=== PATIENT | male | born 1955 | race Hispanic/Latino ===

== ENCOUNTER 2017-10-23 14:29 | Inpatient (IN) | payer OTHER ==
[2017-10-23] MEDS ORDERED: MORPHINE 4 MG/ML SYR ONE (15:16)
[2017-10-23] MEDS ORDERED: TETANUS & DIPHTHERIA TOX,ADULT 0.5 ML VIAL ONE (15:17)
[2017-10-23] MEDS ORDERED: NA CHLORIDE 0.9% 1,000 ML ONE (15:17)
[2017-10-23] MEDS ORDERED: ONDANSETRON 4 MG/2 ML VIAL ONE (15:17)
[2017-10-23] MEDS ORDERED: VANCOMYCIN 1 GM/250 ML BAG ONE (15:17)
[2017-10-23] MEDS ORDERED: PIPER/TAZO/NS 3.375gm 3.375 GM/100 ML BAG ONE (15:18)
[2017-10-23 15:29] LABS: Absolute Lymphocytes (CBC) 2.4 K/uL (0.7-4.9); Absolute Monocytes 0.8 K/uL (0.1-1.3); Absolute Neutrophil 8.4 K/uL (1.8-8.0); Basophils % 0.8 % (0-1.3); Eosinophils % 5.9 % (0-4.4); Hematocrit 29.7 % (39.6-49.0); Lymphocytes % 19.3 % (15.3-44.8); MCH 31.5 pg (27.0-35.0); MCV 92.1 fL (80-100); MPV 9.8 fL (7.6-11.3); Monocytes % 6.7 % (3.3-12.3); RBC Red Blood Cell Count 3.22 M/uL (4.33-5.43)
[2017-10-23 15:33] LABS: Protime INR 0.96
--- NOTE | 2017-10-23 15:52 | RAD REPORT ---
EXAM DESCRIPTION: VAS - Upper Lower Extrem Art Multi - 10/23/2017 3:37 pm CLINICAL HISTORY: Bilateral leg pain COMPARISON: None. TECHNIQUE: Grayscale and Doppler interrogation performed with waveforms obtained along the length of each lower extremity. Visual inspection of the lower extremity arterial tree performed. FINDINGS: Both lower extremities show a biphasic waveform pattern from groin to knee with monophasic waveform pattern in the posterior tibial and dorsalis pedis arteries. No occlusion or focal flow res tricting lesion identifiable. Calcifications are seen in the arterial tree. Common femoral artery velocity values are 104 cm/second on the right and 118 cm/second on the left. F emoral artery velocity values range from 63-93 cm/second on the right and 49-83 cm/second on the left . Popliteal artery velocity was 62 cm/second on the right and 127 cm/second on the left. Posterior ti bial and dorsalis pedis artery velocity values were 63 cm/second and 38 cm per second on the right an d 105 cm/second and 32 cm/second on the left. IMPRESSION: Bilateral lower extremity peripheral arterial disease is present moderate in severity. B iphasic and monophasic waveforms were obtained. No occlusion or focal flow restricting lesion.
[2017-10-23 15:54] LABS: ALT/SGPT 41 U/L (12-78); AST/SGOT 21 U/L (15-37); Albumin 3.3 g/dL (3.4-5.0); Alkaline Phosphatase 143 U/L (45-117); BUN Blood Urea Nitrogen 49 mg/dL (7-18); Bicarbonate 26 mmol/L (21-32); Bilirubin Direct < 0.1 mg/dL (0-0.2); Bilirubin Total 0.3 mg/dL (0.2-1.0); CKMB Creatine Kinase MB < 1.0 ng/mL (0.3-3.6); Creatine Phosphokinase 46 U/L (39-308); Glucose Level 335 mg/dL (74-106); Magnesium 2.6 mg/dL (1.8-2.4); NT PRO-BNP 15617 pg/mL (<125); Potassium 4.1 mmol/L (3.5-5.1); Protein, Total 7.9 g/dL (6.4-8.2); Sodium Level 131 mmol/L (136-145)
--- NOTE | 2017-10-23 15:57 | EDPHYS ---
Physician Documentation [facility] Name: Jelani Martinez Age: 62 yrs Sex: Male : 1955 Arrival Date: 10/23/2017 Time: 14:32 Bed 14 Private MD: Sofiya Werner ED Physician Saleem Molina HPI: 10/23 15:48 This 62 yrs old Male presents to ER via Wheelchair with complaints of Foot luis a Pain, Wound Infection. 15:48 The patient presents with decreased range of motion, an injury, pain, swelling, luis a tenderness. The complaints affect the right foot, dorsum of right foot and right fifth toe. Context: The problem was sustained at an unknown location, resulted from infection, necrosis. Onset: The symptoms/episode began/occurred 3 day(s) ago. Modifying factors: The symptoms are alleviated by nothing, elevation of extremity, the symptoms are aggravated by movement, wearing shoes. Associated signs and symptoms: The patient has no apparent associated signs or symptoms. Severity of symptoms: At their worst the symptoms were moderate, in the emergency department the symptoms are unchanged. The patient has experienced similar episodes in the past, several times. Historical: - Allergies: 14:46 No Known Allergies; iw - Home Meds: 15:21 Phenytoin 300 mg Oral daily [Active]; carvedilol 6.25 mg oral tab daily [Active]; iw aspirin 81 mg Oral TbEC 1 tab once daily [Active]; Renal Vitamin 0.8 mg oral tab daily [Active]; tramadol 50 mg Oral tab twice a day [Active]; acetaminophen-codeine 300-30 mg Oral tab 1 tab every 4 hours for Pain [Active]; lactulose 20 gram/30 mL Oral soln once daily [Active]; Levemir 100 unit/mL subcutaneous soln daily [Active]; 15:22 hydralazine 25 mg Oral tab three times a day [Active]; iw - PMHx: 14:46 Blind in Both Eyes; Diabetes - IDDM; Dialysis; High Cholesterol; Hypertension; iw neuropathy; - PSHx: 15:22 Unable to obtain; cc3 - Immunization history:: Adult Immunizations up to date. - Social history:: Smoking status: Patient/guardian denies using tobacco. - Ebola Screening: : Patient negative for fever greater than or equal to 101.5 degrees Fahrenheit, and additional compatible Ebola Virus Disease symptoms Patient denies exposure to infectious person Patient denies travel to an Ebola-affected area in the 21 days before illness onset No symptoms or risks identified at this time. - Family history:: not pertinent. ROS: 15:48 Constitutional: Negative for fever, chills, and weight loss, Eyes: Negative for injury, luis a pain, redness, and discharge, ENT: Negative for injury, pain, and discharge, Neck: Negative for injury, pain, and swelling, Cardiovascular: Negative for chest pain, palpitations, and edema, Respiratory: Negative for shortness of breath, cough, wheezing, and pleuritic chest pain, Abdomen/GI: Negative for abdominal pain, nausea, vomiting, diarrhea, and constipation, Back: Negative for injury and pain, : Negative for injury, bleeding, discharge, and swelling, Skin: Negative for injury, rash, and discoloration, Neuro: Negative for headache, weakness, numbness, tingling, and seizure, Psych: Negative for depression, anxiety, suicide ideation, homicidal ideation, and hallucinations, Allergy/Immunology: Negative for hives, rash, and allergies, Endocrine: Negative for neck swelling, polydipsia, polyuria, polyphagia, and marked weight changes, Hematologic/Lymphatic: Negative for swollen nodes, abnormal bleeding, and unusual bruising. 15:48 MS/extremity: Positive for decreased range of motion, pain, swelling, tenderness, of the dorsum of right foot and right fifth toe. Exam: 15:48 Constitutional: This is a well developed, well nourished patient who is awake, alert, luis a and in no acute distress. Head/Face: Normocephalic, atraumatic. Eyes: Pupils equal round and reactive to light, extra-ocular motions intact. Lids and lashes normal. Conjunctiva and sclera are non-icteric and not injected. Cornea within normal limits. Periorbital areas with no swelling, redness, or edema. ENT: Nares patent. No nasal discharge, no septal abnormalities noted. Tympanic membranes are normal and external auditory canals are clear. Oropharynx with no redness, swelling, or masses, exudates, or evidence of obstruction, uvula midline. Mucous membranes moist. Neck: Trachea midline, no thyromegaly or masses palpated, and no cervical lymphadenopathy. Supple, full range of motion without nuchal rigidity, or vertebral point tenderness. No Meningismus. Chest/axilla: Normal chest wall appearance and motion. Nontender with no deformity. No lesions are appreciated. Cardiovascular: Regular rate and rhythm with a normal S1 and S2. No gallops, murmurs, or rubs. Normal PMI, no JVD. No pulse deficits. Respiratory: Lungs have equal breath sounds bilaterally, clear to auscultation and percussion. No rales, rhonchi or wheezes noted. No increased work of breathing, no retractions or nasal flaring. Abdomen/GI: Soft, non-tender, with normal bowel sounds. No distension or tympany. No guarding or rebound. No evidence of tenderness throughout. Back: No spinal tenderness. No costovertebral tenderness. Full range of motion. Male : Normal genitalia with no discharge or lesions. Neuro: Awake and alert, GCS 15, oriented to person, place, time, and situation. Cranial nerves II-XII grossly intact. Motor strength 5/5 in all extremities. Sensory grossly intact. Cerebellar exam normal. Normal gait. Psych: Awake, alert, with orientation to person, place and time. Behavior, mood, and affect are within normal limits. 15:48 Skin: Appearance: necrotic right 5th toe, cellulitis, that is mild, that is moderate. 15:48 Neuro: Orientation: is normal, appropriate for stated age, no acute changes, Mentation: appropriate for stated age, no acute changes, slow to respond, Memory: no acute changes, Cerebellar function: is grossly normal based on the patient's age, no acute changes, Motor: moves all fours, Gait: not tested. Vital Signs: 14:44 BP 218 / 84; Pulse 80; Resp 18; Temp 98.1(TE); Pulse Ox 100% on R/A; Weight 79.38 kg; cc3 Height 5 ft. 8 in. (172.72 cm); Pain 10/10; 15:30 BP 241 / 97; Pulse 85; Resp 18; Pulse Ox 100% on R/A; cc3 16:30 BP 195 / 92; Pulse 84; Resp 18; Pulse Ox 100% on R/A; cc3 17:01 BP 195 / 91; Pulse 75; Resp 18; Pulse Ox 100% on R/A; cc3 14:44 Body Mass Index 26.61 (79.38 kg, 172.72 cm) cc3 MDM: 14:40 Patient medically screened. [facility] 15:51 Data reviewed: vital signs, nurses notes, lab test result(s), EKG, radiologic studies, luis a plain films. 10/23 14:46 Order name: Basic Metabolic Panel; Complete Time: 16:17 [facility] 10/23 14:46 Order name: CBC with Diff; Complete Time: 16:17 [facility] 10/23 14:46 Order name: Ckmb; Complete Time: 16:17 [facility] 10/23 14:46 Order name: CPK; Complete Time: 16:17 [facility] 10/23 14:46 Order name: LFT's; Complete Time: 16:17 [facility] 10/23 14:46 Order name: Magnesium; Complete Time: 16:17 [facility] 10/23 14:46 Order name: NT PRO-BNP; Complete Time: 16:17 [facility] 10/23 14:46 Order name: PT-INR; Complete Time: 16:17 [facility] 10/23 14:46 Order name: Ptt, Activated; Complete Time: 16:17 [facility] 10/23 14:46 Order name: Troponin (emerg Dept Use Only); Complete Time: 16:17 [facility] 10/23 14:46 Order name: Sed Rate; Complete Time: 16:17 [facility] 10/23 15:42 Order name: Dilantin [facility] 10/23 15:48 Order name: Blood Culture Adult (2) cc3 10/23 16:06 Order name: Blood Culture Adult (2) bd 10/23 14:46 Order name: XRAY Chest (1 view) [facility] 10/23 14:46 Order name: EKG; Complete Time: 14:47 [facility] 10/23 14:46 Order name: Cardiac monitoring; Complete Time: 14:54 [facility] 10/23 14:46 Order name: Foot Right 3 View XRAY [facility] 10/23 14:57 Order name: Upper Lower Extrem Art Multi; Complete Time: 16:17 EDMS 10/23 16:02 Order name: CONS Physician Consult [facility] 10/23 16:02 Order name: CONS Physician Consult [facility] 10/23 16:02 Order name: NPO EDSC 10/23 14:46 Order name: EKG - Nurse/Tech; Complete Time: 14:55 [facility] 10/23 14:46 Order name: IV Saline Lock; Complete Time: 16:18 [facility] 10/23 14:46 Order name: Labs collected and sent; Complete Time: 16:18 [facility] 10/23 14:46 Order name: O2 Per Protocol; Complete Time: 14:55 [facility] 10/23 14:46 Order name: O2 Sat Monitoring; Complete Time: 14:55 [facility] Administered Medications: 15:40 Drug: morphine 2 mg Route: IVP; Site: right forearm; cc3 15:45 Drug: Zofran 4 mg Route: IVP; Site: right forearm; cc3 17:05 Follow up: Response: No adverse reaction cc3 15:50 Drug: Zosyn 3.375 grams Route: IVPB; Infused Over: 60 mins; Site: right forearm; cc3 17:05 Follow up: IV Status: Completed infusion cc3 15:50 Drug: NS 0.9% 1000 ml Route: IV; Rate: 75 ml/hr; Site: right forearm; cc3 17:04 Follow up: IV Status: Infusion continued upon admission cc3 16:00 Drug: Tetanus-Diphtheria Toxoid Adult 0.5 ml {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 Exp: cc3 11/30/2018. Lot #: [id number]. } Route: IM; Site: right deltoid; 17:04 Follow up: Response: No adverse reaction cc3 17:09 Drug: vancoMYCIN 1 grams Route: IVPB; Infused Over: 2 hrs; Site: right forearm; cc3 17:09 Follow up: IV Status: Infusion continued upon admission cc3 Disposition: 10/23/17 15:57 Hospitalization ordered by Rigoberto Easton for Inpatient Admission. Preliminary diagnosis are Gangrene, not elsewhere classified, Type 1 diabetes mellitus, End stage renal disease, Elevated white blood cell count, Anemia, unspecified. - Bed requested for Telemetry/MedSurg (Inpatient). - Status is Inpatient Admission. iw - Condition is Fair. - Problem is new. - Symptoms have improved. UTI on Admission? No Signatures: Dispatcher [employer] Leslie Weeks Corey, MD MD cha Williams, Irene, RN RN Rebeca Power cc3 Corrections: (The following items were deleted from the chart) 14:57 14:47 Lower Extremity Arterial Bilat+US.RAD.BRZ ordered. EDMS EDMS 16:19 15:57 Hospitalization Ordered by Rigoberto Easton DO for Inpatient Admission. Preliminary luis a diagnosis is Gangrene, not elsewhere classified; Type 1 diabetes mellitus; End stage renal disease. Bed requested for Telemetry/MedSurg (Inpatient). Status is Inpatient Admission. Condition is Fair. Problem is new. Symptoms have improved. UTI on Admission? No. luis a 16:53 16:19 10/23/2017 15:57 Hospitalization Ordered by Rigoberto Easton DO for Inpatient bd Admission. Preliminary diagnosis is Gangrene, not elsewhere classified; Type 1 diabetes mellitus; End stage renal disease; Elevated white blood cell count; Anemia, unspecified. Bed requested for Telemetry/MedSurg (Inpatient). Status is Inpatient Admission. Condition is Fair. Problem is new. Symptoms have improved. UTI on Admission? No. [facility] 18:00 16:53 10/23/2017 15:57 Hospitalization Ordered by Rigoberto Easton DO for Inpatient iw Admission. Preliminary diagnosis is Gangrene, not elsewhere classified; Type 1 diabetes mellitus; End stage renal disease; Elevated white blood cell count; Anemia, unspecified. Bed requested for Telemetry/MedSurg (Inpatient). Status is Inpatient Admission. Condition is Fair. Problem is new. Symptoms have improved. UTI on Admission? No. bd
--- NOTE | 2017-10-23 15:57 | ER ---
Nurse's Notes [facility] Name: Jelani Martinez Age: 62 yrs Sex: Male : 1955 Arrival Date: 10/23/2017 Time: 14:32 Bed 14 Private MD: Sofiya Werner Diagnosis: Gangrene, not elsewhere classified;Type 1 diabetes mellitus;End stage renal disease;Elevated white blood cell count;Anemia, unspecified Presentation: 10/23 14:44 Presenting complaint: Child states: sent from Dr. Velez's office for infected pinky toe iw on right foot. Transition of care: patient was received from another setting of care (ambulatory specialty care practice). Onset of symptoms was October 23, 2017. Risk Assessment: Do you want to hurt yourself or someone else? Patient reports no desire to harm self or others. Care prior to arrival: Injury dressed. 14:44 Method Of Arrival: Wheelchair iw 14:44 Acuity: SHINE 3 iw 14:44 Initial Sepsis Screen: Does the patient meet any 2 criteria? No. Patient's initial cc3 sepsis screen is negative. Does the patient have a suspected source of infection? No. Patient's initial sepsis screen is negative. Triage Assessment: 14:48 General: Appears in no apparent distress. General: Appears uncomfortable, romansh cc3 speaking only. Behavior is cooperative, anxious. 14:48 Pain: Complains of pain in right foot. EENT: Parent/caregiver reports the patient cc3 having the patient is blind as per patient's daughter. Neuro: Level of Consciousness is awake, alert, obeys commands, Oriented to person, place, time. Cardiovascular: Denies chest pain. Respiratory: Airway is patent Respiratory effort is even, unlabored, Respiratory pattern is regular, symmetrical. GI: No signs and/or symptoms were reported involving the gastrointestinal system. : No signs and/or symptoms were reported regarding the genitourinary system. Derm: No signs and/or symptoms reported regarding the dermatologic system. Derm: Wound noted right foot. Musculoskeletal: No signs and/or symptoms reported regarding the musculoskeletal system. Historical: - Allergies: 14:46 No Known Allergies; iw - Home Meds: 15:21 Phenytoin 300 mg Oral daily [Active]; carvedilol 6.25 mg oral tab daily [Active]; iw aspirin 81 mg Oral TbEC 1 tab once daily [Active]; Renal Vitamin 0.8 mg oral tab daily [Active]; tramadol 50 mg Oral tab twice a day [Active]; acetaminophen-codeine 300-30 mg Oral tab 1 tab every 4 hours for Pain [Active]; lactulose 20 gram/30 mL Oral soln once daily [Active]; Levemir 100 unit/mL subcutaneous soln daily [Active]; 15:22 hydralazine 25 mg Oral tab three times a day [Active]; iw - PMHx: 14:46 Blind in Both Eyes; Diabetes - IDDM; Dialysis; High Cholesterol; Hypertension; iw neuropathy; - PSHx: 15:22 Unable to obtain; cc3 - Immunization history:: Adult Immunizations up to date. - Social history:: Smoking status: Patient/guardian denies using tobacco. - Ebola Screening: : Patient negative for fever greater than or equal to 101.5 degrees Fahrenheit, and additional compatible Ebola Virus Disease symptoms Patient denies exposure to infectious person Patient denies travel to an Ebola-affected area in the 21 days before illness onset No symptoms or risks identified at this time. - Family history:: not pertinent. Screenin:48 Abuse screen: Denies threats or abuse. cc3 14:48 Nutritional screening: On renal diet. Tuberculosis screening: No symptoms or risk cc3 factors identified. Fall Risk IV access (20 points). Ambulatory Aid- Crutches/Cane/Walker (15 pts). Gait- Weak (10 pts.). Mental Status- Oriented to own ability (0 pts). Sepsis Screening: . Infection: Patient has suspected or documented infection. Assessment: 14:48 Reassessment: see triage assessment;. cc3 15:30 Reassessment: Patient and/or family updated on plan of care and expected duration. Pain cc3 level reassessed. Patient is alert, oriented x 3, equal unlabored respirations, skin warm/dry/pink. Patient's daughter Peidad Richardson left her mobile number [phone]. 16:30 Reassessment: Patient and/or family updated on plan of care and expected duration. Pain cc3 level reassessed. Patient is alert, oriented x 3, equal unlabored respirations, skin warm/dry/pink. Patient states feeling better. Patient states symptoms have improved. 17:20 Reassessment: Patient is alert, oriented x 3, equal unlabored respirations, skin cc3 warm/dry/pink. for admission to room 207, report called to nurse Roselyn. Patient states feeling better. Vital Signs: 14:44 BP 218 / 84; Pulse 80; Resp 18; Temp 98.1(TE); Pulse Ox 100% on R/A; Weight 79.38 kg; cc3 Height 5 ft. 8 in. (172.72 cm); Pain 10/10; 15:30 BP 241 / 97; Pulse 85; Resp 18; Pulse Ox 100% on R/A; cc3 16:30 BP 195 / 92; Pulse 84; Resp 18; Pulse Ox 100% on R/A; cc3 17:01 BP 195 / 91; Pulse 75; Resp 18; Pulse Ox 100% on R/A; cc3 14:44 Body Mass Index 26.61 (79.38 kg, 172.72 cm) cc3 ED Course: 14:32 Patient arrived in ED. sb2 14:32 Sofiya Werner MD is Private Physician. sb2 14:40 Saleem Molina MD is Attending Physician. luis a 14:44 Arm band placed on right wrist. cc3 14:44 Patient has correct armband on for positive identification. Placed in gown. Bed in low cc3 position. Call light in reach. Side rails up X 1. Adult w/ patient. 14:45 Triage completed. iw 15:00 Note: PT IN US . ml 15:00 Initial lab(s) drawn, by me, sent to lab. Inserted saline lock: 20 gauge in right cc3 forearm, using aseptic technique. Blood collected. 15:04 EKG done, by finishing lab technician. reviewed by Saleem Molina MD. at1 15:37 Upper Lower Extrem Art Multi In Process Unspecified. EDMS 15:50 XRAY Chest (1 view) In Process Unspecified. EDMS 15:50 Foot Right 3 View XRAY In Process Unspecified. EDMS 15:54 Rigoberto Easton DO is Hospitalizing Provider. luis a 17:50 No provider procedures requiring assistance completed. hj 17:50 Patient admitted, IV remains in place. intact. hj 18:00 Baldemar Cano, RN is Primary Nurse. 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 Exp: cc3 11/30/2018. Lot #: [id number]. } Route: IM; Site: right deltoid; 17:04 Follow up: Response: No adverse reaction cc3 17:09 Drug: vancoMYCIN 1 grams Route: IVPB; Infused Over: 2 hrs; Site: right forearm; cc3 17:09 Follow up: IV Status: Infusion continued upon admission cc3 Outcome: 15:57 Decision to Hospitalize by Provider. luis a 17:50 Admitted to Med/surg accompanied by nurse, via stretcher, room 207, with chart, Report hj called to SHADY Howell 17:50 Condition: stable hj 17:50 Instructed on the need for admit, Demonstrated understanding of instructions. 18:00 Patient left the ED. iw Signatures: Dispatcher [employer] EDMS Saleem Molina MD MD cha Williams, Irene, RN Val Mercado Amanda, exercise rider EKG Tat1 Baldemar Cano RN RN hj Billeau, Sheri sbRebeca Weiss cc3
[2017-10-23] MEDS ORDERED: ACETAMINOPHEN 500 MG TAB PO PRN (17:04)
[2017-10-23] MEDS ORDERED: ONDANSETRON 4 MG/2 ML VIAL IV PRN (17:04)
--- NOTE | 2017-10-23 17:26 | EKG ---
Test Date: 2017-10-23 Test Time: 14:54:27 Emblem Maker: RAPHAEL MEASUREMENT RESULTS: Intervals: Rate: 80 IL: 156 QRSD: 96 QT: 432 QTc: 498 [place]: P: 15 IL: 156 QRS: -13 T: 38 INTERPRETIVE STATEMENTS: Normal sinus rhythm Septal infarct, age undetermined Abnormal ECG Compared to ECG 06/24/2016 14:09:56 Sinus bradycardia no longer present Myocardial infarct finding still present Electronically Signed On 10-23-17 17:25:55 CDT by Clinton Mckeon
[2017-10-23] MEDS ORDERED: VANCOMYCIN 500 MG in NA CHLORIDE 0.9% 100 ML IVPB SCH (17:30)
--- NOTE | 2017-10-23 18:12 | RAD REPORT ---
EXAM DESCRIPTION: RAD - Chest Single View - 10/23/2017 3:50 pm CLINICAL HISTORY: Wound infection, preoperative examination COMPARISON: June 2016 TECHNIQUE: AP portable chest image was obtained 1541 hour . FINDINGS: Lung volumes are very low. No peripheral mass or consolidation suspected. When adjusting f or the poor inspiratory effort, lung markings are not substantially different. Trachea is midline. He art and vasculature are normal. No measurable pleural effusion and no pneumothorax. No gross bony abn ormality seen. No acute aortic findings suspected. IMPRESSION: No acute cardiopulmonary process. Lung markings are not substantially different from comparison.
--- NOTE | 2017-10-23 18:14 | RAD REPORT ---
EXAM DESCRIPTION: RAD - Foot Right 3 View - 10/23/2017 3:50 pm CLINICAL HISTORY: Soft tissue infection fifth toe COMPARISON: None. FINDINGS: Soft tissues of the fifth toe are mildly prominent. No foreign body is seen. Patient has p rominent arterial calcifications. Phalanges of the fifth toe show no acute or destructive process. Os teomyelitis can be present prior to radiographic bone destruction. Elsewhere in the foot there degenerative changes present and the bones are relatively osteopenic for patient age. No acute or destructive process noted. IMPRESSION: No acute or destructive findings to the fifth toe. Osteomyelitis can be present prior to radiographic bone destruction.
--- NOTE | 2017-10-23 18:17 | P.HP ---
Certification for Inpatient Patient admitted to: Inpatient With expected LOS: >2 Midnights Patient will require the following post-hospital care: Other Practitioner: I am a practitioner with admitting privileges, knowledge of patient current condition, hospital course, and medical plan of care. Services: Services provided to patient in accordance with Admission requirements found in Title 42 Section 412.3 of the Code of Federal Regulations Patient History Date of Service: 10/23/17 Primary Care Provider: [place], Surgery-Dr. Velez; Nephrology-Dr. Werner Reason for admission: Right 5th toe gangrene History of Present Illness: 62 year old male from a [facility] sent to the ER after he was evaluated by surgery. Patient has right gangrene of 5th toe. Surgery evaluated wound today. Surgery recommends amputation. Patient was admitted for treatment. Patient has dementia and not able to give appropriate information. No family members were present. Patient denied any fever, chills. Surgery plans for intervention tomorrow. Patient has history of diabetes, end-stage renal disease on dialysis, previous amputations. Patient denies any significant chest pain, shortness of breath, fever or chills. Patient currently lives [facility]. He has been there for quite some time. Allergies No Known Drug Allergies Allergy (Verified 06/12/16 23:42) Unknown No Known Allergies Allergy (Uncoded 07/06/16 22:09) Unknown Home medications list reviewed: Yes Home Medications: Acetaminophen with Codeine [Acetaminophen-Cod #3 Tablet] 1 tab PO Q6H PRN Aspirin [Aspirin EC 81 MG] 81 mg PO DAILY 06/12/16 Docusate [Colace Cap*] 100 mg PO DAILY 06/12/16 Folic Acid/Vit Bcomp,C [Shell-Shannon Tablet] 1 tab PO DAILY 06/12/16 Gabapentin 300 mg PO DAILY 06/12/16 Phenytoin Sodium Extended [Phenytek] 200 mg PO TID 06/12/16 Carvedilol [Coreg*] 12.5 mg PO BID #60 tab 06/15/16 Insulin Detemir [Levemir Flextouch] 10 units SQ BEDTIME #1 insuln.pen 06/15/16 Sulfamethoxazole/Trimethoprim [Bactrim Ds Tablet] 2 each PO BID #40 tablet 07/08 Tramadol HCl [Ultram] 50 mg PO Q6HR PRN #20 tablet 07/08/16 - Past Medical/Surgical History Diabetic: Yes -: Diabetes mellitus type 2 -: HTN -: Blindness -: End-stage renal disease on dialysis -: Hyperlipidemia -: Diabetic neuropathy -: Previous amputations -: Seizure disorder -: dialysis catheter placement -: amputation left 4th toe Psychosocial/ Personal History: Patient is currently at the [facility]. - Family History Mother -: Diabetes - Social History Smoking Status: Unknown if ever smoked Alcohol use: No CD- Drugs: No Caffeine use: Yes Place of Residence: [place] Review of Systems General: Unremarkable Eyes: Unremarkable ENT: Unremarkable Respiratory: Unremarkable Cardiovascular: Unremarkable Gastrointestinal: Unremarkable Genitourinary: Unremarkable Musculoskeletal: Unremarkable Integumentary: As per HPI Neurological: As per HPI Lymphatics: Unremarkable Physical Examination - Vital Signs Temperature: 98.1 F Blood Pressure: 195/91 Pulse: 75 Respirations: 18 - Physical Exam General: Alert, In no apparent distress, Cooperative, Demented HEENT: Atraumatic, Other (Patient is blind ) Neck: Supple, No Thyromegaly Respiratory: Clear to auscultation bilaterally, Normal air movement Cardiovascular: Normal pulses, Regular rate/rhythm Gastrointestinal: Normal bowel sounds, Soft and benign, Non-distended, No tenderness, No masses, No rebound, No guarding Musculoskeletal: No erythema, No tenderness, No warmth Integumentary: Other (Right foot bandaged. Patient reported with of right 5th toe gangrene.) Neurological: Normal speech, Normal strength at 5/5 x4 extr, Normal tone, Dementia - Studies Laboratory Data (last 24 hrs) 10/23/17 15:00: PT 11.3, INR 0.96, APTT 23.2 L 10/23/17 15:00: WBC 12.4 H, Hgb 10.1 L, Hct 29.7 L, Plt Count 320 10/23/17 15:00: Sodium 131 L, Potassium 4.1, BUN 49 H, Creatinine 7.20 H*, Glucose 335 H, Magnesium 2.6 H, Total Bilirubin 0.3, AST 21, ALT 41, Alkaline Phosphatase 143 H Assessment and Plan - Problems (Diagnosis) (1) Peripheral vascular disease Current Visit: Yes Status: Chronic Plan: Her tear Doppler shows moderate vascular disease. Cardiology has been consulted to further assess. Surgery plans for amputation of the 5th toe. Will continue with IV antibiotic therapy. I will turn the service over to Dr. Vu tomorrow. I will go over the plan of care with her. (2) Anemia Current Visit: Yes Status: Chronic Plan: Patient has anemia of chronic disease likely from chronic dialysis. Currently stable this time. Qualifiers: Anemia type: due to chronic kidney disease Chronic kidney disease stage: on chronic dialysis Qualified Code(s): N18.6 - End stage renal disease; D63.1 - Anemia in chronic kidney disease; Z99.2 - Dependence on renal dialysis (3) Seizure disorder Current Visit: Yes Status: Chronic Plan: Patient will need to be restarted on his medication. (4) Blindness Current Visit: Yes Status: Chronic Plan: This is chronic. (5) Gangrenous toe Onset Date: 07/08/16 Current Visit: No Status: Acute Plan: Patient with 5th toe right side gangrene. Surgery has evaluated patient. Surgery plans for amputation tomorrow. Will continue IV antibiotic therapy. Patient will go back to the [facility] once stable. (6) Diabetes mellitus Onset Date: 07/08/16 Current Visit: No Status: Chronic Plan: Will continue with sliding scale. 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 Nephrology consulted. (8) Hypertension Onset Date: 06/13/16 Current Visit: No Status: Chronic Plan: Will need to continue with his medications. Qualifiers: Hypertension type: renovascular hypertension Qualified Code(s): I15.0 - Renovascular hypertension Discharge Plan: Half-Way Plan to discharge in: Greater than 2 days - Advance Directives Does patient have a Living Will: No Does patient have a Durable POA for Healthcare: No - Code Status/Comfort Care Code Status Assessed: Yes Time Spent Managing Pts Care (In Minutes): 55
[2017-10-23] MEDS: CARVEDILOL 3.125 MG TAB PO SCH (18:51)
[2017-10-23] MEDS: HYDROCODONE/APAP 7.5/325 MG TAB PO PRN (18:51)
[2017-10-23] MEDS ORDERED: PIPER/TAZO/NS 3.375gm 3.375 GM/100 ML BAG IVPB SCH (21:00)
[2017-10-23] MEDS: TRAMADOL HCL 50 MG TAB PO PRN (21:59)
[2017-10-23] MEDS: INSULIN -REGULAR HUMAN 50 UNIT/0.5 ML ML SQ SCH (21:59)
[2017-10-23] MEDS: HYDRALAZINE HCL 25 MG TABLET PO SCH (21:59)
[2017-10-23 23:58] LABS: Urine Appearance CLEAR; Urine Bilirubin NEGATIVE (NEG); Urine Blood NEGATIVE (NEG); Urine Color YELLOW; Urine Glucose 2+ (NEG); Urine Protein 3+ (NEG); Urine Specific Gravity 1.015 (1.005-1.030); Urine Urobilinogen 0.2 mg/dL (0.2-1.0)
[2017-10-24] LABS: Urine Microscopic Reflex ORDER UMIC
[2017-10-24] MEDS: PIPER/TAZO/NS 2.25gm 2.25 GM/50 ML BAG IV SCH ×3 (00:17→17:42)
[2017-10-24] MEDS: HYDROCODONE/APAP 7.5/325 MG TAB PO PRN ×3 (00:17→19:15)
[2017-10-24 00:24] LABS: Urine Bacteria <20 /HPF (NONE SEEN); Urine Culture Reflex Order NOT NEEDED; Urine RBC <5 /HPF (NONE SEEN)
[2017-10-24 01:41] VITALS: BMI 26.6
[2017-10-24] MEDS: TRAMADOL HCL 50 MG TAB PO PRN ×2 (05:19→21:05)
[2017-10-24] MEDS: CARVEDILOL 3.125 MG TAB PO SCH ×2 (05:20→17:41)
[2017-10-24] MEDS: PANTOPRAZOLE 40MG TABLET PO SCH (06:29)
[2017-10-24 07:20] LABS: Absolute Lymphocytes (CBC) 1.6 K/uL (0.7-4.9); Absolute Monocytes 0.8 K/uL (0.1-1.3); Absolute Neutrophil 7.8 K/uL (1.8-8.0); Basophils % 0.7 % (0-1.3); Eosinophils % 6.8 % (0-4.4); Lymphocytes % 14.6 % (15.3-44.8); MCH 31.4 pg (27.0-35.0); MCV 90.2 fL (80-100); MPV 9.6 fL (7.6-11.3); Monocytes % 7.2 % (3.3-12.3); RBC Red Blood Cell Count 2.99 M/uL (4.33-5.43)
[2017-10-24 07:53] LABS: Magnesium 2.4 mg/dL (1.8-2.4); Potassium 4.4 mmol/L (3.5-5.1)
[2017-10-24] MEDS: INSULIN -REGULAR HUMAN 50 UNIT/0.5 ML ML SQ SCH ×4 (08:41→22:37)
[2017-10-24] MEDS: HYDRALAZINE HCL 25 MG TABLET PO SCH ×2 (08:41→21:06)
[2017-10-24] MEDS ORDERED: VANCOMYCIN 1 GM in NA CHLORIDE 0.9% 500 ML IVPB SCH (09:00)
[2017-10-24] MEDS ORDERED: PROPOFOL 200 MG/20 ML VIAL IV ONE (10:31)
[2017-10-24] MEDS ORDERED: LIDOCAINE 1% MPF 5 ML VIAL ONE ×2 (10:31)
[2017-10-24] MEDS ORDERED: MIDAZOLAM HCL 2 MG/2 ML INJ ONE (10:31)
[2017-10-24] MEDS ORDERED: NA CHLORIDE 0.9% 500 ML ONE (10:51)
[2017-10-24] MEDS: CEFAZOLIN/SWI 1gm 1 GM/10 ML SYR ONE ×2 (11:06→11:10)
--- NOTE | 2017-10-24 11:08 | RAD REPORT ---
EXAM DESCRIPTION: Nelda Single View10/24/2017 10:54 am CLINICAL HISTORY: Shortness of breath COMPARISON: October 23, 2017 FINDINGS: Mild bilateral opacities have developed. The heart is mildly to moderately enlarged. IMPRESSION: Mild pulmonary edema
--- NOTE | 2017-10-24 11:37 | P.OP ---
Preoperative diagnosis: Gangrene Right 5th Toe Postoperative diagnosis: Same Primary procedure: Right 5th Toe T-M Amputation Anesthesia: General Estimated blood loss: min Specimen: Toe Findings: as above Complications: None Transferred to: Recovery Room Condition: Good
--- NOTE | 2017-10-24 14:04 | PREOPCON ---
Date of Consultation: 10/23/2017 Reason For Consultation: Gangrene, right 5th toe. History Of Present Illness: The patient is a 62-year-old gentleman with multiple medical problems, w chaitanya [facility] afternoon complaining of severe pain in his right foot. On evaluation, he had gangrene. I advised the daughter to take him to the emergency ro om to be admitted as he needs urgent care. He is awake, but he is confused secondary to mental issue s, unable to provide an adequate review of systems. There have been no fever or chills. There is a foul odor to the wound and the patient just complains about pain. Review of Systems: Otherwise unremarkable. Past Medical History: Significant for diabetes type 2, hypertension, blindness, end-stage renal dise ase, seizure disorder. Past Surgical History: Amputation of the left 4th toe, dialysis catheter placement and fistula surge ry. Allergies: NONE. Social History: The patient does not smoke or drink currently. Family History: Significant for diabetes. Physical Examination: Vital Signs: Stable. He is afebrile. General: He is awake, confused. Head and Neck: No masses. Chest: Clear. Heart: S1, S2. Abdomen: Soft. Extremities: Diminished dorsalis pedis and posterior tibial pulses. The right 5th toes completely b lack. There is surrounding erythema slightly. There is a foul odor to the foot. Laboratory Data: White count on admission was 12.4, today it is 11 with sed rate being greater than 140. INR is within normal limits. Chemistry reviewed. BUN and creatinine are elevated as expected and sugar is high. His chest x-ray reviewed and does not show evidence of volume overload. Doppler study shows diffuse arterial disease. Foot x-ray does not show obvious osteo. Assessment: Gangrene, right 5th toe with peripheral vascular disease. Recommendations: Once the patient is medically stabilized and cleared from Nephrology, we will take the patient to the OR for right 5th transmetatarsal toe amputation. The daughter understands risks, benefits, alternatives, and agrees to procedure. /MODL Voice ID: [id number] Report ID: [id number]
--- NOTE | 2017-10-24 17:05 | P.PN ---
Subjective Date of Service: 10/24/17 Primary Care Provider: [place], Surgery-Dr. Velez; Nephrology-Dr. Werner Chief Complaint: Right 5th toe gangrene Subjective: No C/O voiced, NPO, Doing well (Awaiting Surgical Procedure today) Review of Systems General: As per HPI Physical Examination - Vital Signs Temperature: 98.0 F Blood Pressure: 153/70 Pulse: 69 Respirations: 16 Pulse Ox (%): 98 - Physical Exam General: Alert, In no apparent distress HEENT: Atraumatic, PERRLA, EOMI Neck: Supple, JVD not distended Respiratory: Clear to auscultation bilaterally, Normal air movement Cardiovascular: Regular rate/rhythm, Normal S1 S2 Gastrointestinal: Normal bowel sounds, No tenderness Musculoskeletal: No tenderness Integumentary: Skin breakdown, Skin lesion, Diabetic ulcer Neurological: Normal speech, Normal tone, Normal affect Lymphatics: No axilla or inguinal lymphadenopathy - Studies Medications List Reviewed: Yes Assessment & Plan - Problems (Diagnosis) (1) Gangrenous toe Onset Date: 07/08/16 Current Visit: No Status: Acute Plan: right 5th toe necrosis -Surgery Consulted. Appreciated Reccs -Awaiting for surgical procedure today with Dr Velez -On IV vanc and zosyn -Culture pending (2) Peripheral vascular disease Onset Date: 10/24/17 Current Visit: Yes Status: Chronic (3) Seizure disorder Onset Date: 10/24/17 Current Visit: Yes Status: Chronic (4) CKD (chronic kidney disease), stage III Onset Date: 12/02/14 Current Visit: No Status: Acute (5) Hyperlipidemia Current Visit: No Status: Acute (6) Diabetes mellitus Onset Date: 07/08/16 Current Visit: No Status: Chronic Qualifiers: Diabetes mellitus type: type 2 Diabetes mellitus halfway insulin use: with termite control technician use Diabetes mellitus complication status: with hypoglycemia Diabetes mellitus complication detail: without coma Qualified Code(s): E11.649 - Type 2 diabetes mellitus with hypoglycemia without coma; Z79.4 - [facility] (current) use of insulin (7) ESRD (end stage renal disease) Onset Date: 07/08/16 Current Visit: No Status: Chronic (8) Hypertension Onset Date: 06/13/16 Current Visit: No Status: Chronic Qualifiers: Hypertension type: renovascular hypertension Qualified Code(s): I15.0 - Renovascular hypertension (9) Blindness Onset Date: 10/24/17 Current Visit: Yes Status: Chronic Discharge Plan: Home Plan to discharge in: 72 Hours - Code Status/Comfort Care Code Status Assessed: Yes Critical Care: No
--- NOTE | 2017-10-24 22:31 | OP ---
Date of Procedure: 10/24/2017 Surgeon: Jayy Velez MD Preoperative Diagnosis: Gangrene, right fifth toe. Postoperative Diagnosis: Gangrene, right fifth toe. Procedure: Right fifth toe transmetatarsal amputation. Estimated Blood Loss: Minimal. Specimen: Right fifth toe and metatarsal head. Findings: As above. Anesthesia: General. Complications: None. Disposition: The patient tolerated the procedure in stable condition and taken to Recovery in good g eneral condition. Procedure In Detail: The patient was brought to the OR and placed in supine position. General anest hesia was begun. The patient was prepped and draped in usual sterile fashion. Marcaine 0.5% was inf iltrated locally. A 15-blade was used to make an ellipse of skin around the base of the fifth toe on the right side. Subcutaneous tissue divided. The entire toe excised, sent to Pathology as specimen . The metatarsal head identified, mobilized with sharp and blunt dissection, and the metatarsal head cut. The rough edges were smoothened with a rasp and then wound irrigated. Bleeding controlled wit h cautery and then 2-0 chromic used to approximate the subcutaneous tissue and 3-0 nylon used to loos rylan close the wound. A Hickman drain quarter-inch was placed in the wound for drainage purposes and then sterile dressing was applied. The patient was awakened and taken to Recovery in good general conditi on. /MODL Voice ID: [id number] Report ID: [id number]
[2017-10-25] MEDS: HYDROCODONE/APAP 7.5/325 MG TAB PO PRN ×3 (00:44→17:41)
[2017-10-25] MEDS: PIPER/TAZO/NS 2.25gm 2.25 GM/50 ML BAG IV SCH ×3 (00:44→17:41)
--- NOTE | 2017-10-25 03:02 | CON ---
Additional Consulting Physician: Rigoberto Easton D.O. Reason For Consultation: Elevated BUN and creatinine, fluid management. History Of Present Illness: This is a 62-year-old gentleman, well known to me from the dialysis with significant past medical history of end-stage renal disease, on hemodialysis, TTS, at [facility] em[facility] through left AV arm fistula, hypertension, and hyperlipidemia. The patient was in h is regular state of health. The patient was found to have gangrenous toe. For that reason, the charli ent was admitted to the hospital, seen by surgery plan for amputation. The patient denied any fever, any chills. Lab showed elevation in BNP, elevation in BUN. For that reason, we have been consulted . The patient is due for dialysis today. Past Medical History: Includes; 1.Diabetes complicated with neuropathy, retinopathy. 2.Hypertension. 3.Hyperlipidemia. 4.End-stage renal disease, on hemodialysis, TTS, at [facility] [facility]. Allergies: NO KNOWN DRUG ALLERGIES. Social History: Denies smoking, denies drinking, and denies drug abuse. At [facility], [place]. Family History: Positive for diabetes. Past Surgical History: Includes; 1.Catheter placement. 2.Amputation of the 4th toe. 3.Angioplasty. Review of Systems: Head and Neck: No red eye. No ear pain. GI: No nausea, no vomiting. : No polyuria. No dysuria. No hematuria. RN X RAY: Not applicable. Respiratory: No shortness of breath. Cardiovascular: No chest pain. Neuro: Has neuropathy. Musculoskeletal: Has foot pain. Endocrine: No polydipsia. Skin: No rash. Physical Examination: Vital Signs: When I saw the patient, blood pressure 172/84, pulse of 98. Chest: Faint crackles in the base. Heart: S1, S2. Regular. Abdomen: Soft, nontender. Extremities: Gangrenous toe. Amputation of the 4th toe. Laboratory Data: WBC 11.0, H and H 9.4/27, and platelets are 304. Sodium 134, potassium 4.4, bicarb 24, BUN 62, creatinine 7.7, calcium 8.2, and magnesium 2.4. Medications: Current home medications include tramadol, Bactrim, folic acid, carvedilol 12.5, Tyleno l, and aspirin. Current medications in the hospital include Coreg, hydrocodone, pantoprazole, Zosyn, and vancomycin with the tramadol. Assessment And Plan: 1.End-stage renal disease. We will arrange for the dialysis around the surgery. The patient is candido ared from the renal standpoint for surgery. 2.Hypertension, controlled optimal. We will utilize blood pressure for more ultrafiltration. I am going to go ahead and decrease beta oli. 3.Congestive heart failure. We will ultrafiltrate on the dialysis to establish better volume contro l. 4.Gangrenous toe. Agree with antibiotic, follow up with Surgery. 5.Diabetes as by primary. 6.Over volume. We will challenge the patient with ultrafiltration today. STEPHANIE/YOHANA Voice ID: [id number] Report ID: [id number]
[2017-10-25 05:23] LABS: Absolute Lymphocytes (CBC) 1.6 K/uL (0.7-4.9); Absolute Monocytes 0.9 K/uL (0.1-1.3); Absolute Neutrophil 6.5 K/uL (1.8-8.0); Basophils % 0.5 % (0-1.3); Eosinophils % 6.2 % (0-4.4); Hematocrit 28.8 % (39.6-49.0); Lymphocytes % 16.6 % (15.3-44.8); MCH 32.2 pg (27.0-35.0); MCV 90.9 fL (80-100); MPV 9.2 fL (7.6-11.3); RBC Red Blood Cell Count 3.17 M/uL (4.33-5.43)
[2017-10-25 05:40] LABS: Magnesium 2.4 mg/dL (1.8-2.4); Potassium 3.9 mmol/L (3.5-5.1)
[2017-10-25] MEDS: TRAMADOL HCL 50 MG TAB PO PRN (05:46)
[2017-10-25] MEDS: CARVEDILOL 3.125 MG TAB PO SCH ×2 (05:46→17:40)
[2017-10-25] MEDS: PANTOPRAZOLE 40MG TABLET PO SCH (05:46)
[2017-10-25] MEDS: INSULIN -REGULAR HUMAN 50 UNIT/0.5 ML ML SQ SCH ×4 (07:30→21:28)
[2017-10-25] MEDS: HYDRALAZINE HCL 25 MG TABLET PO SCH ×2 (08:38→20:00)
[2017-10-25] MEDS: HYDROMORPHONE HCL 1 MG/ML INJ IV PRN (11:16)
--- NOTE | 2017-10-25 13:05 | P.PN ---
Subjective Date of Service: 10/25/17 Primary Care Provider: [place], Surgery-Dr. Velez; Nephrology-Dr. Werner Chief Complaint: Right 5th toe gangrene Pt seen and examined at bedside. Doing well overall. No C.o overnight. S.P Toe amputation. C.o today of having pain in the right toe. Added dilaudid Review of Systems General: As per HPI Physical Examination - Vital Signs Temperature: 96.6 F Blood Pressure: 214/97 Pulse: 83 Respirations: 18 Pulse Ox (%): 99 - Physical Exam General: Alert, In no apparent distress HEENT: Atraumatic, PERRLA, EOMI Neck: Supple, JVD not distended Respiratory: Clear to auscultation bilaterally, Normal air movement Cardiovascular: Regular rate/rhythm, Normal S1 S2 Gastrointestinal: Normal bowel sounds, No tenderness Musculoskeletal: Other (Right Toe with Darwin Wrap. No swelling or erthyema noted. Incision site C/D/I) Integumentary: No rashes Neurological: Normal speech, Normal tone, Normal affect Lymphatics: No axilla or inguinal lymphadenopathy - Studies Medications List Reviewed: Yes Assessment & Plan - Problems (Diagnosis) (1) Gangrenous toe Onset Date: 07/08/16 Current Visit: No Status: Acute Plan: right 5th toe necrosis -Surgery Consulted. Appreciated Reccs -S/p Right Toe Amputation POD # 1 -On IV vanc and zosyn -Culture pending -Pain Mgmt with Diluadid and [place] (2) Peripheral vascular disease Onset Date: 10/24/17 Current Visit: Yes Status: Chronic (3) Seizure disorder Onset Date: 10/24/17 Current Visit: Yes Status: Chronic (4) CKD (chronic kidney disease), stage III Onset Date: 12/02/14 Current Visit: No Status: Acute (5) Hyperlipidemia Current Visit: No Status: Acute (6) Diabetes mellitus Onset Date: 07/08/16 Current Visit: No Status: Chronic Qualifiers: Diabetes mellitus type: type 2 Diabetes mellitus halfway insulin use: with halfway use Diabetes mellitus complication status: with hypoglycemia Diabetes mellitus complication detail: without coma Qualified Code(s): E11.649 - Type 2 diabetes mellitus with hypoglycemia without coma; Z79.4 - shelter (current) use of insulin (7) ESRD (end stage renal disease) Onset Date: 07/08/16 Current Visit: No Status: Chronic (8) Hypertension Onset Date: 06/13/16 Current Visit: No Status: Chronic Qualifiers: Hypertension type: renovascular hypertension Qualified Code(s): I15.0 - Renovascular hypertension (9) Blindness Onset Date: 10/24/17 Current Visit: Yes Status: Chronic Discharge Plan: Home Plan to discharge in: 48 Hours - Code Status/Comfort Care Code Status Assessed: Yes Critical Care: No
--- NOTE | 2017-10-25 14:01 | PN ---
Date of Progress Note: 10/25/2017 Subjective: The patient is awake alert complaining of pain in his right foot. Objective: Vital signs are stable. Afebrile. White count is normal. Dressing is clean, dry, and i ntact. Assessment: Status post right fifth toe transmetatarsal amputation. Recommendations: Continue IV antibiotics for the time being. I will add Dilaudid for pain managemen t. Once his pain is controlled [facility] and I ca n follow him up in my office in 2 weeks. /MODL Voice ID: [id number] Report ID: [id number]
[2017-10-25] MEDS ORDERED: LACTULOSE 20 GM/30 ML UCUP PO PRN (15:31)
[2017-10-25] MEDS: CALCIUM CARBONATE CHEW 500MG TAB PO SCH (17:00)
[2017-10-25] MEDS: SEVELAMER CARBONATE 800 MG TABLET PO SCH (17:40)
[2017-10-26] MEDS: PIPER/TAZO/NS 2.25gm 2.25 GM/50 ML BAG IV SCH ×2 (01:00→08:58)
[2017-10-26 01:59] VITALS: O2SAT 97
--- NOTE | 2017-10-26 05:14 | PN ---
Date of Progress Note: 10/25/2017 Subjective: The patient is status post toe amputation, status post dialysis yesterday, tolerated the dialysis. Physical Examination: Vital Signs: Blood pressure 180/90, pulse of 75, afebrile. Chest: Clear to auscultation. Heart: S1, S2. Regular. Abdomen: Soft and nontender. Extremities: Dressing on right foot. Forefoot amputation on the left. Laboratory Data: WBC 9.6, H and H 10.2/28.8. Sodium 137, potassium 3.9, bicarb 29, BUN 37, creatini ne 5.7, calcium 8.2, and magnesium 2.4. Medications: Current medications the patient on its include: 1.Aspirin. 2.Zosyn. 3.Vancomycin. 4.Tums. 5.Carvedilol 3.25. 6.Hydralazine 25 t.i.d. 7.Renvela. 8.Insulin. 9.Pantoprazole. Assessment And Plan: 1.End-stage renal disease, stable. We will arrange for the dialysis tomorrow. 2.Hypertension, uncontrolled. I am going to go ahead and increase his hydralazine to 50 mg t.i.d. a nd we will monitor after dialysis. We will try to challenge the patient. 3.Anemia of chronic kidney disease. Continue Epogen. 4.Secondary hyperparathyroidism, continue binder. 5.Gangrenous toe status post amputation. We will follow up with Surgery. Continue antibiotic. STEPHANIE/YOHANA Voice ID: [id number] Report ID: [id number]
[2017-10-26 06:12] LABS: Absolute Lymphocytes (CBC) 1.8 K/uL (0.7-4.9); Absolute Monocytes 0.8 K/uL (0.1-1.3); Absolute Neutrophil 6.7 K/uL (1.8-8.0); Basophils % 0.5 % (0-1.3); Eosinophils % 6.2 % (0-4.4); Hematocrit 26.8 % (39.6-49.0); Lymphocytes % 17.9 % (15.3-44.8); MCH 31.8 pg (27.0-35.0); MCV 91.4 fL (80-100); MPV 9.4 fL (7.6-11.3); RBC Red Blood Cell Count 2.94 M/uL (4.33-5.43)
[2017-10-26] MEDS: CARVEDILOL 3.125 MG TAB PO SCH (06:42)
[2017-10-26] MEDS: PANTOPRAZOLE 40MG TABLET PO SCH (06:42)
[2017-10-26 06:43] LABS: Magnesium 2.6 mg/dL (1.8-2.4); Potassium 4.1 mmol/L (3.5-5.1)
[2017-10-26] MEDS: INSULIN -REGULAR HUMAN 50 UNIT/0.5 ML ML SQ SCH ×2 (08:55→11:30)
[2017-10-26] MEDS: SEVELAMER CARBONATE 800 MG TABLET PO SCH ×2 (08:56→11:05)
[2017-10-26] MEDS: CALCIUM CARBONATE CHEW 500MG TAB PO SCH ×2 (08:57→11:05)
[2017-10-26] MEDS: HYDRALAZINE HCL 25 MG TABLET PO SCH ×2 (08:57→12:26)
[2017-10-26] MEDS ORDERED: PHENYTOIN ER 100 MG CAP PO SCH (09:00)
[2017-10-26] MEDS ORDERED: ASPIRIN EC 81 MG TAB PO SCH (09:00)
[2017-10-26] MEDS: HYDROCODONE/APAP 7.5/325 MG TAB PO PRN (11:07)
[2017-10-26 12:53] LABS: HBsAG Nonreactive (Nonreactive)
--- NOTE | 2017-10-26 13:45 | PN ---
Subjective: The patient is awake, alert. No complaint. Objective: Vital Signs: Stable, afebrile. Extremities: Dressing clean, dry, and intact. Assessment: Status post right fifth toe transmetatarsal amputation. Recommendation: The patient cleared for discharge on oral antibiotics. Followup in my office in [place]. LARA/YOHANA Voice ID: [id number] Report ID: [id number]
--- NOTE | 2017-10-26 13:54 | P.DS ---
Admission Date: 10/23/17 Discharge Date: 10/26/17 Primary Care Provider: [facility], Surgery-Dr. Velez; Nephrology-Dr. Werner Disposition: ROUTINE DISCHARGE Discharge Condition: GOOD Reason for Admission: Right 5th toe gangrene Consultations: Dr Velez Procedures: 5th Toe Amputation - Problems (1) Gangrenous toe Onset Date: 07/08/16 Current Visit: No Status: Acute (2) Peripheral vascular disease Onset Date: 10/24/17 Current Visit: Yes Status: Chronic (3) Seizure disorder Onset Date: 10/24/17 Current Visit: Yes Status: Chronic (4) CKD (chronic kidney disease), stage III Onset Date: 12/02/14 Current Visit: No Status: Acute (5) Hyperlipidemia Current Visit: No Status: Acute (6) Diabetes mellitus Onset Date: 07/08/16 Current Visit: No Status: Chronic Qualifiers: Diabetes mellitus type: type 2 Diabetes mellitus alf insulin use: with alf use Diabetes mellitus complication status: with hypoglycemia Diabetes mellitus complication detail: without coma Qualified Code(s): E11.649 - Type 2 diabetes mellitus with hypoglycemia without coma; Z79.4 - half-way (current) use of insulin (7) ESRD (end stage renal disease) Onset Date: 07/08/16 Current Visit: No Status: Chronic (8) Hypertension Onset Date: 06/13/16 Current Visit: No Status: Chronic Qualifiers: Hypertension type: renovascular hypertension Qualified Code(s): I15.0 - Renovascular hypertension (9) Blindness Onset Date: 10/24/17 Current Visit: Yes Status: Chronic Brief History of Present Illness: 62 year old male from a [place] [facility] sent to the ER after he was evaluated by surgery. Patient has right gangrene of 5th toe. Surgery evaluated wound today. Surgery recommends amputation. Patient was admitted for treatment. Patient has dementia and not able to give appropriate information. No family members were present. Patient denied any fever, chills. Surgery plans for intervention tomorrow. Patient has history of diabetes, end-stage renal disease on dialysis, previous amputations. Patient denies any significant chest pain, shortness of breath, fever or chills. Patient currently lives [facility]. He has been there for quite some time. Hospital Course: Overall patient remained stable during hospital visit Patient initially was admitted to the hospital from the [facility] for right 5th toe infection. General surgery was consulted. General surgery took the patient to the OR and performed 5th toe amputation. Patient did not have any complications during surgery and remained stable after the surgery as well. Patient was recovering well and thus was discharged home under stable condition with home health. Patient was given prescription for ciprofloxacin for total of 14 days post discharge. Patient lives at [facility] and thus was discharged back to [facility] without any complications. Vital Signs/Physical Exam: Temp Pulse Resp BP Pulse Ox 97.9 F 76 16 180/80 H 96 10/26/17 08:00 10/26/17 08:00 10/26/17 08:00 10/26/17 08:00 10/26/17 08:00 General: Alert, In no apparent distress HEENT: Atraumatic, PERRLA, EOMI Neck: Supple, JVD not distended Respiratory: Clear to auscultation bilaterally, Normal air movement Cardiovascular: Regular rate/rhythm, Normal S1 S2 Gastrointestinal: Normal bowel sounds, No tenderness Musculoskeletal: No tenderness Integumentary: No rashes Neurological: Normal speech, Normal tone, Normal affect Lymphatics: No axilla or inguinal lymphadenopathy Laboratory Data at Discharge: WBC 10.0 K/uL (4.3-10.9) 10/26/17 05:16 Hgb 9.3 g/dL (13.6-17.9) L 10/26/17 05:16 Hct 26.8 % (39.6-49.0) L 10/26/17 05:16 Plt Count 299 K/uL (152-406) 10/26/17 05:16 PT 11.3 SECONDS (9.5-12.5) 10/23/17 15:00 INR 0.96 10/23/17 15:00 APTT 23.2 SECONDS (24.3-36.9) L 10/23/17 15:00 Sodium 136 mmol/L (136-145) 10/26/17 05:16 Potassium 4.1 mmol/L (3.5-5.1) 10/26/17 05:16 BUN 55 mg/dL (7-18) H 10/26/17 05:16 Creatinine 7.20 mg/dL (0.55-1.3) H* D 10/26/17 05:16 Glucose 194 mg/dL (74-106) H 10/26/17 05:16 Magnesium 2.6 mg/dL (1.8-2.4) H 10/26/17 05:16 Total Bilirubin 0.3 mg/dL (0.2-1.0) 10/23/17 15:00 AST 21 U/L (15-37) 10/23/17 15:00 ALT 41 U/L (12-78) 10/23/17 15:00 Alkaline Phosphatase 143 U/L (45-117) H 10/23/17 15:00 Home Medications: Acetaminophen 650 mg PO Q4HP PRN 10/25/17 Aspirin [Adult Aspirin Regimen] 81 mg PO DAILY 10/25/17 Calcium Carbonate [Tums] 200 mg PO TIDWM 10/25/17 Carvedilol [Coreg*] 6.25 mg PO DAILY 10/25/17 Folic Acid/Vit Bcomp,C [Renal-Shannon Tablet] 0.8 mg PO DAILY 10/25/17 Hydralazine [Apresoline*] 25 mg PO TID 10/25/17 Insulin Detemir [Levemir Flextouch] 20 unit SQ DAILY 10/25/17 Lactulose 30 gm PO DAILY PRN 10/25/17 Phenytoin Sodium Extended [Phenytek] 300 mg PO DAILY 10/25/17 Sevelamer Carbonate [Renvela*] 800 mg PO TIDWM 10/25/17 traMADol HCL [Ultram*] 50 mg PO Q12HP PRN 10/25/17 Ciprofloxacin HCl [Cipro 250 MG Tablet*] 250 mg PO BID #28 tab 10/26/17 New Medications: Ciprofloxacin HCl [Cipro 250 MG Tablet*] 250 mg PO BID #28 tab Diet: Regular Activity: Ad good Followup: Jayy Velez MD [ACTIVE - CAN ADMIT] - 1 Week
[2017-10-26] MEDS: HYDROMORPHONE HCL 1 MG/ML INJ IV PRN (14:29)
--- NOTE | 2017-10-26 14:47 | PN ---
Date of Progress Note: 10/26/2017 Chief Complaint: End-stage renal disease, on dialysis. History Of Present Illness: The patient has history of diabetic kidney disease, peripheral vascular disease, diabetic foot infection. He came because of nonhealing lower extremity wound, was found to have osteomyelitis, and required transmetatarsal amputation of the left foot. Review of Systems: Denies fever, chills. Physical Examination: Lungs: Clear to auscultation bilaterally. Heart: S1-S2. Abdomen: Soft. Benign. Extremities: Dressing in place. Laboratory Data: Hemoglobin 10.2, WBC 9.6. Sodium 137, potassium 3.9, bicarbonate 29, BUN 37, creat inine 5.7, calcium 8.2, magnesium 2.4. Impression And Plan: 1.End-stage renal disease. Dialysis today with ultrafiltration. The patient does not have other fl uid overload. Continue maintenance ultrafiltration as needed. Monitor blood pressure closely during dialysis to prevent intradialytic hypotension. 2.Hypertension, uncontrolled. Continue hydralazine and dose was increased to 50 mg 3 times per day. 3.Anemia of chronic disease. Continue STEPHEN. 4.Secondary hyperparathyroidism. Monitor phosphorus level and continue low phosphorus diet and bind ers. 5.Gangrenous toe status post amputation. Continue antibiotics and wound care. EB/MODL Voice ID: [id number] Report ID: [id number]
[2017-10-26 17:32] VITALS: BP 126/70; TEMP 97.1
== END 2017-10-26 19:00 | DRG 255 ==
LOC: ER 14:29 → ERHOLD 15:58 → 2ND 17:42
PROVIDERS: ADMIT Family Medicine; ATTEND Family Medicine
PROC: 5A1D70Z Performance of Urinary Filtration, Intermittent, Less than 6 Hours Per Day (ICD-10-PCS; 2017-10-24)
PROC: 0Y6X0Z0 Detachment at Right 5th Toe, Complete, Open Approach (ICD-10-PCS; principal; 2017-10-24 10:45)
DX: E11.52 Type 2 diabetes mellitus with diabetic peripheral angiopathy with gangrene (principal); N18.6 End stage renal disease; I13.2 Hypertensive heart and chronic kidney disease with heart failure and with stage 5 chronic kidney disease, or end stage renal disease; N25.81 Secondary hyperparathyroidism of renal origin; E11.22 Type 2 diabetes mellitus with diabetic chronic kidney disease; Z99.2 Dependence on renal dialysis; E11.40 Type 2 diabetes mellitus with diabetic neuropathy, unspecified; Z23 Encounter for immunization; F03.90 Unspecified dementia, unspecified severity, without behavioral disturbance, psychotic disturbance, mood disturbance, and anxiety; Z79.82 Long term (current) use of aspirin; D63.1 Anemia in chronic kidney disease; G40.909 Epilepsy, unspecified, not intractable, without status epilepticus; H54.7 Unspecified visual loss; Z89.422 Acquired absence of other left toe(s); E78.5 Hyperlipidemia, unspecified; E11.319 Type 2 diabetes mellitus with unspecified diabetic retinopathy without macular edema; I50.9 Heart failure, unspecified
CPT/HCPCS: 36415; 71045; 80048; 80076; 80185; 80202; 81003; 81015; 82550; 82553; 82962; 83735; 83880; 84484; 85025; 85610; 85652; 85730; 86704; 86706; 86803; 87040; 87340; 88305; 90714; 90935; 93005; 93923; 96365; 96375; 97163; 99285; J0690; J1170; J2250; J2405; J2543; J3370; J7030

== ENCOUNTER 2018-05-26 12:07 | Inpatient (IN) | payer MEDICARE, OTHER ==
--- OUTSIDE RECORDS SUMMARY | 2018-05-26 12:11 | XMS REPORT | Clinical Summary ---
:1955 Author Organization [facility] Address [address] [place] [address] Care Team Providers Name Role Phone Pcp, No Primary Care Provider Unavailable Allergies No Known Allergies Medications Medication Sig Dispensed Refills Start End Date Status Date multivitamin per Take 1 tablet by 0 Active tablet mouth daily. zinc sulfate Take 220 mg by 0 Active (ZINCATE) 220 (50) mouth daily. mg capsule calcium carbonate Take 2 tablets by 0 Active (TUMS) 500 mg mouth 3 (three) chewable times daily. tabletIndications: with meals phenytoin extended Take 300 mg by 0 Active (DILANTIN) 300 MG mouth daily. ER capsule folic acid Take 1 mg by mouth 0 Active (FOLVITE) 1 MG daily. tablet ascorbic acid, Take 500 mg by 0 Active vitamin C, mouth 2 (two) times (ASCORBIC ACID daily. WITH KYLAH HIPS) 500 MG tablet hydrALAZINE Take 25 mg by mouth 0 Active (APRESOLINE) 25 MG 3 (three) times tablet daily. traMADol (ULTRAM) Take 50 mg by mouth 0 Active 50 mg tablet every 8 (eight) hours as needed for Pain. aspirin 81 MG EC Take 81 mg by mouth 0 Active tablet daily. acetaminophen Take 650 mg by 0 Active (TYLENOL) 325 MG mouth every 4 tablet (four) hours as needed for Pain. lactulose Take 20 g by mouth 0 Active (CHRONULAC) 20 continuous prn. gram/30 mL solution carvedilol (COREG) Take 2 tablets 0 Active 6.25 MG tablet (12.5 mg total) by 9 mouth nightly. gabapentin Take 1 capsule (100 0 05/22/19 Active (NEURONTIN) 100 MG mg total) by mouth 9 20 capsule 3 (three) times daily. sevelamer Take 3 tablets 0 05/22/19 Active (RENVELA) 800 mg (2,400 mg total) by 9 20 tablet mouth 3 (three) times daily with meals. insulin detemir Inject 12 Units 10 mL 0 Active U-100 (LEVEMIR) subcutaneously 2 9 100 unit/mL (two) times daily. injection carvedilol (COREG) Take 6.25 mg by 0 05/23/19 Discontinued 6.25 MG tablet mouth nightly. 19 insulin detemir Inject 12 Units 0 05/23/19 Discontinued U-100 (LEVEMIR) subcutaneously 19 100 unit/mL nightly . injection Active Problems Problem Noted Date Diabetes mellitus 05/18/2018 Leucocytosis 05/18/2018 Anemia 05/18/2018 Arterial insufficiency of lower extremity 05/17/2018 Hyperkalemia 05/17/2018 ESRD on dialysis 05/17/2018 Encounters Date Type Specialty Care Team Description 05/18/2018 Anesthesia Event Jeovanny Hassan MD 05/18/2018 Surgery Jang, AMPUTATION,BELOW KNEE Joshua Mahcuca MD 05/17/2018 - Hospital Encounter Cardiac Intensive Jose Jeong Arterial insufficiency of lower extremity (HCC) (Primary Dx); 05/22/2018 Care Suresh Jalloh MD Diabetes mellitus due to underlying condition with other circulatory complication, unspecified whether longterm insulin use ([facility]); Elly, Hypertension, uncontrolled; Crescencio Delacruz, Hyperkalemia; ESRD (end stage renal disease) ([facility]); Jatinder, Metabolic acidosis; MD Renan Acute blood loss anemia; ESRD on dialysis ([facility]); Hyperglycemia; Hyponatremia; Limb ischemia; Type 2 diabetes mellitus with complication, 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 Never 05/17/2018 How many drinks containing alcohol do you have on a typical Not asked day when you are drinking? How often do you have six or more drinks on one occasion? Not asked Sex Assigned at Date Recorded Not on file Job Start Date Occupation Industry Not on file Not on file Not on file Travel History Travel Start Travel End No recent travel history available. Last Filed Vital Signs Vital Sign Reading Time Taken Blood Pressure 159/65 05/22/2018 12:43 PM CDT Pulse 79 05/22/2018 1:00 PM CDT Temperature 36.4 C (97.6 F) 05/22/2018 12:00 PM CDT Respiratory Rate 15 05/22/2018 1:00 PM CDT Oxygen Saturation 98% 05/22/2018 1:00 PM CDT Inhaled Oxygen Concentration 21% 05/19/2018 7:52 AM OPERATIONS VICE PRESIDENT Weight 46 kg (101 lb 6.6 oz) 05/22/2018 6:00 AM CDT Height 160 cm (5' 3") 05/17/2018 2:29 PM OPERATIONS VICE PRESIDENT Body Mass Index 17.96 05/22/2018 6:00 AM CDT Plan of Treatment Not on file Implants Implanted Type Area Strategic Sourcing Specialist Device Shelf Model / Identifier Expiration Serial / Date Lot Pwdr Cellerate Clgn 1gm Strl [id number] - [id number] Tissue Right: WOUND CARE 11/10/2019 [id number] / Implanted: Qty: 1 on 05/18/2018 by Joshua Jang MD Graft/Subs Knee INNOVATIONS [employer] [id number] Procedures Procedure Name Priority Date/Time Associated Comments Diagnosis REPORT OF PROCEDURE - 05/24/2018 9:50 ENDOSCOPY SCAN AM CDT RHYTHM STRIP - SCAN 05/24/2018 9:50 AM CDT POCT-GLUCOSE METER Routine 05/22/2018 11:24 Results for this AM CDT procedure are in the results section. POCT-GLUCOSE METER Routine 05/22/2018 9:44 Results for this AM CDT procedure are in the results section. CBC W/PLT COUNT & Routine 05/22/2018 3:32 Results for this AUTO DIFFERENTIAL AM CDT procedure are in the results section. PHOSPHORUS Routine 05/22/2018 3:32 Results for this AM CDT procedure are in the results section. MAGNESIUM Routine 05/22/2018 3:32 Results for this AM CDT procedure are in the results section. BASIC METABOLIC PANEL Routine 05/22/2018 3:32 Results for this (7) AM CDT procedure are in the results section. APTT Routine 05/22/2018 3:32 Results for this AM CDT procedure are in the results section. PROTHROMBIN TIME/INR Routine 05/22/2018 3:32 Results for this AM CDT procedure are in the results section. CBC W/PLT COUNT & Routine 05/22/2018 3:32 Results for this AUTO DIFFERENTIAL AM CDT procedure are in the results section. HEMODIALYSIS Routine 05/22/2018 2:42 Results for this INPATIENT AM CDT procedure are in the results section. HEPATITIS B SURFACE Routine 05/21/2018 11:39 Results for this ANTIGEN PM CDT procedure are in the results section. POCT-GLUCOSE METER Routine 05/21/2018 9:57 Results for this PM CDT procedure are in the results section. POCT-GLUCOSE METER Routine 05/21/2018 5:36 Results for this PM CDT procedure are in the results section. POCT-GLUCOSE METER Routine 05/21/2018 11:52 Results for this AM CDT procedure are in the results section. POCT-GLUCOSE METER Routine 05/21/2018 8:07 Results for this AM CDT procedure are in the results section. CBC W/PLT COUNT & Routine 05/21/2018 4:14 Results for this AUTO DIFFERENTIAL AM CDT procedure are in the results section. PHOSPHORUS Routine 05/21/2018 4:14 Results for this AM CDT procedure are in the results section. MAGNESIUM Routine 05/21/2018 4:14 Results for this AM CDT procedure are in the results section. BASIC METABOLIC PANEL Routine 05/21/2018 4:14 Results for this (7) AM CDT procedure are in the results section. APTT Routine 05/21/2018 4:14 Results for this AM CDT procedure are in the results section. PROTHROMBIN TIME/INR Routine 05/21/2018 4:14 Results for this AM CDT procedure are in the results section. CBC W/PLT COUNT & Routine 05/21/2018 4:14 Results for this AUTO DIFFERENTIAL AM CDT procedure are in the results section. POCT-GLUCOSE METER Routine 05/20/2018 9:46 Results for this PM CDT procedure are in the results section. POCT-GLUCOSE METER Routine 05/20/2018 7:14 Results for this PM CDT procedure are in the results section. PHOSPHORUS Routine 05/20/2018 5:20 Results for this PM CDT procedure are in the results section. MAGNESIUM Routine 05/20/2018 5:20 Results for this PM CDT procedure are in the results section. BASIC METABOLIC PANEL Routine 05/20/2018 5:20 Results for this (7) PM CDT procedure are in the results section. POCT-GLUCOSE METER Routine 05/20/2018 3:03 Results for this PM CDT procedure are in the results section. POCT-GLUCOSE METER Routine 05/20/2018 9:33 Results for this AM CDT procedure are in the results section. CBC W/PLT COUNT & Routine 05/20/2018 3:48 Results for this AUTO DIFFERENTIAL AM CDT procedure are in the results section. BASIC METABOLIC PANEL Routine 05/20/2018 3:48 Results for this (7) AM CDT procedure are in the results section. PHOSPHORUS Routine 05/20/2018 3:48 Results for this AM CDT procedure are in the results section. MAGNESIUM Routine 05/20/2018 3:48 Results for this AM CDT procedure are in the results section. APTT Routine 05/20/2018 3:48 Results for this AM CDT procedure are in the results section. PROTHROMBIN TIME/INR Routine 05/20/2018 3:48 Results for this AM CDT procedure are in the results section. CBC W/PLT COUNT & Routine 05/20/2018 3:48 Results for this AUTO DIFFERENTIAL AM CDT procedure are in the results section. POCT-GLUCOSE METER Routine 05/19/2018 11:57 Results for this PM OPERATIONS VICE PRESIDENT procedure are in the results section. PHOSPHORUS Routine 05/19/2018 8:28 Results for this PM OPERATIONS VICE PRESIDENT procedure are in the results section. MAGNESIUM Routine 05/19/2018 8:28 Results for this PM OPERATIONS VICE PRESIDENT procedure are in the results section. POCT-GLUCOSE METER Routine 05/19/2018 4:15 Results for this PM OPERATIONS VICE PRESIDENT procedure are in the results section. POCT-GLUCOSE METER Routine 05/19/2018 11:22 Results for this AM OPERATIONS VICE PRESIDENT procedure are in the results section. POCT-GLUCOSE METER Routine 05/19/2018 5:56 Results for this AM OPERATIONS VICE PRESIDENT procedure are in the results section. (CELLAVISION MANUAL Routine 05/19/2018 4:23 Results for this DIFF) AM OPERATIONS VICE PRESIDENT procedure are in the results section. CBC W/PLT COUNT & Routine 05/19/2018 4:23 Results for this AUTO DIFFERENTIAL AM OPERATIONS VICE PRESIDENT procedure are in the results section. MAGNESIUM Routine 05/19/2018 4:23 Results for this AM OPERATIONS VICE PRESIDENT procedure are in the results section. PHOSPHORUS Routine 05/19/2018 4:23 Results for this AM OPERATIONS VICE PRESIDENT procedure are in the results section. BASIC METABOLIC PANEL Routine 05/19/2018 4:23 Results for this (7) AM OPERATIONS VICE PRESIDENT procedure are in the results section. POTASSIUM Routine 05/19/2018 4:23 Results for this AM OPERATIONS VICE PRESIDENT procedure are in the results section. APTT Routine 05/19/2018 4:23 Results for this AM OPERATIONS VICE PRESIDENT procedure are in the results section. PROTHROMBIN TIME/INR Routine 05/19/2018 4:23 Results for this AM OPERATIONS VICE PRESIDENT procedure are in the results section. CBC W/PLT COUNT & Routine 05/19/2018 4:23 Results for this AUTO DIFFERENTIAL AM OPERATIONS VICE PRESIDENT procedure are in the results section. MAGNESIUM Routine 05/19/2018 12:18 Results for this AM OPERATIONS VICE PRESIDENT procedure are in the results section. PHOSPHORUS Routine 05/19/2018 12:18 Results for this AM OPERATIONS VICE PRESIDENT procedure are in the results section. BASIC METABOLIC PANEL Routine 05/19/2018 12:18 Results for this (7) AM OPERATIONS VICE PRESIDENT procedure are in the results section. POTASSIUM Routine 05/19/2018 12:18 Results for this AM OPERATIONS VICE PRESIDENT procedure are in the results section. POCT-GLUCOSE METER Routine 05/19/2018 12:07 Results for this AM OPERATIONS VICE PRESIDENT procedure are in the results section. POCT-GLUCOSE METER Routine 05/18/2018 9:26 Results for this PM OPERATIONS VICE PRESIDENT procedure are in the results section. PHOSPHORUS Routine 05/18/2018 9:00 Results for this PM OPERATIONS VICE PRESIDENT procedure are in the results section. MAGNESIUM Routine 05/18/2018 9:00 Results for this PM OPERATIONS VICE PRESIDENT procedure are in the results section. POCT-GLUCOSE METER Routine 05/18/2018 8:32 Results for this PM OPERATIONS VICE PRESIDENT procedure are in the results section. TRANSFUSION SERVICE 05/18/2018 6:02 REPORT - SCAN PM OPERATIONS VICE PRESIDENT POCT-GLUCOSE METER Routine 05/18/2018 5:28 Results for this PM OPERATIONS VICE PRESIDENT procedure are in the results section. POCT-GLUCOSE METER Routine 05/18/2018 11:49 Results for this AM OPERATIONS VICE PRESIDENT procedure are in the results section. PHOSPHORUS Routine 05/18/2018 10:41 Results for this AM OPERATIONS VICE PRESIDENT procedure are in the results section. MAGNESIUM Routine 05/18/2018 10:41 Results for this AM OPERATIONS VICE PRESIDENT procedure are in the results section. APTT Routine 05/18/2018 10:41 Results for this AM OPERATIONS VICE PRESIDENT procedure are in the results section. PROTHROMBIN TIME/INR Routine 05/18/2018 10:41 Results for this AM OPERATIONS VICE PRESIDENT procedure are in the results section. CBC (HEMOGRAM ONLY) Routine 05/18/2018 10:41 Results for this AM OPERATIONS VICE PRESIDENT procedure are in the results section. BASIC METABOLIC PANEL Routine 05/18/2018 10:41 Results for this (7) AM OPERATIONS VICE PRESIDENT procedure are in the results section. TISSUE EXAM AP Routine 05/18/2018 9:23 Results for this AM OPERATIONS VICE PRESIDENT procedure are in the results section. APTT Routine 05/18/2018 7:18 Results for this AM OPERATIONS VICE PRESIDENT procedure are in the results section. PHOSPHORUS Routine 05/18/2018 7:18 Results for this AM OPERATIONS VICE PRESIDENT procedure are in the results section. MAGNESIUM Routine 05/18/2018 7:18 Results for this AM OPERATIONS VICE PRESIDENT procedure are in the results section. BASIC METABOLIC PANEL Routine 05/18/2018 7:18 Results for this (7) AM OPERATIONS VICE PRESIDENT procedure are in the results section. AMPUTATION,ABOVE KNEE 05/18/2018 7:10 PAD (peripheral AM OPERATIONS VICE PRESIDENT artery disease) (HCC) Limb ischemia Case Notes 2 HRS PER RACHELOKAYED BY DURGA TO POST IN FRONT OF OZAKI @ 7:00/MAXX 37 @ 2 :43 AMPUTATION,BELOW KNEE 05/18/2018 7:10 AM OPERATIONS VICE PRESIDENT PAD (peripheral artery disease) (HCC) Limb ischemia Case Notes 2 HRS PER RACHELOKAYED BY DURGA TO POST IN FRONT OF OZAKI @ 7:00/MAXX 3 @ 2 :43 POCT-GLUCOSE METER Routine 05/18/2018 6:22 AM OPERATIONS VICE PRESIDENT APTT Routine 05/18/2018 5:42 AM OPERATIONS VICE PRESIDENT (CELLAVISION MANUAL DIFF) Routine 05/18/2018 3:18 AM OPERATIONS VICE PRESIDENT CBC W/PLT COUNT & AUTO Routine 05/18/2018 3:18 AM OPERATIONS VICE PRESIDENT Results for this DIFFERENTIAL procedure are in the results section. APTT Routine 05/18/2018 3:18 AM OPERATIONS VICE PRESIDENT PROTHROMBIN TIME/INR Routine 05/18/2018 3:18 AM OPERATIONS VICE PRESIDENT CBC W/PLT COUNT & AUTO Routine 05/18/2018 3:18 AM OPERATIONS VICE PRESIDENT Results for this DIFFERENTIAL procedure are in the results section. BASIC METABOLIC PANEL (7) Routine 05/18/2018 3:18 AM OPERATIONS VICE PRESIDENT POCT-GLUCOSE METER Routine 05/18/2018 12:14 AM OPERATIONS VICE PRESIDENT PHOSPHORUS Routine 05/17/2018 11:37 PM OPERATIONS VICE PRESIDENT MAGNESIUM Routine 05/17/2018 11:37 PM OPERATIONS VICE PRESIDENT BASIC METABOLIC PANEL (7) Routine 05/17/2018 11:37 PM OPERATIONS VICE PRESIDENT POCT-GLUCOSE METER Routine 05/17/2018 9:41 PM OPERATIONS VICE PRESIDENT LACTIC ACID, VENOUS Routine 05/17/2018 8:41 PM OPERATIONS VICE PRESIDENT XR CHEST 1 VIEW STAT 05/17/2018 6:52 PM OPERATIONS VICE PRESIDENT Results for this PORTABLE/BEDSIDE procedure are in the results section. BASIC METABOLIC PANEL (7) Routine 05/17/2018 6:35 PM OPERATIONS VICE PRESIDENT (CELLAVISION MANUAL DIFF) Routine 05/17/2018 6:28 PM OPERATIONS VICE PRESIDENT CBC W/PLT COUNT & AUTO Routine 05/17/2018 6:28 PM OPERATIONS VICE PRESIDENT Results for this DIFFERENTIAL procedure are in the results section. ABORH, MANUAL STAT 05/17/2018 6:28 PM OPERATIONS VICE PRESIDENT APTT Routine 05/17/2018 6:28 PM OPERATIONS VICE PRESIDENT PROTHROMBIN TIME/INR Routine 05/17/2018 6:28 PM OPERATIONS VICE PRESIDENT CBC W/PLT COUNT & AUTO Routine 05/17/2018 6:28 PM OPERATIONS VICE PRESIDENT Results for this DIFFERENTIAL procedure are in the results section. POCT-GLUCOSE METER Routine 05/17/2018 6:27 PM OPERATIONS VICE PRESIDENT TYPE AND SCREEN, AUTOMATED Routine 05/17/2018 4:06 PM OPERATIONS VICE PRESIDENT APTT Routine 05/17/2018 4:06 PM OPERATIONS VICE PRESIDENT ARTERIAL DOPPLER LEGS Routine 05/17/2018 3:16 PM OPERATIONS VICE PRESIDENT Results for this BILATERAL procedure are in the results section. CREATINE KINASE (CK) Routine 05/17/2018 2:42 PM OPERATIONS VICE PRESIDENT BLOOD CULTURE STAT 05/17/2018 2:42 PM OPERATIONS VICE PRESIDENT BLOOD CULTURE STAT 05/17/2018 2:42 PM OPERATIONS VICE PRESIDENT CRITICAL CARE Routine 05/17/2018 2:14 PM OPERATIONS VICE PRESIDENT ECG 12-LEAD Routine 05/17/2018 2:10 PM OPERATIONS VICE PRESIDENT Procedure Note - Interface, External Ris In - 05/17/2018 3:26 PM OPERATIONS VICE PRESIDENT Ventricular Rate 90 BPM Atrial Rate 90 BPM P-R Interval 204 ms QRS Duration 92 ms Q-T Interval 410 ms QTC Calculation(Bazett) 501 ms P [place] 2 degrees R [place] -33 degrees T [place] 37 degrees Normal sinus rhythm Left axis deviation Inferior infarct , age undetermined Cannot rule out Anterior infarct , age undetermined Prolonged QT Abnormal ECG No previous ECGs available ECG 12-LEAD STAT 05/17/2018 2:10 PM OPERATIONS VICE PRESIDENT XR CHEST 1 VIEW STAT 05/17/2018 12:12 PM OPERATIONS VICE PRESIDENT Results for this PORTABLE/BEDSIDE procedure are in the results section. (CELLAVISION MANUAL DIFF) STAT 05/17/2018 11:59 AM OPERATIONS VICE PRESIDENT CBC W/PLT COUNT & AUTO STAT 05/17/2018 11:59 AM OPERATIONS VICE PRESIDENT Results for this DIFFERENTIAL procedure are in the results section. PT/APTT STAT 05/17/2018 11:59 AM OPERATIONS VICE PRESIDENT BASIC METABOLIC PANEL (7) STAT 05/17/2018 11:59 AM OPERATIONS VICE PRESIDENT CBC W/PLT COUNT & AUTO STAT 05/17/2018 11:59 AM OPERATIONS VICE PRESIDENT Results for this DIFFERENTIAL procedure are in the results section. after 05/25/2017 Results EKG-SCANNED (05/24/2018 9:50 AM CDT) Narrative Performed At RHYTHM STRIP - SCAN (05/24/2018 9:50 AM CDT) Narrative Performed At POC-Glucose meter (05/22/2018 11:24 AM CDT)Only the most recent of23 resultswithin the time period is included. POC-Glucose Meter 144 (H)Comment: TESTED AT 70 - 110 mg/dL [facility] [address] [facility] [id number] Specimen Blood Performing Organization Address City/State/Zipcode Phone Number [facility] [address] [place] [address] CENTER CBC with platelet count + automated diff (05/22/2018 3:32 AM CDT)Only the most recent of7 resultswithin the time period is included. WBC 22.0 (H) 3.5 - 10.5 K/L [facility] RBC 2.68 (L) 4.63 - 6.08 M/L [facility] Hemoglobin 8.1 (L) 13.7 - 17.5 GM/DL [facility] Hematocrit 25.1 (L) 40.1 - 51.0 % [facility] MCV 93.7 (H) 79.0 - 92.2 fL [facility] MCH 30.2 25.7 - 32.2 pg [facility] MCHC 32.3 32.3 - 36.5 GM/DL [facility] RDW 14.8 (H) 11.6 - 14.4 % [facility] Platelets 390 150 - 450 K/CU MM [facility] MPV 10.6 9.4 - 12.4 fL [facility] nRBC 0 0 - 0 /100 WBC [facility] % Neutros 85 % [facility] % Lymphs 7 % [facility] % Monos 5 % [facility] % Eos 1 % [facility] % Baso 0 % [facility] # Neutros 18.70 (H) 1.78 - 5.38 K/L [facility] # Lymphs 1.45 1.32 - 3.57 K/L [facility] # Monos 1.16 (H) 0.30 - 0.82 K/L [facility] # Eos 0.30 0.04 - 0.54 K/L [facility] # Baso 0.05 0.01 - 0.08 K/L [facility] Immature 2 (H) 0 - 1 % [facility] Granulocytes-Relative [facility] Specimen Blood - Arm, Right Performing Organization Address City/[facility] Phone Number [address] [address] CENTER aPTT (05/22/2018 3:32 AM CDT)Only the most recent of10 resultswithin the time period is included. PTT 40.1 (H) 22.5 - 36.0 seconds [facility] Specimen Blood - Arm, Right Performing Organization Address [facility] Phone Number [address] [address] [phone] [place] Prothrombin time/INR (05/22/2018 3:32 AM CDT)Only the most recent of7 resultswithin the time period is included. Protime 14.9 (H) 11.7 - 14.7 seconds [facility] INR 1.2 <=5.9 [facility] Specimen Blood - Arm, Right Narrative Performed At RECOMMENDED COUMADIN/WARFARIN INR THERAPY [facility] RANGES STANDARD DOSE: 2.0 - 3.0 Includes: PROPHYLAXIS for venous thrombosis, systemic embolization; TREATMENT for venous thrombosis and/or pulmonary embolus. HIGH RISK: Target INR is 2.5-3.5 for patients with mechanical heart valves. Performing Organization Address City/[facility] Phone Number [address] [address] CENTER Phosphorus (05/22/2018 3:32 AM CDT)Only the most recent of11 resultswithin the time period is included. Phosphorus 5.4 (H) 2.3 - 4.7 mg/dL [facility] Specimen Blood - Arm, Right Performing Organization Address City/[facility] Phone Number [address] [phone] [place] Magnesium (05/22/2018 3:32 AM CDT)Only the most recent of11 resultswithin the time period is included. Magnesium 2.0 1.6 - 2.6 mg/dL [facility] Specimen Blood - Arm, Right Performing Organization Address [facility] Phone Number [address] [phone] [place] Basic Metabolic Panel (05/22/2018 3:32 AM CDT)Only the most recent of12 resultswithin the time period is included. Sodium 138 136 - 145 meq/L [facility] Potassium 4.1 3.5 - 5.1 meq/L [facility] Chloride 101 98 - 107 meq/L [facility] CO2 23 22 - 29 meq/L [facility] BUN 51 (H) 7 - 21 mg/dL [facility] Creatinine 4.44 (H) 0.57 - 1.25 mg/dL [facility] Glucose 96 70 - 105 mg/dL [facility] Calcium 8.7 8.4 - 10.2 mg/dL [facility] EGFR 13Comment: ESTIMATED GFR IS mL/min/1.73 sq m [facility] NOT ACCURATE CREATININE [facility] CLEARANCE IN PREDICTING GLOMERULAR FILTRATION RATE. ESTIMATED GFR IS NOT APPLICABLE FOR DIALYSIS PATIENTS. Specimen Blood - Arm, Right Performing Organization Address City/[facility] Phone Number [facility] [address] CENTER HEMODIALYSIS INPATIENT (05/22/2018 2:42 AM CDT) Narrative Performed At Aldo Ramos RN 05/22/20182:43 AM HD x 3.5hrs completed, net UF -2.0L.AVF + thrill and bruit, pressure dressing clean dry and intact, no active bleeding at this time. Report given to primary care RN. Lab Results Component Value Date GLUCOSE 116 (H) 05/21/2018 CALCIUM 8.1 (L) 05/21/2018 NA 136 05/21/2018 K 5.5 (H) 05/21/2018 CO2 20 (L) 05/21/2018 CL 100 05/21/2018 BUN 107 (H) 05/21/2018 CREATININE 7.82 (H) 05/21/2018 Lab Results Component Value Date WBC 20.1 (H) 05/21/2018 HGB 8.6 (L) 05/21/2018 HCT 26.8 (L) 05/21/2018 MCV 96.1 (H) 05/21/2018 PLT 376 05/21/2018 Lab Results Component Value Date HEPBSAG Nonreactive 05/21/2018 Hepatitis B surface antigen (05/21/2018 11:39 PM CDT) hepatitis B Surface Ag NON-REACTIVE Nonreactive [facility] Specimen Blood Narrative Performed At For chronic HD patients, draw HBsAg with each [facility] admission then every 30 days. Performing Organization Address City/State/Zipcode Phone Number [address] [address] CENTER Manual Differential (05/19/2018 4:23 AM OPERATIONS VICE PRESIDENT)Only the most recent of4 resultswithin the time period is included. % Neutros 90 % [facility] % Lymphs 5 % [facility] % Monos 4 % [facility] % Bands 1 0 - 10 % [facility] # Neutros 18.72 (H) 1.78 - 5.38 K/ul [facility] # Lymphs 1.04 (L) 1.32 - 3.57 K/ul [facility] # Monos 0.83 (H) 0.30 - 0.82 K/uL [facility] # Bands 0.21 0.00 - 0.80 K/uL [facility] Total Counted 100 [facility] WBC Morphology Normal [facility] Giant Platelet Present [facility] Large Platelet Present [facility] Polychromasia 1+ few [facility] Hypochromia 1+ few [facility] Anisocytosis 1+ few [facility] Microcytes 1+ few [facility] Macrocytes 2+ moderate [facility] Poikilocytes 1+ few [facility] Ovalocytes 1+ few [facility] Artifact Present [facility] Platelet Conc Increased [facility] Specimen Blood - Central Venous Line Narrative Performed At Received comment: [facility] User comments: Slide comments: Performing Organization Address City/[facility] Services[facility] Phone Number [facility] [address] [place] [phone] CENTER Potassium (05/19/2018 4:23 AM OPERATIONS VICE PRESIDENT)Only the most recent of2 resultswithin the time period is included. Potassium 4.8 3.5 - 5.1 meq/L [facility] Specimen Blood - Central Venous Line Performing Organization Address City/[facility] Services[facility] Phone Number [facility] [address] [place] [address] CENTER TRANSFUSION SERVICE REPORT - SCAN (05/18/2018 6:02 PM OPERATIONS VICE PRESIDENT) Narrative Performed At CBC (Hemogram only) (05/18/2018 10:41 AM OPERATIONS VICE PRESIDENT) WBC 24.6 (H) 3.5 - 10.5 K/L [facility] RBC 3.03 (L) 4.63 - 6.08 M/L [facility] Hemoglobin 9.3 (L) 13.7 - 17.5 GM/DL [facility] Hematocrit 28.1 (L) 40.1 - 51.0 % [facility] MCV 92.7 (H) 79.0 - 92.2 fL [facility] MCH 30.7 25.7 - 32.2 pg [facility] MCHC 33.1 32.3 - 36.5 GM/DL [facility] RDW 15.4 (H) 11.6 - 14.4 % [facility] Platelets 373 150 - 450 K/CU MM [facility] MPV 10.4 9.4 - 12.4 fL [facility] nRBC 0 0 - 0 /100 WBC [facility] Specimen Blood - Central Venous Line Performing Organization Address City/State/Zipcode Phone Number [facility] [address] [place] [address] CENTER Tissue Exam (05/18/2018 9:23 AM OPERATIONS VICE PRESIDENT) Case Report Surgical Pathology Report Case: [id number] [facility] Authorizing Provider:Joshua Jagn,Collected: 05/18/2018 0923 [facility] Ordering Location: [address] CoolReceived: 05/18/2018 1028 Cardiovascular Pathologist: Maxime Lau MD Specimen:Leg, Right, ABOVE THE KNEE AMPUTATION DIAGNOSIS PART A RIGHT LEG, ABOVE THE KNEE AMPUTATION: [facility] GANGRENOUS NECROSIS OF SKIN AND SOFT TISSUE. [facility] CHRONIC OSTEOMYELITIS. CALCIFIC ATHEROSCLEROTIC DISEASE. SKIN, SOFT TISSUE, AND BONE MARGINS ARE UNINVOLVED. Signing Pathologist Direct Phone Line: [phone] CPT Code(s) 03880, 43330 [facility] CLINICAL HISTORY Peripheral artery disease, [facility] Limb ischemia [facility] SPECIMEN SOURCE Right above knee amputation [facility] GROSS DESCRIPTION The specimen is received in a biohazard bag labeled with the patient's information labeled "right above knee amputation" and consists of right above knee amputation with an exposed femur measuring 4.5 c [facility] in length x 3.5 cm in diameter. The leg from resection margin to heel measures 52 x 10 cm and foot from great toe heel, 23 x 6.5 cm. The 5th digit has been previously amputated. All toes have blue-pur [facility] ple discoloration with the previous 5th digit having a necrotic wound measuring 3.5 x 1.5 cm. No other areas of gangrene are seen. The skin resection margin is viable. The anterior posterior vessels and femoral popliteal vessels all have atherosclerotic changes with thrombi. Section code: A1, skin margin en face; A2, necrotic tissue from previously amputated 5th digit; A3, cross section of 4th digit submitted for decal; A4, femoral popliteal vessel; A5, anterior tibialis ve ssels submitted for light decal; A6, posterior tibialis vessels submitted for light decal; A7, bone marrow at margin. CG/pl MICROSCOPIC DESCRIPTION PERFORMED. [facility] Specimen Tissue - Leg, Right Performing Organization Address City/[facility]/Zipcode Phone Number [address] [address] [phone] [place] Lactic acid, venous, whole blood (05/17/2018 8:41 PM OPERATIONS VICE PRESIDENT) Lactate, Venous 0.3 (L) 0.5 - 2.2 mmol/L [facility] Specimen Blood - Central Venous Line Performing Organization Address City/[facility]/Zipcode Phone Number [facility] [address] [place] [address] [place] XR chest 1 view portable / bedside (05/17/2018 6:52 PM OPERATIONS VICE PRESIDENT)Only the most recent of2 resultswithin the time period is included. Narrative Performed At FINAL REPORT RIS RAD, CHEST, 1 VIEW, NON DEPT INDICATION: s/p right HD IJ placement COMPARISON: Same day's exam FINDINGS: Portable frontal view of the chest. IMPRESSION: Support Lines: Interval placement of a right IJ central venous catheter tip overlying the right atrium. Lungs and pleura: Decreased lung volumes with increased bibasilar atelectasis in the interval. No large pleural effusion or pneumothorax. Heart and mediastinum: Stable contours. Stable surgical changes. Additional findings: None. Signed: Liz Oliveros MD Report Verified Date/Time:05/17/2018 19:15:04 Reading Location: [address] Reading Room Procedure Note Interface, External Ris In - 05/17/2018 7:17 PM OPERATIONS VICE PRESIDENT FINAL REPORT RAD, CHEST, 1 VIEW, NON DEPT INDICATION: s/p right HD IJ placement COMPARISON: Same day's exam FINDINGS: Portable frontal view of the chest. IMPRESSION: Support Lines: Interval placement of a right IJ central venous catheter tip overlying the right atrium. Lungs and pleura: Decreased lung volumes with increased bibasilar atelectasis in the interval. No large pleural effusion or pneumothorax. Heart and mediastinum: Stable contours. Stable surgical changes. Additional findings: None. Signed: Liz Oliveros MD Report Verified Date/Time: 05/17/2018 19:15:04 Reading Location: [address] Reading Room Performing Organization Address City/State/Zipcode Phone Number RIS ABORH, manual (05/17/2018 6:28 PM OPERATIONS VICE PRESIDENT) ABO Grouping A [facility] Rh Factor POS [facility] Specimen Blood Performing Organization Address City/State/Zipcode Phone Number [facility] [address] [place] [address] Type and screen, automated (05/17/2018 4:06 PM OPERATIONS VICE PRESIDENT) ABO/RH AUTOMATED (BEAKER) A POSITIVE [facility] Ab Scrn NEGATIVE [facility] Specimen Blood - Arm, Right Performing Organization Address City/State/Zipcode Phone Number [facility] [address] [place] [address] Arterial doppler legs bilateral (05/17/2018 3:16 PM OPERATIONS VICE PRESIDENT) Ejection Fraction [facility] ECHO HEARTLAB [facility] CPACS Impressions Performed At Right Impression [facility]ART[facility] 1. The common femoral and profunda femoral arteries are patent with triphasic Doppler waveforms. 2. Post stent placement, the mid-distal superficial femoral artery is occluded. 3. The popliteal, posterior tibial, peroneal and anterior tibial arteries are occluded. 4. The MYA's are unobtainable due to absent Doppler signals. 5. The 1st, 2nd, 3rd and 4th digits have no obtainable flow by PPG waveforms. 6. The 5th digit has been amputated. 7. Incidental finding: There is a partial acute deep vein thrombosis in the popliteal vein. Left Impression 1. The common femoral and profunda femoral arteries are patent with triphasic and biphasic Doppler waveforms. 2. Post stent placement, the superficial femoral artery is patent. 3. The popliteal and posterior tibial arteries are patent with calcification, triphasic and biphasic Doppler waveforms. 4. There is a >50% stenosis in the proximal peroneal artery with a peak velocity of 258/22 cm/sec. 5. The anterior tibial artery is occluded. 6. The MYA's are unobtainable due to non-compressible arteries. 7. The 1st, 2nd and 5th digits have adequate flow by PPG waveforms. 8. The 3rd and 4th digits have been amputated. Conclusions Summary Arterial pressures and Doppler waveforms were performed bilaterally. Adequate Doppler waveforms were obtained. On the right side, the common femoral and profunda femoral arteries were patent with triphasic Doppler waveforms. Post stent placement, the mid-distal superficial femoral artery was occluded. The popliteal, posterior tibial, peroneal and anterior tibial arteries were occluded. The MYA's were unobtainable due to absent Doppler signals. The 1st, 2nd, 3rd and 4th digits had no obtainable flow by PPG waveforms. The 5th digit has been amputated. On the left side, the common femoral and profunda femoral arteries were patent with triphasic and biphasic Doppler waveforms. Post stent placement, the superficial femoral artery was patent. The popliteal and posterior tibial arteries were patent with calcification, triphasic and biphasic Doppler waveforms. There was a >50% stenosis in the proximal peroneal artery. The anterior tibial artery was occluded. The MYA's were unobtainable due to non-compressible arteries. The 1st, 2nd and 5th digits had adequate flow by PPG waveforms. The 3rd and 4th digits have been amputated. Incidental finding: There was a partial acute deep vein thrombosis in the right popliteal vein. Signature Velocities are measured in cm/s ; Diameters are measured in cm LE Duplex Measurements Right Left + + + + + + + + + + !Location ! !PSV !EDV !Waveform! !PSV !EDV !Waveform! + + + + + + + + + + !Mid Common Femoral ! !124 !12.6! ! !97.9!9.97 ! ! + + + + + + + + + + !Prox PFA ! !108 !12.6! ! !99.1! ! ! + + + + + + + + + + !Prox SFA ! !71.5! ! ! !143 !13.4! ! + + + + + + + + + + !Mid SFA ! !47.1 !7.46! ! + + +-- + + + !Dist SFA ! !53.4 !7.46 ! ! + + +-- + + + !Prox Popliteal ! !78.2 !9.43 ! ! + + +-- + + + !Dist Popliteal ! !114 !7.86! ! + + +-- + + + !Prox FAMILY PHYSICIAN ! !52.1 !5.71 ! ! + + +-- + + + !Mid FAMILY PHYSICIAN ! !75 !7.46 ! ! + + +-- + + + !Dist FAMILY PHYSICIAN ! !60.1 !7.86 ! ! + + +-- + + + !Prox Peroneal ! !175 !18.7! ! + + +-- + + + !Mid Peroneal ! !67.6 !10.2 ! ! + + +-- + + + !Dist Peroneal ! !24 ! ! ! + + +-- + + + Narrative Performed At [facility] - Lower Extremity Arterial Duplex [facility] ECHO HEART[facility] Demographics Patient Name GIOVANNA LOUIS,Date of Study05/17/2018 JELANI [id number] [id number] Visit Number [id number] Gender Male Accession Number [id number] Date of Birth1955 Bella Garay, Room [id number] Trevon Roating Ana Roldan MD RVT Physician Nancy Gaming RVT Procedure Type of Study: Extremities Arteries: Lower Extremities Arterial Duplex, ARTERIAL DOPPLER LEGS, BILATERAL. Indications for Study:Circulatory Problem. Patient Status:Routine. Study Location:Portable. Technical Quality:Adequate visualization. - Results were reported to: Dr. Hassan @ 15:12. Risk Factors History of Disease + +----+ + !Diagnosis !Date!Comments ! + +----+ + !History/Risk!!DM, HTN, Legally blind, Renal failure- Left arm AV, ! !Factors:!!PAD-Bilateral SFA stent, Amputation of right 5th! !!!digit, Amputation left 3rd and 4th digits ! 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 Indications for Study:Circulatory Problem. Patient Status:Routine. Study Location:Portable. Technical Quality:Adequate visualization. - Results were reported to: Dr. Hassan @ 15:12. Risk Factors History of Disease + +----+ + !Diagnosis !Date!Comments ! + +----+ + !History/Risk ! !DM, HTN, Legally blind, Renal failure- Left arm AV, ! !Factors: ! !PAD-Bilateral SFA stent, Amputation of right 5th ! ! ! !digit, Amputation left 3rd and 4th digits ! + +----+ + Impressions Right Impression 1. The common femoral and profunda femoral arteries are patent with triphasic Doppler waveforms. 2. Post stent placement, the mid-distal superficial femoral artery is occluded. 3. The popliteal, posterior tibial, peroneal and anterior tibial arteries are occluded. 4. The MYA's are unobtainable due to absent Doppler signals. 5. The 1st, 2nd, 3rd and 4th digits have no obtainable flow by PPG waveforms. 6. The 5th digit has been amputated. 7. Incidental finding: There is a partial acute deep vein thrombosis in the popliteal vein. Left Impression 1. The common femoral and profunda femoral arteries are patent with triphasic and biphasic Doppler waveforms. 2. Post stent placement, the superficial femoral artery is patent. 3. The popliteal and posterior tibial arteries are patent with calcification, triphasic and biphasic Doppler waveforms. 4. There is a >50% stenosis in the proximal peroneal artery with a peak velocity of 258/22 cm/sec. 5. The anterior tibial artery is occluded. 6. The MYA's are unobtainable due to non-compressible arteries. 7. The 1st, 2nd and 5th digits have adequate flow by PPG waveforms. 8. The 3rd and 4th digits have been amputated. Conclusions Summary Arterial pressures and Doppler waveforms were performed bilaterally. Adequate Doppler waveforms were obtained. On the right side, the common femoral and profunda femoral arteries were patent with triphasic Doppler waveforms. Post stent placement, the mid-distal superficial femoral artery was occluded. The popliteal, posterior tibial, peroneal and anterior tibial arteries were occluded. The MYA's were unobtainable due to absent Doppler signals. The 1st, 2nd, 3rd and 4th digits had no obtainable flow by PPG waveforms. The 5th digit has been amputated. On the left side, the common femoral and profunda femoral arteries were patent with triphasic and biphasic Doppler waveforms. Post stent placement, the superficial femoral artery was patent. The popliteal and posterior tibial arteries were patent with calcification, triphasic and biphasic Doppler waveforms. There was a >50% stenosis in the proximal peroneal artery. The anterior tibial artery was occluded. The MYA's were unobtainable due to non-compressible arteries. The 1st, 2nd and 5th digits had adequate flow by PPG waveforms. The 3rd and 4th digits have been amputated. Incidental finding: There was a partial acute deep vein thrombosis in the right popliteal vein. Signature Velocities are measured in cm/s ; Diameters are measured in cm LE Duplex Measurements Right Left + + + ------+ + + + +-------- + + !Location ! !PSV !EDV !Waveform ! !PSV !EDV !Waveform ! + + + ------+ + + + +-------- + + !Mid Common Femoral ! !124 !12.6 ! ! !97.9 !9.97 ! ! + + + ------+ + + + +-------- + + !Prox PFA ! !108 !12.6 ! ! !99.1 ! ! ! + + + ------+ + + + +-------- + + !Prox SFA ! !71.5 ! ! ! !143 !13.4 ! ! + + + ------+ + + + +-------- + + !Mid SFA ! !47.1 !7.46 ! ! + + + +------- + + !Dist SFA ! !53.4 !7.46 ! ! + + + +------- + + !Prox Popliteal ! !78.2 !9.43 ! ! + + + +------- + + !Dist Popliteal ! !114 !7.86 ! ! + + + +------- + + !Prox FAMILY PHYSICIAN ! !52.1 !5.71 ! ! + + + +------- + + !Mid FAMILY PHYSICIAN ! !75 !7.46 ! ! + + + +------- + + !Dist FAMILY PHYSICIAN ! !60.1 !7.86 ! ! + + + +------- + + !Prox Peroneal ! !175 !18.7 ! ! + + + +------- + + !Mid Peroneal ! !67.6 !10.2 ! ! + + + +------- + + !Dist Peroneal ! !24 ! ! ! + + + +------- + + Performing Organization Address [facility]/[employer] Phone Number [facility]ART[facility] Blood culture (05/17/2018 2:42 PM OPERATIONS VICE PRESIDENT)Only the most recent of2 resultswithin the time period is included. Result No growth in 5 days [facility] Specimen Blood - Arm, Left Performing Organization Address [facility]/Zipcode Phone Number [facility] [address] [place] [address] CENTER Creatine Kinase (CK) (05/17/2018 2:42 PM OPERATIONS VICE PRESIDENT) Total CK 3,619 (H) 29 - 200 U/L [facility] Specimen Blood - Arm, Right Performing Organization Address City/[facility]/Zipcode Phone Number [facility] [address] [place] [address] CENTER CRITICAL CARE (05/17/2018 2:14 PM OPERATIONS VICE PRESIDENT) Narrative Performed At Manish Hassan MD 05/18/2018 12:13 AM Critical Care Performed by: Manish Hassan MD Authorized by: Jose Jeong Jr., MD Total critical care time: 30 minutes Critical care time was exclusive of separately billable procedures and treating other patients. Critical care was necessary to treat or prevent imminent or life-threatening deterioration of the following conditions: circulatory failure. Critical care was time spent personally by me on the following activities: discussions with consultants, discussions with primary provider, examination of patient, obtaining history from patient or surrogate, pulse oximetry and re-evaluation of patient's condition. ECG 12 lead (05/17/2018 2:10 PM OPERATIONS VICE PRESIDENT) Narrative Performed At Ventricular Rate 90 BPM GE MUSE Atrial Rate 90 BPM P-R Interval 204 ms QRS Duration 92 ms Q-T Interval 410 ms QTC Calculation(Bazett) 501 ms P [place] 2 degrees R [place] -33 degrees T [place] 37 degrees Normal sinus rhythm Left axis deviation Inferior infarct , age undetermined Cannot rule out Anterior infarct , age undetermined Prolonged QT Abnormal ECG No previous ECGs available Confirmed by MD WAYNE, IHAB ([id number]) on 05/18/2018 6:39:59 AM Procedure Note Interface, External Ris In - 05/18/2018 6:40 AM OPERATIONS VICE PRESIDENT Ventricular Rate 90 BPM Atrial Rate 90 BPM P-R Interval 204 ms QRS Duration 92 ms Q-T Interval 410 ms QTC Calculation(Bazett) 501 ms P [place] 2 degrees R [place] -33 degrees T [place] 37 degrees Normal sinus rhythm Left axis deviation Inferior infarct , age undetermined Cannot rule out Anterior infarct , age undetermined Prolonged QT Abnormal ECG No previous ECGs available Confirmed by MD WAYNE, IHAB ([id number]) on 05/18/2018 6:39:59 AM Performing Organization Address City/[facility] Phone Number GE MUSE PT/aPTT (05/17/2018 11:59 AM OPERATIONS VICE PRESIDENT) Protime 15.4 (H) 11.7 - 14.7 seconds [facility] INR 1.2 <=5.9 [facility] PTT 32.3 22.5 - 36.0 seconds [facility] Specimen Blood - Arm, Right Narrative Performed At RECOMMENDED COUMADIN/WARFARIN INR THERAPY [facility] RANGES STANDARD DOSE: 2.0 - 3.0 Includes: PROPHYLAXIS for venous thrombosis, systemic embolization; TREATMENT for venous thrombosis and/or pulmonary embolus. HIGH RISK: Target INR is 2.5-3.5 for patients with mechanical heart valves. Performing Organization Address City/State/Zipcode Phone Number [facility] [address] [place] [address] CENTER after 05/25/2017 Insurance Payer Benefit Plan / Group Subscriber ID Type Phone Address MEDICAID - MEDICAID MEDICAID [employer] xxxxxxxxx Medicaid MGD CARE Non-Contracted MEDICARE MEDICARE PART B xxxxxxxxxx Medicare Jelani Loius ([place]) [place] [address] Advance Directives For more information, please contact:[address] [phone] Code Status Date Activated Date Inactivated Comments Full Code 05/17/2018 4:57 PM 05/22/2018 4:09 PM This code status was determined by: Patient Full Code 05/17/2018 12:40 PM 05/17/2018 4:57 PM This code status was determined by: Patient
--- OUTSIDE RECORDS SUMMARY | 2018-05-26 12:12 | XMS REPORT ---
:1955 Author Organization [facility] Address [address] [place] [address] [address] [place] [address] Care Team Providers Name Role Phone BEBE BRYAN Unavailable Unavailable Problems This patient has no known problems. Allergies, Adverse Reactions, Alerts This patient has no known allergies or adverse reactions. Medications This patient has no known medications. Results Test Description Test Time Test Comments Text Results Atomic Results Result Comments TISSUE EXAM 2018-05-25 08:08:00 Surgical Pathology Report Case: [id number] Authorizing Provider: Joshua Jang, Collected: 05/18/2018 0923 Ordering Location: [address] Received: 05/18/2018 1028 Cardiovascular Pathologist: Maxime Lau MD Specimen: Leg, Right, ABOVE THE KNEE AMPUTATION PART A RIGHT LEG, ABOVE THE KNEE AMPUTATION:GANGRENOUS NECROSIS OF SKIN AND SOFT TISSUE.CHRONIC OSTEOMYELITIS.CALCIFIC ATHEROSCLEROTIC DISEASE.SKIN, SOFT TISSUE, AND BONE MARGINS ARE UNINVOLVED. Signing Pathologist Direct Phone Line: [phone] signed by Maxime Lau MD on 05/25/2018 at 8:08 [id number], [id number] artery disease, Limb ischemia Right above knee amputationThe specimen is received in a biohazard bag labeled with the patient's information labeled "right above knee amputation" and consists of right above knee amputation with an exposed femur measuring 4.5 cm in length x 3.5 cm in diameter. The leg from resection margin to heel measures 52 x 10 cm and foot from great toe heel, 23 x 6.5 cm. The 5th digit has been previously amputated. All toes have blue-purple discoloration with the previous 5th digit having [...] A4, femoral popliteal vessel; A5, anterior tibialis vessels submitted for light decal; A6, posterior tibialis vessels submitted for light decal; A7, bone marrow at margin. CG/pl PERFORMED. BLOOD CULTURE 2018-05-22 20:01:00 Test Item Value Reference Range Comments CULTURE (BEAKER) (test apgo=0498) No growth in 5 days BLOOD [id number] 20:01:00 Test Item Value Reference Range Comments CULTURE (BEAKER) (test yjcd=8668) No growth in 5 days POCT-GLUCOSE [id number] 11:44:00 Test Item Value Reference Range Comments POC-GLUCOSE METER (BEAKER) 144 mg/dL 70-110 TESTED AT [address] (test smbl=0189) [facility] [address] POCT-GLUCOSE [id number] 09:45:00 Test Item Value Reference Range Comments POC-GLUCOSE METER (BEAKER) 135 mg/dL 70-110 TESTED AT [address] (test rqcw=4718) [facility] [address] BASIC METABOLIC [id number] 04:31:00 Test Item Value Reference Range Comments SODIUM (BEAKER) (test 138 meq/L 136-145 scrl=759) POTASSIUM (BEAKER) (test 4.1 meq/L 3.5-5.1 fyhy=679) CHLORIDE (BEAKER) (test 101 meq/L 98-107 sqbr=732) CO2 (BEAKER) (test 23 meq/L 22-29 elml=173) BLOOD UREA NITROGEN 51 mg/dL 7-21 (BEAKER) (test xxao=335) CREATININE (BEAKER) (test 4.44 mg/dL 0.57-1.25 zugp=885) GLUCOSE RANDOM (BEAKER) 96 mg/dL 70-105 (test ivre=847) CALCIUM (BEAKER) (test 8.7 mg/dL 8.4-10.2 urrx=214) EGFR (BEAKER) (test 13 mL/min/1.73 sq m ESTIMATED GFR IS NOT iugb=7732) ACCURATE CREATININE CLEARANCE IN PREDICTING GLOMERULAR FILTRATION RATE. ESTIMATED GFR IS NOT APPLICABLE FOR DIALYSIS PATIENTS. [id number] 04:29:00 Test Item Value Reference Range Comments PHOSPHORUS (BEAKER) (test ruju=256) 5.4 mg/dL 2.3-4.7 [id number] 04:29:00 Test Item Value Reference Range Comments MAGNESIUM (BEAKER) (test ouzs=198) 2.0 mg/dL 1.6-2.6 [id number] 04:17:00 Test Item Value Reference Range Comments PARTIAL THROMBOPLASTIN TIME (BEAKER) (test 40.1 seconds 22.5-36.0 vxle=055) PROTHROMBIN TIME/[id number] 04:16:00 Test Item Value Reference Range Comments PROTIME (BEAKER) (test upby=979) 14.9 seconds 11.7-14.7 INR (BEAKER) (test bxhp=425) 1.2 <=5.9 RECOMMENDED COUMADIN/WARFARIN INR THERAPY RANGESSTANDARD DOSE: 2.0 - 3.0 Includes: PROPHYLAXIS forvenous thrombosis, systemic embolization; TREATMENT for venous thrombosis and/or pulmonary embolus.HIGH RISK: Target INR is 2.5-3.5 for patients with mechanical heart valves.CBC W/PLT COUNT & AUTO [id number] 04:09:00 Test Item Value Reference Range Comments WHITE BLOOD CELL COUNT (BEAKER) (test xlzn=278) 22.0 K/ L 3.5-10.5 RED BLOOD CELL COUNT (BEAKER) (test ogjs=942) 2.68 M/ L 4.63-6.08 HEMOGLOBIN (BEAKER) (test rwpd=186) 8.1 GM/DL 13.7-17.5 HEMATOCRIT (BEAKER) (test yjys=715) 25.1 % 40.1-51.0 MEAN CORPUSCULAR VOLUME (BEAKER) (test sgbh=331) 93.7 fL 79.0-92.2 MEAN CORPUSCULAR HEMOGLOBIN (BEAKER) (test 30.2 pg 25.7-32.2 atai=205) MEAN CORPUSCULAR HEMOGLOBIN CONC (BEAKER) (test 32.3 GM/DL 32.3-36.5 iaxq=296) RED CELL DISTRIBUTION WIDTH (BEAKER) (test 14.8 % 11.6-14.4 qthv=114) PLATELET COUNT (BEAKER) (test wtsh=012) 390 K/CU MM 150-450 MEAN PLATELET VOLUME (BEAKER) (test xien=583) 10.6 fL 9.4-12.4 NUCLEATED RED BLOOD CELLS (BEAKER) (test 0 /100 WBC 0-0 oujc=227) NEUTROPHILS RELATIVE PERCENT (BEAKER) (test 85 % kpfd=506) LYMPHOCYTES RELATIVE PERCENT (BEAKER) (test 7 % qaau=471) MONOCYTES RELATIVE PERCENT (BEAKER) (test 5 % ufsk=882) EOSINOPHILS RELATIVE PERCENT (BEAKER) (test 1 % vbug=444) BASOPHILS RELATIVE PERCENT (BEAKER) (test 0 % jynx=393) NEUTROPHILS ABSOLUTE COUNT (BEAKER) (test 18.70 K/ L 1.78-5.38 pwtn=612) LYMPHOCYTES ABSOLUTE COUNT (BEAKER) (test 1.45 K/ L 1.32-3.57 onjy=138) MONOCYTES ABSOLUTE COUNT (BEAKER) (test 1.16 K/ L 0.30-0.82 xgpq=980) EOSINOPHILS ABSOLUTE COUNT (BEAKER) (test 0.30 K/ L 0.04-0.54 eqbj=882) BASOPHILS ABSOLUTE COUNT (BEAKER) (test 0.05 K/ L 0.01-0.08 kxbo=550) IMMATURE GRANULOCYTES-RELATIVE PERCENT (BEAKER) 2 % 0-1 (test lifv=7055) HEPATITIS B SURFACE [id number] 00:38:00 Test Item Value Reference Range Comments HEPATITIS B SURFACE ANTIGEN (2) (BEAKER) (test Nonreactive Nonreactive qefz=3660) For chronic HD patients, draw HBsAg with each admission then every 30 days.POCT- GLUCOSE [id number] 21:59:00 Test Item Value Reference Range Comments POC-GLUCOSE METER (BEAKER) 153 mg/dL 70-[address] [facility] [address] [facility] (test oyrl=0369) [facility] [address] POCT-GLUCOSE [id number] 17:42:00 Test Item Value Reference Range Comments POC-GLUCOSE METER (BEAKER) 160 mg/dL 70-[address] [facility] [address] [facility] (test quik=4472) [facility] [address] POCT-GLUCOSE [id number] 11:59:00 Test Item Value Reference Range Comments POC-GLUCOSE METER (BEAKER) 192 mg/dL 70-[address] [facility] [address] [facility] (test kdue=8110) [facility] [address] POCT-GLUCOSE [id number] 08:16:00 Test Item Value Reference Range Comments POC-GLUCOSE METER (BEAKER) 135 mg/dL 70-[address] [facility] [address] [facility] (test cxzt=9430) [facility] [address] [id number] 05:05:00 Test Item Value Reference Range Comments PHOSPHORUS (BEAKER) (test uusz=399) 10.4 mg/dL 2.3-4.7 BASIC METABOLIC [id number] 05:01:00 Test Item Value Reference Range Comments SODIUM (BEAKER) (test 136 meq/L 136-145 xaaf=363) POTASSIUM (BEAKER) (test 5.5 meq/L 3.5-5.1 mrbm=848) CHLORIDE (BEAKER) (test 100 meq/L 98-107 hrbz=366) CO2 (BEAKER) (test 20 meq/L 22-29 emsm=284) BLOOD UREA NITROGEN 107 mg/dL 7-21 (BEAKER) (test axsn=793) CREATININE (BEAKER) (test 7.82 mg/dL 0.57-1.25 egky=213) GLUCOSE RANDOM (BEAKER) 116 mg/dL 70-105 (test lcwl=652) CALCIUM (BEAKER) (test 8.1 mg/dL 8.4-10.2 neim=705) EGFR (BEAKER) (test 7 mL/min/1.73 sq m ESTIMATED GFR IS NOT xofx=8853) ACCURATE CREATININE CLEARANCE IN PREDICTING GLOMERULAR FILTRATION RATE. ESTIMATED GFR IS NOT APPLICABLE FOR DIALYSIS PATIENTS. [id number] 04:56:00 Test Item Value Reference Range Comments MAGNESIUM (BEAKER) (test iocw=510) 2.5 mg/dL 1.6-2.6 PROTHROMBIN TIME/[id number] 04:35:00 Test Item Value Reference Range Comments PROTIME (BEAKER) (test hnwd=488) 15.1 seconds 11.7-14.7 INR (BEAKER) (test govz=057) 1.2 <=5.9 RECOMMENDED COUMADIN/WARFARIN INR THERAPY RANGESSTANDARD DOSE: 2.0 - 3.0 Includes: PROPHYLAXIS forvenous thrombosis, systemic embolization; TREATMENT for venous thrombosis and/or pulmonary embolus.HIGH RISK: Target INR is 2.5-3.5 for patients with mechanical heart valves.[id number] 04:35:00 Test Item Value Reference Range Comments PARTIAL THROMBOPLASTIN TIME (BEAKER) (test 36.1 seconds 22.5-36.0 nmen=897) CBC W/PLT COUNT & AUTO [id number] 04:26:00 Test Item Value Reference Range Comments WHITE BLOOD CELL COUNT (BEAKER) (test gftd=411) 20.1 K/ L 3.5-10.5 RED BLOOD CELL COUNT (BEAKER) (test yprj=303) 2.79 M/ L 4.63-6.08 HEMOGLOBIN (BEAKER) (test gzav=568) 8.6 GM/DL 13.7-17.5 HEMATOCRIT (BEAKER) (test kqdt=246) 26.8 % 40.1-51.0 MEAN CORPUSCULAR VOLUME (BEAKER) (test syxh=837) 96.1 fL 79.0-92.2 MEAN CORPUSCULAR HEMOGLOBIN (BEAKER) (test 30.8 pg 25.7-32.2 gohz=979) MEAN CORPUSCULAR HEMOGLOBIN CONC (BEAKER) (test 32.1 GM/DL 32.3-36.5 rybu=535) RED CELL DISTRIBUTION WIDTH (BEAKER) (test 15.1 % 11.6-14.4 azxc=340) PLATELET COUNT (BEAKER) (test fvvm=528) 376 K/CU MM 150-450 MEAN PLATELET VOLUME (BEAKER) (test dykr=267) 10.7 fL 9.4-12.4 NUCLEATED RED BLOOD CELLS (BEAKER) (test 0 /100 WBC 0-0 zlqq=665) NEUTROPHILS RELATIVE PERCENT (BEAKER) (test 78 % wstq=459) LYMPHOCYTES RELATIVE PERCENT (BEAKER) (test 13 % qomy=399) MONOCYTES RELATIVE PERCENT (BEAKER) (test 7 % ncsq=972) EOSINOPHILS RELATIVE PERCENT (BEAKER) (test 2 % jiwl=623) BASOPHILS RELATIVE PERCENT (BEAKER) (test 0 % ussh=071) NEUTROPHILS ABSOLUTE COUNT (BEAKER) (test 15.61 K/ L 1.78-5.38 vted=469) LYMPHOCYTES ABSOLUTE COUNT (BEAKER) (test 2.58 K/ L 1.32-3.57 kqlf=573) MONOCYTES ABSOLUTE COUNT (BEAKER) (test 1.38 K/ L 0.30-0.82 gzso=012) EOSINOPHILS ABSOLUTE COUNT (BEAKER) (test 0.35 K/ L 0.04-0.54 qgsa=463) BASOPHILS ABSOLUTE COUNT (BEAKER) (test 0.03 K/ L 0.01-0.08 wucv=578) IMMATURE GRANULOCYTES-RELATIVE PERCENT (BEAKER) 1 % 0-1 (test ggyf=6885) POCT-GLUCOSE [id number] 21:48:00 Test Item Value Reference Range Comments POC-GLUCOSE METER (BEAKER) 147 mg/dL 70-110 TESTED AT [address] (test veag=9414) [place] [address] POCT-GLUCOSE [id number] 19:15:00 Test Item Value Reference Range Comments POC-GLUCOSE METER (BEAKER) 166 mg/dL 70-110 TESTED AT [address] (test cnwi=4485) [place] [address] BASIC METABOLIC [id number] 17:45:00 Test Item Value Reference Range Comments SODIUM (BEAKER) (test 135 meq/L 136-145 qiyh=690) POTASSIUM (BEAKER) (test 5.5 meq/L 3.5-5.1 trtl=465) CHLORIDE (BEAKER) (test 99 meq/L 98-107 qxpv=562) CO2 (BEAKER) (test 21 meq/L 22-29 gfsb=496) BLOOD UREA NITROGEN 97 mg/dL 7-21 (BEAKER) (test tslx=186) CREATININE (BEAKER) (test 7.03 mg/dL 0.57-1.25 uizu=407) GLUCOSE RANDOM (BEAKER) 168 mg/dL 70-105 (test xkue=289) CALCIUM (BEAKER) (test 8.0 mg/dL 8.4-10.2 fvbx=816) EGFR (BEAKER) (test 8 mL/min/1.73 sq m ESTIMATED GFR IS NOT kggh=6751) ACCURATE CREATININE CLEARANCE IN PREDICTING GLOMERULAR FILTRATION RATE. ESTIMATED GFR IS NOT APPLICABLE FOR DIALYSIS PATIENTS. [id number] 17:44:00 Test Item Value Reference Range Comments PHOSPHORUS (BEAKER) (test fmud=339) 9.2 mg/dL 2.3-4.7 [id number] 17:42:00 Test Item Value Reference Range Comments MAGNESIUM (BEAKER) (test ddvw=862) 2.4 mg/dL 1.6-2.6 POCT-GLUCOSE [id number] 15:14:00 Test Item Value Reference Range Comments POC-GLUCOSE METER (BEAKER) 197 mg/dL 70-[address] [facility] [address] [facility] (test wenl=2994) [facility] [address] POCT-GLUCOSE [id number] 09:36:00 Test Item Value Reference Range Comments POC-GLUCOSE METER (BEAKER) 201 mg/dL 70-[address] [facility] [address] [facility] (test zsee=3050) [facility] [address] BASIC METABOLIC [id number] 05:03:00 Test Item Value Reference Range Comments SODIUM (BEAKER) (test 134 meq/L 136-145 uzpj=231) POTASSIUM (BEAKER) (test 5.0 meq/L 3.5-5.1 dojy=020) CHLORIDE (BEAKER) (test 101 meq/L 98-107 kszk=506) CO2 (BEAKER) (test 20 meq/L 22-29 qwxu=893) BLOOD UREA NITROGEN 83 mg/dL 7-21 (BEAKER) (test ejvw=363) CREATININE (BEAKER) (test 5.92 mg/dL 0.57-1.25 dewq=603) GLUCOSE RANDOM (BEAKER) 193 mg/dL 70-105 (test hbga=711) CALCIUM (BEAKER) (test 8.0 mg/dL 8.4-10.2 teyj=310) EGFR (BEAKER) (test 10 mL/min/1.73 sq m ESTIMATED GFR IS NOT dogd=2903) ACCURATE CREATININE CLEARANCE IN PREDICTING GLOMERULAR FILTRATION RATE. ESTIMATED GFR IS NOT APPLICABLE FOR DIALYSIS PATIENTS. [id number] 05:01:00 Test Item Value Reference Range Comments PHOSPHORUS (BEAKER) (test cbio=371) 7.7 mg/dL 2.3-4.7 [id number] 05:01:00 Test Item Value Reference Range Comments MAGNESIUM (BEAKER) (test skel=557) 2.4 mg/dL 1.6-2.6 CBC W/PLT COUNT & AUTO [id number] 04:31:00 Test Item Value Reference Range Comments WHITE BLOOD CELL COUNT (BEAKER) (test byuf=731) 20.3 K/ L 3.5-10.5 RED BLOOD CELL COUNT (BEAKER) (test qoyz=889) 2.85 M/ L 4.63-6.08 HEMOGLOBIN (BEAKER) (test vtii=838) 8.6 GM/DL 13.7-17.5 HEMATOCRIT (BEAKER) (test twox=392) 27.1 % 40.1-51.0 MEAN CORPUSCULAR VOLUME (BEAKER) (test gikb=785) 95.1 fL 79.0-92.2 MEAN CORPUSCULAR HEMOGLOBIN (BEAKER) (test 30.2 pg 25.7-32.2 vdqh=389) MEAN CORPUSCULAR HEMOGLOBIN CONC (BEAKER) (test 31.7 GM/DL 32.3-36.5 sljc=450) RED CELL DISTRIBUTION WIDTH (BEAKER) (test 15.3 % 11.6-14.4 mwyp=858) PLATELET COUNT (BEAKER) (test vhch=484) 368 K/CU MM 150-450 MEAN PLATELET VOLUME (BEAKER) (test mcyq=584) 10.5 fL 9.4-12.4 NUCLEATED RED BLOOD CELLS (BEAKER) (test 0 /100 WBC 0-0 fbtz=703) NEUTROPHILS RELATIVE PERCENT (BEAKER) (test 76 % dsxh=643) LYMPHOCYTES RELATIVE PERCENT (BEAKER) (test 12 % rwut=507) MONOCYTES RELATIVE PERCENT (BEAKER) (test 9 % qxxa=675) EOSINOPHILS RELATIVE PERCENT (BEAKER) (test 1 % stwc=786) BASOPHILS RELATIVE PERCENT (BEAKER) (test 0 % zvox=608) NEUTROPHILS ABSOLUTE COUNT (BEAKER) (test 15.53 K/ L 1.78-5.38 qlru=346) LYMPHOCYTES ABSOLUTE COUNT (BEAKER) (test 2.48 K/ L 1.32-3.57 sufz=610) MONOCYTES ABSOLUTE COUNT (BEAKER) (test 1.90 K/ L 0.30-0.82 kfae=894) EOSINOPHILS ABSOLUTE COUNT (BEAKER) (test 0.14 K/ L 0.04-0.54 cpef=464) BASOPHILS ABSOLUTE COUNT (BEAKER) (test 0.03 K/ L 0.01-0.08 uzhd=008) IMMATURE GRANULOCYTES-RELATIVE PERCENT (BEAKER) 1 % 0-1 (test jirx=4976) [id number] 04:11:00 Test Item Value Reference Range Comments PARTIAL THROMBOPLASTIN TIME (BEAKER) (test 41.4 seconds 22.5-36.0 qrpt=318) PROTHROMBIN TIME/[id number] 04:10:00 Test Item Value Reference Range Comments PROTIME (BEAKER) (test fuio=372) 16.8 seconds 11.7-14.7 INR (BEAKER) (test hzzy=268) 1.3 <=5.9 RECOMMENDED COUMADIN/WARFARIN INR THERAPY RANGESSTANDARD DOSE: 2.0 - 3.0 Includes: PROPHYLAXIS forvenous thrombosis, systemic embolization; TREATMENT for venous thrombosis and/or pulmonary embolus.HIGH RISK: Target INR is 2.5-3.5 for patients with mechanical heart valves.POCT-GLUCOSE [id number] 00:02:00 Test Item Value Reference Range Comments POC-GLUCOSE METER (BEAKER) 277 mg/dL 70-110 TESTED AT [address] (test adkm=9938) [place] [address] [id number] 20:49:00 Test Item Value Reference Range Comments PHOSPHORUS (BEAKER) (test jmdn=196) 7.4 mg/dL 2.3-4.7 [id number] 20:49:00 Test Item Value Reference Range Comments MAGNESIUM (BEAKER) (test jytv=680) 2.3 mg/dL 1.6-2.6 POCT-GLUCOSE [id number] 16:21:00 Test Item Value Reference Range Comments POC-GLUCOSE METER (BEAKER) 220 mg/dL 70-110 TESTED AT [address] (test nojq=0373) [place] [address] POCT-GLUCOSE [id number] 11:29:00 Test Item Value Reference Range Comments POC-GLUCOSE METER (BEAKER) 206 mg/dL 70-110 TESTED AT [address] (test rdgr=5576) [place] [address] CBC W/PLT COUNT & AUTO [id number] 09:00:00 Test Item Value Reference Range Comments WHITE BLOOD CELL COUNT (BEAKER) (test kpzp=734) 20.8 K/ L 3.5-10.5 RED BLOOD CELL COUNT (BEAKER) (test swzz=107) 3.42 M/ L 4.63-6.08 HEMOGLOBIN (BEAKER) (test cdzw=990) 10.5 GM/DL 13.7-17.5 HEMATOCRIT (BEAKER) (test dbrr=926) 32.1 % 40.1-51.0 MEAN CORPUSCULAR VOLUME (BEAKER) (test zxvx=863) 93.9 fL 79.0-92.2 MEAN CORPUSCULAR HEMOGLOBIN (BEAKER) (test 30.7 pg 25.7-32.2 kvqc=050) MEAN CORPUSCULAR HEMOGLOBIN CONC (BEAKER) (test 32.7 GM/DL 32.3-36.5 ugtt=687) RED CELL DISTRIBUTION WIDTH (BEAKER) (test 15.5 % 11.6-14.4 jqzo=329) PLATELET COUNT (BEAKER) (test xdmi=660) 453 K/CU MM 150-450 MEAN PLATELET VOLUME (BEAKER) (test lliu=798) 10.6 fL 9.4-12.4 NUCLEATED RED BLOOD CELLS (BEAKER) (test 0 /100 WBC 0-0 tmyp=086) (CELLAVISION MANUAL DIFF)2018-05-19 09:00:00 Test Item Value Reference Range Comments NEUTROPHILS - REL (CELLAVISION)(BEAKER) (test 90 % ztep=6514) LYMPHOCYTES - REL (CELLAVISION)(BEAKER) (test 5 % uoui=4167) MONOCYTES - REL (CELLAVISION)(BEAKER) (test 4 % kpay=8223) BANDS - REL (CELLAVISION)(BEAKER) (test 1 % 0-10 ulph=3314) NEUTROPHILS - ABS (CELLAVISION)(BEAKER) (test 18.72 K/ul 1.78-5.38 bdvg=4784) LYMPHOCYTES - ABS (CELLAVISION)(BEAKER) (test 1.04 K/ul 1.32-3.57 frvl=3844) MONOCYTES - ABS (CELLAVISION)(BEAKER) (test 0.83 K/uL 0.30-0.82 jbfy=7501) BANDS - ABS (CELLAVISION)(BEAKER) (test 0.21 K/uL 0.00-0.80 holw=2487) TOTAL COUNTED (BEAKER) (test siau=5110) 100 WBC MORPHOLOGY (BEAKER) (test dkog=261) Normal GIANT PLATELETS (BEAKER) (test tiou=850) Present LARGE PLT(BEAKER) (test qakc=7140) Present POLYCHROMATOPHILLIC RBCS(BEAKER) (test hkpb=140) 1+ few HYPOCHROMIA (BEAKER) (test nddk=092) 1+ few ANISOCYTOSIS (BEAKER) (test tkns=096) 1+ few MICROCYTES (BEAKER) (test tlmy=878) 1+ few MACROCYTES (BEAKER) (test apgo=634) 2+ moderate POIKILOCYTES (BEAKER) (test bael=828) 1+ few OVALOCYTES (BEAKER) (test bvmj=664) 1+ few ARTIFACT (CELLAVISION)(BEAKER) (test fiop=5728) Present PLATELET CONCENTRATION (CELLAVISION)(BEAKER) Increased (test dayx=2918) Received comment: User comments: Slide comments:POCT-GLUCOSE [id number] 06: 06:00 Test Item Value Reference Range Comments POC-GLUCOSE METER (BEAKER) 148 mg/dL 70-[address] [facility] [address] [facility] (test xhyt=0461) [facility] [address] BASIC METABOLIC [id number] 05:23:00 Test Item Value Reference Range Comments SODIUM (BEAKER) (test 137 meq/L 136-145 vbmp=770) POTASSIUM (BEAKER) (test 4.8 meq/L 3.5-5.1 asck=775) CHLORIDE (BEAKER) (test 101 meq/L 98-107 jmiv=471) CO2 (BEAKER) (test 25 meq/L 22-29 ewbv=357) BLOOD UREA NITROGEN 42 mg/dL 7-21 (BEAKER) (test cznp=290) CREATININE (BEAKER) (test 2.96 mg/dL 0.57-1.25 caws=253) GLUCOSE RANDOM (BEAKER) 109 mg/dL 70-105 (test lwfr=563) CALCIUM (BEAKER) (test 9.3 mg/dL 8.4-10.2 dpbs=538) EGFR (BEAKER) (test 21 mL/min/1.73 sq m ESTIMATED GFR IS NOT gwsx=1648) ACCURATE CREATININE CLEARANCE IN PREDICTING GLOMERULAR FILTRATION RATE. ESTIMATED GFR IS NOT APPLICABLE FOR DIALYSIS PATIENTS. [id number] 05:16:00 Test Item Value Reference Range Comments PARTIAL THROMBOPLASTIN TIME (BEAKER) (test 34.3 seconds 22.5-36.0 hmnm=909) PROTHROMBIN TIME/[id number] 05:15:00 Test Item Value Reference Range Comments PROTIME (BEAKER) (test ritf=634) 15.5 seconds 11.7-14.7 INR (BEAKER) (test xixq=996) 1.2 <=5.9 RECOMMENDED COUMADIN/WARFARIN INR THERAPY RANGESSTANDARD DOSE: 2.0 - 3.0 Includes: PROPHYLAXIS forvenous thrombosis, systemic embolization; TREATMENT for venous thrombosis and/or pulmonary embolus.HIGH RISK: Target INR is 2.5-3.5 for patients with mechanical heart valves.[id number] 05:13:00 Test Item Value Reference Range Comments POTASSIUM (BEAKER) (test suqe=338) 4.8 meq/L 3.5-5.1 [id number] 05:13:00 Test Item Value Reference Range Comments MAGNESIUM (BEAKER) (test ttjs=508) 2.3 mg/dL 1.6-2.6 [id number] 05:13:00 Test Item Value Reference Range Comments PHOSPHORUS (BEAKER) (test avzi=319) 4.3 mg/dL 2.3-4.7 BASIC METABOLIC [id number] 01:01:00 Test Item Value Reference Range Comments SODIUM (BEAKER) (test 136 meq/L 136-145 vaoy=376) POTASSIUM (BEAKER) (test 4.9 meq/L 3.5-5.1 apxd=320) CHLORIDE (BEAKER) (test 101 meq/L 98-107 qurh=760) CO2 (BEAKER) (test 22 meq/L 22-29 baye=961) BLOOD UREA NITROGEN 65 mg/dL 7-21 (BEAKER) (test uzgn=331) CREATININE (BEAKER) (test 4.55 mg/dL 0.57-1.25 xrhx=795) GLUCOSE RANDOM (BEAKER) 124 mg/dL 70-105 (test vgng=510) CALCIUM (BEAKER) (test 8.1 mg/dL 8.4-10.2 gtkf=502) EGFR (BEAKER) (test 13 mL/min/1.73 sq m ESTIMATED GFR IS NOT fawm=1284) ACCURATE CREATININE CLEARANCE IN PREDICTING GLOMERULAR FILTRATION RATE. ESTIMATED GFR IS NOT APPLICABLE FOR DIALYSIS PATIENTS. [id number] 00:52:00 Test Item Value Reference Range Comments POTASSIUM (BEAKER) (test teea=617) 4.9 meq/L 3.5-5.1 [id number] 00:52:00 Test Item Value Reference Range Comments MAGNESIUM (BEAKER) (test rajs=181) 1.7 mg/dL 1.6-2.6 [id number] 00:52:00 Test Item Value Reference Range Comments PHOSPHORUS (BEAKER) (test qyxy=965) 6.1 mg/dL 2.3-4.7 POCT-GLUCOSE [id number] 00:17:00 Test Item Value Reference Range Comments POC-GLUCOSE METER (BEAKER) 143 mg/dL 70-110 TESTED AT [address] (test gdce=4663) [place] [address] [id number] 21:42:00 Test Item Value Reference Range Comments PHOSPHORUS (BEAKER) (test 12.1 mg/dL 2.3-4.7 Specimen moderately hemolyzed sagd=515) [id number] 21:33:00 Test Item Value Reference Range Comments MAGNESIUM (BEAKER) (test 2.4 mg/dL 1.6-2.6 Specimen moderately hemolyzed pcfk=656) POCT-GLUCOSE [id number] 21:30:00 Test Item Value Reference Range Comments POC-GLUCOSE METER (BEAKER) 132 mg/dL 70-110 TESTED AT [address] (test umcm=8943) [place] [address] POCT-GLUCOSE [id number] 20:34:00 Test Item Value Reference Range Comments POC-GLUCOSE METER (BEAKER) 189 mg/dL 70-110 TESTED AT [address] (test phix=2500) [place] [id number] POCT-GLUCOSE [id number] 17:30:00 Test Item Value Reference Range Comments POC-GLUCOSE METER (BEAKER) 170 mg/dL 70-110 TESTED AT [address] (test ktna=9666) [place] [address] POCT-GLUCOSE [id number] 11:55:00 Test Item Value Reference Range Comments POC-GLUCOSE METER (BEAKER) 189 mg/dL 70-[address] [facility] [address] [facility] (test bloo=2112) [facility] [address] [id number] 11:20:00 Test Item Value Reference Range Comments PHOSPHORUS (BEAKER) (test lruh=477) 9.7 mg/dL 2.3-4.7 BASIC METABOLIC [id number] 11:16:00 Test Item Value Reference Range Comments SODIUM (BEAKER) (test 135 meq/L 136-145 kfcz=185) POTASSIUM (BEAKER) (test 5.1 meq/L 3.5-5.1 uglb=567) CHLORIDE (BEAKER) (test 100 meq/L 98-107 fhzt=119) CO2 (BEAKER) (test 21 meq/L 22-29 sxdu=146) BLOOD UREA NITROGEN 95 mg/dL 7-21 (BEAKER) (test wvnj=677) CREATININE (BEAKER) (test 6.69 mg/dL 0.57-1.25 tkdg=187) GLUCOSE RANDOM (BEAKER) 165 mg/dL 70-105 (test hvoi=041) CALCIUM (BEAKER) (test 7.5 mg/dL 8.4-10.2 nvjx=740) EGFR (BEAKER) (test 8 mL/min/1.73 sq m ESTIMATED GFR IS NOT mgny=8108) ACCURATE CREATININE CLEARANCE IN PREDICTING GLOMERULAR FILTRATION RATE. ESTIMATED GFR IS NOT APPLICABLE FOR DIALYSIS PATIENTS. [id number] 11:12:00 Test Item Value Reference Range Comments MAGNESIUM (BEAKER) (test acis=091) 1.9 mg/dL 1.6-2.6 [id number] 11:06:00 Test Item Value Reference Range Comments PARTIAL THROMBOPLASTIN TIME (BEAKER) (test 40.1 seconds 22.5-36.0 sidh=675) PROTHROMBIN [id number] 11:05:00 Test Item Value Reference Range Comments PROTIME (BEAKER) (test vsri=721) 16.7 seconds 11.7-14.7 INR (BEAKER) (test wgdc=890) 1.3 <=5.9 RECOMMENDED COUMADIN/WARFARIN INR THERAPY RANGESSTANDARD DOSE: 2.0 - 3.0 Includes: PROPHYLAXIS forvenous thrombosis, systemic embolization; TREATMENT for venous thrombosis and/or pulmonary embolus.HIGH RISK: Target INR is 2.5-3.5 for patients with mechanical heart valves.CBC (HEMOGRAM ONLY)2018-05-18 10:54:00 Test Item Value Reference Range Comments WHITE BLOOD CELL COUNT (BEAKER) (test syrh=500) 24.6 K/ L 3.5-10.5 RED BLOOD CELL COUNT (BEAKER) (test uiyf=940) 3.03 M/ L 4.63-6.08 HEMOGLOBIN (BEAKER) (test trqc=721) 9.3 GM/DL 13.7-17.5 HEMATOCRIT (BEAKER) (test nrft=424) 28.1 % 40.1-51.0 MEAN CORPUSCULAR VOLUME (BEAKER) (test bqud=476) 92.7 fL 79.0-92.2 MEAN CORPUSCULAR HEMOGLOBIN (BEAKER) (test 30.7 pg 25.7-32.2 lfha=369) MEAN CORPUSCULAR HEMOGLOBIN CONC (BEAKER) (test 33.1 GM/DL 32.3-36.5 jend=124) RED CELL DISTRIBUTION WIDTH (BEAKER) (test 15.4 % 11.6-14.4 pedj=564) PLATELET COUNT (BEAKER) (test xqxq=203) 373 K/CU MM 150-450 MEAN PLATELET VOLUME (BEAKER) (test jovo=739) 10.4 fL 9.4-12.4 NUCLEATED RED BLOOD CELLS (BEAKER) (test 0 /100 WBC 0-0 qwtn=027) BASIC METABOLIC [id number] 07:56:00 Test Item Value Reference Range Comments SODIUM (BEAKER) (test 134 meq/L 136-145 upjx=250) POTASSIUM (BEAKER) (test 4.8 meq/L 3.5-5.1 gnor=927) CHLORIDE (BEAKER) (test 97 meq/L 98-107 onba=228) CO2 (BEAKER) (test 21 meq/L 22-29 bpdu=821) BLOOD UREA NITROGEN 87 mg/dL 7-21 (BEAKER) (test dwop=932) CREATININE (BEAKER) (test 6.03 mg/dL 0.57-1.25 ngxm=687) GLUCOSE RANDOM (BEAKER) 177 mg/dL 70-105 (test zcms=097) CALCIUM (BEAKER) (test 8.1 mg/dL 8.4-10.2 gdsk=281) EGFR (BEAKER) (test 9 mL/min/1.73 sq m ESTIMATED GFR IS NOT rstf=9571) ACCURATE CREATININE CLEARANCE IN PREDICTING GLOMERULAR FILTRATION RATE. ESTIMATED GFR IS NOT APPLICABLE FOR DIALYSIS PATIENTS. [id number] 07:55:00 Test Item Value Reference Range Comments PHOSPHORUS (BEAKER) (test uqvx=714) 7.7 mg/dL 2.3-4.7 [id number] 07:55:00 Test Item Value Reference Range Comments MAGNESIUM (BEAKER) (test hsqe=343) 2.0 mg/dL 1.6-2.6 [id number] 07:50:00 Test Item Value Reference Range Comments PARTIAL THROMBOPLASTIN TIME (BEAKER) (test 99.4 seconds 22.5-36.0 jvaf=752) CBC W/PLT COUNT & AUTO [id number] 07:37:00 Test Item Value Reference Range Comments WHITE BLOOD CELL COUNT (BEAKER) (test sehm=578) 34.0 K/ L 3.5-10.5 RED BLOOD CELL COUNT (BEAKER) (test wgia=634) 3.31 M/ L 4.63-6.08 HEMOGLOBIN (BEAKER) (test zosk=866) 10.1 GM/DL 13.7-17.5 HEMATOCRIT (BEAKER) (test yheu=947) 30.3 % 40.1-51.0 MEAN CORPUSCULAR VOLUME (BEAKER) (test tyfa=306) 91.5 fL 79.0-92.2 MEAN CORPUSCULAR HEMOGLOBIN (BEAKER) (test 30.5 pg 25.7-32.2 sfma=376) MEAN CORPUSCULAR HEMOGLOBIN CONC (BEAKER) (test 33.3 GM/DL 32.3-36.5 joqc=156) RED CELL DISTRIBUTION WIDTH (BEAKER) (test 15.2 % 11.6-14.4 oewi=347) PLATELET COUNT (BEAKER) (test slng=679) 459 K/CU MM 150-450 MEAN PLATELET VOLUME (BEAKER) (test nrmt=808) 10.6 fL 9.4-12.4 NUCLEATED RED BLOOD CELLS (BEAKER) (test 0 /100 WBC 0-0 mlnc=693) (CELLAVISION MANUAL DIFF)2018-05-18 07:37:00 Test Item Value Reference Range Comments NEUTROPHILS - REL (CELLAVISION)(BEAKER) (test 85 % pqtf=5328) LYMPHOCYTES - REL (CELLAVISION)(BEAKER) (test 5 % fowm=5746) MONOCYTES - REL (CELLAVISION)(BEAKER) (test 8 % ugxi=7005) EOSINOPHILS - REL (CELLAVISION)(BEAKER) (test 1 % qlnr=2726) METAMYELOCYTES - REL (CELLAVISION)(BEAKER) (test 1 % 0-0 ymhj=8172) NEUTROPHILS - ABS (CELLAVISION)(BEAKER) (test 28.90 K/ul 1.78-5.38 rzjg=2144) LYMPHOCYTES - ABS (CELLAVISION)(BEAKER) (test 1.70 K/ul 1.32-3.57 zchc=6044) MONOCYTES - ABS (CELLAVISION)(BEAKER) (test 2.72 K/uL 0.30-0.82 swjd=7982) EOSINOPHILS - ABS (CELLAVISION)(BEAKER) (test 0.34 K/uL 0.04-0.54 stbs=6371) METAMYELOCYTES - ABS (CELLAVISION)(BEAKER) (test 0.34 K/uL 0.00-0.00 sqvb=8381) TOTAL COUNTED (BEAKER) (test lcay=7650) 100 SMUDGE CELLS (BEAKER) (test eanw=5448) Present GIANT PLATELETS (BEAKER) (test irpa=793) Present ANISOCYTOSIS (BEAKER) (test kvxy=672) 1+ few POIKILOCYTES (BEAKER) (test sypb=511) 1+ few FAHAD CELLS (BEAKER) (test ydxg=021) 1+ few PLATELET CONCENTRATION (CELLAVISION)(BEAKER) Increased (test vfsm=8559) Received comment: User comments: Slide comments:POCT-GLUCOSE [id number] 06: 32:00 Test Item Value Reference Range Comments POC-GLUCOSE METER (BEAKER) 187 mg/dL 70-[address] [facility] [address] [facility] (test yhrv=0737) [facility] [address] [id number] 06:25:00 Test Item Value Reference Range Comments PARTIAL THROMBOPLASTIN TIME (BEAKER) (test 162.4 seconds 22.5-36.0 pcoq=140) BASIC METABOLIC [id number] 04:35:00 Test Item Value Reference Range Comments SODIUM (BEAKER) (test 135 meq/L 136-145 eorf=993) POTASSIUM (BEAKER) (test 5.0 meq/L 3.5-5.1 fnku=656) CHLORIDE (BEAKER) (test 97 meq/L 98-107 njxx=577) CO2 (BEAKER) (test 22 meq/L 22-29 wibe=329) BLOOD UREA NITROGEN 94 mg/dL 7-21 (BEAKER) (test befw=999) CREATININE (BEAKER) (test 7.10 mg/dL 0.57-1.25 yqyn=309) GLUCOSE RANDOM (BEAKER) 171 mg/dL 70-105 (test gaqs=856) CALCIUM (BEAKER) (test 8.2 mg/dL 8.4-10.2 ocqg=765) EGFR (BEAKER) (test 8 mL/min/1.73 sq m ESTIMATED GFR IS NOT ueat=0256) ACCURATE CREATININE CLEARANCE IN PREDICTING GLOMERULAR FILTRATION RATE. ESTIMATED GFR IS NOT APPLICABLE FOR DIALYSIS PATIENTS. [id number] 04:14:00 Test Item Value Reference Range Comments PARTIAL THROMBOPLASTIN TIME (BEAKER) (test > seconds 22.5-36.0 uzes=491) PROTHROMBIN TIME/[id number] 03:47:00 Test Item Value Reference Range Comments PROTIME (BEAKER) (test tvqg=043) 17.5 seconds 11.7-14.7 INR (BEAKER) (test pilt=929) 1.4 <=5.9 RECOMMENDED COUMADIN/WARFARIN INR THERAPY RANGESSTANDARD DOSE: 2.0 - 3.0 Includes: PROPHYLAXIS forvenous thrombosis, systemic embolization; TREATMENT for venous thrombosis and/or pulmonary embolus.HIGH RISK: Target INR is 2.5-3.5 for patients with mechanical heart valves.[id number] 00:26:00 Test Item Value Reference Range Comments PHOSPHORUS (BEAKER) (test wtla=505) 10.8 mg/dL 2.3-4.7 POCT-GLUCOSE [id number] 00:21:00 Test Item Value Reference Range Comments POC-GLUCOSE METER (BEAKER) 158 mg/dL 70-110 TESTED AT [address] (test neiy=7134) [place] [address] BASIC METABOLIC [id number] 00:16:00 Test Item Value Reference Range Comments SODIUM (BEAKER) (test 133 meq/L 136-145 smeq=049) POTASSIUM (BEAKER) (test 5.1 meq/L 3.5-5.1 vapa=830) CHLORIDE (BEAKER) (test 95 meq/L 98-107 uaim=475) CO2 (BEAKER) (test 18 meq/L 22-29 wiqk=815) BLOOD UREA NITROGEN 114 mg/dL 7-21 (BEAKER) (test hhuh=768) CREATININE (BEAKER) (test 7.99 mg/dL 0.57-1.25 iapa=726) GLUCOSE RANDOM (BEAKER) 144 mg/dL 70-105 (test vkeo=409) CALCIUM (BEAKER) (test 7.7 mg/dL 8.4-10.2 gvrn=879) EGFR (BEAKER) (test 7 mL/min/1.73 sq m ESTIMATED GFR IS NOT qgte=7664) ACCURATE CREATININE CLEARANCE IN PREDICTING GLOMERULAR FILTRATION RATE. ESTIMATED GFR IS NOT APPLICABLE FOR DIALYSIS PATIENTS. [id number] 00:03:00 Test Item Value Reference Range Comments MAGNESIUM (BEAKER) (test vnju=971) 2.1 mg/dL 1.6-2.6 POCT-GLUCOSE [id number] 21:42:00 Test Item Value Reference Range Comments POC-GLUCOSE METER (BEAKER) 200 mg/dL 70-110 TESTED AT [address] (test lium=2743) [place] [address] LACTIC ACID, VENOUS, WHOLE [id number] 21:18:00 Test Item Value Reference Range Comments LACTATE BLOOD VENOUS (2) (BEAKER) (test 0.3 mmol/L 0.5-2.2 tyjh=8148) CBC W/PLT COUNT & AUTO [id number] 19:51:00 Test Item Value Reference Range Comments WHITE BLOOD CELL COUNT (BEAKER) (test dtfo=755) 30.1 K/ L 3.5-10.5 RED BLOOD CELL COUNT (BEAKER) (test sgjm=032) 3.60 M/ L 4.63-6.08 HEMOGLOBIN (BEAKER) (test lgln=812) 11.1 GM/DL 13.7-17.5 HEMATOCRIT (BEAKER) (test xauf=295) 32.8 % 40.1-51.0 MEAN CORPUSCULAR VOLUME (BEAKER) (test ftoo=986) 91.1 fL 79.0-92.2 MEAN CORPUSCULAR HEMOGLOBIN (BEAKER) (test 30.8 pg 25.7-32.2 rtle=504) MEAN CORPUSCULAR HEMOGLOBIN CONC (BEAKER) (test 33.8 GM/DL 32.3-36.5 fxty=105) RED CELL DISTRIBUTION WIDTH (BEAKER) (test 14.9 % 11.6-14.4 csuj=340) PLATELET COUNT (BEAKER) (test asdh=939) 525 K/CU MM 150-450 MEAN PLATELET VOLUME (BEAKER) (test iand=898) 10.6 fL 9.4-12.4 NUCLEATED RED BLOOD CELLS (BEAKER) (test 0 /100 WBC 0-0 fxel=399) (CELLAVISION MANUAL DIFF)2018-05-17 19:51:00 Test Item Value Reference Range Comments NEUTROPHILS - REL (CELLAVISION)(BEAKER) (test 92 % gflc=4360) LYMPHOCYTES - REL (CELLAVISION)(BEAKER) (test 5 % kkhb=3229) MONOCYTES - REL (CELLAVISION)(BEAKER) (test 1 % zwoj=7868) METAMYELOCYTES - REL (CELLAVISION)(BEAKER) (test 1 % 0-0 kfin=2239) BANDS - REL (CELLAVISION)(BEAKER) (test 1 % 0-10 ockx=9816) NEUTROPHILS - ABS (CELLAVISION)(BEAKER) (test 27.69 K/ul 1.78-5.38 ltzn=6738) LYMPHOCYTES - ABS (CELLAVISION)(BEAKER) (test 1.51 K/ul 1.32-3.57 njto=8871) MONOCYTES - ABS (CELLAVISION)(BEAKER) (test 0.30 K/uL 0.30-0.82 iojr=2392) METAMYELOCYTES - ABS (CELLAVISION)(BEAKER) (test 0.30 K/uL 0.00-0.00 ptff=2238) BANDS - ABS (CELLAVISION)(BEAKER) (test 0.30 K/uL 0.00-0.80 bcsr=4565) TOTAL COUNTED (BEAKER) (test xdeu=4585) 100 WBC MORPHOLOGY (BEAKER) (test iswb=844) Normal GIANT PLATELETS (BEAKER) (test kyyu=017) Present ANISOCYTOSIS (BEAKER) (test npst=914) 1+ few POIKILOCYTES (BEAKER) (test oars=256) 2+ moderate ROULEAUX (BEAKER) (test chex=514) 1+ few ELLIPTOCYTES (BEAKER) (test kdph=100) 1+ few ARTIFACT (CELLAVISION)(BEAKER) (test gczn=0564) Present PLATELET CONCENTRATION (CELLAVISION)(BEAKER) Increased (test ncbw=0350) Received comment: User comments: Slide comments:BASIC METABOLIC [id number] 19:27:00 Test Item Value Reference Range Comments SODIUM (BEAKER) (test 131 meq/L 136-145 qybr=419) POTASSIUM (BEAKER) (test 6.1 meq/L 3.5-5.1 davd=616) CHLORIDE (BEAKER) (test 92 meq/L 98-107 rnjt=149) CO2 (BEAKER) (test 16 meq/L 22-29 ddkl=729) BLOOD UREA NITROGEN 117 mg/dL 7-21 (BEAKER) (test awha=499) CREATININE (BEAKER) (test 9.98 mg/dL 0.57-1.25 ozsk=494) GLUCOSE RANDOM (BEAKER) 159 mg/dL 70-105 (test prfg=487) CALCIUM (BEAKER) (test 8.3 mg/dL 8.4-10.2 mtjk=109) EGFR (BEAKER) (test 5 mL/min/1.73 sq m ESTIMATED GFR IS NOT ovje=8108) ACCURATE CREATININE CLEARANCE IN PREDICTING GLOMERULAR FILTRATION RATE. ESTIMATED GFR IS NOT APPLICABLE FOR DIALYSIS PATIENTS. RAD, CHEST, 1 VIEW, NON [id number] 19:15:00Reason for exam:->s/p right HD IJ placementShould this be performed at the bedside?->YesFINAL REPORT RAD, CHEST, 1 VIEW, NON DEPT [...] Heart and mediastinum: Stable contours. Stable surgical changes.Additional findings: None. Signed: Liz Oliveros Verified Date/Time: 05/17/2018 19:15:04 Reading Location: [address] Reading Room [id number] 19:04:00 Test Item Value Reference Range Comments PARTIAL THROMBOPLASTIN TIME (BEAKER) (test 47.6 seconds 22.5-36.0 tyng=140) PROTHROMBIN [id number] 19:03:00 Test Item Value Reference Range Comments PROTIME (BEAKER) (test doya=511) 16.7 seconds 11.7-14.7 INR (BEAKER) (test vlex=342) 1.3 <=5.9 RECOMMENDED COUMADIN/WARFARIN INR THERAPY RANGESSTANDARD DOSE: 2.0 - 3.0 Includes: PROPHYLAXIS forvenous thrombosis, systemic embolization; TREATMENT for venous thrombosis and/or pulmonary embolus.HIGH RISK: Target INR is 2.5-3.5 for patients with mechanical heart valves.POCT-GLUCOSE [id number] 18:28:00 Test Item Value Reference Range Comments POC-GLUCOSE METER (BEAKER) 153 mg/dL 70-[address] [facility] [address] [facility] (test ntdj=0034) [facility] [address] [id number] 16:58:00 Test Item Value Reference Range Comments PARTIAL THROMBOPLASTIN TIME (BEAKER) (test > seconds 22.5-36.0 vrig=720) CREATINE KINASE (CK)2018-05-17 15:07:00 Test Item Value Reference Range Comments CREATINE KINASE TOTAL (BEAKER) (test njdb=985) 3619 U/L 29-200 CBC W/PLT COUNT & AUTO [id number] 13:09:00 Test Item Value Reference Range Comments WHITE BLOOD CELL COUNT (BEAKER) (test myjm=020) 28.2 K/ L 3.5-10.5 RED BLOOD CELL COUNT (BEAKER) (test cjva=775) 3.81 M/ L 4.63-6.08 HEMOGLOBIN (BEAKER) (test lgwb=016) 11.6 GM/DL 13.7-17.5 HEMATOCRIT (BEAKER) (test vglb=378) 35.4 % 40.1-51.0 MEAN CORPUSCULAR VOLUME (BEAKER) (test hhpj=159) 92.9 fL 79.0-92.2 MEAN CORPUSCULAR HEMOGLOBIN (BEAKER) (test 30.4 pg 25.7-32.2 pvrc=837) MEAN CORPUSCULAR HEMOGLOBIN CONC (BEAKER) (test 32.8 GM/DL 32.3-36.5 zuox=247) RED CELL DISTRIBUTION WIDTH (BEAKER) (test 15.1 % 11.6-14.4 ihso=065) PLATELET COUNT (BEAKER) (test obym=038) 526 K/CU MM 150-450 MEAN PLATELET VOLUME (BEAKER) (test uqer=226) 10.6 fL 9.4-12.4 NUCLEATED RED BLOOD CELLS (BEAKER) (test 0 /100 WBC 0-0 zkgh=053) (CELLAVISION MANUAL DIFF)2018-05-17 13:09:00 Test Item Value Reference Range Comments NEUTROPHILS - REL (CELLAVISION)(BEAKER) (test 91 % ntdx=3455) LYMPHOCYTES - REL (CELLAVISION)(BEAKER) (test 1 % jkqb=6062) MONOCYTES - REL (CELLAVISION)(BEAKER) (test 5 % vzff=0246) EOSINOPHILS - REL (CELLAVISION)(BEAKER) (test 1 % tkxf=6306) PROMYELOCYTES - REL (CELLAVSION)(BEAKER) (test 1 % 0-0 trkh=7543) BANDS - REL (CELLAVISION)(BEAKER) (test 1 % 0-10 pwbc=5021) NEUTROPHILS - ABS (CELLAVISION)(BEAKER) (test 25.66 K/ul 1.78-5.38 jfua=4725) LYMPHOCYTES - ABS (CELLAVISION)(BEAKER) (test 0.28 K/ul 1.32-3.57 qozt=2303) MONOCYTES - ABS (CELLAVISION)(BEAKER) (test 1.41 K/uL 0.30-0.82 zlfa=4173) EOSINOPHILS - ABS (CELLAVISION)(BEAKER) (test 0.28 K/uL 0.04-0.54 owyf=7265) PROMYELOCYTES - ABS (CELLAVISION)(BEAKER) (test 0.28 K/uL 0.00-0.00 qslw=8419) BANDS - ABS (CELLAVISION)(BEAKER) (test 0.28 K/uL 0.00-0.80 zlqm=4675) TOTAL COUNTED (BEAKER) (test twcw=5203) 100 WBC MORPHOLOGY (BEAKER) (test mdhe=146) Normal GIANT PLATELETS (BEAKER) (test bzqq=845) Present ANISOCYTOSIS (BEAKER) (test uewk=900) 1+ few MACROCYTES (BEAKER) (test brse=444) 1+ few POIKILOCYTES (BEAKER) (test zmcx=158) 1+ few ELLIPTOCYTES (BEAKER) (test zfmy=147) 1+ few ARTIFACT (CELLAVISION)(BEAKER) (test xmsv=9976) Present PLATELET CONCENTRATION (CELLAVISION)(BEAKER) Increased (test ewyy=4750) Received comment: User comments: Slide comments:BASIC METABOLIC [id number] 12:44:00 Test Item Value Reference Range Comments SODIUM (BEAKER) (test 131 meq/L 136-145 kezk=606) POTASSIUM (BEAKER) (test 5.6 meq/L 3.5-5.1 nuru=007) CHLORIDE (BEAKER) (test 93 meq/L 98-107 stid=339) CO2 (BEAKER) (test 15 meq/L 22-29 zliu=351) BLOOD UREA NITROGEN 115 mg/dL 7-21 (BEAKER) (test thjd=058) CREATININE (BEAKER) (test 9.55 mg/dL 0.57-1.25 thiy=201) GLUCOSE RANDOM (BEAKER) 194 mg/dL 70-105 (test fkfy=513) CALCIUM (BEAKER) (test 8.7 mg/dL 8.4-10.2 wkas=121) EGFR (BEAKER) (test mL/min/1.73 sq m INSUFFICIENT CLINICAL DATA fogk=7840) TO CALCULATE ESTIMATED GFR. RAD, CHEST, 1 VIEW, NON [id number] 12:29:00Reason for exam:->chest painShould this be performed at the bedside?->YesFINAL REPORT Chest one view. Clinical history: chest pain Comparison: No priors Discussion: A frontal chest is provided. Cardiac silhouette appears enlarged, but it may be partly magnified by portable technique and low lung volume . There is calcification of the aortic arch. Subsegmental bibasilar atelectasis. No sushila pulmonary edema, pneumothorax, or large effusion. Osseous structures demonstrate degenerative changes. No acute abnormality identified. Signed: Alanna Wade Verified Date/Time: 05/17/2018 12:29:30 Reading Location: [address] Consult Reading Room Electronically signed by: ALANNA WADE M.D. on 2018 12:29 PMPT/[id number] 12:28:00 Test Item Value Reference Range Comments PROTIME (BEAKER) (test lvog=201) 15.4 seconds 11.7-14.7 INR (BEAKER) (test tmab=842) 1.2 <=5.9 PARTIAL THROMBOPLASTIN TIME (BEAKER) (test 32.3 seconds 22.5-36.0 rbwp=838) RECOMMENDED COUMADIN/WARFARIN INR THERAPY RANGESSTANDARD DOSE: 2.0 - 3.0 Includes: PROPHYLAXIS forvenous thrombosis, systemic embolization; TREATMENT for venous thrombosis and/or pulmonary embolus.HIGH RISK: Target INR is 2.5-3.5 for patients with mechanical heart valves.
[2018-05-26 12:50] LABS: Absolute Lymphocytes (CBC) 1.1 K/uL (0.7-4.9); Absolute Monocytes 1.6 K/uL (0.1-1.3); Basophils % 0.5 % (0-1.3); Eosinophils % 1.6 % (0-4.4); Lymphocytes % 4.8 % (15.3-44.8); Monocytes % 6.8 % (3.3-12.3); RBC Red Blood Cell Count 2.62 M/uL (4.33-5.43)
--- NOTE | 2018-05-26 13:00 | RAD REPORT ---
EXAM DESCRIPTION: CT - Head Brain Wo Cont - 05/26/2018 12:51 pm CLINICAL HISTORY: AMS Headache, drowsiness COMPARISON: Head Brain Wo Cont dated 06/24/2016; Head Brain Wo Cont dated 06/12/2016 TECHNIQUE: All CT scans are performed using dose optimization technique as appropriate and may inclu de automated exposure control or mA/KV adjustment according to patient size. FINDINGS: No intracranial hemorrhage, hydrocephalus or extra-axial fluid collection.Moderate general ized brain edema is seen. 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 The paranasal sinuses and mastoids are clear. The calvarium is intact. Chronic changes are present nate th lobes. IMPRESSION: No acute intracranial abnormality.
--- NOTE | 2018-05-26 13:01 | RAD REPORT ---
EXAM DESCRIPTION: RAD - Chest Single View - 05/26/2018 12:44 pm CLINICAL HISTORY: AMS Chest pain. COMPARISON: Chest Single View dated 10/24/2017; Chest Single View dated 10/23/2017; Chest Single View dated 06/24/2016; Chest Single View dated 06/13/2016 FINDINGS: Portable technique limits examination quality. The lungs are underinflated resulting in vascular crowding. Linear atelectasis suspected left lung ba se. The heart is mildly prominent size. Aortic atherosclerosis. IMPRESSION: Underinflated lungs.
--- NOTE | 2018-05-26 13:05 | RAD REPORT ---
EXAM DESCRIPTION: CT - Abdomen Pelvis Wo Contrast - 05/26/2018 12:51 pm CLINICAL HISTORY: Abdominal pain. abd pain, firmness COMPARISON: No comparisons TECHNIQUE: CT imaging of the abdomen and pelvis was performed without contrast. Solid organ, bowel a nd vascular assessment is limited due to lack of IV and oral contrast. All CT scans are performed using dose optimization technique as appropriate and may include automated exposure control or mA/KV adjustment according to patient size. FINDINGS: Emphysema is present with mild linear subsegmental atelectasis both lung bases. The liver, spleen, pancreas, adrenal glands are within normal limits for a limited non-contrast exami nation.Right kidney is mildly atrophic. Mild left hydronephrosis is seen. Bladder appears prominently distended. No bowel obstruction, free air, free fluid or abscess. Moderate stool is present colon. The appendix is normal. The osseous structures are within normal limits. IMPRESSION: Mild left hydronephrosis is seen without evidence of a stone. Prominent distention of th e urinary bladder. A limited non-contrast examination was performed as detailed.
[2018-05-26 13:06] LABS: Potassium 6.1 mmol/L (3.5-5.1)
[2018-05-26] MEDS ORDERED: NA CHLORIDE 0.9% 100 ML IV ONE (13:43)
[2018-05-26] MEDS ORDERED: INSULIN -REGULAR HUMAN 50 UNIT/0.5 ML ML ONE (13:43)
[2018-05-26] MEDS ORDERED: CEFTRIAXONE/SWI 1gm 1 GM/10 ML SYR ONE (13:43)
[2018-05-26] MEDS ORDERED: SODIUM BICARB 50 MEQ/50ML VIAL ONE (13:43)
[2018-05-26] MEDS ORDERED: D50W 25 GM/50 ML SYRINGE IV ONE (13:43)
[2018-05-26 13:47] LABS: Urine Blood NEGATIVE (NEG); Urine Glucose 1+ (NEG); Urine Protein 3+ (NEG)
[2018-05-26 13:49] LABS: Anisocytosis 1+; Blood Morphology Comment NOTED (NOT SEEN); Platelet Estimate INCR; Platelets, Giant FEW; Stomatocytes 1+
--- NOTE | 2018-05-26 13:51 | ER ---
Nurse's Notes [facility] Name: Jelani Martienz Age: 63 yrs Sex: Male : 1955 Arrival Date: 05/26/2018 Time: 12:08 Bed 8 Private MD: Diagnosis: Altered mental status, unspecified;End stage renal disease;Hyperkalemia;Acidosis Presentation: 05/26 12:13 Presenting complaint: EMS states: Pt lives at [facility], sent to dialysis today in a wheelchair van, when got to dialysis, they states pt was altered and called 911. unknown last time seen normal, according to dialysis center, pt is normally talkative and moves in his wheelchair. Transition of care: patient was not received from another setting of care. Onset of symptoms was May 26, 2018. Risk Assessment: Do you want to hurt yourself or someone else? Patient reports no desire to harm self or others. Initial Sepsis Screen: Does the patient meet any 2 criteria? No. Patient's initial sepsis screen is negative. Does the patient have a suspected source of infection? No. Patient's initial sepsis screen is negative. Care prior to arrival: None. 12:13 Method Of Arrival: EMS: [facility] 12:13 Acuity: SHINE 2 Triage Assessment: 12:36 General: Appears in no apparent distress. comfortable, Behavior is quiet. Historical: - Allergies: 12:36 No Known Drug Allergies; - Home Meds: 12:36 hydralazine 25 mg Oral tab three times a day [Active]; carvedilol 6.25 mg Oral tab ch daily [Active]; pravastatin 40 mg oral tab 1 tab once daily [Active]; clopidogrel 75 mg oral tab 1 tab once daily [Active]; ProMod Protein Oral liqd [Active]; hydralazine 25 mg Oral tab 1 tab three times a day [Active]; renavite rx combo- take after dialysis [Active]; Levemir 100 unit/mL subcutaneous soln [Active]; tramadol 50 mg Oral tab three times a day [Active]; lisinopril 5 mg Oral tab 1 tab twice a day [Active]; Tums 4 with each meal, two with snacks Oral [Active]; zinc sulfate 220 mg Oral tab [Active]; clonidine HCl 0.1 mg oral tab as needed for hypertension [Active]; Benadryl Oral [Active]; Folic Acid Oral [Active]; gabapentin 100 mg oral cap 1 caps 3 times per day [Active]; Tylenol-Codeine #3 oral oral [Active]; acetaminophen-codeine 300-30 mg Oral tab 1 tab every 4 hours for Pain [Active]; lactulose 20 gram/30 mL Oral soln as needed for Constipation [Active]; Phenytoin 300 mg given once at night Oral [Active]; - PMHx: 12:36 Blind in Both Eyes; osteomyolitis; CAD; hyperglycemia; Diabetes - IDDM; anemia-iron; ch pressure ulcer R foot; Hyperlipidemia; Dialysis; ESRD; hypocalcemia; electrolyte/fluid imbalances; hyperparathyroidism; neuropathy; "impared cognition, AEB forgetfulness"; - PSHx: 12:36 L FOREARM FISTULA; R AKA; ch - Immunization history:: Adult Immunizations up to date. - Social history:: Smoking status: Patient/guardian denies using tobacco. - Ebola Screening: : Patient negative for fever greater than or equal to 101.5 degrees Fahrenheit, and additional compatible Ebola Virus Disease symptoms Patient denies exposure to infectious person Patient denies travel to an Ebola-affected area in the 21 days before illness onset No symptoms or risks identified at this time. - Family history:: not pertinent. - Hospitalizations: : The patient was recently seen at [facility]. Screenin:41 Abuse screen: Denies threats or abuse. Denies injuries from another. Nutritional hj screening: No deficits noted. Tuberculosis screening: No symptoms or risk factors identified. Fall Risk Secondary diagnosis (15 points) R AKA amputation. Mental Status-. Assessment: 12:45 General: Appears in no apparent distress. uncomfortable, ill, slender. Pain: Unable to ch use pain scale. Patient is unresponsive. PT DOES NOT SPEAK WORDS, BUT DOES CRY OUT WHEN r LEG IS MOVED OR BODY IS ROLLED. Neuro: Level of Consciousness is awake, lethargic, Oriented to none Surgery Nurse are PT WILL NOT FOLLOW COMMANDS. Facial symmetry appears normal, Pupils are PT HAS CATARACTS OVER CLINT EYES. Respiratory: Airway is patent Respiratory effort is even, unlabored, Breath sounds are coarse bilaterally. GI: Abdomen is round non-distended, Bowel sounds present X 4 quads. Abd is soft and non tender X 4 quads. : BRIEF IS DRY, GENITALS APPEAR NORMAL. NO SKIN BREAK DOWN NOTED. 12:45 Cardiovascular: Heart tones S1 S2 present Capillary refill is > 3 seconds is sluggish ch in bilateral fingers toes Clubbing of nail beds is present JVD is absent Pulses are all present. Edema is absent. Rhythm is regular. EENT: No signs and/or symptoms were reported regarding the EENT system. Derm: Skin is dry, Skin is brown, jaundiced, Skin temperature is warm Wound noted right leg Wound is PT HAS AN ABOVE THE KNEE AMPUTATION, 5 DAYS OLD, WOUND IS CLEAN, AURA ARE INTACT, NO SIGNS OF INFECTION. SKIN IS WARM AND DRY, NO EXUDATE NOTED. Musculoskeletal: Amputation of right knee, right sanabria, anterior aspect of right ankle and dorsum of right foot. 14:02 Reassessment: Patient appears in no apparent distress at this time. No changes from previously documented assessment. Patient and/or family updated on plan of care and expected duration. Pain level reassessed. 14:08 Reassessment:. 14:13 Reassessment: ERP NOTIFIED OF FAILED SWALLOW STUDY. PT DOES NOT SPEAK AND CANNOT ch SWALLOW ON COMMAND. 15:18 Reassessment: Patient appears in no apparent distress at this time. 16:00 Reassessment: Patient appears in no apparent distress at this time. Patient and/or ch family updated on plan of care and expected duration. Pain level reassessed. Patient states feeling better. Patient states symptoms have improved. 16:48 Reassessment: Patient appears in no apparent distress at this time. grandson at bedside, pt aaox1, person only. pt is now talkative and swallows, pass swallow study. Vital Signs: 12:36 BP 151 / 71; Pulse 86; Resp 18; Temp 97.6(O); Pulse Ox 100% on R/A; Weight 58.97 kg; Height 5 ft. 2 in. (157.48 cm); 13:00 BP 143 / 88; Pulse 87; Resp 10; Temp 98; Pulse Ox 97% on R/A; ch 14:02 BP 144 / 74; Pulse 87; Resp 8; Temp 98.8; Pulse Ox 99% on R/A; ch 14:30 BP 176 / 88; Pulse 90; Resp 16; Temp 98.3; Pulse Ox 99% on R/A; ch 15:20 BP 186 / 102; Pulse 91; Resp 10; Pulse Ox 98% on R/A; ch 15:40 BP 188 / 96; Resp 7 S; ch 15:48 BP 161 / 69; Pulse 97; Resp 20; Temp 98.2; Pulse Ox 99% on R/A; ch 16:01 BP 161 / 69; Pulse 100; Resp 14; Pulse Ox 100% on R/A; pc1 12:36 Body Mass Index 23.78 (58.97 kg, 157.48 cm) hj 14:02 ERP NOTIFIED OF PT RR. ERP STATES HE WILL ASSESS PT. O2 LEVEL MAINTAINS AT 100% ch 15:40 ERP NOTIFIED, MEDICATED PER ORDERS ch 15:48 PT NOW RESPONDS TO VERBAL STIMULI ED Course: 12:08 Patient arrived in ED. hj 12:10 Wu Zee MD is Attending Physician. rn 12:12 Richa Price, SHADY is Primary Nurse. ch 12:15 Triage completed. ch 12:29 Missed attempt(s): 22 gauge in right forearm. Bleeding controlled, band aid applied, pc1 catheter tip intact. 12:30 First set of blood cultures drawn by me. jb1 12:[address] via stretcher. mw3 12:36 XRAY Chest (1 view) In Process Unspecified. EDMS 12:36 No apparent distress. Resting quietly. ch 12:36 No provider procedures requiring assistance completed. Patient admitted, IV remains in ch place. 12:36 Arm band placed on left wrist. Patient placed in an exam room, on a stretcher, on pulse oximetry. 12:36 Patient has correct armband on for positive identification. Placed in gown. Bed in low position. Call light in reach. Side rails up X2. alarm security or surveillance monitor on. Pulse ox on. NIBP on. 12:36 Warm blanket given. Pillow given. ch 12:41 Initial lab(s) drawn, by me, sent to lab. Inserted saline lock: 22 gauge in right upper jb1 arm, using aseptic technique. Blood collected. 12:42 Dressings: non-adherent dressing x 1 right leg To above the knee amputation site. jb1 12:49 CT completed. Patient tolerated procedure well. Patient moved back from CT. mw3 12:51 CT Head Brain wo Cont In Process Unspecified. EDMS 12:51 CT Abd/Pelvis - Without Cont In Process Unspecified. EDMS 12:52 Notified ED physician of a critical lab result(s). wbc 23.2, hgb 7.9. dm5 13:36 Wiley cath inserted, using sterile technique, 16 Fr., by de, balloon inflated, to pc1 gravity drainage, returned cloudy urine. Patient tolerated well. 13:44 Urine collected: Wiley catheter specimen, cloudy, dominick colored. jb1 13:49 Yesenia Lindquist MD is Hospitalizing Provider. rn Administered Medications: 13:40 Drug: Sodium Bicarbonate 1 amp Route: IVP; Site: right upper arm; ch 17:04 Follow up: Response: No adverse reaction; Marked relief of symptoms ch 13:42 Drug: Insulin Regular Human 5 units {Co-Signature: hj (Baldemar Cano RN).} Route: IVP; Site: right upper arm; 17:05 Follow up: Response: No adverse reaction; Marked relief of symptoms ch 13:45 Drug: D50W 50 ml Route: IVP; Site: right upper arm; ch 17:04 Follow up: Response: No adverse reaction ch 13:50 Drug: Calcium Gluconate 1 grams Route: IVPB; Infused Over: 60 mins; Site: right upper arm; 14:50 Follow up: IV Status: Completed infusion; IV Intake: 100ml ch 14:00 Drug: Rocephin - (cefTRIAXone) 1 grams Route: IVPB; Infused Over: 30 mins; Site: right upper arm; 14:20 Follow up: IV Status: Completed infusion; IV Intake: 50ml ch 14:25 Drug: NARcan 0.4 mg {Note: administered with Dr. Zee at bedside per orders. rest of ch Narcan held, will repeat as needed. .} Route: IVP; Site: right upper arm; 15:47 Follow up: Response: No adverse reaction; Marked relief of symptoms; Marked relief of ch symptoms, rr INCREASES 15:40 Drug: NARcan 0.4 mg Route: IVP; Site: right upper arm; ch 16:00 Follow up: Response: No adverse reaction; Marked relief of symptoms ch 16:54 Drug: Kayexalate 30 grams Route: PO; ch 17:03 Follow up: Response: No adverse reaction; Marked relief of symptoms ch Intake: 14:20 IV: 50ml; Total: 50ml. ch 14:50 IV: 100ml; Total: 150ml. Output: 14:14 Urine: 1600ml (Wiley); Total: 1600ml. Outcome: 13:50 Decision to Hospitalize by Provider. rn 17:02 Attestation : pt admitted, report called to Piedad. ch 17:02 Admitted to Med/surg accompanied by tech, via stretcher, room 424, Report called to Piedad 17:02 Condition: stable 17:02 Instructed on the need for admit. 17:09 Patient left the ED. Signatures: Dispatcher [employer] EDMS Jose [id number] Richa Price RN RN ch Markwardt, Deana, RN RN dm5 Wu Zee MD MD rn Joaquin, Henry, RN RN hj Willis, Michelle mw3 Noah Millard RN Corrections: (The following items were deleted from the chart) 13:01 12:36 BP 151 / 71; Pulse 86bpm; Resp 18bpm; Pulse Ox 100% RA; 58.97 kg; Height 5 ft. 2 hj in.; BMI: 23.7; hj 14:06 14:02 BP 144 / 74; Pulse 87bpm; Resp 13bpm; Pulse Ox 99% RA; Temp 98.8F; [facility]
--- NOTE | 2018-05-26 13:52 | EDPHYS ---
Physician Documentation [facility] Name: Jelani Martinez Age: 63 yrs Sex: Male : 1955 Arrival Date: 05/26/2018 Time: 12:08 Bed 8 Private MD: ED Physician Wu Zee HPI: 05/26 13:25 This 63 yrs old Male presents to ER via EMS with complaints of AMS. rn 13:25 The patient presents with confusion. Onset: The symptoms/episode began/occurred today. rn Possible causes: unknown. Current symptoms: In the emergency department the patient's symptoms are unchanged from the initial presentation. It is unknown whether or not the patient has had similar symptoms in the past. Per EMS, patient at dialysis today, sent here for AMS, not at baseline, patient not cooperative or answering questions. S/p recent right BKA.. Historical: - Allergies: 12:36 No Known Drug Allergies; ch - Home Meds: 12:36 hydralazine 25 mg Oral tab three times a day [Active]; carvedilol 6.25 mg Oral tab ch daily [Active]; pravastatin 40 mg oral tab 1 tab once daily [Active]; clopidogrel 75 mg oral tab 1 tab once daily [Active]; ProMod Protein Oral liqd [Active]; hydralazine 25 mg Oral tab 1 tab three times a day [Active]; renavite rx combo- take after dialysis [Active]; Levemir 100 unit/mL subcutaneous soln [Active]; tramadol 50 mg Oral tab three times a day [Active]; lisinopril 5 mg Oral tab 1 tab twice a day [Active]; Tums 4 with each meal, two with snacks Oral [Active]; zinc sulfate 220 mg Oral tab [Active]; clonidine HCl 0.1 mg oral tab as needed for hypertension [Active]; Benadryl Oral [Active]; Folic Acid Oral [Active]; gabapentin 100 mg oral cap 1 caps 3 times per day [Active]; Tylenol-Codeine #3 oral oral [Active]; acetaminophen-codeine 300-30 mg Oral tab 1 tab every 4 hours for Pain [Active]; lactulose 20 gram/30 mL Oral soln as needed for Constipation [Active]; Phenytoin 300 mg given once at night Oral [Active]; - PMHx: 12:36 Blind in Both Eyes; osteomyolitis; CAD; hyperglycemia; Diabetes - IDDM; anemia-iron; ch pressure ulcer R foot; Hyperlipidemia; Dialysis; ESRD; hypocalcemia; electrolyte/fluid imbalances; hyperparathyroidism; neuropathy; "impared cognition, AEB forgetfulness"; - PSHx: 12:36 L FOREARM FISTULA; R AKA; ch - Immunization history:: Adult Immunizations up to date. - Social history:: Smoking status: Patient/guardian denies using tobacco. - Ebola Screening: : Patient negative for fever greater than or equal to 101.5 degrees Fahrenheit, and additional compatible Ebola Virus Disease symptoms Patient denies exposure to infectious person Patient denies travel to an Ebola-affected area in the 21 days before illness onset No symptoms or risks identified at this time. - Family history:: not pertinent. - Hospitalizations: : The patient was recently seen at [facility]. ROS: 13:25 Unable to obtain ROS due to altered mental status. rn Exam: 13:25 Constitutional: Thin male, no acute distress Head/Face: Normocephalic, atraumatic. rn Eyes: Sunken eyes Cardiovascular: Regular rate and rhythm, + systolic murmur Respiratory: Lungs have equal breath sounds bilaterally Abdomen/GI: soft, non-tender upper abdomen, + firm suprapubic region, no peritoneal signs. MS/ Extremity: Pulses equal, no cyanosis. Neurovascular intact. Full, normal range of motion. Equal circumference. Neuro: Somnolent, opens eyes to painful stimuli but not answering questions. Vital Signs: 12:36 BP 151 / 71; Pulse 86; Resp 18; Temp 97.6(O); Pulse Ox 100% on R/A; Weight 58.97 kg; hj Height 5 ft. 2 in. (157.48 cm); 13:00 BP 143 / 88; Pulse 87; Resp 10; Temp 98; Pulse Ox 97% on R/A; ch 14:02 BP 144 / 74; Pulse 87; Resp 8; Temp 98.8; Pulse Ox 99% on R/A; ch 14:30 BP 176 / 88; Pulse 90; Resp 16; Temp 98.3; Pulse Ox 99% on R/A; ch 15:20 BP 186 / 102; Pulse 91; Resp 10; Pulse Ox 98% on R/A; ch 15:40 BP 188 / 96; Resp 7 S; ch 15:48 BP 161 / 69; Pulse 97; Resp 20; Temp 98.2; Pulse Ox 99% on R/A; ch 16:01 BP 161 / 69; Pulse 100; Resp 14; Pulse Ox 100% on R/A; pc1 12:36 Body Mass Index 23.78 (58.97 kg, 157.48 cm) hj 14:02 ERP NOTIFIED OF PT RR. ERP STATES HE WILL ASSESS PT. O2 LEVEL MAINTAINS AT 100% ch 15:40 ERP NOTIFIED, MEDICATED PER ORDERS ch 15:48 PT NOW RESPONDS TO VERBAL STIMULI ch MDM: 12:10 Patient medically screened. rn 13:49 Differential Diagnosis: CVA, electrolyte abnormality, pneumonia, sepsis, UTI, volume rn depletion. Data reviewed: vital signs, nurses notes. Counseling: I had a detailed discussion with the patient and/or guardian regarding: the historical points, exam findings, and any diagnostic results supporting the discharge/admit diagnosis, lab results, radiology results, the need for further work-up and treatment in the hospital. Response to treatment: the patient's symptoms have mildly improved after treatment, and as a result, I will admit patient. Admission orders: after a detailed discussion of the patient's condition and case, the admit orders are written by me. ED course: Pt evaluated in ER by Dr. Vasques, admitted to Dr. Lindquist. . 14:23 ED course: Pt with slow respirations, takes tylenol#3, given narcan 1mg, improved, rn began talking, opiate overdose likely component of todays presentation. . 05/26 12:20 Order name: CBC with Diff; Complete Time: 14:22 rn 05/26 12:20 Order name: Basic Metabolic Panel; Complete Time: 13:12 rn 05/26 12:20 Order name: Urine Culture rn 05/26 12:20 Order name: Blood Culture Adult (2) rn 05/26 12:20 Order name: Procalcitonin; Complete Time: 13:15 rn 05/26 12:20 Order name: Lactate; Complete Time: 13:03 rn 05/26 12:20 Order name: XRAY Chest (1 view); Complete Time: 13:03 rn 05/26 12:20 Order name: CT Head Brain wo Cont; Complete Time: 13:03 rn 03/16 12:20 Order name: CT Abd/Pelvis - Without Cont; Complete Time: 13:12 rn 05/26 12:53 Order name: Manual Differential; Complete Time: 14:22 EDMS 05/26 13:46 Order name: Urine Dipstick--Ancillary (enter results); Complete Time: 14:22 eb 05/26 12:20 Order name: IV Start; Complete Time: 12:30 rn 05/26 12:20 Order name: Urine Dipstick-Ancillary (obtain specimen); Complete Time: 13:45 rn 05/26 13:15 Order name: Wiley; Complete Time: 13:45 rn 05/26 13:25 Order name: EKG; Complete Time: 13:25 rn 05/26 13:25 Order name: EKG - Nurse/Tech; Complete Time: 14:11 rn 05/26 14:19 Order name: CONS Physician Consult EDMS Administered Medications: 13:40 Drug: Sodium Bicarbonate 1 amp Route: IVP; Site: right upper arm; ch 17:04 Follow up: Response: No adverse reaction; Marked relief of symptoms ch 13:42 Drug: Insulin Regular Human 5 units {Co-Signature: jase (Baldemar Cano RN).} Route: IVP; Site: right upper arm; 17:05 Follow up: Response: No adverse reaction; Marked relief of symptoms ch 13:45 Drug: D50W 50 ml Route: IVP; Site: right upper arm; ch 17:04 Follow up: Response: No adverse reaction ch 13:50 Drug: Calcium Gluconate 1 grams Route: IVPB; Infused Over: 60 mins; Site: right upper arm; 14:50 Follow up: IV Status: Completed infusion; IV Intake: 100ml ch 14:00 Drug: Rocephin - (cefTRIAXone) 1 grams Route: IVPB; Infused Over: 30 mins; Site: right upper arm; 14:20 Follow up: IV Status: Completed infusion; IV Intake: 50ml ch 14:25 Drug: NARcan 0.4 mg {Note: administered with Dr. Zee at bedside per orders. rest of Narcan held, will repeat as needed. .} Route: IVP; Site: right upper arm; 15:47 Follow up: Response: No adverse reaction; Marked relief of symptoms; Marked relief of ch symptoms, rr INCREASES 15:40 Drug: NARcan 0.4 mg Route: IVP; Site: right upper arm; 16:00 Follow up: Response: No adverse reaction; Marked relief of symptoms 16:54 Drug: Kayexalate 30 grams Route: PO; 17:03 Follow up: Response: No adverse reaction; Marked relief of symptoms Disposition: 05/26/18 13:50 Hospitalization ordered by Yesenia Lindquist for Inpatient Admission. Preliminary diagnosis are Altered mental status, unspecified, End stage renal disease, Hyperkalemia, Acidosis. - Bed requested for Telemetry/MedSurg (Inpatient). - Status is Inpatient Admission. - Condition is Stable. - Problem is new. - Symptoms have improved. UTI on Admission? No Signatures: Dispatcher [employer] EDMS Richa Price RN RN ch Woody, Diana, RN RN dw Nieto, Roman, MD MD rn Henry Joaquin RN Corrections: (The following items were deleted from the chart) 15:29 13:50 Hospitalization Ordered by Yesenia Lindquist MD for Inpatient Admission. Preliminary diagnosis is Altered mental status, unspecified; End stage renal disease; Hyperkalemia; Acidosis. Bed requested for Telemetry/MedSurg (Inpatient). Status is Inpatient Admission. Condition is Stable. Problem is new. Symptoms have improved. UTI on Admission? No. rn 17:09 15:29 05/26/2018 13:50 Hospitalization Ordered by Yesenia Lindquist MD for Inpatient Admission. Preliminary diagnosis is Altered mental status, unspecified; End stage renal disease; Hyperkalemia; Acidosis. Bed requested for Telemetry/MedSurg (Inpatient). Status is Inpatient Admission. Condition is Stable. Problem is new. Symptoms have improved. UTI on Admission? No. dw
[2018-05-26] MEDS ORDERED: CALCIUM GLUCONATE 1gm/100 ML NS (4.65 mEq/100mL) IV ONE ×2 (14:00)
[2018-05-26] MEDS ORDERED: NALOXONE 0.4 MG/ML VIAL ONE ×2 (14:28→20:08)
[2018-05-26] MEDS ORDERED: SOD POLYSTYREN SUL 15 GM/60 ML UCUP ONE (16:42)
--- NOTE | 2018-05-26 16:55 | P.HP ---
Certification for Inpatient Patient admitted to: Inpatient With expected LOS: >2 Midnights Practitioner: I am a practitioner with admitting privileges, knowledge of patient current condition, hospital course, and medical plan of care. Services: Services provided to patient in accordance with Admission requirements found in Title 42 Section 412.3 of the Code of Federal Regulations Patient History Date of Service: 05/26/18 Reason for admission: Altered mental status in dialysis History of Present Illness: This is a 63-year-old male with a history of CAD, diabetes, anemia, hyperlipidemia, ESRD on dialysis admitted for altered mental status. Patient unable to provide any history, no family at bedside. History obtained from chart and in ER/EMS notes. Per the ER notes, patient is a [facility] half-way patient who went to dialysis in a wheelchair today. When he got to dialysis, dialysis cup knee states that patient was altered and they called 911. According to the dialysis center, patient is normally talkative and moves all in his wheelchair. In the ER, patient was found to have WBC count of 23.2, sodium decreased at 132, potassium increased to 6.1 and a creatinine of 7.72. His procalcitonin was elevated to point a need. Initially, patient was hemodynamically stable. He was then noted that his respirations were down to 7 and 8. He was given Narcan, his vital signs responded well to the Narcan. He was more awake after the Narcan. His chest x-ray and CT head were negative for any acute abnormalities. His urine analysis was negative for any infection. At the time of my exam, patient's vital signs were stable, he was moving around in bed, though not talking or responding to questions. Allergies No Known Drug Allergies Allergy (Verified 06/12/16 23:42) Unknown No Known Allergies Allergy (Uncoded 07/06/16 22:09) Unknown Home medications list reviewed: Yes Home Medications: Acetaminophen 650 mg PO Q4HP PRN 10/25/17 Aspirin [Adult Aspirin Regimen] 81 mg PO DAILY 10/25/17 Calcium Carbonate [Tums] 200 mg PO TIDWM 10/25/17 Carvedilol [Coreg*] 6.25 mg PO DAILY 10/25/17 Folic Acid/Vit Bcomp,C [Renal-Shannon Tablet] 0.8 mg PO DAILY 10/25/17 Hydralazine [Apresoline*] 25 mg PO TID 10/25/17 Insulin Detemir [Levemir Flextouch] 20 unit SQ DAILY 10/25/17 Lactulose 30 gm PO DAILY PRN 10/25/17 Phenytoin Sodium Extended [Phenytek] 300 mg PO DAILY 10/25/17 Sevelamer Carbonate [Renvela*] 800 mg PO TIDWM 10/25/17 traMADol HCL [Ultram*] 50 mg PO Q12HP PRN 10/25/17 Ciprofloxacin HCl [Cipro 250 MG Tablet*] 250 mg PO BID #28 tab 10/26/17 - Past Medical/Surgical History Diabetic: Yes -: Diabetes mellitus type 2 -: HTN -: Blindness -: End-stage renal disease on dialysis -: Hyperlipidemia -: Diabetic neuropathy -: Previous amputations -: Seizure disorder -: dialysis catheter placement -: 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 - Family History Mother -: Diabetes - Social History Alcohol use: No CD- Drugs: No Caffeine use: Yes Review of Systems 10-point ROS is otherwise unremarkable Physical Examination - Physical Exam General: In no apparent distress, Demented, Confused HEENT: Atraumatic, PERRLA, Mucous membr. moist/pink, EOMI, Sclerae nonicteric Neck: Supple, 2+ carotid pulse no bruit, No LAD, Without JVD or thyroid abnormality Respiratory: Clear to auscultation bilaterally, Normal air movement Cardiovascular: Regular rate/rhythm, Normal S1 S2 Gastrointestinal: Normal bowel sounds, No tenderness Musculoskeletal: No tenderness Integumentary: No rashes Neurological: Dementia - Studies Laboratory Data (last 24 hrs) 05/26/18 12:30: Sodium 132 L, Potassium 6.1 H*, BUN 70 H, Creatinine 7.72 H*, Glucose 127 H 05/26/18 12:30: WBC 23.2 H*, Hgb 7.9 L*, Hct 25.0 L, Plt Count 668 H Assessment and Plan - Problems (Diagnosis) (1) Altered mental status Current Visit: Yes Status: Acute (2) Anemia Onset Date: 10/24/17 Current Visit: No Status: Chronic Qualifiers: Anemia type: due to chronic kidney disease Chronic kidney disease stage: on chronic dialysis Qualified Code(s): N18.6 - End stage renal disease; D63.1 - Anemia in chronic kidney disease; Z99.2 - Dependence on renal dialysis (3) Blindness Onset Date: 10/24/17 Current Visit: No Status: Chronic (4) Diabetes mellitus Onset Date: 07/08/16 Current Visit: No Status: Chronic Qualifiers: Diabetes mellitus type: type 2 Diabetes mellitus care home insulin use: with receivables specialist use Diabetes mellitus complication status: with hypoglycemia Diabetes mellitus complication detail: without coma Qualified Code(s): E11.649 - Type 2 diabetes mellitus with hypoglycemia without coma; Z79.4 - director of early childhood education (current) use of insulin (5) ESRD (end stage renal disease) Onset Date: 07/08/16 Current Visit: No Status: Chronic (6) Leukocytosis Current Visit: Yes Status: Acute (7) Acidosis Current Visit: Yes Status: Acute (8) Hyperkalemia Current Visit: Yes Status: Acute (9) Bladder distention Current Visit: Yes Status: Acute (10) Respiratory depression Current Visit: Yes Status: Acute - Plan This is a 63-year-old male with: Altered mental status. History of dementia Unknown baseline CT head negative Will dialyze patient and continue to monitor Leukocytosis, unknown etiology Unknown source. Chest x-ray, urine negative for any acute abnormalities. Bladder distention, noted on abdominal CT status post 1 time catheterization in the ER with 1600 mL urine Episode of respiratory depression Likely secondary to Tylenol w/ codeine? Improved with Narcan Remains stable at this time, will continue to monitor Hyperkalemia Acidosis ESRD on hemodialysis. Nephrology, Dr. Vasques, consulted Dialysis per nephrology Diabetes mellitus Accu-Cheks Mild sliding scale Will restart home medications once reconciled Anemia, likely of chronic disease H&H stable, we will continue to monitor Coronary artery disease Legally blind in both eyes DVT prophylaxis: Lovenox GI prophylaxis: None Diet: Renal Disposition: Admit to floor with tele. Continue to monitor. Nephrology consultation, pending dialysis. Discharge Plan: Care Home - Advance Directives Does patient have a Living Will: No Does patient have a Durable POA for Healthcare: No Time Spent Managing Pts Care (In Minutes): 55
[2018-05-26] MEDS ORDERED: D50W 25 GM/50 ML SYRINGE IV PRN (17:45)
[2018-05-26] MEDS ORDERED: GLUCAGON 1 MG/VIAL IM PRN (17:45)
[2018-05-26] MEDS: ENOXAPARIN 30 MG/0.3 ML SQ SCH (18:23)
[2018-05-26] MEDS ORDERED: NALOXONE HCL 2 MG/2 ML VIAL ONE (20:01)
[2018-05-26] MEDS: INSULIN -REGULAR HUMAN 50 UNIT/0.5 ML ML SQ SCH (21:00)
[2018-05-26 21:11] LABS: Blood Gas Oxyhemoglobin 91.2 % (94-97); Blood O2 Saturation 93.5 % (92-98.5)
[2018-05-26 21:25] LABS: Absolute Lymphocytes (CBC) 1.7 K/uL (0.7-4.9); Absolute Monocytes 1.4 K/uL (0.1-1.3); Absolute Neutrophil 14.5 K/uL (1.8-8.0); Basophils % 0.6 % (0-1.3); Eosinophils % 1.3 % (0-4.4); Hematocrit 25.9 % (39.6-49.0); Lymphocytes % 9.3 % (15.3-44.8); MPV 9.2 fL (7.6-11.3)
[2018-05-26 22:33] LABS: ALT/SGPT 23 U/L (12-78); AST/SGOT 32 U/L (15-37); Alkaline Phosphatase 219 U/L (45-117); BUN Blood Urea Nitrogen 76 mg/dL (7-18); Bicarbonate 24 mmol/L (21-32); Bilirubin Total 0.6 mg/dL (0.2-1.0); Glucose Level 137 mg/dL (74-106); Potassium 5.4 mmol/L (3.5-5.1); Protein, Total 7.3 g/dL (6.4-8.2); Sodium Level 136 mmol/L (136-145); Troponin I < 0.02 ng/mL (0.0-0.045)
[2018-05-26] MEDS ORDERED: THIAMINE 200 MG/2 ML INJ IVP ONE (23:11)
[2018-05-26] MEDS ORDERED: VANCOMYCIN 1 GM in NA CHLORIDE 0.9% 500 ML IVPB ONE (23:12)
[2018-05-26] MEDS ORDERED: GENTAMICIN 80 MG/100 ML BAG 80 MG/100 ML BAG IV ONE (23:15)
[2018-05-26] MEDS ORDERED: VANCOMYCIN/NS 1 gm 1 GM/250 ML BAG IVPB ONE (23:45)
[2018-05-27] MEDS: D5 0.9 NS 1,000 ML IV SCH (00:13)
[2018-05-27] MEDS ORDERED: VANCOMYCIN 1 GM/VIAL ONE (00:15)
[2018-05-27] MEDS ORDERED: NA CHLORIDE 0.9% 250 ML ONE (00:15)
--- NOTE | 2018-05-27 02:46 | P.PN ---
Subjective Date of Service: 05/26/18 Unresponsive-more responsive after Narcan; Spoke with daughter who is the only family member who has been caring for him regularly; brother was OK with her making decisions; she wants him to be a DNR. Spoke to Shorty Montgomery, and the nurses informed me that patient was switched to Tylenol #4 after amputation, and patient has gotten 15 doses in the last 4 days Review of Systems is unable to be obtained Physical Examination - Vital Signs Temperature: 98.8 F Blood Pressure: 141/53 Pulse: 76 Respirations: 12 Pulse Ox (%): 100 - Physical Exam General: Unresponsive HEENT: Atraumatic, Normocephalic, Other (bilateral cataracts) Respiratory: Clear to auscultation bilaterally, Normal air movement Cardiovascular: Regular rate/rhythm, Normal S1 S2 Gastrointestinal: Soft and benign, Non-distended, No tenderness Musculoskeletal: No clubbing, No swelling, Other (Right AKA) Neurological: Other (unresponsive; not responding to painful stimuli) - Studies Laboratory Data (last 24 hrs) 05/26/18 12:30: Sodium 132 L, Potassium 6.1 H*, BUN 70 H, Creatinine 7.72 H*, Glucose 127 H 05/26/18 12:30: WBC 23.2 H*, Hgb 7.9 L*, Hct 25.0 L, Plt Count 668 H Assessment & Plan - Problems (Diagnosis) (1) Unresponsive Current Visit: Yes Status: Acute (2) Altered mental status Current Visit: Yes Status: Acute (3) Respiratory depression Current Visit: Yes Status: Acute (4) CKD (chronic kidney disease), stage III Onset Date: 12/02/14 Current Visit: No Status: Acute (5) PAD (peripheral artery disease) Current Visit: No Status: Acute (6) Uncontrolled diabetes mellitus Onset Date: 12/02/14 Current Visit: No Status: Acute Qualifiers: Diabetes mellitus type: type 2 (7) ESRD (end stage renal disease) Onset Date: 07/08/16 Current Visit: No Status: Chronic - Plan PLAN: 1. Transfer to ICU 2. Narcan 3. Notify nephrology 4. DNR 5. Repeated labs 6. GI/DVT prophylaxis Discharge Plan: [facility] Plan to discharge in: Greater than 2 days - Advance Directives Does patient have a Living Will: No Does patient have a Durable POA for Healthcare: No - Code Status/Comfort Care Code Status Assessed: Yes Code Status: Do Not Resuscitate Critical Care: No Time Spent Managing PTS Care (In Minutes): 50
--- NOTE | 2018-05-27 04:07 | CON ---
Date of Consultation: 05/26/2018 Chief Complaint: End-stage renal disease, on dialysis. History Of Present Illness: The patient was brought to the hospital by EMS because of severe altered mental status. The patient was responding only to touch. He did not respond to voice and dialysis nurses recommended for EMS to take him directly to emergency room. The patient did not have dialysis and [facility] because of severe altered mental status. 911 w as called. The patient underwent workup in the emergency room. The patient was found to have severe leukocytosi s and elevated potassium. Sodium level was decreased to 132, potassium was elevated to 6.1, creatini ne was 7.72. The patient has end-stage renal disease and has been treated with dialysis 3 times per week on Monday, , and Monday. The patient was found to have severe leukocytosis and recei edyta antibiotics for urinary tract infection. CT scan of the brain did not show acute changes. The p atient was found to have decreased respiratory rate to 7 and [address] chest x-ray w as negative for acute changes. The patient was transferred to ICU and dialysis was initiated in the hospital. Because of severe alt ered mental status and decreased respiratory rate, a Narcan dose was administered again and the patie nt was to have ABG done with lab work to re-evaluate potassium level. For hyperkalemia, the patient received Kayexalate, sodium bicarbonate, IV calcium gluconate and dextrose with insulin. Review of Systems: Unobtainable. The patient does not respond to voice. Past Medical History: Diabetes mellitus; hypertension; diabetic retinopathy, patient is blind; end-s tage renal disease, on dialysis on Monday, , and Monday; diabetic neuropathy, nephropathy; previous amputation of the toes; seizure disorder; dialysis catheter placement; and amputation of th e fourth toe. Family History: Mother diabetes. Social History: Negative for tobacco, alcohol, or illicit drugs. Physical Examination: General: The patient is awake, alert, follows commands. Eyes: Anicteric sclerae. EOMI. Ears, Nose, Mouth, and Throat: Oral mucosa moist. No pallor. Neck: Supple. No JVD. No bruits. Lungs: Clear to auscultation bilaterally. Heart: S1, S2. No pericardial friction rub. Abdomen: Soft, benign, nontender. Extremities: No edema. No clubbing. No cyanosis. Laboratory Data: Sodium 142, potassium 6.1, BUN 70, creatinine 7.72, glucose 127. WBC 23.2, hemoglo bin 7.9, hematocrit 25, platelet count 668. Impression And Plan: 1.End-stage renal disease, severe hyperkalemia. The patient was treated with Kayexalate. The patie nt is not a candidate for dialysis because he is unstable, he has lower respiratory rate, he appears to be obtunded and the patient will have workup done. Per primary team, antibiotics were started for sepsis. Blood cultures were obtained. 2.Diabetes mellitus. Continue insulin. Monitor blood glucose. 3.Anemia. Hemoglobin is 7.9. The patient will resume STEPHEN. The patient may be a candidate for bloo d transfusion. 4.Renal osteodystrophy. Monitor phosphorus level. 5.Metabolic acidosis. Continue IV bicarbonate. Evaluate lab work with electrolytes. Check ABG. T he patient may require intubation and he will be transferred to ICU for further monitoring and manage ment of severe altered mental status. EB/MODL Voice ID: [id number] Report ID: [id number]
[2018-05-27] MEDS ORDERED: NALOXONE HCL 2 MG/2 ML VIAL IV STA (05:17)
[2018-05-27] MEDS ORDERED: NALOXONE 0.4 MG/ML VIAL ONE (05:35)
[2018-05-27 05:56] LABS: Absolute Monocytes 1.9 K/uL (0.1-1.3); Basophils % 0.7 % (0-1.3); Eosinophils % 4.7 % (0-4.4); Hematocrit 22.6 % (39.6-49.0); Lymphocytes % 12.8 % (15.3-44.8); MPV 8.8 fL (7.6-11.3); Monocytes % 12.1 % (3.3-12.3); RBC Red Blood Cell Count 2.36 M/uL (4.33-5.43)
[2018-05-27 06:43] LABS: Albumin 1.8 g/dL (3.4-5.0); Bilirubin Total 0.5 mg/dL (0.2-1.0); Potassium 5.2 mmol/L (3.5-5.1); Protein, Total 6.5 g/dL (6.4-8.2)
[2018-05-27] MEDS: INSULIN -REGULAR HUMAN 50 UNIT/0.5 ML ML SQ SCH ×4 (07:30→20:43)
[2018-05-27] MEDS ORDERED: ENOXAPARIN 40 MG/0.4 ML SQ SCH (09:00)
[2018-05-27] MEDS ORDERED: EPOETIN ALFA 20,000 UNIT/ML SQ SCH (11:00)
--- NOTE | 2018-05-27 12:27 | EKG ---
Test Date: 2018-05-26 Test Time: 13:58:08 Animal Nurse: GUY MEASUREMENT RESULTS: Intervals: Rate: 87 IA: 196 QRSD: 88 QT: 406 QTc: 488 [place]: P: 6 IA: 196 QRS: -17 T: 60 INTERPRETIVE STATEMENTS: Normal sinus rhythm Inferior infarct, age undetermined Cannot rule out Anteroseptal infarct, age undetermined Abnormal ECG Compared to ECG 10/23/2017 14:54:27 No significant changes Electronically Signed On 05-27-18 12:24:36 CDT by Mauricio Gomez
--- NOTE | 2018-05-27 15:22 | P.PN ---
Subjective Date of Service: 05/27/18 Chief Complaint: Altered mental status in dialysis Subjective: No new changes Patient seen and examined at bedside. No family at bedside. Chart reviewed and case discussed with nursing staff. Overnight, patient continued to have apneic episodes, requiring Narcan. He was transferred to the ICU for closer monitoring. This morning, patient without any changes from yesterday. Still not responding much. Review of Systems 10-point ROS is otherwise unremarkable Physical Examination - Vital Signs Temperature: 98.3 F Blood Pressure: 121/54 Pulse: 72 Respirations: 23 Pulse Ox (%): 96 - Studies Microbiology Data (last 24 hrs): 05/26/18 13:17 Blood - Blood Anaerobic Blood Culture - Final 05/26/18 12:30 Blood - Blood Anaerobic Blood Culture - Final Assessment And Plan - Current Problems (Diagnosis) (1) Altered mental status Current Visit: Yes Status: Acute (2) Anemia Onset Date: 10/24/17 Current Visit: No Status: Chronic Qualifiers: Anemia type: due to chronic kidney disease Chronic kidney disease stage: on chronic dialysis Qualified Code(s): N18.6 - End stage renal disease; D63.1 - Anemia in chronic kidney disease; Z99.2 - Dependence on renal dialysis (3) Blindness Onset Date: 10/24/17 Current Visit: No Status: Chronic (4) Diabetes mellitus Onset Date: 07/08/16 Current Visit: No Status: Chronic Qualifiers: Diabetes mellitus type: type 2 Diabetes mellitus custodial insulin use: with custodial use Diabetes mellitus complication status: with hypoglycemia Diabetes mellitus complication detail: without coma Qualified Code(s): E11.649 - Type 2 diabetes mellitus with hypoglycemia without coma; Z79.4 - longterm (current) use of insulin (5) ESRD (end stage renal disease) Onset Date: 07/08/16 Current Visit: No Status: Chronic (6) Leukocytosis Current Visit: Yes Status: Acute (7) Acidosis Current Visit: Yes Status: Acute (8) Hyperkalemia Current Visit: Yes Status: Acute (9) Bladder distention Current Visit: Yes Status: Acute (10) Respiratory depression Current Visit: Yes Status: Acute - Plan This is a 63-year-old male with: Altered mental status. History of dementia Unknown etiology, could be infectious. Though unable to find an infection source at this time. CT head negative Will dialyze patient and continue to monitor Leukocytosis, unknown etiology Unknown source. Chest x-ray, urine negative for any acute abnormalities. He does have a stage II ulcer on the back, does not look like the source of infection Patient with a recent AKA, no evidence of infection noted on the stump Will continue to look for the source Bladder distention, noted on abdominal CT status post 1 time catheterization in the ER with 1600 mL urine Episode of respiratory depression Likely secondary to Tylenol w/ codeine Continue Narcan as needed Hyperkalemia Acidosis ESRD on hemodialysis. Nephrology, Dr. Vasques, consulted Dialysis per nephrology Diabetes mellitus Accu-Cheks Mild sliding scale Will restart home medications once reconciled Anemia, likely of chronic disease H&H stable, we will continue to monitor Coronary artery disease Legally blind in both eyes Recent AKA Done about 2 weeks ago at [facility]? DVT prophylaxis: Lovenox GI prophylaxis: None Diet: Renal Disposition: Continue to monitor in the ICU.
[2018-05-27] MEDS: ENOXAPARIN 30 MG/0.3 ML SQ SCH (17:44)
[2018-05-27 18:03] LABS: Hematocrit 27.9 % (39.6-49.0)
[2018-05-28] MEDS: D5 0.9 NS 1,000 ML IV SCH ×2 (00:05→17:23)
--- NOTE | 2018-05-28 02:15 | PN ---
Date of Progress Note: 05/27/2018 Chief Complaint: End-stage renal disease, hyperkalemia, metabolic acidosis. History Of Present Illness: The patient presented to the hospital because of severe altered mental s tatus changes. The patient remains obtunded. He is responding to touch. Does not answer questions. The patient was medicated with Narcan for declining respiratory rate. After Narcan, respiratory ra te improved from 6 and 7 to 12. The patient was found to have hyperkalemia, severe anemia, and is to have blood transfusion with dialysis today. The patient remains in ICU. He is hemodynamically stab le. He was found to have severe leukocytosis, sepsis. Blood cultures and urine cultures were obtain ed, and the patient is started on antibiotics broad spectrum. Review of Systems: Unobtainable. Physical Examination: Lungs: Few crackles at bases. Heart: S1, S2. Abdomen: Soft, benign. Extremities: No edema. Laboratory Work: Hemoglobin 7.3, after transfusion 9.0. WBC was 23.2, improved to 15.8; platelet co unt stable up to 534,000. Chemistries showed sodium 138, potassium 5.2, chloride 103, CO2 22, BUN 77 , creatinine 8.6. Impression And Plan: 1.Sepsis, urinary tract infection. Continue broad-spectrum antibiotics. Adjust dose to renal dose. 2.Hypertension. Blood pressure controlled. Monitor and start medication if systolic blood pressure is over 140. 3.Severe mental status changes. CT scan of the brain did not show acute changes. 4.Renal osteodystrophy. The patient is n.p.o. Monitor phosphorus level. Continue dialysis for met abolic clearance. 5.Hyperkalemia. The patient was treated for metabolic acidosis and to control hyperkalemia. Dialys is is done today to obtain metabolic clearance. EB/MODL Voice ID: [id number] Report ID: [id number]
[2018-05-28 06:00] LABS: Albumin 1.7 g/dL (3.4-5.0); Bilirubin Total 0.6 mg/dL (0.2-1.0); Potassium 4.3 mmol/L (3.5-5.1); Protein, Total 6.5 g/dL (6.4-8.2)
[2018-05-28] MEDS: INSULIN -REGULAR HUMAN 50 UNIT/0.5 ML ML SQ SCH ×4 (07:30→21:00)
[2018-05-28] MEDS ORDERED: EPOETIN ALFA 10,000 UNIT/ML VIAL SQ SCH (14:15)
[2018-05-28] MEDS ORDERED: VANCOMYCIN/NS 1 gm 1 GM/250 ML BAG IVPB SCH (14:15)
--- NOTE | 2018-05-28 17:06 | P.PN ---
Subjective Date of Service: 05/28/18 Chief Complaint: Altered mental status in dialysis Subjective: Improving Patient seen and examined at bedside. No family at bedside. Chart reviewed and case discussed with nursing staff. No Narcan required overnight. Vitals remained stable. Patient more alert this morning. He does have a history of dementia, seems to be back to baseline at this time. No family to confirm though Review of Systems 10-point ROS is otherwise unremarkable Physical Examination - Vital Signs Temperature: 98.3 F Blood Pressure: 121/54 Pulse: 72 Respirations: 23 Pulse Ox (%): 96 - Physical Exam General: Alert, In no apparent distress, Confused HEENT: Atraumatic, PERRLA, EOMI Neck: Supple, JVD not distended Respiratory: Clear to auscultation bilaterally, Normal air movement Cardiovascular: Regular rate/rhythm, Normal S1 S2 Gastrointestinal: Normal bowel sounds, No tenderness Musculoskeletal: Other (Right AKA, no evidence of infection) Integumentary: Other (Stage II pressure ulcer on back) Neurological: Normal speech, Normal tone, Normal affect - Studies Microbiology Data (last 24 hrs): 05/26/18 13:40 Catheterized Urine Josephine Count - Final 05/26/18 13:40 Catheterized Urine - Final 05/26/18 12:30 Blood - Blood Anaerobic Blood Culture - Final 05/26/18 13:17 Blood - Blood Anaerobic Blood Culture - Final Assessment And Plan - Current Problems (Diagnosis) (1) Altered mental status Current Visit: Yes Status: Acute (2) Anemia Onset Date: 10/24/17 Current Visit: No Status: Chronic Qualifiers: Anemia type: due to chronic kidney disease Chronic kidney disease stage: on chronic dialysis Qualified Code(s): N18.6 - End stage renal disease; D63.1 - Anemia in chronic kidney disease; Z99.2 - Dependence on renal dialysis (3) Blindness Onset Date: 10/24/17 Current Visit: No Status: Chronic (4) Diabetes mellitus Onset Date: 07/08/16 Current Visit: No Status: Chronic Qualifiers: Diabetes mellitus type: type 2 Diabetes mellitus detention insulin use: with salesperson recreational vehicles use Diabetes mellitus complication status: with hypoglycemia Diabetes mellitus complication detail: without coma Qualified Code(s): E11.649 - Type 2 diabetes mellitus with hypoglycemia without coma; Z79.4 - virtual office assistant (current) use of insulin (5) ESRD (end stage renal disease) Onset Date: 07/08/16 Current Visit: No Status: Chronic (6) Leukocytosis Current Visit: Yes Status: Acute (7) Acidosis Current Visit: Yes Status: Acute (8) Hyperkalemia Current Visit: Yes Status: Acute (9) Bladder distention Current Visit: Yes Status: Acute (10) Respiratory depression Current Visit: Yes Status: Acute - Plan This is a 63-year-old male with: Altered mental status. History of dementia Improving Unknown etiology, could be infectious. Though unable to find an infection source at this time. CT head negative Will dialyze patient and continue to monitor Leukocytosis, unknown etiology Bacteremia, cultures pending Improving, though still elevated Unknown source. Chest x-ray, urine negative for any acute abnormalities. He does have a stage II ulcer on the back, does not look like the source of infection Patient with a recent AKA, no evidence of infection noted on the stump Infectious disease consulted. We will continue IV antibiotics this time Bladder distention, noted on abdominal CT status post 1 time catheterization in the ER with 1600 mL urine Episode of respiratory depression Resolved. No Narcan required overnight Likely secondary to Tylenol w/ codeine Continue Narcan as needed Hyperkalemia Acidosis ESRD on hemodialysis. Nephrology, Dr. Vasques, consulted Dialysis per nephrology Diabetes mellitus Accu-Cheks Mild sliding scale Will restart home medications once reconciled Anemia, likely of chronic disease H&H stable, we will continue to monitor Coronary artery disease Legally blind in both eyes Recent AKA Done about 2 weeks ago at [place]? DVT prophylaxis: Lovenox GI prophylaxis: None Diet: Renal Disposition: Continue to monitor in the ICU.
[2018-05-28] MEDS: ENOXAPARIN 30 MG/0.3 ML SQ SCH (17:21)
[2018-05-28] MEDS ORDERED: VANCOMYCIN 1 GM/VIAL ONE (21:45)
[2018-05-28] MEDS ORDERED: NA CHLORIDE 0.9% 250 ML ONE (21:45)
--- NOTE | 2018-05-29 03:49 | PN ---
Date of Progress Note: 05/28/2018 Chief Complaint: Sepsis, severe leukocytosis, and altered mental status. Subjective: The patient has end-stage renal disease. He was brought to the hospital because of unre sponsiveness. The patient underwent workup to rule out CVA. The patient has been medicated with French can because of low respiratory rate. Apparently, he was given medication for pain and subsequently h e became obtunded. The patient was found to have severe leukocytosis. Blood culture showed gram-positive cocci. Infect ious Disease consultation is obtained. The patient received vancomycin and gentamicin. Review of Systems: The patient denies complaints. Physical Examination: Lungs: Clear to auscultation bilaterally. Heart: S1, S2. Abdomen: Soft, benign. Extremities: Slight edema. Impression And Plan: 1.End-stage renal disease. Continue dialysis 3 times per week. Dialysis today will be done with ul trafiltration. Monitor blood pressure closely. Adjust dialysis parameters accordingly. Monitor delmy ctrolytes. 2.Hyperkalemia, resolved. 3.Anemia of chronic kidney disease. The patient received blood transfusion. Continue STEPHEN with dial ysis. Hemoglobin level is stabilizing. 4.Sepsis. The patient will have a consultation with Infectious Disease to rule out endocarditis. JANENE/YOHANA Voice ID: [id number] Report ID: [id number]
[2018-05-29] MEDS: INSULIN -REGULAR HUMAN 50 UNIT/0.5 ML ML SQ SCH ×4 (07:30→21:00)
--- NOTE | 2018-05-29 08:37 | CON ---
History Of Present Illness: This is a 63-year-old male I was consulted for respiratory distress and leukocytosis. The patient was brought in to the emergency room, where he was found to be nonresponsi ve and in respiratory distress. The patient was then transferred to ICU currently and received multi ple doses of Narcan. The patient is currently responding to verbal stimuli and able to understand co mmands. The patient also is complaining of pain in his right AKA, which was done on 8th of this vanessa h. The patient denies any chest pain, abdominal pain, constipation, or diarrhea. Past Medical History: End-stage renal disease on dialysis, diabetes mellitus, hypertension, end-stag e blindness, hyperlipidemia, diabetic neuropathy, seizure disorder, amputation of left foot toe. Social History: No alcohol. No tobacco. Family History: Noncontributory. Medications: Vancomycin. See MARS for other medication. Allergies: NO KNOWN DRUG ALLERGIES. Review of Systems: A 10-point review was performed. Physical Examination: General: This is a 63-year-old male, lying in bed, not in any acute cardiopulmonary distress Vital S igns: Temperature 98, pulse 78, respirations 16, blood pressure 183/53. HEENT: Bilateral blindness with the possible dental caries to the right upper molar region. Neck: Supple. No JVD. No lymphadenopathy. Lungs: Basal crackles, left more than right. Heart: S1, S2. Regular. Abdomen: Soft, nontender. Bowel sounds present. Extremities: Right AKA wound noted with the daniele in place. No excessive discharge noted. Laboratory Data: Shows WBC 17636 down from 23,000, hemoglobin 9, platelets are 534. Chemistry shows sodium 138, potassium 4.3, chloride 102, bicarb 24, BUN 50, creatinine 6.6, glucose is 145, albumin is 1.7. Blood cultures are negative for [address] head shows no acute intracranial abnormalities . Chest x-ray, underinflated lungs, left lower lobe infiltrate noted. Abdominal and pelvis CT shows mild left hydronephrosis without evidence of stone. Prominent distention of urinary bladder. Assessment And Plan: A 63-year-old male coming in with the unresponsiveness and leukocytosis. Curre ntly being treated with vancomycin, left lower lobe infiltrate, possible pneumonitis, end-stage renal disease, leukocytosis. Continue antibiotic and supportive care. Can be switched to antibiotic with dialysis. Vancomycin and cefepime 1 g q.48 hours for total of 2 weeks. We will follow the patient as needed. Right above knee amputation wound, to be applied Xeroform gauze. We will follow the charli ent as needed. NF/MODL Voice ID: [id number] Report ID: [id number]
[2018-05-29 09:41] LABS: Absolute Lymphocytes (CBC) 1.9 K/uL (0.7-4.9); Absolute Neutrophil 6.9 K/uL (1.8-8.0); Basophils % 0.7 % (0-1.3); Eosinophils % 4.8 % (0-4.4); Lymphocytes % 18.3 % (15.3-44.8); MPV 9.1 fL (7.6-11.3); Monocytes % 9.5 % (3.3-12.3); RBC Red Blood Cell Count 2.69 M/uL (4.33-5.43)
[2018-05-29 10:00] LABS: Albumin 1.6 g/dL (3.4-5.0); Bilirubin Total 0.6 mg/dL (0.2-1.0); Potassium 3.7 mmol/L (3.5-5.1); Protein, Total 6.4 g/dL (6.4-8.2)
[2018-05-29] MEDS ORDERED: MORPHINE 2 MG/ML SYR IV ONE (11:33)
[2018-05-29] MEDS: D5 0.9 NS 1,000 ML IV SCH (11:45)
[2018-05-29] MEDS: CEFEPIME/SWI 1gm 10 ML IV SCH (12:10)
--- NOTE | 2018-05-29 12:24 | P.PN ---
Subjective Date of Service: 05/29/18 Chief Complaint: Altered mental status in dialysis Subjective: Improving pt was admitted for AMS . had rt BKA recently, found to have leuckocytosis HD MWF Pranay uncontrolled: will restart coreg and add amlodipine Dc IVF restart binders ID: vanco for 2wks pain control Abd ct on admission: showed hydronephrosis , will get renal US Physical Examination - Vital Signs Temperature: 98.6 F Blood Pressure: 200/80 Pulse: 97 Respirations: 13 Pulse Ox (%): 97 - Physical Exam General: Mild distress HEENT: Atraumatic Neck: Supple, Without JVD or thyroid abnormality Respiratory: Clear to auscultation bilaterally, Normal air movement Cardiovascular: No edema, Regular rate/rhythm, Normal S1 S2 Gastrointestinal: Normal bowel sounds, Soft and benign Musculoskeletal: No swelling, Other (RT BKA ) Assessment And Plan - Current Problems (Diagnosis) (1) Altered mental status Current Visit: Yes Status: Acute (2) Hyperkalemia Current Visit: Yes Status: Acute (3) Leukocytosis Current Visit: Yes Status: Acute (4) Diabetic kidney Onset Date: 12/02/14 Current Visit: No Status: Acute (5) ESRD (end stage renal disease) Onset Date: 07/08/16 Current Visit: No Status: Chronic - Plan End-stage renal disease. nela cont HD MWF renal dose meds HTN will resume coreg and add amlodipine hydronephrosis will rptt US Anemia cont STEPHEN MBD will resttart renvela Sepsis ID: cont vanco for 2wks monitor vanco level DM as per PCP
--- NOTE | 2018-05-29 13:47 | RAD REPORT ---
EXAM DESCRIPTION: US - Renal Ultrasound-Complete - 05/29/2018 1:35 pm CLINICAL HISTORY: evaluate for hydronephrosis on CT Flank pain COMPARISON: RP EXAM COMPLETE dated 12/02/2014; Abdomen Pelvis Wo Contrast dated 05/26/2018 FINDINGS: Exam was technically difficult. Both kidneys are small in size but with normal echogenicit y and corticomedullary differentiation. No hydronephrosis is appreciated. No solid renal mass is seen. The urinary bladder is incompletely distended without gross abnormality seen. IMPRESSION: Technically limited study without evidence of hydronephrosis.
[2018-05-29] MEDS: GABAPENTIN 100 MG CAP PO SCH ×2 (14:00→21:05)
[2018-05-29] MEDS: SEVELAMER CARBONATE 800 MG TABLET PO SCH (17:00)
[2018-05-29] MEDS: ENOXAPARIN 30 MG/0.3 ML SQ SCH (18:41)
--- NOTE | 2018-05-29 19:01 | PN ---
Date of Progress Note: 05/29/2018 Subjective: The patient seen and examined. Chart reviewed and case discussed with RN. The patient is blind, Amharic-speaking only. Medications: List reviewed. Code Status: Do not resuscitate. Physical Examination: Vital Signs: Temperature 98.6, heart rate 97, blood pressure 200/80, respirations 13, and O2 97% on room air. General: Awake, alert, oriented to self and place. Elderly male ill-appearing, in some mild distres s. CV: S1 and S2. Regular rate and rhythm. Peripheral pulses weak. Respiratory: Moving air well bilaterally. No wheezing or stridor. Gastrointestinal: Abdomen is soft, nontender, nondistended. Positive bowel sounds. Extremities: The patient has right AKA. Neurologic: Nonfocal. Musculoskeletal: Right AKA. Laboratory Data: Sodium 137, potassium 3.7, chloride 102, CO2 26, BUN 36, creatinine 5.19, glucose 1 87, calcium 7.6, AST 69, ALT 49, alkaline phosphatase 281, albumin 1.6. WBC 10.3, H and H 8.2 and 25 , platelets 467, neutrophils 66%. Blood cultures, no growth to date. Urine culture, no growth. Assessment And Plan: This is a 63-year-old male with: 1.Acute metabolic encephalopathy thought to be due to narcotic overdose. The patient responded to [place]. 2.Anemia of chronic disease. The patient is on dialysis. We will monitor H and H and transfuse as needed. 3.Blindness. 4.Diabetes mellitus type 2 without long-term use of insulin with hypoglycemia. 5.End-stage renal disease, on dialysis. Appreciate Dr. Bowen's input. We will continue dialysi s as scheduled. 6.Acidosis, improved. 7.Hyperkalemia, corrected. 8.Leukocytosis, improving. WBC count has normalized, unclear etiology. Blood cultures show no grow th to date. The patient is afebrile may be related to his recent AKA. Appreciate Infectious Disease input. We will continue antibiotics. We will add cefepime. 9.Bladder distention. The patient had incomplete urine and had large postvoid residual, was cathete rized in the ER. 10.Respiratory depression, resolved due to narcotics. Continue Narcan as needed. 11.Coronary artery disease, [place] artery and [place] heart without angina. 12.Status post above the knee amputation. We will continue to monitor wound for infection. Continu e IV antibiotics. We will step down from the ICU at this time. The patient has received 2 units of PRBCs. 13.Severe protein-calorie malnutrition. Plan: The patient will likely need long-term placement. Continue antibiotics and follow up on cultu res. SA/MODL Voice ID: [id number] Report ID: [id number]
[2018-05-29] MEDS: CARVEDILOL 12.5 MG TAB PO SCH (21:05)
--- NOTE | 2018-05-29 21:25 | PN ---
Subjective: The patient lying in bed, denies any headache, nausea, vomiting, chest pain, abdominal p ain, constipation, or diarrhea. Objective: Vital Signs: Temperature 98.6, pulse 97, respiration 13, blood pressure 200/80. Lungs: Basal crackles. Heart: S1, S2. Regular. Abdomen: Soft, nontender. Bowel sounds present. Extremities: AKA wound noted. Laboratory Data: Shows WBC 10.3, hemoglobin 8.2, platelets 467. Chemistry shows sodium 137, potassi um 3.7, chloride 102, bicarb 26, BUN 36, creatinine 5.19, glucose 187. Micro data shows blood cultur es no growth. Assessment And Plan: Leukocytosis is resolving. Left lower lobe infiltrate. End-stage renal diseas e. Dental caries. Continue antibiotic and supportive care for 2 weeks with dialysis. We will follo w the patient as needed. NF/MODL Voice ID: [id number] Report ID: [id number]
[2018-05-30 05:00] LABS: Absolute Lymphocytes (CBC) 1.6 K/uL (0.7-4.9); Absolute Monocytes 0.9 K/uL (0.1-1.3); Absolute Neutrophil 6.1 K/uL (1.8-8.0); Eosinophils % 8.4 % (0-4.4); Lymphocytes % 16.7 % (15.3-44.8); MPV 9.2 fL (7.6-11.3); Monocytes % 9.5 % (3.3-12.3); RBC Red Blood Cell Count 2.48 M/uL (4.33-5.43)
[2018-05-30 05:26] LABS: Albumin 1.6 g/dL (3.4-5.0); Bilirubin Total 0.5 mg/dL (0.2-1.0); Potassium 3.9 mmol/L (3.5-5.1)
[2018-05-30] MEDS: INSULIN -REGULAR HUMAN 50 UNIT/0.5 ML ML SQ SCH ×4 (07:30→21:00)
[2018-05-30] MEDS: CEFEPIME/SWI 1gm 10 ML IV SCH (08:58)
[2018-05-30] MEDS: SEVELAMER CARBONATE 800 MG TABLET PO SCH ×3 (08:58→17:19)
[2018-05-30] MEDS: GABAPENTIN 100 MG CAP PO SCH (08:59)
[2018-05-30] MEDS ORDERED: AMLODIPINE 5 MG TAB PO SCH (09:00)
[2018-05-30] MEDS ORDERED: MORPHINE 2 MG/ML SYR IV ONE (09:59)
[2018-05-30] MEDS: HYDRALAZINE HCL 20 MG/ML VIAL IV PRN (13:33)
[2018-05-30] MEDS: GABAPENTIN 300 MG CAP PO SCH (13:33)
[2018-05-30] MEDS ORDERED: LACTULOSE 20 GM/30 ML UCUP PO PRN (15:49)
[2018-05-30] MEDS: ENOXAPARIN 30 MG/0.3 ML SQ SCH (17:18)
--- NOTE | 2018-05-30 17:35 | PN ---
Date of Progress Note: 05/30/2018 Subjective: The patient was admitted with opioid overdose secondary to pain. The patient received N arcan. Physical Examination: Vital Signs: Blood pressure 190/84, pulse of 88. Chest: Clear to auscultation. Heart: S1 and S2, regular. Abdomen: Soft and nontender. Extremities: Right above-knee amputation. Laboratory Data: H and H 7.7/23. Sodium 138, potassium 3.9, bicarb 25, BUN 51, creatinine 6.6, calc ium 7.6. Current Medications: The patient on its include: 1.Heparin. 2.Lovenox. 3.Epogen. 4.Carvedilol 12.5 b.i.d. 5.Amlodipine 5. 6.Gabapentin. 7.Renvela. Assessment And Plan: 1.End-stage renal disease. We will maintain the patient on dialysis Monday, Monday, and Monday. The patient is scheduled for dialysis today. 2.Secondary hyperparathyroid, stable. 3.Anemia of chronic kidney disease. We will continue Epogen. I will follow his H and H if he again need any transfusion. 4.Staph infection. Continue current antibiotic. 5.Opioid overdose. Discussed with Dr. Valentine. We will consider placing the patient on fentanyl and increased Neurontin. We will follow up. JONG Voice ID: [id number] Report ID: [id number]
--- NOTE | 2018-05-30 20:05 | PN ---
Date of Progress Note: 05/30/2018 Subjective: The patient is seen and examined. Chart reviewed and case discussed with RN and Dr. Werner. The patient continues to be in significant amount of pain, likely due to phantom pain from his AKA. Medications: List reviewed. Physical Examination: Vital Signs: Temperature 98.2, heart rate 62, blood pressure 216/95, respirations 16, and O2 98% on room air. General: Awake, alert, and oriented x2. Ill-appearing elderly male, appears older than stated age. CV: S1 and S2. Regular rate and rhythm. Peripheral pulses present. Respiratory: Diminished breath sounds. Some crackles present. No wheezing. Gastrointestinal: Abdomen is soft, nontender, nondistended. Positive bowel sounds. Extremities: No clubbing or cyanosis. No edema on the left lower extremity. Musculoskeletal: Right above-knee amputation. Neurologic: Nonfocal. Laboratory Data: Sodium 138, potassium 3.9, chloride 104, CO2 25, BUN 51, creatinine 6.6, glucose 143, calcium 7.6, albumin 1.6. WBC 9.4, H and H 7.7 and 23, platelets 443, neutrophils 64%. Blood cultures; 1 bottle showing gram- positive cocci in clusters, likely contaminant. Urine culture, no growth. Assessment And Plan: A 63-year-old male with: 1. Acute metabolic encephalopathy likely due to narcotic overdose. The patient responded to Narcan. He is back to baseline. We will carefully monitor any narcotic doses. 2. Anemia of chronic disease. Monitor H and H. The patient did drop his hemoglobin to 7.7 today. We will need to repeat H and H and transfuse if less than 7. 3. End-stage renal disease, on hemodialysis. Appreciate Dr. Werner's input. We will continue dialysis. 4. Blindness. 5. Diabetes mellitus type 2 with a long-term use of insulin with hyperglycemia. Continue Accu-Cheks and sliding scale insulin. 6. Acidosis, improved. 7. Hyperkalemia, corrected. 8. Leukocytosis. 9. Dental caries. 10. Left lower lobe infiltrate, likely pneumonia. We will continue antibiotics. 11. Coronary artery disease, three [place] artery and three affiliated heart without angina, stable. 12. Status post above-knee amputation on the right. Continue to monitor for wound infection. Continue IV antibiotics. 13. Severe protein-calorie malnutrition. Albumin is 1.6. Plan: Shorty quintana referral. Likely discharge in the next 24-48 hours once more medically stable. SA/MODL Voice ID: [id number] Report ID: [id number] MTDD
[2018-05-30] MEDS ORDERED: INSULIN DETEMIR 12 UNIT SQ SCH (21:00)
[2018-05-30] MEDS ORDERED: PHENYTOIN SODIUM 300 MG PO SCH (21:00)
[2018-05-31] MEDS: INSULIN GLARGINE 100 UNITS/ML SQ SCH ×3 (00:54→20:22)
[2018-05-31] MEDS: PHENYTOIN ER 100 MG CAP PO SCH ×2 (00:55→20:22)
[2018-05-31] MEDS: GABAPENTIN 300 MG CAP PO SCH ×4 (00:56→20:22)
[2018-05-31] MEDS: CARVEDILOL 12.5 MG TAB PO SCH ×2 (00:56→20:22)
[2018-05-31] MEDS ORDERED: NA CHLORIDE 0.9% 250 ML ONE (00:59)
[2018-05-31] MEDS ORDERED: VANCOMYCIN 1 GM/VIAL ONE (00:59)
[2018-05-31] MEDS: HYDRALAZINE HCL 20 MG/ML VIAL IV PRN (02:39)
[2018-05-31 05:04] VITALS: BMI 23.8
[2018-05-31 05:08] LABS: Absolute Lymphocytes (CBC) 1.3 K/uL (0.7-4.9); Absolute Monocytes 0.7 K/uL (0.1-1.3); Absolute Neutrophil 5.3 K/uL (1.8-8.0); Basophils % 1.1 % (0-1.3); Eosinophils % 9.2 % (0-4.4); Hematocrit 24.6 % (39.6-49.0); Lymphocytes % 16.4 % (15.3-44.8); MPV 8.8 fL (7.6-11.3); Monocytes % 8.4 % (3.3-12.3); RBC Red Blood Cell Count 2.68 M/uL (4.33-5.43)
[2018-05-31 05:39] LABS: Albumin 1.7 g/dL (3.4-5.0); Bilirubin Total 0.4 mg/dL (0.2-1.0); Potassium 3.4 mmol/L (3.5-5.1); Protein, Total 6.4 g/dL (6.4-8.2)
[2018-05-31] MEDS: INSULIN -REGULAR HUMAN 50 UNIT/0.5 ML ML SQ SCH ×3 (07:30→16:20)
[2018-05-31] MEDS: SEVELAMER CARBONATE 800 MG TABLET PO SCH ×3 (08:34→18:45)
[2018-05-31] MEDS: CEFEPIME/SWI 1gm 10 ML IV SCH (08:34)
[2018-05-31] MEDS ORDERED: AMLODIPINE 10 MG TAB PO SCH (09:00)
[2018-05-31] MEDS ORDERED: ASPIRIN EC 81 MG TAB PO SCH (09:00)
--- NOTE | 2018-05-31 09:06 | PN ---
Subjective: The patient is lying in bed. Complains of generalized aches and pains. As per staff, t he patient has just been given pain medication. Objective: Vital Signs: Temperature 98.4, pulse 65, respirations 16, blood pressure 190/84. Lungs: basal crackles. Heart: S1, S2. Regular. Abdomen: Soft, nontender. Bowel sounds present. Extremities: Right AKA wound noted. Laboratory Data: Shows WBC 9.4, hemoglobin 7.7, platelets 454 43. Chemistry shows sodium 138, potas sium 3.9, chloride 104, bicarb 25, BUN 51, creatinine 6.6, glucose is 143. Blood cultures are negati ve for 24 hours. Assessment And Plan: Left lower lobe pneumonia, end-stage renal disease, right AKA. Continue antibi otic and supportive care. We will follow the patient as needed. SOY/MODZulay Voice ID: [id number] Report ID: [id number]
[2018-05-31 10:08] VITALS: O2SAT 95
[2018-05-31 16:50] VITALS: TEMP 97.4
[2018-05-31] MEDS: ENOXAPARIN 30 MG/0.3 ML SQ SCH (18:45)
--- NOTE | 2018-05-31 19:08 | P.PN ---
Subjective Date of Service: 05/31/18 Chief Complaint: Altered mental status in dialysis Subjective: Improving pt was admitted for AMS . had rt BKA recently, found to have leuckocytosis HD TTsat as an OP BLU controlled pain os better controlled now cultures so far -ve cleared for discharge from nephrology point of view Physical Examination - Vital Signs Temperature: 97.4 F Blood Pressure: 131/62 Pulse: 67 Respirations: 18 Pulse Ox (%): 95 - Physical Exam General: In no apparent distress, Oriented x3 HEENT: Atraumatic Neck: Supple, Without JVD or thyroid abnormality Respiratory: Clear to auscultation bilaterally Cardiovascular: No edema, Normal S1 S2, No rubs, No murmurs Musculoskeletal: Other (BKA ) - Studies Microbiology Data (last 24 hrs): 05/26/18 13:17 Blood - Blood Aerobic Blood Culture - Final No growth in 5 days. 05/26/18 13:17 Blood - Blood Anaerobic Blood Culture - Final 05/26/18 12:30 Blood - Blood Aerobic Blood Culture - Final 05/26/18 12:30 Blood - Blood Gram Stain - Final 05/26/18 12:30 Blood - Blood Anaerobic Blood Culture - Final Assessment And Plan - Current Problems (Diagnosis) (1) Altered mental status Current Visit: Yes Status: Acute (2) Hyperkalemia Current Visit: Yes Status: Acute (3) Leukocytosis Current Visit: Yes Status: Acute (4) Diabetic kidney Onset Date: 12/02/14 Current Visit: No Status: Acute (5) ESRD (end stage renal disease) Onset Date: 07/08/16 Current Visit: No Status: Chronic - Plan End-stage renal disease. will cont HD MWF renal dose meds HTN controlled now Anemia cont STEPHEN MBD cont renvela Sepsis ID: cont vanco for 2wks monitor vanco level DM as per PCP
--- NOTE | 2018-05-31 19:27 | PN ---
Subjective: The patient lying in bed. Denies any headache, nausea, vomiting, chest pain, abdominal pain, constipation, or diarrhea. Objective: Vital Signs: Temperature 97.6, pulse 68, respirations 18, blood pressure 138/46. HEENT: Total blindness, otherwise unremarkable. Neck: Supple. Lungs: Clear to auscultation. Heart: S1, S2. Regular. Abdomen: Soft, nontender. Bowel sounds present. Extremities: Right AKA wound noted. Laboratory Data: Shows WBC 8.1, hemoglobin 8.2, platelets 424. Sodium 139, potassium 3.4, chloride 103, bicarb 29, BUN 27, creatinine 4, glucose is 98. Blood cultures are negative. Assessment And Plan: Left lower lobe pneumonia, end-stage renal disease, status post right total kne e arthroplasty, doing well. Continue antibiotic and supportive care. NF/MODL Voice ID: [id number] Report ID: [id number]
[2018-05-31 20:23] VITALS: BP 141/60
--- NOTE | 2018-06-01 05:16 | DS ---
Date of Discharge: 05/31/2018 Consultants: Dr. Borja with Infectious Disease, Dr. Werner, Dr. Vasques with Nephrology, and Dr. Banerjee with Nephrology. Admitting Diagnoses: A 63-year-old male with: 1. Acute metabolic encephalopathy. 2. Anemia of chronic disease secondary to renal disease, on dialysis. 3. Blindness. 4. Diabetes mellitus type 2 with long-term use of insulin without coma. 5. End-stage renal disease, on hemodialysis. 6. Leukocytosis. 7. Acidosis. 8. Hyperkalemia. 9. Bladder distention. 10. Respiratory depression. Discharge Diagnoses: 1. Acute metabolic encephalopathy due to narcotic overdose. 2. Anemia of chronic disease secondary to chronic kidney disease, on dialysis. 3. End-stage renal disease, on hemodialysis. 4. Blindness. 5. Diabetes mellitus type 2 with long-term use of insulin with CKD. 6. Acidosis, resolved. 7. Hyperkalemia, corrected. 8. Leukocytosis resolved. 9. Dental caries. 10. Left lower lobe infiltrate, likely pneumonia. 11. Coronary artery disease, [place] artery, [place] heart without angina. 12. Status post [id number] amputation on the right from outside facility. 13. Severe protein-calorie malnutrition. Hospital Course: The patient is a 63-year-old male who has a history of heart disease, diabetes, end-stage renal disease, on dialysis, who is a resident of [facility], comes in with altered mental status. The patient is blind as well. The patient was found to have altered mental status during dialysis and therefore was sent to the ER for further evaluation. He was found to have a WBC count of 23,000, potassium was up to 6.1. Procalcitonin elevated at 2.9. The patient was found to have pneumonia. He was started on IV antibiotics. The patient did have decreased respirations and was given Narcan and responded to the Narcan. CT scan of the head was negative for any abnormalities. Nephrology was consulted and his dialysis was continued. The patient did have recent [id number]-[id number] amputation and was thought to have source of infection from there. He also has numerous severe dental caries. The patient was started on IV antibiotics to treat the possible infection from dental caries causing the pneumonia. The patient's cultures were obtained, have been negative to date. CT scan of the abdomen and pelvis was done which showed some mild left hydronephrosis but no stone, prominent distention of the urinary bladder. Therefore, urinary catheter was placed. The patient did have some subsegmental atelectasis in the lungs as well. Overall, the patient did well. His wound looked uninfected. Renal ultrasound was also done. The patient was then cleared for discharge. He will need to follow up with primary care physician in 2-3 days, follow up with surgeon for wound check from the AKA and have daniele removed. The patient will continue dialysis as scheduled. Follow up with computational biologist, Dr. Werner in 2 weeks. Follow up with Infectious Disease, Dr. Borja in 1 week. Return to ER for worsening conditions. Weekly CBC, CMP, ESR, and CRP while on IV antibiotics. Medications: As per medication reconciliation list. He will be on vancomycin and Levaquin p.o. for 2 weeks. Vancomycin will be a gram with each dialysis session. Diet: Renal. Activity: Fall precautions. Physical Examination: General: Awake, alert, oriented, no acute distress, elderly male. CV: S1, S2. Pulses present. Respiratory: Moving air well bilaterally. No wheezing. Gastrointestinal: Abdomen is soft, nontender, nondistended. Positive bowel sounds. Extremities: Left lower extremity, no clubbing, cyanosis, edema. Musculoskeletal: Right AKA. Neurologic: Nonfocal. Total time spent discharging the patient was 39 minutes. KANDACE Voice ID: [id number] Report ID: [id number] MTDD
[2018-06-01 05:29] LABS: HBsAG Nonreactive (Nonreactive)
== END 2018-05-31 20:55 | DRG 917 ==
LOC: ER 12:07 → ERHOLD 14:17 → 4TH 17:02 → 3RD-ICU 20:35 → 4TH 05-29 23:45
PROVIDERS: ADMIT Family Medicine; ATTEND Family Medicine
PROC: 5A1D70Z Performance of Urinary Filtration, Intermittent, Less than 6 Hours Per Day (ICD-10-PCS; principal; 2018-05-27)
PROC: 30233N1 Transfusion of Nonautologous Red Blood Cells into Peripheral Vein, Percutaneous Approach (ICD-10-PCS; 2018-05-27)
PROC: 5A1D70Z Performance of Urinary Filtration, Intermittent, Less than 6 Hours Per Day (ICD-10-PCS; 2018-05-28)
PROC: 5A1D70Z Performance of Urinary Filtration, Intermittent, Less than 6 Hours Per Day (ICD-10-PCS; 2018-05-30)
DX: T40.2X1A Poisoning by other opioids, accidental (unintentional), initial encounter (principal); G92 Toxic encephalopathy; N18.6 End stage renal disease; A41.9 Sepsis, unspecified organism; J18.9 Pneumonia, unspecified organism; E43 Unspecified severe protein-calorie malnutrition; I12.0 Hypertensive chronic kidney disease with stage 5 chronic kidney disease or end stage renal disease; E87.2 Acidosis; N39.0 Urinary tract infection, site not specified; N13.30 Unspecified hydronephrosis; N25.81 Secondary hyperparathyroidism of renal origin; E11.22 Type 2 diabetes mellitus with diabetic chronic kidney disease; Z99.2 Dependence on renal dialysis; Z79.4 Long term (current) use of insulin; E11.649 Type 2 diabetes mellitus with hypoglycemia without coma; D63.1 Anemia in chronic kidney disease; E87.5 Hyperkalemia; N32.89 Other specified disorders of bladder; H54.8 Legal blindness, as defined in USA; I25.10 Atherosclerotic heart disease of native coronary artery without angina pectoris; E11.51 Type 2 diabetes mellitus with diabetic peripheral angiopathy without gangrene; Z66 Do not resuscitate; E11.319 Type 2 diabetes mellitus with unspecified diabetic retinopathy without macular edema; E11.42 Type 2 diabetes mellitus with diabetic polyneuropathy; E11.21 Type 2 diabetes mellitus with diabetic nephropathy; N25.0 Renal osteodystrophy; L89.102 Pressure ulcer of unspecified part of back, stage 2; Z89.619 Acquired absence of unspecified leg above knee; Z68.25 Body mass index [BMI] 25.0-25.9, adult; K02.9 Dental caries, unspecified; B95.8 Unspecified staphylococcus as the cause of diseases classified elsewhere; Y92.129 Unspecified place in nursing home as the place of occurrence of the external cause; F03.90 Unspecified dementia, unspecified severity, without behavioral disturbance, psychotic disturbance, mood disturbance, and anxiety
CPT/HCPCS: 36415; 51702; 70450; 71045; 74176; 76770; 80048; 80053; 80202; 81003; 82140; 82805; 82962; 83605; 84100; 84145; 84484; 85014; 85018; 85025; 86704; 86706; 86803; 86850; 86900; 86901; 87040; 87086; 87088; 87205; 87340; 90935; 93005; 94760; 96365; 96375; 99285; J0360; J0610; J0692; J0696; J0885; J1580; J1644; J1650; J2270; J2310; J3370; J3411; P9016; Q4081

== ENCOUNTER 2019-05-09 06:46 | Inpatient (IN) | payer OTHER ==
[2019-05-07 15:52] LABS: Absolute Lymphocytes (CBC) 1.7 K/uL (0.7-4.9); Basophils % 0.5 % (0-1.3); Hematocrit 32.1 % (39.6-49.0); Lymphocytes % 11.4 % (15.3-44.8); MPV 8.7 fL (7.6-11.3); RBC Red Blood Cell Count 3.55 M/uL (4.33-5.43)
[2019-05-07 16:14] LABS: Potassium 4.2 mmol/L (3.5-5.1)
--- NOTE | 2019-05-07 16:42 | RAD REPORT ---
EXAM DESCRIPTION: RAD - Chest Pa And Lat (2 Views) - 05/07/2019 3:51 pm CLINICAL HISTORY: preop, pending left leg amputation COMPARISON: Chest Single View dated 05/26/2018 TECHNIQUE: Frontal and lateral views of the chest were obtained. FINDINGS: The lungs are underinflated. This accentuates heart, vasculature and lung markings. Substa ntial change from prior study is not identified. Heart size is normal and central vasculature is wi thin normal limits. No pleural effusion or pneumothorax seen. No acute bony finding noted. No aort ic abnormality. IMPRESSION: Shallow inspiration exam without acute cardiopulmonary finding.
--- NOTE | 2019-05-08 08:19 | EKG ---
Test Date: 2019-05-07 Test Time: 15:21:59 Manager Sap: CHEL MEASUREMENT RESULTS: Intervals: Rate: 88 OK: 192 QRSD: 90 QT: 428 QTc: 517 [place]: P: 24 OK: 192 QRS: -17 T: 50 INTERPRETIVE STATEMENTS: Normal sinus rhythm Prolonged QT Abnormal ECG Compared to ECG 05/26/2018 13:58:08 Prolonged QT interval now present Myocardial infarct finding no longer present Electronically Signed On 05-08-19 08:18:02 FACILITATOR by Clinton Mckeon
--- OUTSIDE RECORDS SUMMARY | 2019-05-09 06:51 | XMS REPORT ---
:1955 [facility] [address] [place] [id number] Care Team Providers Name Role Phone BEBE BRYAN Unavailable Unavailable Problems This patient has no known problems. Allergies, Adverse Reactions, Alerts This patient has no known allergies or adverse reactions. Medications This patient has no known medications. Results Test Description Test Time Test Comments Text Results Atomic Results Result Comments TISSUE EXAM 2018-05-25 08:08:00 Surgical Pathology Report Case: [id number] Authorizing Provider: Joshua Jang, Collected: 05/18/2018 0923 Ordering Location: [address] Received: 05/18/2018 1028 Cardiovascular Pathologist: Maxime Lau MD Specimen: Leg, Right, ABOVE THE KNEE AMPUTATION PART A RIGHT LEG, ABOVE THE KNEE AMPUTATION:GANGRENOUS NECROSIS OF SKIN AND SOFT TISSUE.CHRONIC OSTEOMYELITIS.CALCIFIC ATHEROSCLEROTIC DISEASE.SKIN, SOFT TISSUE, AND BONE MARGINS ARE UNINVOLVED. Signing Pathologist Direct Phone Line: [phone] signed by Maxime Lau MD on 05/25/2018 at 8:08 [id number], [id number] artery disease, Limb ischemia Right above knee [...] Value Reference Range Comments CULTURE (BEAKER) (test rzri=8113) No growth in 5 days BLOOD [id number] 20:01:00 Test Item Value Reference Range Comments CULTURE (BEAKER) (test ywco=2890) No growth in 5 days POCT-GLUCOSE [id number] 11:44:00 Test Item Value Reference Range Comments POC-GLUCOSE METER (BEAKER) 144 mg/dL 70-110 TESTED AT [address] (test jfrg=5217) [facility] [address] POCT-GLUCOSE [id number] 09:45:00 Test Item Value Reference Range Comments POC-GLUCOSE METER (BEAKER) 135 mg/dL 70-110 TESTED AT [address] (test pwci=9518) [facility] [address] BASIC METABOLIC [id number] 04:31:00 Test Item Value Reference Range Comments SODIUM (BEAKER) (test 138 meq/L 136-145 fwzk=361) POTASSIUM (BEAKER) (test 4.1 meq/L 3.5-5.1 byoi=679) CHLORIDE (BEAKER) (test 101 meq/L 98-107 aewf=690) CO2 (BEAKER) (test 23 meq/L 22-29 fgkc=148) BLOOD UREA NITROGEN 51 mg/dL 7-21 (BEAKER) (test bgnk=632) CREATININE (BEAKER) (test 4.44 mg/dL 0.57-1.25 zaqz=955) GLUCOSE RANDOM (BEAKER) 96 mg/dL 70-105 (test ygyh=158) CALCIUM (BEAKER) (test 8.7 mg/dL 8.4-10.2 xktq=884) EGFR (BEAKER) (test 13 mL/min/1.73 sq m ESTIMATED GFR IS NOT scxu=6018) ACCURATE CREATININE CLEARANCE IN PREDICTING GLOMERULAR FILTRATION RATE. ESTIMATED GFR IS NOT APPLICABLE FOR DIALYSIS PATIENTS. [id number] 04:29:00 Test Item Value Reference Range Comments PHOSPHORUS (BEAKER) (test khao=439) 5.4 mg/dL 2.3-4.7 [id number] 04:29:00 Test Item Value Reference Range Comments MAGNESIUM (BEAKER) (test ysnq=281) 2.0 mg/dL 1.6-2.6 [id number] 04:17:00 Test Item Value Reference Range Comments PARTIAL THROMBOPLASTIN TIME (BEAKER) (test 40.1 seconds 22.5-36.0 vhup=512) PROTHROMBIN TIME/[id number] 04:16:00 Test Item Value Reference Range Comments PROTIME (BEAKER) (test chos=087) 14.9 seconds 11.7-14.7 INR (BEAKER) (test urgq=962) 1.2 <=5.9 RECOMMENDED COUMADIN/WARFARIN INR THERAPY RANGESSTANDARD DOSE: 2.0 - 3.0 Includes: PROPHYLAXIS forvenous thrombosis, systemic embolization; TREATMENT for venous thrombosis and/or pulmonary embolus.HIGH RISK: Target INR is 2.5-3.5 for patients with mechanical heart valves.CBC W/PLT COUNT & AUTO [id number] 04:09:00 Test Item Value Reference Range Comments WHITE BLOOD CELL COUNT (BEAKER) (test jdca=276) 22.0 K/ L 3.5-10.5 RED BLOOD CELL COUNT (BEAKER) (test rsfn=280) 2.68 M/ L 4.63-6.08 HEMOGLOBIN (BEAKER) (test ipgd=457) 8.1 GM/DL 13.7-17.5 HEMATOCRIT (BEAKER) (test gbgg=873) 25.1 % 40.1-51.0 MEAN CORPUSCULAR VOLUME (BEAKER) (test opqc=268) 93.7 fL 79.0-92.2 MEAN CORPUSCULAR HEMOGLOBIN (BEAKER) (test 30.2 pg 25.7-32.2 edqz=279) MEAN CORPUSCULAR HEMOGLOBIN CONC (BEAKER) (test 32.3 GM/DL 32.3-36.5 rbly=380) RED CELL DISTRIBUTION WIDTH (BEAKER) (test 14.8 % 11.6-14.4 pads=480) PLATELET COUNT (BEAKER) (test hynl=655) 390 K/CU MM 150-450 MEAN PLATELET VOLUME (BEAKER) (test kfyy=524) 10.6 fL 9.4-12.4 NUCLEATED RED BLOOD CELLS (BEAKER) (test 0 /100 WBC 0-0 ygvh=562) NEUTROPHILS RELATIVE PERCENT (BEAKER) (test 85 % vmih=252) LYMPHOCYTES RELATIVE PERCENT (BEAKER) (test 7 % qaso=678) MONOCYTES RELATIVE PERCENT (BEAKER) (test 5 % oybs=244) EOSINOPHILS RELATIVE PERCENT (BEAKER) (test 1 % wwcq=282) BASOPHILS RELATIVE PERCENT (BEAKER) (test 0 % saxt=833) NEUTROPHILS ABSOLUTE COUNT (BEAKER) (test 18.70 K/ L 1.78-5.38 hjgv=507) LYMPHOCYTES ABSOLUTE COUNT (BEAKER) (test 1.45 K/ L 1.32-3.57 gcri=275) MONOCYTES ABSOLUTE COUNT (BEAKER) (test 1.16 K/ L 0.30-0.82 dqrz=139) EOSINOPHILS ABSOLUTE COUNT (BEAKER) (test 0.30 K/ L 0.04-0.54 phkl=239) BASOPHILS ABSOLUTE COUNT (BEAKER) (test 0.05 K/ L 0.01-0.08 ltmc=327) IMMATURE GRANULOCYTES-RELATIVE PERCENT (BEAKER) 2 % 0-1 (test pmyb=8611) HEPATITIS B SURFACE [id number] 00:38:00 Test Item Value Reference Range Comments HEPATITIS B SURFACE ANTIGEN (2) (BEAKER) (test Nonreactive Nonreactive wpss=0329) For chronic HD patients, draw HBsAg with each admission then every 30 days.POCT- GLUCOSE [id number] 21:59:00 Test Item Value Reference Range Comments POC-GLUCOSE METER (BEAKER) 153 mg/dL 70-110 TESTED AT [address] (test udtj=1490) [facility] [address] POCT-GLUCOSE [id number] 17:42:00 Test Item Value Reference Range Comments POC-GLUCOSE METER (BEAKER) 160 mg/dL 70-110 TESTED AT [facility] [address] [facility] (test qipm=1865) [facility] [address] POCT-GLUCOSE [id number] 11:59:00 Test Item Value Reference Range Comments POC-GLUCOSE METER (BEAKER) 192 mg/dL 70-110 TESTED AT [facility] [address] [facility] (test mgho=7843) [facility] [address] POCT-GLUCOSE [id number] 08:16:00 Test Item Value Reference Range Comments POC-GLUCOSE METER (BEAKER) 135 mg/dL 70-110 TESTED AT [facility] [address] [facility] (test vhtd=3824) [facility] [address] [id number] 05:05:00 Test Item Value Reference Range Comments PHOSPHORUS (BEAKER) (test tgdt=924) 10.4 mg/dL 2.3-4.7 BASIC METABOLIC [id number] 05:01:00 Test Item Value Reference Range Comments SODIUM (BEAKER) (test 136 meq/L 136-145 vhjz=345) POTASSIUM (BEAKER) (test 5.5 meq/L 3.5-5.1 pskl=406) CHLORIDE (BEAKER) (test 100 meq/L 98-107 sqgw=367) CO2 (BEAKER) (test 20 meq/L 22-29 hctf=063) BLOOD UREA NITROGEN 107 mg/dL 7-21 (BEAKER) (test yksm=559) CREATININE (BEAKER) (test 7.82 mg/dL 0.57-1.25 tfac=139) GLUCOSE RANDOM (BEAKER) 116 mg/dL 70-105 (test yyxd=168) CALCIUM (BEAKER) (test 8.1 mg/dL 8.4-10.2 ngrh=776) EGFR (BEAKER) (test 7 mL/min/1.73 sq m ESTIMATED GFR IS NOT vyot=2290) ACCURATE CREATININE CLEARANCE IN PREDICTING GLOMERULAR FILTRATION RATE. ESTIMATED GFR IS NOT APPLICABLE FOR DIALYSIS PATIENTS. [id number] 04:56:00 Test Item Value Reference Range Comments MAGNESIUM (BEAKER) (test dykq=562) 2.5 mg/dL 1.6-2.6 PROTHROMBIN TIME/[id number] 04:35:00 Test Item Value Reference Range Comments PROTIME (BEAKER) (test brez=811) 15.1 seconds 11.7-14.7 INR (BEAKER) (test rvrk=938) 1.2 <=5.9 RECOMMENDED COUMADIN/WARFARIN INR THERAPY RANGESSTANDARD DOSE: 2.0 - 3.0 Includes: PROPHYLAXIS forvenous thrombosis, systemic embolization; TREATMENT for venous thrombosis and/or pulmonary embolus.HIGH RISK: Target INR is 2.5-3.5 for patients with mechanical heart valves.[id number] 04:35:00 Test Item Value Reference Range Comments PARTIAL THROMBOPLASTIN TIME (BEAKER) (test 36.1 seconds 22.5-36.0 kyrh=484) CBC W/PLT COUNT & AUTO [id number] 04:26:00 Test Item Value Reference Range Comments WHITE BLOOD CELL COUNT (BEAKER) (test roit=451) 20.1 K/ L 3.5-10.5 RED BLOOD CELL COUNT (BEAKER) (test ozvi=820) 2.79 M/ L 4.63-6.08 HEMOGLOBIN (BEAKER) (test lzqt=170) 8.6 GM/DL 13.7-17.5 HEMATOCRIT (BEAKER) (test fcuv=257) 26.8 % 40.1-51.0 MEAN CORPUSCULAR VOLUME (BEAKER) (test wjoj=291) 96.1 fL 79.0-92.2 MEAN CORPUSCULAR HEMOGLOBIN (BEAKER) (test 30.8 pg 25.7-32.2 hwqe=710) MEAN CORPUSCULAR HEMOGLOBIN CONC (BEAKER) (test 32.1 GM/DL 32.3-36.5 hsrk=108) RED CELL DISTRIBUTION WIDTH (BEAKER) (test 15.1 % 11.6-14.4 oibi=138) PLATELET COUNT (BEAKER) (test rmhh=037) 376 K/CU MM 150-450 MEAN PLATELET VOLUME (BEAKER) (test ppvj=320) 10.7 fL 9.4-12.4 NUCLEATED RED BLOOD CELLS (BEAKER) (test 0 /100 WBC 0-0 pcql=142) NEUTROPHILS RELATIVE PERCENT (BEAKER) (test 78 % isav=182) LYMPHOCYTES RELATIVE PERCENT (BEAKER) (test 13 % wdmi=357) MONOCYTES RELATIVE PERCENT (BEAKER) (test 7 % kzpq=096) EOSINOPHILS RELATIVE PERCENT (BEAKER) (test 2 % cpev=751) BASOPHILS RELATIVE PERCENT (BEAKER) (test 0 % euon=800) NEUTROPHILS ABSOLUTE COUNT (BEAKER) (test 15.61 K/ L 1.78-5.38 cpsw=070) LYMPHOCYTES ABSOLUTE COUNT (BEAKER) (test 2.58 K/ L 1.32-3.57 bxti=700) MONOCYTES ABSOLUTE COUNT (BEAKER) (test 1.38 K/ L 0.30-0.82 lcqj=770) EOSINOPHILS ABSOLUTE COUNT (BEAKER) (test 0.35 K/ L 0.04-0.54 tkkv=074) BASOPHILS ABSOLUTE COUNT (BEAKER) (test 0.03 K/ L 0.01-0.08 lrek=353) IMMATURE GRANULOCYTES-RELATIVE PERCENT (BEAKER) 1 % 0-1 (test hzwv=8323) POCT-GLUCOSE [id number] 21:48:00 Test Item Value Reference Range Comments POC-GLUCOSE METER (BEAKER) 147 mg/dL 70-110 TESTED AT [address] (test csrp=4701) [place] [address] POCT-GLUCOSE [id number] 19:15:00 Test Item Value Reference Range Comments POC-GLUCOSE METER (BEAKER) 166 mg/dL 70-110 TESTED AT [address] (test sege=4125) [place] [address] BASIC METABOLIC [id number] 17:45:00 Test Item Value Reference Range Comments SODIUM (BEAKER) (test 135 meq/L 136-145 uehi=278) POTASSIUM (BEAKER) (test 5.5 meq/L 3.5-5.1 iniu=547) CHLORIDE (BEAKER) (test 99 meq/L 98-107 kmnb=836) CO2 (BEAKER) (test 21 meq/L 22-29 slff=345) BLOOD UREA NITROGEN 97 mg/dL 7-21 (BEAKER) (test wtmr=218) CREATININE (BEAKER) (test 7.03 mg/dL 0.57-1.25 aokj=832) GLUCOSE RANDOM (BEAKER) 168 mg/dL 70-105 (test uqbo=504) CALCIUM (BEAKER) (test 8.0 mg/dL 8.4-10.2 tsca=798) EGFR (BEAKER) (test 8 mL/min/1.73 sq m ESTIMATED GFR IS NOT epfa=6648) ACCURATE CREATININE CLEARANCE IN PREDICTING GLOMERULAR FILTRATION RATE. ESTIMATED GFR IS NOT APPLICABLE FOR DIALYSIS PATIENTS. [id number] 17:44:00 Test Item Value Reference Range Comments PHOSPHORUS (BEAKER) (test pnoi=418) 9.2 mg/dL 2.3-4.7 [id number] 17:42:00 Test Item Value Reference Range Comments MAGNESIUM (BEAKER) (test cnnk=881) 2.4 mg/dL 1.6-2.6 POCT-GLUCOSE [id number] 15:14:00 Test Item Value Reference Range Comments POC-GLUCOSE METER (BEAKER) 197 mg/dL 70-110 TESTED AT [facility] [address] [facility] (test rdax=3007) [facility] [address] POCT-GLUCOSE [id number] 09:36:00 Test Item Value Reference Range Comments POC-GLUCOSE METER (BEAKER) 201 mg/dL 70-110 TESTED AT [place] [id number] [facility] (test qpoc=7160) [facility] [address] BASIC METABOLIC [id number] 05:03:00 Test Item Value Reference Range Comments SODIUM (BEAKER) (test 134 meq/L 136-145 byuh=821) POTASSIUM (BEAKER) (test 5.0 meq/L 3.5-5.1 eduk=637) CHLORIDE (BEAKER) (test 101 meq/L 98-107 fqdx=263) CO2 (BEAKER) (test 20 meq/L 22-29 wrbw=582) BLOOD UREA NITROGEN 83 mg/dL 7-21 (BEAKER) (test qzgc=999) CREATININE (BEAKER) (test 5.92 mg/dL 0.57-1.25 kqcn=925) GLUCOSE RANDOM (BEAKER) 193 mg/dL 70-105 (test zyey=251) CALCIUM (BEAKER) (test 8.0 mg/dL 8.4-10.2 frzf=835) EGFR (BEAKER) (test 10 mL/min/1.73 sq m ESTIMATED GFR IS NOT lyuw=1442) ACCURATE CREATININE CLEARANCE IN PREDICTING GLOMERULAR FILTRATION RATE. ESTIMATED GFR IS NOT APPLICABLE FOR DIALYSIS PATIENTS. [id number] 05:01:00 Test Item Value Reference Range Comments PHOSPHORUS (BEAKER) (test ccey=819) 7.7 mg/dL 2.3-4.7 [id number] 05:01:00 Test Item Value Reference Range Comments MAGNESIUM (BEAKER) (test wxlr=997) 2.4 mg/dL 1.6-2.6 CBC W/PLT COUNT & AUTO [id number] 04:31:00 Test Item Value Reference Range Comments WHITE BLOOD CELL COUNT (BEAKER) (test orkp=871) 20.3 K/ L 3.5-10.5 RED BLOOD CELL COUNT (BEAKER) (test hiac=352) 2.85 M/ L 4.63-6.08 HEMOGLOBIN (BEAKER) (test kyfc=862) 8.6 GM/DL 13.7-17.5 HEMATOCRIT (BEAKER) (test ovab=278) 27.1 % 40.1-51.0 MEAN CORPUSCULAR VOLUME (BEAKER) (test yrcc=233) 95.1 fL 79.0-92.2 MEAN CORPUSCULAR HEMOGLOBIN (BEAKER) (test 30.2 pg 25.7-32.2 yref=567) MEAN CORPUSCULAR HEMOGLOBIN CONC (BEAKER) (test 31.7 GM/DL 32.3-36.5 jwyp=243) RED CELL DISTRIBUTION WIDTH (BEAKER) (test 15.3 % 11.6-14.4 awum=932) PLATELET COUNT (BEAKER) (test rfmj=455) 368 K/CU MM 150-450 MEAN PLATELET VOLUME (BEAKER) (test ektn=647) 10.5 fL 9.4-12.4 NUCLEATED RED BLOOD CELLS (BEAKER) (test 0 /100 WBC 0-0 lmup=018) NEUTROPHILS RELATIVE PERCENT (BEAKER) (test 76 % insb=343) LYMPHOCYTES RELATIVE PERCENT (BEAKER) (test 12 % xgyz=890) MONOCYTES RELATIVE PERCENT (BEAKER) (test 9 % jwkd=889) EOSINOPHILS RELATIVE PERCENT (BEAKER) (test 1 % ckuo=080) BASOPHILS RELATIVE PERCENT (BEAKER) (test 0 % zduo=098) NEUTROPHILS ABSOLUTE COUNT (BEAKER) (test 15.53 K/ L 1.78-5.38 kljq=594) LYMPHOCYTES ABSOLUTE COUNT (BEAKER) (test 2.48 K/ L 1.32-3.57 fthv=114) MONOCYTES ABSOLUTE COUNT (BEAKER) (test 1.90 K/ L 0.30-0.82 tytj=802) EOSINOPHILS ABSOLUTE COUNT (BEAKER) (test 0.14 K/ L 0.04-0.54 ccip=403) BASOPHILS ABSOLUTE COUNT (BEAKER) (test 0.03 K/ L 0.01-0.08 xqeh=202) IMMATURE GRANULOCYTES-RELATIVE PERCENT (BEAKER) 1 % 0-1 (test xxdi=8142) [id number] 04:11:00 Test Item Value Reference Range Comments PARTIAL THROMBOPLASTIN TIME (BEAKER) (test 41.4 seconds 22.5-36.0 yomj=510) PROTHROMBIN TIME/[id number] 04:10:00 Test Item Value Reference Range Comments PROTIME (BEAKER) (test ecnh=786) 16.8 seconds 11.7-14.7 INR (BEAKER) (test ftgd=172) 1.3 <=5.9 RECOMMENDED COUMADIN/WARFARIN INR THERAPY RANGESSTANDARD DOSE: 2.0 - 3.0 Includes: PROPHYLAXIS forvenous thrombosis, systemic embolization; TREATMENT for venous thrombosis and/or pulmonary embolus.HIGH RISK: Target INR is 2.5-3.5 for patients with mechanical heart valves.POCT-GLUCOSE [id number] 00:02:00 Test Item Value Reference Range Comments POC-GLUCOSE METER (BEAKER) 277 mg/dL 70-110 TESTED AT [address] (test gerr=6341) [place] [address] [id number] 20:49:00 Test Item Value Reference Range Comments PHOSPHORUS (BEAKER) (test lkuf=638) 7.4 mg/dL 2.3-4.7 [id number] 20:49:00 Test Item Value Reference Range Comments MAGNESIUM (BEAKER) (test knjv=019) 2.3 mg/dL 1.6-2.6 POCT-GLUCOSE [id number] 16:21:00 Test Item Value Reference Range Comments POC-GLUCOSE METER (BEAKER) 220 mg/dL 70-110 TESTED AT [address] (test yddh=7789) [place] [address] POCT-GLUCOSE [id number] 11:29:00 Test Item Value Reference Range Comments POC-GLUCOSE METER (BEAKER) 206 mg/dL 70-110 TESTED AT [address] (test qjqg=1258) [place] [address] CBC W/PLT COUNT & AUTO [id number] 09:00:00 Test Item Value Reference Range Comments WHITE BLOOD CELL COUNT (BEAKER) (test gkhp=609) 20.8 K/ L 3.5-10.5 RED BLOOD CELL COUNT (BEAKER) (test bbxp=760) 3.42 M/ L 4.63-6.08 HEMOGLOBIN (BEAKER) (test akoe=039) 10.5 GM/DL 13.7-17.5 HEMATOCRIT (BEAKER) (test xfen=191) 32.1 % 40.1-51.0 MEAN CORPUSCULAR VOLUME (BEAKER) (test dnem=268) 93.9 fL 79.0-92.2 MEAN CORPUSCULAR HEMOGLOBIN (BEAKER) (test 30.7 pg 25.7-32.2 trfw=183) MEAN CORPUSCULAR HEMOGLOBIN CONC (BEAKER) (test 32.7 GM/DL 32.3-36.5 gsgw=361) RED CELL DISTRIBUTION WIDTH (BEAKER) (test 15.5 % 11.6-14.4 jjli=791) PLATELET COUNT (BEAKER) (test lpvh=121) 453 K/CU MM 150-450 MEAN PLATELET VOLUME (BEAKER) (test mypp=692) 10.6 fL 9.4-12.4 NUCLEATED RED BLOOD CELLS (BEAKER) (test 0 /100 WBC 0-0 vmwv=397) (CELLAVISION MANUAL DIFF)2018-05-19 09:00:00 Test Item Value Reference Range Comments NEUTROPHILS - REL (CELLAVISION)(BEAKER) (test 90 % mdgc=4253) LYMPHOCYTES - REL (CELLAVISION)(BEAKER) (test 5 % enfq=1288) MONOCYTES - REL (CELLAVISION)(BEAKER) (test 4 % zujk=2534) BANDS - REL (CELLAVISION)(BEAKER) (test 1 % 0-10 fwvo=8125) NEUTROPHILS - ABS (CELLAVISION)(BEAKER) (test 18.72 K/ul 1.78-5.38 lryc=1480) LYMPHOCYTES - ABS (CELLAVISION)(BEAKER) (test 1.04 K/ul 1.32-3.57 gkxz=7315) MONOCYTES - ABS (CELLAVISION)(BEAKER) (test 0.83 K/uL 0.30-0.82 cguv=9192) BANDS - ABS (CELLAVISION)(BEAKER) (test 0.21 K/uL 0.00-0.80 ozuk=8276) TOTAL COUNTED (BEAKER) (test gxbg=1251) 100 WBC MORPHOLOGY (BEAKER) (test adcu=062) Normal GIANT PLATELETS (BEAKER) (test swwl=492) Present LARGE PLT(BEAKER) (test wupt=3221) Present POLYCHROMATOPHILLIC RBCS(BEAKER) (test hjsl=954) 1+ few HYPOCHROMIA (BEAKER) (test kagr=935) 1+ few ANISOCYTOSIS (BEAKER) (test yaov=733) 1+ few MICROCYTES (BEAKER) (test ymlg=968) 1+ few MACROCYTES (BEAKER) (test xone=968) 2+ moderate POIKILOCYTES (BEAKER) (test tyab=944) 1+ few OVALOCYTES (BEAKER) (test oshu=760) 1+ few ARTIFACT (CELLAVISION)(BEAKER) (test sqxx=5168) Present PLATELET CONCENTRATION (CELLAVISION)(BEAKER) Increased (test mddn=0114) Received comment: User comments: Slide comments:POCT-GLUCOSE [id number] 06: 06:00 Test Item Value Reference Range Comments POC-GLUCOSE METER (BEAKER) 148 mg/dL 70-110 TESTED AT [facility] [address] [facility] (test dsls=9490) [facility] [address] BASIC METABOLIC [id number] 05:23:00 Test Item Value Reference Range Comments SODIUM (BEAKER) (test 137 meq/L 136-145 dsbn=035) POTASSIUM (BEAKER) (test 4.8 meq/L 3.5-5.1 dtpj=288) CHLORIDE (BEAKER) (test 101 meq/L 98-107 mxyu=565) CO2 (BEAKER) (test 25 meq/L 22-29 zlys=514) BLOOD UREA NITROGEN 42 mg/dL 7-21 (BEAKER) (test jpsn=394) CREATININE (BEAKER) (test 2.96 mg/dL 0.57-1.25 ltbg=291) GLUCOSE RANDOM (BEAKER) 109 mg/dL 70-105 (test zgop=313) CALCIUM (BEAKER) (test 9.3 mg/dL 8.4-10.2 lcba=509) EGFR (BEAKER) (test 21 mL/min/1.73 sq m ESTIMATED GFR IS NOT oyfa=0070) ACCURATE CREATININE CLEARANCE IN PREDICTING GLOMERULAR FILTRATION RATE. ESTIMATED GFR IS NOT APPLICABLE FOR DIALYSIS PATIENTS. [id number] 05:16:00 Test Item Value Reference Range Comments PARTIAL THROMBOPLASTIN TIME (BEAKER) (test 34.3 seconds 22.5-36.0 ekxe=633) PROTHROMBIN [id number] 05:15:00 Test Item Value Reference Range Comments PROTIME (BEAKER) (test phjk=145) 15.5 seconds 11.7-14.7 INR (BEAKER) (test opoi=714) 1.2 <=5.9 RECOMMENDED COUMADIN/WARFARIN INR THERAPY RANGESSTANDARD DOSE: 2.0 - 3.0 Includes: PROPHYLAXIS forvenous thrombosis, systemic embolization; TREATMENT for venous thrombosis and/or pulmonary embolus.HIGH RISK: Target INR is 2.5-3.5 for patients with mechanical heart valves.[id number] 05:13:00 Test Item Value Reference Range Comments POTASSIUM (BEAKER) (test kuvl=401) 4.8 meq/L 3.5-5.1 [id number] 05:13:00 Test Item Value Reference Range Comments MAGNESIUM (BEAKER) (test syyg=293) 2.3 mg/dL 1.6-2.6 [id number] 05:13:00 Test Item Value Reference Range Comments PHOSPHORUS (BEAKER) (test rysv=533) 4.3 mg/dL 2.3-4.7 BASIC METABOLIC [id number] 01:01:00 Test Item Value Reference Range Comments SODIUM (BEAKER) (test 136 meq/L 136-145 eqcz=715) POTASSIUM (BEAKER) (test 4.9 meq/L 3.5-5.1 zslx=076) CHLORIDE (BEAKER) (test 101 meq/L 98-107 igai=900) CO2 (BEAKER) (test 22 meq/L 22-29 fczq=514) BLOOD UREA NITROGEN 65 mg/dL 7-21 (BEAKER) (test tmkf=224) CREATININE (BEAKER) (test 4.55 mg/dL 0.57-1.25 fabr=604) GLUCOSE RANDOM (BEAKER) 124 mg/dL 70-105 (test rcli=591) CALCIUM (BEAKER) (test 8.1 mg/dL 8.4-10.2 jjhl=024) EGFR (BEAKER) (test 13 mL/min/1.73 sq m ESTIMATED GFR IS NOT ogbv=3101) ACCURATE CREATININE CLEARANCE IN PREDICTING GLOMERULAR FILTRATION RATE. ESTIMATED GFR IS NOT APPLICABLE FOR DIALYSIS PATIENTS. [id number] 00:52:00 Test Item Value Reference Range Comments POTASSIUM (BEAKER) (test eazz=779) 4.9 meq/L 3.5-5.1 [id number] 00:52:00 Test Item Value Reference Range Comments MAGNESIUM (BEAKER) (test qzjw=821) 1.7 mg/dL 1.6-2.6 [id number] 00:52:00 Test Item Value Reference Range Comments PHOSPHORUS (BEAKER) (test wojo=308) 6.1 mg/dL 2.3-4.7 POCT-GLUCOSE [id number] 00:17:00 Test Item Value Reference Range Comments POC-GLUCOSE METER (BEAKER) 143 mg/dL 70-110 TESTED AT [address] (test fruj=0705) [place] [address] [id number] 21:42:00 Test Item Value Reference Range Comments PHOSPHORUS (BEAKER) (test 12.1 mg/dL 2.3-4.7 Specimen moderately hemolyzed xfif=542) [id number] 21:33:00 Test Item Value Reference Range Comments MAGNESIUM (BEAKER) (test 2.4 mg/dL 1.6-2.6 Specimen moderately hemolyzed axlg=357) POCT-GLUCOSE [id number] 21:30:00 Test Item Value Reference Range Comments POC-GLUCOSE METER (BEAKER) 132 mg/dL 70-110 TESTED AT [address] (test cjei=8510) [place] [id number] POCT-GLUCOSE [id number] 20:34:00 Test Item Value Reference Range Comments POC-GLUCOSE METER (BEAKER) 189 mg/dL 70-110 TESTED AT [address] (test kdhn=3560) [place] [id number] POCT-GLUCOSE [id number] 17:30:00 Test Item Value Reference Range Comments POC-GLUCOSE METER (BEAKER) 170 mg/dL 70-110 TESTED AT [address] (test kzqm=2332) [place] [address] POCT-GLUCOSE [id number] 11:55:00 Test Item Value Reference Range Comments POC-GLUCOSE METER (BEAKER) 189 mg/dL 70-110 TESTED AT [facility] [address] [facility] (test eayk=3597) [facility] [address] [id number] 11:20:00 Test Item Value Reference Range Comments PHOSPHORUS (BEAKER) (test qfmf=232) 9.7 mg/dL 2.3-4.7 BASIC METABOLIC [id number] 11:16:00 Test Item Value Reference Range Comments SODIUM (BEAKER) (test 135 meq/L 136-145 pwyw=835) POTASSIUM (BEAKER) (test 5.1 meq/L 3.5-5.1 bldi=473) CHLORIDE (BEAKER) (test 100 meq/L 98-107 kums=828) CO2 (BEAKER) (test 21 meq/L 22-29 gtqa=445) BLOOD UREA NITROGEN 95 mg/dL 7-21 (BEAKER) (test kzru=229) CREATININE (BEAKER) (test 6.69 mg/dL 0.57-1.25 jfqb=636) GLUCOSE RANDOM (BEAKER) 165 mg/dL 70-105 (test lpbi=557) CALCIUM (BEAKER) (test 7.5 mg/dL 8.4-10.2 holq=954) EGFR (BEAKER) (test 8 mL/min/1.73 sq m ESTIMATED GFR IS NOT dhmi=6907) ACCURATE CREATININE CLEARANCE IN PREDICTING GLOMERULAR FILTRATION RATE. ESTIMATED GFR IS NOT APPLICABLE FOR DIALYSIS PATIENTS. [id number] 11:12:00 Test Item Value Reference Range Comments MAGNESIUM (BEAKER) (test ooqh=472) 1.9 mg/dL 1.6-2.6 [id number] 11:06:00 Test Item Value Reference Range Comments PARTIAL THROMBOPLASTIN TIME (BEAKER) (test 40.1 seconds 22.5-36.0 giqt=064) PROTHROMBIN TIME/[id number] 11:05:00 Test Item Value Reference Range Comments PROTIME (BEAKER) (test rplg=360) 16.7 seconds 11.7-14.7 INR (BEAKER) (test vrmm=494) 1.3 <=5.9 RECOMMENDED COUMADIN/WARFARIN INR THERAPY RANGESSTANDARD DOSE: 2.0 - 3.0 Includes: PROPHYLAXIS forvenous thrombosis, systemic embolization; TREATMENT for venous thrombosis and/or pulmonary embolus.HIGH RISK: Target INR is 2.5-3.5 for patients with mechanical heart valves.CBC (HEMOGRAM ONLY)2018-05-18 10:54:00 Test Item Value Reference Range Comments WHITE BLOOD CELL COUNT (BEAKER) (test rvzr=213) 24.6 K/ L 3.5-10.5 RED BLOOD CELL COUNT (BEAKER) (test ezzq=604) 3.03 M/ L 4.63-6.08 HEMOGLOBIN (BEAKER) (test xaqa=722) 9.3 GM/DL 13.7-17.5 HEMATOCRIT (BEAKER) (test rbpf=641) 28.1 % 40.1-51.0 MEAN CORPUSCULAR VOLUME (BEAKER) (test nbcz=723) 92.7 fL 79.0-92.2 MEAN CORPUSCULAR HEMOGLOBIN (BEAKER) (test 30.7 pg 25.7-32.2 fcbq=771) MEAN CORPUSCULAR HEMOGLOBIN CONC (BEAKER) (test 33.1 GM/DL 32.3-36.5 dqlr=300) RED CELL DISTRIBUTION WIDTH (BEAKER) (test 15.4 % 11.6-14.4 cuzj=794) PLATELET COUNT (BEAKER) (test zovc=009) 373 K/CU MM 150-450 MEAN PLATELET VOLUME (BEAKER) (test xhti=069) 10.4 fL 9.4-12.4 NUCLEATED RED BLOOD CELLS (BEAKER) (test 0 /100 WBC 0-0 agsy=542) BASIC METABOLIC [id number] 07:56:00 Test Item Value Reference Range Comments SODIUM (BEAKER) (test 134 meq/L 136-145 swev=489) POTASSIUM (BEAKER) (test 4.8 meq/L 3.5-5.1 ispi=724) CHLORIDE (BEAKER) (test 97 meq/L 98-107 qnyq=400) CO2 (BEAKER) (test 21 meq/L 22-29 dkef=909) BLOOD UREA NITROGEN 87 mg/dL 7-21 (BEAKER) (test xulj=558) CREATININE (BEAKER) (test 6.03 mg/dL 0.57-1.25 hqck=681) GLUCOSE RANDOM (BEAKER) 177 mg/dL 70-105 (test rcyn=246) CALCIUM (BEAKER) (test 8.1 mg/dL 8.4-10.2 fpaj=867) EGFR (BEAKER) (test 9 mL/min/1.73 sq m ESTIMATED GFR IS NOT ajcj=9779) ACCURATE CREATININE CLEARANCE IN PREDICTING GLOMERULAR FILTRATION RATE. ESTIMATED GFR IS NOT APPLICABLE FOR DIALYSIS PATIENTS. [id number] 07:55:00 Test Item Value Reference Range Comments PHOSPHORUS (BEAKER) (test swfx=014) 7.7 mg/dL 2.3-4.7 [id number] 07:55:00 Test Item Value Reference Range Comments MAGNESIUM (BEAKER) (test pqlx=930) 2.0 mg/dL 1.6-2.6 [id number] 07:50:00 Test Item Value Reference Range Comments PARTIAL THROMBOPLASTIN TIME (BEAKER) (test 99.4 seconds 22.5-36.0 gtjb=484) CBC W/PLT COUNT & AUTO [id number] 07:37:00 Test Item Value Reference Range Comments WHITE BLOOD CELL COUNT (BEAKER) (test osyz=415) 34.0 K/ L 3.5-10.5 RED BLOOD CELL COUNT (BEAKER) (test mxeh=259) 3.31 M/ L 4.63-6.08 HEMOGLOBIN (BEAKER) (test bohd=552) 10.1 GM/DL 13.7-17.5 HEMATOCRIT (BEAKER) (test lkko=842) 30.3 % 40.1-51.0 MEAN CORPUSCULAR VOLUME (BEAKER) (test vagc=758) 91.5 fL 79.0-92.2 MEAN CORPUSCULAR HEMOGLOBIN (BEAKER) (test 30.5 pg 25.7-32.2 igvk=291) MEAN CORPUSCULAR HEMOGLOBIN CONC (BEAKER) (test 33.3 GM/DL 32.3-36.5 pqde=838) RED CELL DISTRIBUTION WIDTH (BEAKER) (test 15.2 % 11.6-14.4 ngbc=402) PLATELET COUNT (BEAKER) (test gtcq=058) 459 K/CU MM 150-450 MEAN PLATELET VOLUME (BEAKER) (test qwqj=185) 10.6 fL 9.4-12.4 NUCLEATED RED BLOOD CELLS (BEAKER) (test 0 /100 WBC 0-0 sjrl=607) (CELLAVISION MANUAL DIFF)2018-05-18 07:37:00 Test Item Value Reference Range Comments NEUTROPHILS - REL (CELLAVISION)(BEAKER) (test 85 % qeta=2100) LYMPHOCYTES - REL (CELLAVISION)(BEAKER) (test 5 % jcpq=9860) MONOCYTES - REL (CELLAVISION)(BEAKER) (test 8 % yzds=3263) EOSINOPHILS - REL (CELLAVISION)(BEAKER) (test 1 % hbub=4690) METAMYELOCYTES - REL (CELLAVISION)(BEAKER) (test 1 % 0-0 jban=0475) NEUTROPHILS - ABS (CELLAVISION)(BEAKER) (test 28.90 K/ul 1.78-5.38 ypmk=0225) LYMPHOCYTES - ABS (CELLAVISION)(BEAKER) (test 1.70 K/ul 1.32-3.57 wvwo=0712) MONOCYTES - ABS (CELLAVISION)(BEAKER) (test 2.72 K/uL 0.30-0.82 vbzv=0294) EOSINOPHILS - ABS (CELLAVISION)(BEAKER) (test 0.34 K/uL 0.04-0.54 enwu=1184) METAMYELOCYTES - ABS (CELLAVISION)(BEAKER) (test 0.34 K/uL 0.00-0.00 rjdj=8164) TOTAL COUNTED (BEAKER) (test raak=8095) 100 SMUDGE CELLS (BEAKER) (test hjrx=7754) Present GIANT PLATELETS (BEAKER) (test fqvu=054) Present ANISOCYTOSIS (BEAKER) (test cbhn=015) 1+ few POIKILOCYTES (BEAKER) (test ccxu=625) 1+ few FAHAD CELLS (BEAKER) (test qkki=043) 1+ few PLATELET CONCENTRATION (CELLAVISION)(BEAKER) Increased (test whse=6147) Received comment: User comments: Slide comments:POCT-GLUCOSE [id number] 06: 32:00 Test Item Value Reference Range Comments POC-GLUCOSE METER (BEAKER) 187 mg/dL 70-110 TESTED AT [address] (test dnmd=8699) [facility] [id number] 06:25:00 Test Item Value Reference Range Comments PARTIAL THROMBOPLASTIN TIME (BEAKER) (test 162.4 seconds 22.5-36.0 zbdc=419) BASIC METABOLIC [id number] 04:35:00 Test Item Value Reference Range Comments SODIUM (BEAKER) (test 135 meq/L 136-145 axpy=549) POTASSIUM (BEAKER) (test 5.0 meq/L 3.5-5.1 lzup=739) CHLORIDE (BEAKER) (test 97 meq/L 98-107 paki=363) CO2 (BEAKER) (test 22 meq/L 22-29 nvdf=240) BLOOD UREA NITROGEN 94 mg/dL 7-21 (BEAKER) (test ibwh=944) CREATININE (BEAKER) (test 7.10 mg/dL 0.57-1.25 vwvm=491) GLUCOSE RANDOM (BEAKER) 171 mg/dL 70-105 (test kfgs=861) CALCIUM (BEAKER) (test 8.2 mg/dL 8.4-10.2 lvdt=725) EGFR (BEAKER) (test 8 mL/min/1.73 sq m ESTIMATED GFR IS NOT tyal=2810) ACCURATE CREATININE CLEARANCE IN PREDICTING GLOMERULAR FILTRATION RATE. ESTIMATED GFR IS NOT APPLICABLE FOR DIALYSIS PATIENTS. [id number] 04:14:00 Test Item Value Reference Range Comments PARTIAL THROMBOPLASTIN TIME (BEAKER) (test > seconds 22.5-36.0 ktbv=315) PROTHROMBIN TIME/[id number] 03:47:00 Test Item Value Reference Range Comments PROTIME (BEAKER) (test fhtl=851) 17.5 seconds 11.7-14.7 INR (BEAKER) (test mims=280) 1.4 <=5.9 RECOMMENDED COUMADIN/WARFARIN INR THERAPY RANGESSTANDARD DOSE: 2.0 - 3.0 Includes: PROPHYLAXIS forvenous thrombosis, systemic embolization; TREATMENT for venous thrombosis and/or pulmonary embolus.HIGH RISK: Target INR is 2.5-3.5 for patients with mechanical heart valves.[id number] 00:26:00 Test Item Value Reference Range Comments PHOSPHORUS (BEAKER) (test gaix=324) 10.8 mg/dL 2.3-4.7 POCT-GLUCOSE [id number] 00:21:00 Test Item Value Reference Range Comments POC-GLUCOSE METER (BEAKER) 158 mg/dL 70-110 TESTED AT [address] (test kkun=0568) [place] [id number] BASIC METABOLIC [id number] 00:16:00 Test Item Value Reference Range Comments SODIUM (BEAKER) (test 133 meq/L 136-145 wtjv=066) POTASSIUM (BEAKER) (test 5.1 meq/L 3.5-5.1 wgbj=635) CHLORIDE (BEAKER) (test 95 meq/L 98-107 auzl=860) CO2 (BEAKER) (test 18 meq/L 22-29 cdzo=226) BLOOD UREA NITROGEN 114 mg/dL 7-21 (BEAKER) (test zand=612) CREATININE (BEAKER) (test 7.99 mg/dL 0.57-1.25 mwuz=222) GLUCOSE RANDOM (BEAKER) 144 mg/dL 70-105 (test kfht=778) CALCIUM (BEAKER) (test 7.7 mg/dL 8.4-10.2 qztd=785) EGFR (BEAKER) (test 7 mL/min/1.73 sq m ESTIMATED GFR IS NOT yqwk=5572) ACCURATE CREATININE CLEARANCE IN PREDICTING GLOMERULAR FILTRATION RATE. ESTIMATED GFR IS NOT APPLICABLE FOR DIALYSIS PATIENTS. [id number] 00:03:00 Test Item Value Reference Range Comments MAGNESIUM (BEAKER) (test xbav=070) 2.1 mg/dL 1.6-2.6 POCT-GLUCOSE [id number] 21:42:00 Test Item Value Reference Range Comments POC-GLUCOSE METER (BEAKER) 200 mg/dL 70-110 TESTED AT [address] (test vikg=7016) [place] [address] LACTIC ACID, VENOUS, WHOLE [id number] 21:18:00 Test Item Value Reference Range Comments LACTATE BLOOD VENOUS (2) (BEAKER) (test 0.3 mmol/L 0.5-2.2 fqqy=8398) CBC W/PLT COUNT & AUTO [id number] 19:51:00 Test Item Value Reference Range Comments WHITE BLOOD CELL COUNT (BEAKER) (test hjjz=372) 30.1 K/ L 3.5-10.5 RED BLOOD CELL COUNT (BEAKER) (test veab=488) 3.60 M/ L 4.63-6.08 HEMOGLOBIN (BEAKER) (test cbnp=741) 11.1 GM/DL 13.7-17.5 HEMATOCRIT (BEAKER) (test tyqz=584) 32.8 % 40.1-51.0 MEAN CORPUSCULAR VOLUME (BEAKER) (test bado=390) 91.1 fL 79.0-92.2 MEAN CORPUSCULAR HEMOGLOBIN (BEAKER) (test 30.8 pg 25.7-32.2 gnto=788) MEAN CORPUSCULAR HEMOGLOBIN CONC (BEAKER) (test 33.8 GM/DL 32.3-36.5 lzon=396) RED CELL DISTRIBUTION WIDTH (BEAKER) (test 14.9 % 11.6-14.4 jznd=308) PLATELET COUNT (BEAKER) (test quuf=536) 525 K/CU MM 150-450 MEAN PLATELET VOLUME (BEAKER) (test lirr=951) 10.6 fL 9.4-12.4 NUCLEATED RED BLOOD CELLS (BEAKER) (test 0 /100 WBC 0-0 vdkw=372) (CELLAVISION MANUAL DIFF)2018-05-17 19:51:00 Test Item Value Reference Range Comments NEUTROPHILS - REL (CELLAVISION)(BEAKER) (test 92 % wzuy=3231) LYMPHOCYTES - REL (CELLAVISION)(BEAKER) (test 5 % uppm=7649) MONOCYTES - REL (CELLAVISION)(BEAKER) (test 1 % vuhg=6145) METAMYELOCYTES - REL (CELLAVISION)(BEAKER) (test 1 % 0-0 pypo=7297) BANDS - REL (CELLAVISION)(BEAKER) (test 1 % 0-10 coxt=3213) NEUTROPHILS - ABS (CELLAVISION)(BEAKER) (test 27.69 K/ul 1.78-5.38 utkj=7058) LYMPHOCYTES - ABS (CELLAVISION)(BEAKER) (test 1.51 K/ul 1.32-3.57 dysa=8063) MONOCYTES - ABS (CELLAVISION)(BEAKER) (test 0.30 K/uL 0.30-0.82 qkgl=3904) METAMYELOCYTES - ABS (CELLAVISION)(BEAKER) (test 0.30 K/uL 0.00-0.00 pvfk=0757) BANDS - ABS (CELLAVISION)(BEAKER) (test 0.30 K/uL 0.00-0.80 haya=6550) TOTAL COUNTED (BEAKER) (test oksu=6415) 100 WBC MORPHOLOGY (BEAKER) (test xfsl=783) Normal GIANT PLATELETS (BEAKER) (test lzwq=892) Present ANISOCYTOSIS (BEAKER) (test bzuw=632) 1+ few POIKILOCYTES (BEAKER) (test aamu=917) 2+ moderate ROULEAUX (BEAKER) (test soxi=604) 1+ few ELLIPTOCYTES (BEAKER) (test erid=774) 1+ few ARTIFACT (CELLAVISION)(BEAKER) (test xpaz=3413) Present PLATELET CONCENTRATION (CELLAVISION)(BEAKER) Increased (test odyy=4335) Received comment: User comments: Slide comments:BASIC METABOLIC [id number] 19:27:00 Test Item Value Reference Range Comments SODIUM (BEAKER) (test 131 meq/L 136-145 exzt=783) POTASSIUM (BEAKER) (test 6.1 meq/L 3.5-5.1 wnva=586) CHLORIDE (BEAKER) (test 92 meq/L 98-107 resj=263) CO2 (BEAKER) (test 16 meq/L 22-29 rbhz=618) BLOOD UREA NITROGEN 117 mg/dL 7-21 (BEAKER) (test rpeu=699) CREATININE (BEAKER) (test 9.98 mg/dL 0.57-1.25 uvqf=176) GLUCOSE RANDOM (BEAKER) 159 mg/dL 70-105 (test fyal=623) CALCIUM (BEAKER) (test 8.3 mg/dL 8.4-10.2 awwt=564) EGFR (BEAKER) (test 5 mL/min/1.73 sq m ESTIMATED GFR IS NOT qeqp=9403) ACCURATE CREATININE CLEARANCE IN PREDICTING GLOMERULAR FILTRATION RATE. ESTIMATED GFR IS NOT APPLICABLE FOR DIALYSIS PATIENTS. RAD, CHEST, 1 VIEW, NON [id number] 19:15:00Reason for exam:->s/p right HD IJ placementShould [...] Oliveros Verified Date/Time: 05/17/2018 19:15:04 Reading Location: [address] Reading Room [id number] 19:04:00 Test Item Value Reference Range Comments PARTIAL THROMBOPLASTIN TIME (BEAKER) (test 47.6 seconds 22.5-36.0 lsly=876) PROTHROMBIN [id number] 19:03:00 Test Item Value Reference Range Comments PROTIME (BEAKER) (test ltri=718) 16.7 seconds 11.7-14.7 INR (BEAKER) (test vpmt=379) 1.3 <=5.9 RECOMMENDED COUMADIN/WARFARIN INR THERAPY RANGESSTANDARD DOSE: 2.0 - 3.0 Includes: PROPHYLAXIS forvenous thrombosis, systemic embolization; TREATMENT for venous thrombosis and/or pulmonary embolus.HIGH RISK: Target INR is 2.5-3.5 for patients with mechanical heart valves.POCT-GLUCOSE [id number] 18:28:00 Test Item Value Reference Range Comments POC-GLUCOSE METER (BEAKER) 153 mg/dL 70-110 TESTED AT [facility] [address] [facility] (test covr=3574) [facility] [address] [id number] 16:58:00 Test Item Value Reference Range Comments PARTIAL THROMBOPLASTIN TIME (BEAKER) (test > seconds 22.5-36.0 ijzp=938) CREATINE KINASE (CK)2018-05-17 15:07:00 Test Item Value Reference Range Comments CREATINE KINASE TOTAL (BEAKER) (test vicx=730) 3619 U/L 29-200 CBC W/PLT COUNT & AUTO [id number] 13:09:00 Test Item Value Reference Range Comments WHITE BLOOD CELL COUNT (BEAKER) (test ejqa=060) 28.2 K/ L 3.5-10.5 RED BLOOD CELL COUNT (BEAKER) (test gtns=836) 3.81 M/ L 4.63-6.08 HEMOGLOBIN (BEAKER) (test ysfq=242) 11.6 GM/DL 13.7-17.5 HEMATOCRIT (BEAKER) (test ymvg=382) 35.4 % 40.1-51.0 MEAN CORPUSCULAR VOLUME (BEAKER) (test cdhy=790) 92.9 fL 79.0-92.2 MEAN CORPUSCULAR HEMOGLOBIN (BEAKER) (test 30.4 pg 25.7-32.2 zqta=609) MEAN CORPUSCULAR HEMOGLOBIN CONC (BEAKER) (test 32.8 GM/DL 32.3-36.5 dyrl=751) RED CELL DISTRIBUTION WIDTH (BEAKER) (test 15.1 % 11.6-14.4 modo=829) PLATELET COUNT (BEAKER) (test cbkv=948) 526 K/CU MM 150-450 MEAN PLATELET VOLUME (BEAKER) (test kbfz=794) 10.6 fL 9.4-12.4 NUCLEATED RED BLOOD CELLS (BEAKER) (test 0 /100 WBC 0-0 voib=735) (CELLAVISION MANUAL DIFF)2018-05-17 13:09:00 Test Item Value Reference Range Comments NEUTROPHILS - REL (CELLAVISION)(BEAKER) (test 91 % rvlp=2421) LYMPHOCYTES - REL (CELLAVISION)(BEAKER) (test 1 % chie=3525) MONOCYTES - REL (CELLAVISION)(BEAKER) (test 5 % wkhx=3151) EOSINOPHILS - REL (CELLAVISION)(BEAKER) (test 1 % hluv=6723) PROMYELOCYTES - REL (CELLAVSION)(BEAKER) (test 1 % 0-0 jomi=1622) BANDS - REL (CELLAVISION)(BEAKER) (test 1 % 0-10 cqku=0735) NEUTROPHILS - ABS (CELLAVISION)(BEAKER) (test 25.66 K/ul 1.78-5.38 zknz=2616) LYMPHOCYTES - ABS (CELLAVISION)(BEAKER) (test 0.28 K/ul 1.32-3.57 ptvq=5523) MONOCYTES - ABS (CELLAVISION)(BEAKER) (test 1.41 K/uL 0.30-0.82 thwq=3309) EOSINOPHILS - ABS (CELLAVISION)(BEAKER) (test 0.28 K/uL 0.04-0.54 uneu=4222) PROMYELOCYTES - ABS (CELLAVISION)(BEAKER) (test 0.28 K/uL 0.00-0.00 jkrg=2195) BANDS - ABS (CELLAVISION)(BEAKER) (test 0.28 K/uL 0.00-0.80 jpac=0912) TOTAL COUNTED (BEAKER) (test jwka=5550) 100 WBC MORPHOLOGY (BEAKER) (test etqz=582) Normal GIANT PLATELETS (BEAKER) (test pcsq=641) Present ANISOCYTOSIS (BEAKER) (test tohy=842) 1+ few MACROCYTES (BEAKER) (test rwjh=693) 1+ few POIKILOCYTES (BEAKER) (test cjwq=968) 1+ few ELLIPTOCYTES (BEAKER) (test sgmk=605) 1+ few ARTIFACT (CELLAVISION)(BEAKER) (test tnyb=4123) Present PLATELET CONCENTRATION (CELLAVISION)(BEAKER) Increased (test vjyc=6558) Received comment: User comments: Slide comments:BASIC METABOLIC [id number] 12:44:00 Test Item Value Reference Range Comments SODIUM (BEAKER) (test 131 meq/L 136-145 fduz=970) POTASSIUM (BEAKER) (test 5.6 meq/L 3.5-5.1 uils=001) CHLORIDE (BEAKER) (test 93 meq/L 98-107 jkhj=342) CO2 (BEAKER) (test 15 meq/L 22-29 cxwh=726) BLOOD UREA NITROGEN 115 mg/dL 7-21 (BEAKER) (test ljgz=358) CREATININE (BEAKER) (test 9.55 mg/dL 0.57-1.25 jrsu=643) GLUCOSE RANDOM (BEAKER) 194 mg/dL 70-105 (test cila=920) CALCIUM (BEAKER) (test 8.7 mg/dL 8.4-10.2 xgse=314) EGFR (BEAKER) (test mL/min/1.73 sq m INSUFFICIENT CLINICAL DATA ggwr=3605) TO CALCULATE ESTIMATED GFR. RAD, CHEST, 1 VIEW, NON [id number] 12:29:00Reason for exam:->chest painShould this be performed [...] Wade Verified Date/Time: 05/17/2018 12:29:30 Reading Location: [address] Consult Reading Room Electronically signed by: ALANNA AWDE M.D. on 2018 12:29 PMPT/[id number] 12:28:00 Test Item Value Reference Range Comments PROTIME (BEAKER) (test xpfq=426) 15.4 seconds 11.7-14.7 INR (BEAKER) (test tkmo=682) 1.2 <=5.9 PARTIAL THROMBOPLASTIN TIME (BEAKER) (test 32.3 seconds 22.5-36.0 edyb=063) RECOMMENDED COUMADIN/WARFARIN INR THERAPY RANGESSTANDARD DOSE: 2.0 - 3.0 Includes: PROPHYLAXIS forvenous thrombosis, systemic embolization; TREATMENT for venous thrombosis and/or pulmonary embolus.HIGH RISK: Target INR is 2.5-3.5 for patients with mechanical heart valves.
[2019-05-09] MEDS ORDERED: LIDOCAINE 1% MPF 5 ML VIAL ONE (07:23)
[2019-05-09] MEDS ORDERED: MIDAZOLAM HCL 2 MG/2 ML INJ ONE (07:23)
[2019-05-09] MEDS ORDERED: FENTANYL CITR 100 MCG/2 ML ONE (07:23)
[2019-05-09] MEDS ORDERED: propofoL 200 MG/20 ML VIAL IV ONE (07:23)
[2019-05-09] MEDS ORDERED: NA CHLORIDE 0.9% 500 ML ONE (07:26)
[2019-05-09] MEDS ORDERED: CEFAZOLIN/SWI 1gm 1 GM/10 ML SYR ONE (07:27)
[2019-05-09] MEDS ORDERED: ONDANSETRON 4 MG/2 ML VIAL ONE (08:17)
[2019-05-09] MEDS: D50W 25 GM/50 ML SYRINGE/VIAL IV ONE ×2 (08:35→09:26)
[2019-05-09] MEDS ORDERED: NS 0.9% VIAL 10 ML ONE (08:57)
[2019-05-09] MEDS ORDERED: EPHEDRINE SULF 50 MG/ML VIAL ONE (08:57)
[2019-05-09] MEDS: HYDROMORPHONE HCL 1 MG/ML INJ ONE ×2 (09:30→09:56)
[2019-05-09] MEDS ORDERED: PROMETHAZINE INJ 25 MG/ML AMP ONE (09:39)
[2019-05-09] MEDS: HYDRALAZINE HCL 20 MG/ML VIAL ONE ×2 (09:47→09:56)
[2019-05-09] MEDS ORDERED: EPOETIN 4,000 UNIT/ML VIAL IV SCH (10:45)
[2019-05-09] MEDS ORDERED: HYDROCODONE/APAP 7.5/325 MG TAB PO PRN (10:52)
[2019-05-09] MEDS ORDERED: MORPHINE 2 MG/ML SYR IV PRN (10:52)
[2019-05-09] MEDS ORDERED: TRAMADOL HCL 50 MG TAB PO PRN (10:52)
[2019-05-09] MEDS ORDERED: ACETAMINOPHEN 325 MG TABLET PO PRN (10:54)
[2019-05-09] MEDS ORDERED: LACTULOSE 20 GM/30 ML UCUP PO PRN (10:54)
[2019-05-09] MEDS ORDERED: GLUCAGON 1 MG/VIAL IM PRN (10:59)
[2019-05-09] MEDS ORDERED: D50W 25 GM/50 ML SYRINGE/VIAL IV PRN (10:59)
--- NOTE | 2019-05-09 11:03 | P.HP ---
Certification for Inpatient Patient admitted to: Inpatient With expected LOS: >2 Midnights Patient will require the following post-hospital care: Other (Back to [facility]) Practitioner: I am a practitioner with admitting privileges, knowledge of patient current condition, hospital course, and medical plan of care. Services: Services provided to patient in accordance with Admission requirements found in Title 42 Section 412.3 of the Code of Federal Regulations Patient History Date of Service: 05/09/19 Primary Care Provider: [facility]; Surgery-Dr. Velez; Nephrology-Dr. Werner Reason for admission: Left foot wet Gangrene, osteomyelitis History of Present Illness: 64-year-old male with history of diabetes mellitus type 2 insulin dependent, hypertension, end-stage renal disease on hemodialysis and left lower extremity wet gangrene/osteomyelitis. Patient had surgery today for left below-knee amputation due to wet gangrene and osteomyelitis of the foot. Patient was seen by surgery as an outpatient through wound care. His condition had not improved. This led to surgery today. I was asked to admit the patient after surgery for continuation of medical management. When I saw the patient in recovery. Patient was stable. Patient with history of end-stage renal disease on hemodialysis. He gets dialysis every Monday, and Monday. He is due for dialysis today. [facility] records reviewed. Patient with history of right above knee amputation. Allergies No Known Drug Allergies Allergy (Verified 05/07/19 15:17) Unknown Home medications list reviewed: Yes Home Medications: Acetaminophen 650 mg PO Q4HP PRN 10/25/17 Aspirin [Adult Aspirin Regimen] 81 mg PO DAILY 10/25/17 Hydralazine [Apresoline*] 25 mg PO DAILY 10/25/17 Insulin Detemir [Levemir Flextouch] 15 unit SQ AC 10/25/17 Lactulose 30 ml PO DAILY PRN 10/25/17 Sevelamer Carbonate [Renvela*] 3,200 mg PO TIDWM 10/25/17 carvediloL [Coreg*] 12.5 mg PO BEDTIME 10/25/17 traMADol HCL [Ultram*] 50 mg PO Q6HP PRN 10/25/17 Ascorbic Acid [Vitamin C*] 500 mg PO BID 05/26/18 Amlodipine [Norvasc*] 10 mg PO DAILY #30 tab 05/31/18 Gabapentin [Neurontin*] 300 mg PO TID #90 cap 05/31/18 Atorvastatin Calcium [Lipitor] 10 mg PO BEDTIME 05/02/19 Ciprofloxacin HCl [Cipro 250 MG Tablet*] 250 mg PO BID 05/02/19 Ergocalciferol (Vitamin D2) [Vitamin D2] 1,250 mcg PO EVERY 7TH DAY 05/02/19 Folic Acid 1 mg PO DAILY 05/02/19 Glipizide [Glipizide Xl] 2.5 mg PO BID 05/02/19 L. Acidophilus/Pectin, [place] [Acidophilus Capsule] 1 each PO TID 05/02/19 Phenytoin Sodium Extended [Phenytek] 400 mg PO BEDTIME 05/02/19 Protein Supplement [Promod] 30 ml PO DAILY 05/02/19 Vit B Comp No.3/Folic/C/Biotin [Nephro-Shannon Rx Tablet] 1 each PO DAILY 05/02/19 - Past Medical/Surgical History Diabetic: Yes -: Diabetes mellitus type 2 insulin depended -: HTN -: Blindness -: End-stage renal disease on dialysis -: Hyperlipidemia -: Diabetic neuropathy -: Right above knee amputation -: History of seizure disorder -: History of CVA -: Peripheral vascular disease -: dialysis catheter placement -: amputation left 4th toe -: Right AKA - May 2018 Psychosocial/ Personal History: [facility] is currently at the [facility]. - Family History Family History: Reviewed- Non-Contributory - Family History Mother -: Diabetes - Social History Smoking Status: Unknown if ever smoked Alcohol use: No CD- Drugs: No Caffeine use: Yes Place of Residence: Custodial Review of Systems General: As per HPI Eyes: Unremarkable ENT: Unremarkable Respiratory: Unremarkable Cardiovascular: Unremarkable Gastrointestinal: Unremarkable Genitourinary: Unremarkable Musculoskeletal: As per HPI Integumentary: As per HPI Neurological: Unremarkable Lymphatics: Unremarkable Physical Examination - Vital Signs Temperature: 98.3 F Blood Pressure: 148/62 Pulse: 68 Respirations: 22 - Physical Exam General: Alert, In no apparent distress, Cooperative HEENT: Other (Patient with blindness) Neck: Supple Respiratory: Clear to auscultation bilaterally, Normal air movement Cardiovascular: Normal pulses, Regular rate/rhythm Gastrointestinal: Normal bowel sounds, Soft and benign, Non-distended, No masses , No rebound, No guarding Musculoskeletal: Other (Patient with prior right above knee amputation. Patient with left below-knee amputation. Brace and wrappings in place.) Neurological: Normal speech, Normal strength at 5/5 x4 extr, Normal tone - Studies Laboratory Data (last 24 hrs) 05/09/19 07:13: Potassium Cancelled Assessment and Plan - Plan Impression: Left lower extremity wet gangrene with chronic osteomyelitis status post left below-knee amputation Diabetes mellitus type 2 insulin dependent Hypertension End-stage renal disease on hemodialysis Peripheral vascular disease History of seizure disorder History of CVA Prior history of right above knee amputation History of diabetic retinopathy and blindness Plan: Left lower extremity wet gangrene with chronic osteomyelitis status post left below-knee amputation: Patient will be admitted to the floor. Patient post left below-knee amputation. Case discussed with surgery. Surgery recommends IV antibiotic therapy. Case discussed with nephrology. Will start IV Ancef and vancomycin. Will obtain pro calcitonin. Anticipate improvement. Patient is a poor candidate for skilled placement. Will provide medication for pain. Continue postsurgical wound care. Anticipate back to the [facility] in 2-3 days. Will discuss further with surgery and nephrology. Will start DVT prophylaxis tomorrow. Diabetes mellitus type 2 insulin dependent: Will check A1c. Will continue with Accu-Cheks and sliding scale. Hypertension: [facility] medication restarted. Will monitor and adjust appropriately. End-stage renal disease on hemodialysis: Nephrology consulted and discuss with. Patient will receive dialysis today. Peripheral vascular disease: Continue with aspirin. Will start DVT prophylaxis tomorrow. History of seizure disorder: Restart [facility] medication. History of CVA: Will provide aspirin. Will continue with DVT prophylaxis tomorrow. Prior history of right above knee amputation: Continue as above. Patient is a poor candidate for rehab. Patient will return to the [facility] once medically stable. History of diabetic retinopathy and blindness: Will monitor closely. Discharge Plan: Custodial Plan to discharge in: 72 Hours - Advance Directives Does patient have a Living Will: Yes Does patient have a Durable POA for Healthcare: No - Code Status/Comfort Care Code Status Assessed: No (Will discuss code status with family) Time Spent Managing Pts Care (In Minutes): 55
[2019-05-09] MEDS ORDERED: ONDANSETRON 4 MG/2 ML VIAL IV PRN (11:13)
[2019-05-09] MEDS: INSULIN -REGULAR HUMAN 50 UNIT/0.5 ML ML SQ SCH ×3 (11:30→20:35)
[2019-05-09] MEDS: HYDROCODONE/APAP 5/325 MG TAB PO PRN (13:21)
[2019-05-09] MEDS: GABAPENTIN 300 MG CAP PO SCH ×2 (13:21→20:34)
[2019-05-09] MEDS: SEVELAMER CARBONATE 800 MG TABLET PO SCH ×2 (13:22→18:02)
[2019-05-09] MEDS: LACTOBACILLUS/ACIDOPHILUS TAB PO SCH ×2 (13:22→20:32)
--- NOTE | 2019-05-09 14:25 | CON ---
Date of Consultation: 05/09/2019 Reason For Consultation: Elevated BUN and creatinine, hypertension, end-stage renal disease. History Of Present Illness: This is a pleasant 64-year-old gentleman. All the information has been obtained from the record as patient postop on the recovery. Patient had end-stage renal disease, marcela betes complicated with neuropathy, retinopathy, legally blind, hypertension, hyperlipidemia, seizures , peripheral vascular disease, status post right above-knee amputation, PermCath. Patient [facility] because of gangrenous foot. Patient taking to the OR, undergo below-knee amputation by Dr Susan Velez. We have been consulted to maintain his dialysis. Patient found to be hypertension. His ch est x-ray show mild over volume. No significant hyperkalemia. Past Medical History: Include: 1.Diabetes. 2.Hypertension. 3.End-stage renal disease. 4.Seizure. 5.Peripheral vascular disease. Family History: Positive for diabetes. Social History: Lives in retirement. Denies smoking. Denies drinking. Denies drug abuse. Past Surgical History: PermCath placement, above-knee amputation, below-knee amputation. Review of Systems: Not obtainable. Physical Examination: Vital Signs: When I saw the patient, blood pressure 156/64, pulse of 68. Chest: Clear to auscultation. Heart: S1, S2. Regular rhythm. Abdomen: Soft, nontender. Extremities: Right above-knee amputation, left below-knee amputation with cast. Neuro: Patient just came up from surgery, sedated. Home Medications: Includes tramadol, B complex, lactulose, Dilantin, insulin, hydralazine 25 daily, gabapentin, folic acid, ergocalciferol, aspirin, amlodipine. Laboratory Data: Sodium 133, potassium 4.2, bicarb 24, BUN 46, creatinine 7.2, calcium 8.6. TSH 2. WBC 15.2, H and H 10.6/32.1, platelets 510. Assessment And Plan: 1.End-stage renal disease with marginal over volume. I can schedule the patient for his regular marcela lysis today and we will monitor the patient. 2.Hypertension. We will follow up blood pressure after dialysis. 3.Diabetes as by primary. 4.Marginal hyponatremia. Can be corrected with dialysis. 5.Anemia of chronic kidney disease. We will resume STEPHEN. 6.Over volume. We will challenge the patient. 7.Gangrenous foot, status post below-knee amputation. Follow up with Surgery and Primary. Thank you, Dr. Easton, for allowing us to participate in the care of your patient. JONG Voice ID: [id number] Report ID: [id number]
[2019-05-09 15:16] VITALS: BMI 29.9
[2019-05-09] MEDS: HYDROMORPHONE HCL 1 MG/ML INJ IV PRN ×2 (15:59→23:55)
[2019-05-09] MEDS ORDERED: CEFAZOLIN/NS 1gm 1 GM/50 ML BAG IVPB SCH (17:00)
--- NOTE | 2019-05-09 19:52 | OP ---
Date of Procedure: 05/09/2019 Surgeon: Jayy Velez MD Movie Editor: MARIA G Sorenson Preoperative Diagnoses: Left foot gangrene, left lower extremity; severe peripheral vascular disease . Postoperative Diagnoses: Left foot gangrene, left lower extremity; severe peripheral vascular diseas e. Procedure: Left below-knee amputation. Estimated Blood Loss: Minimal. Specimen: Left leg. Finding: As above. Anesthesia: General. Complications: None. Disposition: Patient tolerated the procedure in stable condition, taken to Recovery in good general condition. Procedure In Detail: Patient was brought to the OR and placed in supine position. General anesthesi a begun. Patient was prepped and draped in usual sterile fashion and then 4 fingerbreadths below the tibial tuberosity on the left side with transverse incision was made. Posterior flap incision was m janet and then subcutaneous tissue, fascia, and neurovascular bundle, muscle, tibia and fibula divided in the standard fashion. 2-0 and 0 silk used to divide the neurovascular bundle and tied them off. Bleeding was controlled with cautery and then Gigli saw was used to divide the tibia. After appropri ate dissection and bone cutter was used to divide the fibula, then rongeur used to smoothen out the r ough edges, and entire leg removed, sent to Pathology in posterior flap fashion for a good closure. Then, 2-0 chromic and 3-0 chromic were used to approximate subcutaneous tissue and fascia. Prior to that, wound was irrigated, bleeding was controlled with cautery, and daniele were used to close the s kin. Sterile dressing was applied. Patient was awakened and taken to Recovery in good general condi tion. /MODL Voice ID: [id number] Report ID: [id number]
[2019-05-09] MEDS: ATORVASTATIN 10 MG TAB PO SCH (20:32)
[2019-05-09] MEDS: CEFAZOLIN/SWI 1gm 1 GM/10 ML SYR IV SCH (20:32)
[2019-05-09] MEDS: PHENYTOIN ER 100 MG CAP PO SCH (20:32)
[2019-05-09] MEDS: ASCORBIC ACID 500 MG TABLET PO SCH (20:33)
[2019-05-09] MEDS ORDERED: carvediloL 12.5 MG TAB PO SCH (21:00)
[2019-05-10] MEDS: cloNIDine HCL 0.1 MG TAB PO SCH ×2 (05:21→13:00)
[2019-05-10 06:11] LABS: Absolute Lymphocytes (CBC) 1.9 K/uL (0.7-4.9); Basophils % 1.3 % (0-1.3); Hematocrit 26.8 % (39.6-49.0); MPV 9.2 fL (7.6-11.3); RBC Red Blood Cell Count 2.96 M/uL (4.33-5.43)
[2019-05-10 07:18] LABS: Phosphorus 4.6 mg/dL (2.5-4.9)
[2019-05-10 07:19] LABS: Magnesium 2.6 mg/dL (1.8-2.4)
[2019-05-10] MEDS: INSULIN -REGULAR HUMAN 50 UNIT/0.5 ML ML SQ SCH ×4 (07:30→20:08)
[2019-05-10] MEDS: SEVELAMER CARBONATE 800 MG TABLET PO SCH ×3 (08:00→16:00)
[2019-05-10 08:02] LABS: Potassium 6.4 mmol/L (3.5-5.1)
[2019-05-10] MEDS ORDERED: D50W 25 GM/50 ML SYRINGE/VIAL IV ONE (08:15)
[2019-05-10] MEDS ORDERED: ALBUTEROL 2.5 MG/3 ML NEB SOL NEB ONE (08:15)
[2019-05-10] MEDS ORDERED: D50W 25 GM/50 ML SYRINGE/VIAL IV PRN (08:16)
[2019-05-10] MEDS ORDERED: GLUCAGON 1 MG/VIAL IM PRN (08:16)
[2019-05-10] MEDS ORDERED: INSULIN -REGULAR HUMAN 50 UNIT/0.5 ML ML IV ONE (08:16)
--- NOTE | 2019-05-10 08:31 | P.PN ---
Subjective Date of Service: 05/10/19 Primary Care Provider: [facility]; Surgery-Dr. Velez; Nephrology-Dr. Werner Chief Complaint: Left foot wet Gangrene, osteomyelitis Subjective: Other (Patient stable at this time. Pain seems to be better controlled.) Physical Examination - Vital Signs Temperature: 99.1 F Blood Pressure: 190/80 Pulse: 87 Respirations: 16 Pulse Ox (%): 94 - Physical Exam General: Alert HEENT: Other (Patient is blind) Neck: Supple Respiratory: Clear to auscultation bilaterally, Normal air movement Cardiovascular: Normal pulses, Regular rate/rhythm Gastrointestinal: Normal bowel sounds, Soft and benign, Non-distended Integumentary: Other (Brace and bandage in place to the left lower extremity.) Neurological: Normal speech, Normal strength at 5/5 x4 extr - Studies Laboratory Data (last 24 hrs) 05/10/19 05:23: Sodium 138, Potassium 6.4 H*, BUN 92 H D, Creatinine 11.70 H* D , Glucose 129 H, Phosphorus 4.6, Magnesium 2.6 H 05/10/19 05:23: WBC 16.2 H, Hgb 8.8 L, Hct 26.8 L D, Plt Count 470 H Medications List Reviewed: Yes Assessment & Plan Discharge Plan: [facility] Plan to discharge in: 48 Hours Physician Review Additional Text: Impression: Left lower extremity wet gangrene with chronic osteomyelitis status post left below-knee amputation Diabetes mellitus type 2 insulin dependent Hypertension End-stage renal disease on hemodialysis with hyperkalemia Peripheral vascular disease History of seizure disorder History of CVA Prior history of right above knee amputation History of diabetic retinopathy and blindness Anemia of chronic disease Plan: Left lower extremity wet gangrene with chronic osteomyelitis status post left below-knee amputation: Patient had left below-knee amputation yesterday. Patient stable this time. Continue pain control. Patient started on IV Ancef and vancomycin yesterday. Pro calcitonin elevated. Continue wound care. Patient will require dialysis today. Will monitor closely. Anticipate back to the long-term in 1-2 days once more stable. Will follow CBC closely. Will discuss further with surgery and nephrology. Diabetes mellitus type 2 insulin dependent: A1c 7.2. Blood sugars well controlled. Will continue with Accu-Cheks and sliding scale. Hypertension: Continue medication. Will monitor and adjust appropriately. End-stage renal disease on hemodialysis with hyperkalemia: Nephrology consulted. patient will require dialysis today. Peripheral vascular disease: Continue with aspirin. Continue DVT prophylaxis.. History of seizure disorder: Continue medication. History of CVA: Will provide aspirin. Will continue with DVT prophylaxis today. Prior history of right above knee amputation: Continue as above. Patient is a poor candidate for rehab. Patient will return to the long-term once medically stable. History of diabetic retinopathy and blindness: Will monitor closely. Anemia of chronic disease: Will monitor this closely. Will continue to monitor hemoglobin. May require blood if hemoglobin continues to drop. Time Spent Managing Pts Care (In Minutes): 55
[2019-05-10] MEDS ORDERED: HYDRALAZINE HCL 25 MG TABLET PO SCH (09:00)
[2019-05-10] MEDS: carvediloL 12.5 MG TAB PO SCH ×2 (09:00→20:03)
[2019-05-10] MEDS ORDERED: VANCOMYCIN 1 GM in NA CHLORIDE 0.9% 500 ML IVPB SCH (09:00)
[2019-05-10] MEDS: LACTOBACILLUS/ACIDOPHILUS TAB PO SCH ×3 (09:00→20:03)
[2019-05-10] MEDS: PROMOD 30 ML DOSE PO SCH (09:00)
[2019-05-10] MEDS: GABAPENTIN 300 MG CAP PO SCH ×3 (09:00→20:03)
[2019-05-10] MEDS: AMLODIPINE 10 MG TAB PO SCH (09:00)
[2019-05-10] MEDS: MULTIVITAMINS,THERAPEUT 1 TAB PO SCH (09:00)
[2019-05-10] MEDS: HYDROMORPHONE HCL 1 MG/ML INJ IV PRN ×3 (09:36→20:48)
[2019-05-10] MEDS: CEFAZOLIN/SWI 1gm 1 GM/10 ML SYR IV SCH ×2 (12:37→20:02)
[2019-05-10] MEDS: VANCOMYCIN/NS 1 gm 1 GM/250 ML BAG IV SCH (12:38)
[2019-05-10] MEDS: ASPIRIN EC 81 MG TAB PO SCH (12:39)
[2019-05-10] MEDS: ASCORBIC ACID 500 MG TABLET PO SCH ×2 (12:39→20:08)
[2019-05-10] MEDS: FOLIC ACID 1 MG TABLET PO SCH (12:39)
[2019-05-10] MEDS: HEPARIN 5000 UNIT/ML 1 ML VIAL SQ SCH ×2 (12:40→20:02)
--- NOTE | 2019-05-10 13:59 | PN ---
Date of Progress Note: 05/10/2019 Subjective: Please note, the patient was in dialysis when I made rounds. Got information on the com puter and from the nurse. Patient's pain was controlled with parenteral pain management. Objective: Vital Signs: Stable. He is afebrile. T-max was 99.1. White count is still up at 16.2. He is getting vancomycin and cefazolin. Dressing is clean, dry, intact. Assessment: Status post left below-knee amputation. Recommendations: Continue antibiotics, parenteral pain management, physical therapy, and discharge elisabeth holland. /MODL Voice ID: [id number] Report ID: [id number]
[2019-05-10] MEDS: HYDROCODONE/APAP 5/325 MG TAB PO PRN (17:59)
[2019-05-10] MEDS: ATORVASTATIN 10 MG TAB PO SCH (20:02)
[2019-05-10] MEDS: PHENYTOIN ER 100 MG CAP PO SCH (20:02)
[2019-05-11] MEDS: HYDROCODONE/APAP 5/325 MG TAB PO PRN ×2 (01:16→14:41)
[2019-05-11] MEDS ORDERED: HYDRALAZINE HCL 20 MG/ML VIAL IV ONE (02:14)
--- NOTE | 2019-05-11 02:24 | PN ---
Chief Complaint: End-stage renal disease. History Of Present Illness: Patient was found to have severe hyperkalemia today and received dialysis to obtain metabolic clearance and ultrafiltration. Blood pressure has been elevated. Patient is medicated for pain and he takes blood pressure medication. Review of Systems: Denies new complaints. Denies nausea or vomiting. Physical Examination: Lungs: Clear to auscultation bilaterally. Heart: S1, S2. Abdomen: Soft, benign. Extremities: Slight edema, status post BKA. Laboratory Data: WBC 16.2, hemoglobin 8.8, platelet count is 470,000. Chemistries showed sodium 158, potassium 6.4, chloride 98, CO2 of 21, BUN is 92 , creatinine 11.7, glucose 129, phosphorus 4.6, calcium 7.8, magnesium 2.6. Impression And Plan: 1. End-stage LD the patient was dialyzed today and stat dialysis was ordered to treat hyperkalemia. 2. Severe peripheral vascular disease, diabetic foot infection, status post below-knee amputation as per Surgical team. 3. Hypertension. Increase blood pressure medication. 4. Renal osteodystrophy. Continue renal diet and binders. I spent total 36 min including 25 min to coordinate care plan. JANENE/MODZulay Voice ID: [id number] Report ID: [id number] EVANS
[2019-05-11] MEDS: HYDROMORPHONE HCL 1 MG/ML INJ IV PRN ×3 (04:21→18:07)
[2019-05-11 05:32] LABS: Absolute Lymphocytes (CBC) 2.1 K/uL (0.7-4.9); Basophils % 0.8 % (0-1.3); Hematocrit 25.8 % (39.6-49.0); Lymphocytes % 16.9 % (15.3-44.8); MPV 8.8 fL (7.6-11.3); RBC Red Blood Cell Count 2.83 M/uL (4.33-5.43)
[2019-05-11 05:51] LABS: Magnesium 2.4 mg/dL (1.8-2.4); Potassium 4.4 mmol/L (3.5-5.1)
[2019-05-11] MEDS: HYDRALAZINE HCL 25 MG TABLET PO SCH ×3 (06:47→21:34)
[2019-05-11] MEDS: PROMOD 30 ML DOSE PO SCH (08:35)
[2019-05-11] MEDS: SEVELAMER CARBONATE 800 MG TABLET PO SCH ×3 (08:35→16:14)
[2019-05-11] MEDS: GABAPENTIN 300 MG CAP PO SCH ×3 (08:36→21:35)
[2019-05-11] MEDS: carvediloL 12.5 MG TAB PO SCH ×2 (08:36→21:35)
[2019-05-11] MEDS: LACTOBACILLUS/ACIDOPHILUS TAB PO SCH ×3 (08:36→21:35)
[2019-05-11] MEDS: AMLODIPINE 10 MG TAB PO SCH (08:36)
[2019-05-11] MEDS: ASCORBIC ACID 500 MG TABLET PO SCH ×2 (08:36→21:34)
[2019-05-11] MEDS: MULTIVITAMINS,THERAPEUT 1 TAB PO SCH (08:36)
[2019-05-11] MEDS: ASPIRIN EC 81 MG TAB PO SCH (08:37)
[2019-05-11] MEDS: INSULIN -REGULAR HUMAN 50 UNIT/0.5 ML ML SQ SCH ×4 (08:38→21:00)
[2019-05-11] MEDS: FOLIC ACID 1 MG TABLET PO SCH (08:38)
[2019-05-11] MEDS: HEPARIN 5000 UNIT/ML 1 ML VIAL SQ SCH ×2 (08:39→21:35)
--- NOTE | 2019-05-11 08:54 | P.PN ---
Subjective Date of Service: 05/11/19 Primary Care Provider: [facility]; Surgery-Dr. Velez; Nephrology-Dr. Werner Chief Complaint: Left foot wet Gangrene, osteomyelitis Subjective: Doing well Physical Examination - Vital Signs Temperature: 97.8 F Blood Pressure: 197/88 Pulse: 79 Respirations: 18 Pulse Ox (%): 98 - Physical Exam General: Alert HEENT: Other (Patient is blind) Respiratory: Clear to auscultation bilaterally, Normal air movement Cardiovascular: Normal pulses, Regular rate/rhythm Gastrointestinal: Normal bowel sounds, Soft and benign, Non-distended Integumentary: Other (Bandages in place) - Studies Laboratory Data (last 24 hrs) 05/11/19 05:05: Sodium 134 L, Potassium 4.4, BUN 52 H D, Creatinine 7.85 H* D, Glucose 237 H, Magnesium 2.4 05/11/19 05:05: WBC 12.3 H D, Hgb 8.6 L, Hct 25.8 L, Plt Count 453 H Medications List Reviewed: Yes Assessment & Plan Discharge Plan: Home Plan to discharge in: 48 Hours Physician Review Additional Text: Impression: Left lower extremity wet gangrene with chronic osteomyelitis status post left below-knee amputation Diabetes mellitus type 2 insulin dependent Hypertension End-stage renal disease on hemodialysis with hyperkalemia Peripheral vascular disease History of seizure disorder History of CVA Prior history of right above knee amputation History of diabetic retinopathy and blindness Anemia of chronic disease Plan: Left lower extremity wet gangrene with chronic osteomyelitis status post left below-knee amputation: Patient doing well post operatively. Patient remains on IV Ancef and vancomycin. White count improved. Recheck pro calcitonin tomorrow. Patient will get dialysis today. [facility] Will discuss further with surgery and nephrology. Diabetes mellitus type 2 insulin dependent: A1c 7.2. Blood sugars well controlled. Will continue with Accu-Cheks and sliding scale. Hypertension: Continue medication. Will monitor and adjust appropriately. End-stage renal disease on hemodialysis with hyperkalemia: Nephrology consulted. Patient to get dialysis today. Peripheral vascular disease: Continue with aspirin. Continue DVT prophylaxis.. History of seizure disorder: Continue medication. History of CVA: Will provide aspirin. Will continue with DVT prophylaxis today. Prior history of right above knee amputation: Continue as above. Will have physical therapy and occupational therapy evaluate patient. Patient is a poor candidate for rehab. [facility] once medically [facility]. History of diabetic retinopathy and blindness: Will monitor closely. Anemia of chronic disease: Will monitor this closely. Will continue to monitor hemoglobin. May require blood if hemoglobin continues to drop. Time Spent Managing Pts Care (In Minutes): 55
[2019-05-11] MEDS ORDERED: DRISDOL (VITAMIN D=ERGOCALCIFEROL) 50000 UNIT CAP PO SCH (09:00)
[2019-05-11] MEDS: CEFAZOLIN/SWI 1gm 1 GM/10 ML SYR IV SCH ×2 (12:02→21:34)
[2019-05-11] MEDS: PHENYTOIN ER 100 MG CAP PO SCH (21:34)
[2019-05-11] MEDS: ATORVASTATIN 10 MG TAB PO SCH (21:35)
[2019-05-11] MEDS: VANCOMYCIN/NS 1 gm 1 GM/250 ML BAG IV SCH (23:55)
--- NOTE | 2019-05-12 01:27 | PN ---
Date of Progress Note: 05/11/2019 Chief Complaint: End-stage renal disease, on dialysis. Patient was found to have severe hyperkalemia, received dialysis yesterday. Today, potassium level i s normalizing. Patient has some fluid overload and patient will resume dialysis today for metabolic clearance. Review of Systems: Patient denies nausea, vomiting. Physical Examination: Lungs: Clear to auscultation bilaterally. Heart: S1, S2. Extremities: Edema in both legs status post BKA. Laboratory Data: White count 16.2, creatinine 11.2. Assessment: 1.End-stage renal disease. Patient was dialyzed today and dialysis was done without technical diffi culties. Patient tolerated procedure. 2.Hyperkalemia, resolved. 3.Anemia. If chronic kidney disease, continue STEPHEN. Adjust dose according to hemoglobin level. 4.Renal osteodystrophy. Phosphorus level is in good control. 5.Hypoalbuminemia. Increase p.o. protein intake as tolerated. 6.Severe peripheral vascular disease, diabetic foot infection, status post below-knee amputation. C ontinue management. Wound care and antibiotics per primary team and surgical team. EB/MODL Voice ID: [id number] Report ID: [id number]
[2019-05-12] MEDS: HYDROMORPHONE HCL 1 MG/ML INJ IV PRN ×2 (04:22→14:06)
[2019-05-12] MEDS: HYDRALAZINE HCL 25 MG TABLET PO SCH ×3 (05:06→22:27)
[2019-05-12 06:04] LABS: Basophils % 0.6 % (0-1.3); Hematocrit 26.1 % (39.6-49.0); MPV 8.7 fL (7.6-11.3); RBC Red Blood Cell Count 2.88 M/uL (4.33-5.43)
[2019-05-12 06:24] LABS: Magnesium 2.4 mg/dL (1.8-2.4); Potassium 4.1 mmol/L (3.5-5.1)
[2019-05-12] MEDS: INSULIN -REGULAR HUMAN 50 UNIT/0.5 ML ML SQ SCH ×4 (07:30→21:00)
[2019-05-12] MEDS: MULTIVITAMINS,THERAPEUT 1 TAB PO SCH (08:25)
[2019-05-12] MEDS: LACTOBACILLUS/ACIDOPHILUS TAB PO SCH ×3 (08:25→22:22)
[2019-05-12] MEDS: ASPIRIN EC 81 MG TAB PO SCH (08:25)
[2019-05-12] MEDS: GABAPENTIN 300 MG CAP PO SCH ×3 (08:25→22:23)
[2019-05-12] MEDS: AMLODIPINE 10 MG TAB PO SCH (08:26)
[2019-05-12] MEDS: carvediloL 12.5 MG TAB PO SCH ×2 (08:26→22:24)
[2019-05-12] MEDS: ASCORBIC ACID 500 MG TABLET PO SCH ×2 (08:28→22:23)
[2019-05-12] MEDS: SEVELAMER CARBONATE 800 MG TABLET PO SCH ×3 (08:28→16:27)
[2019-05-12] MEDS: FOLIC ACID 1 MG TABLET PO SCH (08:28)
[2019-05-12] MEDS: CEFAZOLIN/SWI 1gm 1 GM/10 ML SYR IV SCH ×2 (08:29→22:22)
[2019-05-12] MEDS: HEPARIN 5000 UNIT/ML 1 ML VIAL SQ SCH ×2 (08:29→22:23)
[2019-05-12] MEDS: PROMOD 30 ML DOSE PO SCH (08:29)
[2019-05-12] MEDS: HYDROCODONE/APAP 5/325 MG TAB PO PRN (11:20)
--- NOTE | 2019-05-12 14:10 | P.PN ---
Subjective Date of Service: 05/12/19 Primary Care Provider: [facility]; Surgery-Dr. Velez; Nephrology-Dr. Werner Chief Complaint: Left foot wet Gangrene, osteomyelitis Subjective: Doing well Physical Examination - Vital Signs Temperature: 98.2 F Blood Pressure: 178/73 Pulse: 81 Respirations: 17 Pulse Ox (%): 100 - Physical Exam General: Alert HEENT: Atraumatic, Other (Patient is blind) Neck: Supple Respiratory: Clear to auscultation bilaterally, Normal air movement Cardiovascular: Normal pulses, Regular rate/rhythm Gastrointestinal: Normal bowel sounds, Soft and benign, Non-distended - Studies Laboratory Data (last 24 hrs) 05/12/19 05:41: Sodium 137, Potassium 4.1, BUN 36 H, Creatinine 6.03 H* D, Glucose 140 H, Magnesium 2.4 05/12/19 05:41: WBC 11.0 H, Hgb 8.7 L, Hct 26.1 L, Plt Count 458 H Medications List Reviewed: Yes Assessment & Plan [facility] Plan to discharge in: 24 Hours Physician Review Additional Text: Impression: Left lower extremity wet gangrene with chronic osteomyelitis status post left below-knee amputation Diabetes mellitus type 2 insulin dependent Hypertension End-stage renal disease on hemodialysis with hyperkalemia Peripheral vascular disease History of seizure disorder History of CVA Prior history of right above knee amputation History of diabetic retinopathy and blindness Anemia of chronic disease Plan: Left lower extremity wet gangrene with chronic osteomyelitis status post left below-knee amputation: Patient continues to do well. Continue antibiotic therapy. White count improved. Patient doing well post operatively. Will check pro calcitonin tomorrow. [facility] Monday. Patient may be able to continue with oral medication at that time. Will discuss with surgery and nephrology. Diabetes mellitus type 2 insulin dependent: A1c 7.2. Blood sugars well controlled. Will continue with Accu-Cheks and sliding scale. Hypertension: Continue medication. Will monitor and adjust appropriately. End-stage renal disease on hemodialysis with hyperkalemia: Nephrology consulted. Patient to get dialysis today. Peripheral vascular disease: Continue with aspirin. Continue DVT prophylaxis.. History of seizure disorder: Continue medication. History of CVA: Will provide aspirin. Will continue with DVT prophylaxis today. Prior history of right above knee amputation: Continue as above. Will have physical therapy and occupational therapy evaluate patient. Patient is a poor candidate for rehab. [facility] once medically stable. History of diabetic retinopathy and blindness: Will monitor closely. Anemia of chronic disease: Will monitor this closely. Will continue to monitor hemoglobin. May require blood if hemoglobin continues to drop. Time Spent Managing Pts Care (In Minutes): 55
[2019-05-12] MEDS ORDERED: EPOETIN ALFA 10,000 UNIT/ML VIAL IV SCH (21:00)
[2019-05-12] MEDS: ATORVASTATIN 10 MG TAB PO SCH (22:22)
[2019-05-12] MEDS: PHENYTOIN ER 100 MG CAP PO SCH (22:23)
--- NOTE | 2019-05-13 00:42 | PN ---
Date of Progress Note: 05/12/2019 Chief Complaint: End-stage renal disease, on dialysis. History Of Present Illness: Patient developed hyperkalemia and received dialysis on 2 consecutive da ys. Potassium level has improved. Patient is on low-potassium diet. Patient has diabetic kidney disease, peripheral vascular disease. He underwent BKA. Review of Systems: Denies PND or orthopnea. Physical Examination: Lungs: Clear to auscultation bilaterally. Heart: S1-S2. Abdomen: Soft, benign. Extremities: Dressing in place status post BKA. Laboratory Data: White count 16.2, creatinine 11.2. Today, blood work showed white count 11.0, hemo globin 8.7, platelet count 458,000. Chemistries; sodium 137, potassium 4.1, chloride 100, CO2 of 27, BUN 56, creatinine 6.03, calcium 8.5, magnesium 2.4. Impression And Plan: 1.End-stage renal disease. Continue dialysis. Next dialysis is on Monday. Monitor electrolytes c losely. 2.Hyperkalemia, resolved. Patient will continue low-potassium diet. 3.Renal osteodystrophy. Phosphorus is in good control. Monitor electrolytes. 4.Severe peripheral vascular disease, diabetic foot infection, status post below-knee amputation. C ontinue management with wound care and antibiotics. 5.Anemia. Patient will continue STEPHEN. EB/MODL Voice ID: [id number] Report ID: [id number]
[2019-05-13] MEDS: HYDROCODONE/APAP 5/325 MG TAB PO PRN ×2 (01:26→05:00)
[2019-05-13] MEDS: HYDRALAZINE HCL 25 MG TABLET PO SCH ×2 (05:00→13:41)
[2019-05-13 05:52] LABS: Basophils % 0.7 % (0-1.3); Hematocrit 26.2 % (39.6-49.0); Lymphocytes % 20.4 % (15.3-44.8); MPV 8.8 fL (7.6-11.3); RBC Red Blood Cell Count 2.89 M/uL (4.33-5.43)
[2019-05-13 06:22] LABS: Magnesium 2.6 mg/dL (1.8-2.4); Potassium 4.1 mmol/L (3.5-5.1)
[2019-05-13] MEDS: INSULIN -REGULAR HUMAN 50 UNIT/0.5 ML ML SQ SCH ×2 (07:30→11:30)
[2019-05-13] MEDS: HEPARIN 5000 UNIT/ML 1 ML VIAL SQ SCH (08:45)
[2019-05-13] MEDS: CEFAZOLIN/SWI 1gm 1 GM/10 ML SYR IV SCH (08:45)
[2019-05-13] MEDS: SEVELAMER CARBONATE 800 MG TABLET PO SCH ×2 (08:45→13:40)
[2019-05-13] MEDS: AMLODIPINE 10 MG TAB PO SCH (08:46)
[2019-05-13] MEDS: ASCORBIC ACID 500 MG TABLET PO SCH (08:46)
[2019-05-13] MEDS: MULTIVITAMINS,THERAPEUT 1 TAB PO SCH (08:46)
[2019-05-13] MEDS: ASPIRIN EC 81 MG TAB PO SCH (08:46)
[2019-05-13] MEDS: LACTOBACILLUS/ACIDOPHILUS TAB PO SCH ×2 (08:46→13:41)
[2019-05-13] MEDS: FOLIC ACID 1 MG TABLET PO SCH (08:46)
[2019-05-13] MEDS: GABAPENTIN 300 MG CAP PO SCH ×2 (08:46→13:41)
[2019-05-13] MEDS: carvediloL 12.5 MG TAB PO SCH (08:46)
[2019-05-13] MEDS: PROMOD 30 ML DOSE PO SCH (08:47)
[2019-05-13 10:58] VITALS: O2SAT 97
--- NOTE | 2019-05-13 12:08 | P.DS ---
Admission Date: 05/09/19 Discharge Date: 05/13/19 Primary Care Provider: intermediate; Surgery-Dr. Velez; Nephrology-Dr. Werner Disposition: TRANSFER TO HALF-WAY Discharge Condition: GOOD Reason for Admission: Left foot wet Gangrene, osteomyelitis Consultations: Surgery-Dr. Velez Nephrology-Dr. Werner Procedures: Surgery: Date of Procedure: 05/09/2019 Surgeon: Jayy Velez MD Pressure Dispatcher: MARIA G Sorenson Preoperative Diagnoses: Left foot gangrene, left lower extremity; severe peripheral vascular disease. Postoperative Diagnoses: Left foot gangrene, left lower extremity; severe peripheral vascular disease. Procedure: Left below-knee amputation. Estimated Blood Loss: Minimal. Specimen: Left leg. Pathology Diagnosis-gangrenous necrosis involving the 1st and 2nd digits, moderate to severe calcific arthrosclerosis, skin and soft tissue at resection margin viable , vascular margin with moderate to severe calcific arthrosclerosis Medical Problem List: Left lower extremity wet gangrene with chronic osteomyelitis status post left below-knee amputation Diabetes mellitus type 2 insulin dependent Hypertension End-stage renal disease on hemodialysis with hyperkalemia Peripheral vascular disease History of seizure disorder History of CVA Prior history of right above knee amputation History of diabetic retinopathy and blindness Anemia of chronic disease Hyperlipidemia Brief History of Present Illness: 64-year-old male with history of diabetes mellitus type 2 insulin dependent, hypertension, end-stage renal disease on hemodialysis and left lower extremity wet gangrene/osteomyelitis. Patient had surgery today for left below-knee amputation due to wet gangrene and osteomyelitis of the foot. Patient was seen by surgery as an outpatient through wound care. His condition had not improved. This led to surgery today. I was asked to admit the patient after surgery for continuation of medical management. When I saw the patient in recovery. Patient was stable. Patient with history of end-stage renal disease on hemodialysis. He gets dialysis every Monday, and Monday. He is due for dialysis today. intermediate records reviewed. Patient with history of right above knee amputation. Hospital Course: Patient presented with left lower extremity wet gangrene with chronic osteomyelitis. Patient initially seen by surgery and admitted for left below- knee amputation. Patient has done well since amputation. Patient received IV antibiotic therapy during the course of his stay. White count now within normal range. Patient has done well. [facility] Patient will continue with wound care as per surgery. Patient will follow up with [facility] within 1 week. Patient may continue with his tramadol 50 mg 3 times a day as needed for pain. Patient with diabetes mellitus type 2 insulin dependent. A1c 7.2. Blood sugar well controlled. Patient was placed on insulin. Medications reviewed at discharge. Will discontinue glipizide due to risk of hypoglycemia. At discharge he will continue with his current insulin regimen-Levemir 15 units at bedtime. Recommend to maintain blood sugars less 140 fasting and less than 200 after meals. Further adjustment can be done at the [facility]. Patient with end-stage renal disease on hemodialysis. Patient was initially hyperkalemia. Patient received dialysis. At discharge patient has done well. Patient will continue with dialysis every Monday, and Monday. Patient will continue with his end-stage renal disease medications. Patient with hypertension. Blood pressure was elevated. Adjustment in medication was required. Carvedilol and hydralazine were increased for better control. Patient taking Norvasc as well. Blood pressure now stable. At discharge he will continue with Norvasc 10 mg daily, carvedilol 12.5 mg 1 pill twice daily, and hydralazine 25 mg 1 pill 3 times a day. Recommendation is to maintain blood pressures less 150/80. Further adjustment can be done by nephrology. Patient with peripheral vascular disease. At discharge patient will continue with aspirin 81 mg daily. Patient with seizure disorder. This has remained stable. Patient will continue with his current medication Phenytoin 400 mg at bedtime. Patient with prior history of right above knee amputation. Patient now with left below-knee amputation. Patient may continue with physical therapy and occupational therapy at the [facility]. Patient is a poor candidate for rehab. Patient with diabetic retinopathy and blindness. This has remained stable. Patient with diabetic neuropathy. Patient will continue with gabapentin 300 mg 3 times a day. Patient with hyperlipidemia. At discharge he will continue with Lipitor 10 mg daily. Patient with anemia of chronic disease. Hemoglobin stable. This can be further monitored by nephrology. Vital Signs/Physical Exam: Temp Pulse Resp BP Pulse Ox 98.4 F 67 18 125/64 98 05/13/19 08:00 05/13/19 08:46 05/13/19 08:00 05/13/19 08:46 05/13/19 08:00 General: Alert, In no apparent distress, Oriented x3, Cooperative HEENT: Atraumatic, Other (patient is blind) Neck: Supple Respiratory: Clear to auscultation bilaterally, Normal air movement Cardiovascular: Normal pulses, Regular rate/rhythm Gastrointestinal: Normal bowel sounds, Soft and benign, Non-distended, No rebound, No guarding Integumentary: Other (Postop changes noted) Laboratory Data at Discharge: WBC 9.6 K/uL (4.3-10.9) 05/13/19 05:31 Hgb 8.6 g/dL (13.6-17.9) L 05/13/19 05:31 Hct 26.2 % (39.6-49.0) L 05/13/19 05:31 Plt Count 458 K/uL (152-406) H 05/13/19 05:31 Sodium 137 mmol/L (136-145) 05/13/19 05:31 Potassium 4.1 mmol/L (3.5-5.1) 05/13/19 05:31 BUN 52 mg/dL (7-18) H 05/13/19 05:31 Creatinine 7.87 mg/dL (0.55-1.3) H* D 05/13/19 05:31 Glucose 163 mg/dL (74-106) H 05/13/19 05:31 Phosphorus 4.6 mg/dL (2.5-4.9) 05/10/19 05:23 Magnesium 2.6 mg/dL (1.8-2.4) H 05/13/19 05:31 Total Bilirubin Cancelled 05/07/19 Unknown AST Cancelled 05/07/19 Unknown ALT Cancelled 05/07/19 Unknown Alkaline Phosphatase Cancelled 05/07/19 Unknown Home Medications: Acetaminophen 650 mg PO Q4HP PRN 10/25/17 Aspirin [Adult Aspirin Regimen] 81 mg PO DAILY AT SUPPER 10/25/17 Insulin Detemir [Levemir Flextouch] 15 unit SQ ACB 10/25/17 Lactulose 30 ml PO DAILY PRN 10/25/17 Sevelamer Carbonate [Renvela*] 3,200 mg PO TIDWM 10/25/17 traMADol HCL [Ultram*] 50 mg PO Q6HP PRN 10/25/17 Ascorbic Acid [Vitamin C*] 500 mg PO BID 05/26/18 Amlodipine [Norvasc*] 10 mg PO DAILY #30 tab 05/31/18 Gabapentin [Neurontin*] 300 mg PO TID #90 cap 05/31/18 Atorvastatin Calcium [Lipitor*] 10 mg PO BEDTIME 05/02/19 Ergocalciferol (Vitamin D2) [Vitamin D2] 1,250 mcg PO EVERY 7TH DAY 05/02/19 Folic Acid 1 mg PO DAILY 05/02/19 L. Acidophilus/Pectin, [place] [Acidophilus Capsule] 1 each PO TID 05/02/19 Phenytoin Sodium Extended [Phenytek] 400 mg PO BEDTIME 05/02/19 Protein Supplement [Promod] 30 ml PO DAILY AT SUPPER 05/02/19 Vit B Comp No.3/Folic/C/Biotin [Nephro-Shannon Rx Tablet] 1 each PO DAILY 05/02/19 Hydralazine [Apresoline*] 25 mg PO Q8H #90 tab 05/13/19 carvediloL [Coreg*] 12.5 mg PO BID #60 tab 05/13/19 New Medications: carvediloL [Coreg*] 12.5 mg PO BID #60 tab Hydralazine [Apresoline*] 25 mg PO Q8H #90 tab Patient Discharge Instructions: 1. [facility]. 2. Patient presented with left lower extremity wet gangrene with chronic osteomyelitis. Patient initially seen by surgery and admitted for left below- knee amputation. Patient has done well since amputation. Patient received IV antibiotic therapy during the course of his stay. White count now within normal range. Patient has done well. Patient will be [facility]. Patient will continue with wound care as per surgery. Patient will follow up with [facility] within 1 week. Patient may continue with his tramadol 50 mg 3 times a day as needed for pain. 3. Patient with diabetes mellitus type 2 insulin dependent. A1c 7.2. Blood sugar well controlled. Patient was placed on insulin. Medications reviewed at discharge. Will discontinue glipizide due to risk of hypoglycemia. At discharge he will continue with his current insulin regimen-Levemir 15 units at bedtime. Recommend to maintain blood sugars less 140 fasting and less than 200 after meals. Further adjustment can be done at the [facility]. 4. Patient with end-stage renal disease on hemodialysis. Patient was initially hyperkalemia. Patient received dialysis. At discharge patient has done well. Patient will continue with dialysis every Monday, and Monday. Patient will continue with his end-stage renal disease medications. 5. Patient with hypertension. Blood pressure was elevated. Adjustment in medication was required. Carvedilol and hydralazine were increased for better control. Patient taking Norvasc as well. Blood pressure now stable. At discharge he will continue with Norvasc 10 mg daily, carvedilol 12.5 mg 1 pill twice daily, and hydralazine 25 mg 1 pill 3 times a day. Recommendation is to maintain blood pressures less 150/80. Further adjustment can be done by nephrology. 6. Patient with peripheral vascular disease. At discharge patient will continue with aspirin 81 mg daily. 7. Patient with seizure disorder. This has remained stable. Patient will continue with his current medication Phenytoin 400 mg at bedtime. 8. Patient with prior history of right above knee amputation. Patient now with left below-knee amputation. Patient may continue with physical therapy and occupational therapy [facility]. Patient is a poor candidate for rehab. 9. Patient with diabetic retinopathy and blindness. This has remained stable. 10. Patient with diabetic neuropathy. Patient will continue with gabapentin 300 mg 3 times a day. 11. Patient with hyperlipidemia. At discharge he will continue with Lipitor 10 mg daily. 12. Patient with anemia of chronic disease. Hemoglobin stable. This can be further monitored by nephrology. Diet: ADA Activity: Bedrest Time spent managing pt's care (in minutes): 55
--- NOTE | 2019-05-13 13:11 | PN ---
Subjective: Patient is awake alert, no complaints. Objective: Vitals are stable, afebrile. Dressing was clean, dry, and intact. Laboratory Data: Reviewed. Assessment: Status post left below-knee amputation. Recommendations: Continue antibiotics and physical therapy as ordered. Discharge Planning: Discontinue every other daniele in 3 weeks and discontinue all daniele in 4 week s. Instructions given. Patient can [facility] up with [facility]. /MODL Voice ID: [id number] Report ID: [id number]
[2019-05-13 15:08] VITALS: BP 160/70; TEMP 98
--- NOTE | 2019-05-13 23:41 | PN ---
Date of Progress Note: 05/13/2019 Chief Complaint: End-stage renal disease, diabetic foot infection osteomyelitis, peripheral vascular disease. Subjective: Patient underwent BKA. Patient is undergoing dialysis 3 times per week on TTS schedule. Anemia, patient is on STEPHEN. Hemoglobin level is stabilizing. Review of Systems: Denies fevers or chills. Physical Examination: Lungs: Few crackles at bases. Heart: S1-S2. Abdomen: Soft, benign. Extremities: Dressing in place. Impression And Plan: 1.End-stage renal disease. Next dialysis tomorrow. 2.Hypertension. Continue blood pressure medication. 3.Renal osteodystrophy. Phosphorus level is in good control. 4.Hypoalbuminemia. Continue protein supplement. EB/MODL Voice ID: [id number] Report ID: [id number]
[2019-05-14 02:25] LABS: HBsAG Nonreactive (Nonreactive)
[2019-05-16] MEDS ORDERED: DRISDOL (VITAMIN D=ERGOCALCIFEROL) 50000 UNIT CAP PO SCH (09:00)
== END 2019-05-13 14:29 | DRG 239 ==
LOC: OR 06:46 → 2ND 09:55
PROVIDERS: ADMIT Surgery; ATTEND Family Medicine
PROC: 5A1D70Z Performance of Urinary Filtration, Intermittent, Less than 6 Hours Per Day (ICD-10-PCS; 2019-05-09)
PROC: 0Y6J0Z1 Detachment at Left Lower Leg, High, Open Approach (ICD-10-PCS; principal; 2019-05-09 07:45)
PROC: 5A1D70Z Performance of Urinary Filtration, Intermittent, Less than 6 Hours Per Day (ICD-10-PCS; 2019-05-10)
PROC: 5A1D70Z Performance of Urinary Filtration, Intermittent, Less than 6 Hours Per Day (ICD-10-PCS; 2019-05-11)
DX: E11.52 Type 2 diabetes mellitus with diabetic peripheral angiopathy with gangrene (principal); N18.6 End stage renal disease; I96 Gangrene, not elsewhere classified; I12.0 Hypertensive chronic kidney disease with stage 5 chronic kidney disease or end stage renal disease; M86.68 Other chronic osteomyelitis, other site; E87.1 Hypo-osmolality and hyponatremia; E11.22 Type 2 diabetes mellitus with diabetic chronic kidney disease; H54.7 Unspecified visual loss; E78.5 Hyperlipidemia, unspecified; G40.909 Epilepsy, unspecified, not intractable, without status epilepticus; E11.69 Type 2 diabetes mellitus with other specified complication; N25.0 Renal osteodystrophy; E11.319 Type 2 diabetes mellitus with unspecified diabetic retinopathy without macular edema; D63.1 Anemia in chronic kidney disease; E87.5 Hyperkalemia; Z99.2 Dependence on renal dialysis; Z89.611 Acquired absence of right leg above knee; Z86.73 Personal history of transient ischemic attack (TIA), and cerebral infarction without residual deficits
CPT/HCPCS: 36415; 71046; 80048; 80202; 82947; 83036; 83605; 83735; 84100; 84145; 85025; 86317; 87340; 88305; 88307; 90935; 93005; 97110; 97112; 97161; 99214; J0360; J0690; J1170; J1644; J2250; J2405; J2550; J2704; J3010; J3370; J7040; Q5105

== ENCOUNTER 2019-12-12 14:39 | Emergency (ER) | payer MEDICARE, OTHER ==
[2019-12-12 15:08] LABS: Absolute Lymphocytes (CBC) 2.6 K/uL (0.7-4.9); Basophils % 0.5 % (0-1.3); Hematocrit 33.8 % (39.6-49.0); Lymphocytes % 33.7 % (15.3-44.8); MPV 9.6 fL (7.6-11.3); RBC Red Blood Cell Count 3.71 M/uL (4.33-5.43)
[2019-12-12 15:28] LABS: ALT/SGPT 31 U/L (12-78); AST/SGOT 20 U/L (15-37); Albumin 3.8 g/dL (3.4-5.0); Alkaline Phosphatase 181 U/L (45-117); BUN Blood Urea Nitrogen 18 mg/dL (7-18); Bicarbonate 25 mmol/L (21-32); Bilirubin Direct 0.1 mg/dL (0-0.2); Bilirubin Total 0.3 mg/dL (0.2-1.0); CKMB Creatine Kinase MB < 1.0 ng/mL (0.3-3.6); Glucose Level 229 mg/dL (74-106); Magnesium 2.2 mg/dL (1.8-2.4); NT PRO-BNP 10356 pg/mL (<125); Protein, Total 9.1 g/dL (6.4-8.2); Sodium Level 133 mmol/L (136-145); Troponin (Emerg Dept Use Only) < 0.02 ng/mL (0.0-0.045)
[2019-12-12 15:30] LABS: Protime INR 0.98
[2019-12-12] MEDS ORDERED: ALBUTEROL 2.5 MG/3 ML NEB SOL ONE (16:00)
[2019-12-12 16:06] LABS: Arterial Blood Carboxyhemoglob 1.4 % (0-1.5); Blood Gas Oxyhemoglobin 97.2 % (94-97); Blood O2 Saturation 99.3 % (92-98.5)
--- NOTE | 2019-12-12 17:15 | ER ---
Nurse's Notes [facility] Name: Jelani Martinez Age: 64 yrs Sex: Male : 1955 Arrival Date: 12/12/2019 Time: 14:40 Bed 4 Private MD: Diagnosis: Acute respiratory failure;Aspiration;Chronic kidney disease (CKD) Presentation: 12/11 14:32 Chief complaint: EMS states: were toned out to [facility] for unresponsive iw pt , possible aspiration, respiratory distress, pt was diaphoretic and pale on scene, 80's O2 sat, unresponsive, EMS assisted ventilation via BVM, pt seemed to come around, sats up to 95% on NRB, was able to follow commands, pt arrives to ER, spontaneous respirations, 95% on NRB, all other VS stable. Pt had 3 liters off. 14:52 Ebola Screen: Patient negative for fever greater than or equal to 101.5 degrees iw Fahrenheit, and additional compatible Ebola Virus Disease symptoms Patient denies exposure to infectious person. Patient denies travel to an Ebola-affected area in the 21 days before illness onset. No symptoms or risks identified at this time. Risk Assessment: Do you want to hurt yourself or someone else? Patient reports no desire to harm self or others. Onset of symptoms was December 12, 2019. 14:52 Method Of Arrival: EMS: [facility] iw 14:52 Acuity: SHINE 2 iw 19:14 Coronavirus screen: At this time, the client does not indicate any symptoms associated rv with coronavirus-19. Initial Sepsis Screen: Does the patient meet any 2 criteria? No. Patient's initial sepsis screen is negative. Does the patient have a suspected source of infection? No. Patient's initial sepsis screen is negative. Historical: - Allergies: 15:01 No Known Allergies; iw - PMHx: 14:54 "impared cognition, AEB forgetfulness"; anemia-iron; Blind in Both Eyes; CAD; Diabetes iw - IDDM; Dialysis; electrolyte/fluid imbalances; ESRD; HYPERGLYCEMIA; Hyperlipidemia; hyperparathyroidism; hypocalcemia; neuropathy; osteomyolitis; pressure ulcer R foot; - Immunization history:: Adult Immunizations unknown. - Social history:: Smoking status: unknown. Screenin:50 Abuse screen: no apparent signs noted. Nutritional screening: No deficits noted. em Tuberculosis screening: No symptoms or risk factors identified. Fall Risk No fall in past 12 months (0 pts). Secondary diagnosis (15 points) impaired mobility, IV access (20 points). Ambulatory Aid- None/Bed Rest/Nurse Assist (0 pts). Total Up Fall Scale indicates High Risk Score (45 or more points). Side Rails Up X 2 Placed Close to Nursing Station Frequent Obs/Assessments Occuring. Assessment: 14:50 General: Appears in no apparent distress. unkempt, Behavior is calm, cooperative. Pain: em Denies pain. Neuro: Level of Consciousness is awake, alert, obeys commands, Oriented to person. Cardiovascular: Capillary refill < 3 seconds Patient's skin is warm and dry. Rhythm is sinus rhythm. Respiratory: Reports cough that is Airway is patent Respiratory effort is even, shallow, Respiratory pattern is regular, Breath sounds are diminished. Derm: Skin is intact, is healthy with good turgor, Skin is pink, warm \\T\\ dry. Musculoskeletal: Amputation of right knee, right sanabria, anterior aspect of right ankle, dorsum of right foot, left knee, left sanabria, anterior aspect of left ankle and dorsum of left foot. 15:50 Reassessment: Patient appears in no apparent distress at this time. No changes from em previously documented assessment. 17:09 Reassessment: Patient appears in no apparent distress at this time. No changes from em previously documented assessment. Patient is alert, oriented x 3, equal unlabored respirations, skin warm/dry/pink. Patient denies pain at this time. 18:10 Reassessment: report given to Tisha at [facility], pending EMS transportation. em 19:13 General: Appears in no apparent distress. Behavior is calm, cooperative. Pain: Denies ea pain. Neuro: Level of Consciousness is awake, alert, obeys commands, Oriented to person. Cardiovascular: Patient's skin is warm and dry. Respiratory: Airway is patent Respiratory effort is even, Respiratory pattern is regular. Derm: Skin is dry, Skin is normal, Skin temperature is warm. Vital Signs: 14:50 BP 145 / 62; Pulse 66; Resp 22 S; Temp 97.0(A); Pulse Ox 95% on Non-rebreather mask; iw Pain 0/10; 15:55 BP 146 / 61; Pulse 68; Resp 20; Pulse Ox 100% on Non-rebreather mask; em 18:10 BP 208 / 95; Pulse 68; Resp 22; Pulse Ox 98% on 3 lpm NC; em 18:52 BP 177 / 80; Pulse 62; Resp 18; Pulse Ox 99% on 3 lpm NC; em ED Course: 14:40 Patient arrived in ED. iw 14:41 Raudel Medina, SHADY is Primary Nurse. em 14:45 Jean Breaux PA is PHCP. jr8 14:45 Orion Brandon MD is Attending Physician. jr8 14:50 Patient has correct armband on for positive identification. Placed in gown. Bed in low em position. Call light in reach. Side rails up X2. laborer cook house on. Pulse ox on. NIBP on. 14:50 Maintain EMS IV. Dressing intact. Good blood return noted. Site clean \\T\\ dry. Gauge \\T\\ em site: 20 R FA. 14:53 Triage completed. iw 15:01 Arm band placed on. iw 15:06 CT Head Brain wo Cont In Process Unspecified. EDMS 15:36 Second set of blood cultures drawn by me. Inserted saline lock: 24 gauge in right hand, dh3 using aseptic technique. Blood collected. 15:41 Blood Culture Adult (2) Sent. dh3 15:48 XRAY Chest (1 view) In Process Unspecified. EDMS 16:52 initiated transfer to [facility] per provider request. mt 17:13 to report given to Dr. Nicole, hospitalist, of [facility]. mt 17:27 Admin approval given by assessment coordinator, Timur Wells. Patient is accepted at [facility] by Dr. Nicole and will be going to room B428. 18:27 [facility] contacted for transport,20 min ETA. mt 19:15 No provider procedures requiring assistance completed. Patient transferred, IV remains ea in place. Administered Medications: 15:54 Drug: Albuterol 2.5 mg Route: Inhalation; em 15:54 Drug: Albuterol 2.5 mg Route: Inhalation; em 15:55 Drug: Albuterol 2.5 mg Route: Inhalation; em 17:25 Drug: Zosyn 2.25 grams Route: IVPB; Infused Over: 60 mins; Site: right forearm; em 18:30 Follow up: IV Status: Completed infusion; IV Intake: 100ml em 18:50 Drug: hydrALAZINE 10 mg Route: IV; Rate: calculated rate; Site: right forearm; em 19:16 Follow up: Response: No adverse reaction; Blood pressure is lowered; IV Status: em Completed infusion 19:55 Drug: hydrALAZINE 10 mg Route: IV; Rate: 1 calculated rate; Site: right forearm; rv 20:35 Follow up: Response: No adverse reaction; IV Status: Completed infusion rv Intake: 18:30 IV: 100ml; Total: 100ml. em Outcome: 17:14 ER care complete, transfer ordered by . jr8 20:36 Transferred by ground EMS to [facility] [facility] [place]. rv 20:36 Condition: stable 20:36 Discharge instructions given to patient, Instructed on the need for transfer, Demonstrated understanding of instructions. 20:39 Patient left the ED. rv Signatures: Dispatcher [employer] EDMS Raudel Medina, RN RN Mikayla Middleton RN RN Jean Breaux PA PA [facility] Beatriz Dawn [facility] Joya Vogt RN RN ea Vicente, Ronaldo RN RN rv Corrections: (The following items were deleted from the chart) 14:53 14:32 Chief complaint: EMS states: were toned out to [facility] for iw unresponsive pt , possible aspiration, respiratory distress, pt was diaphoretic and pale on scene, 80's O2 sat, unresponsive, EMs assisted ventilation via BVM, pt seemed to come around, sats up to 95% on NRB, was able to follow commands, pt arrives to ER, spontaneous respirations, 95% on NRB, all other VS stable iw 14:53 14:32 Chief complaint: EMS states: were toned out to [facility] for iw unresponsive pt , possible aspiration, respiratory distress, pt was diaphoretic and pale on scene, 80's O2 sat, unresponsive, EMS assisted ventilation via BVM, pt seemed to come around, sats up to 95% on NRB, was able to follow commands, pt arrives to ER, spontaneous respirations, 95% on NRB, all other VS stable iw 15:13 14:54 Home Meds: acetaminophen-codeine 300-30 mg Oral tab 1 tab every 4 hours for Pain; [facility] 17:15 16:52 Mental [facility] notified Initiated transfer to [facility] per provider mt request. me 17:16 17:15 Dr to report given to Dr. Nicole, hospitalist, of [facility] 18:31 18:27 [facility] contacted for transport [facility]
--- NOTE | 2019-12-12 17:15 | EDPHYS ---
Physician Documentation [facility] Name: Jelani Martinez Age: 64 yrs Sex: Male : 1955 Arrival Date: 12/12/2019 Time: 14:40 Bed 4 Private MD: ED Physician Orion Brandon HPI: 12/11 16:06 This 64 yrs old Male presents to ER via EMS with complaints of Respiratory jr8 Distress. 16:06 The patient has shortness of breath at rest. Onset: The symptoms/episode began/occurred jr8 acutely, today. Duration: The symptoms are continuous, but are markedly better than the original presentation. The patient's shortness of breath has no apparent modifying factors. Associated signs and symptoms: Pertinent positives: unresponsive . Severity of symptoms: At their worst the symptoms were moderate in the emergency department the symptoms have improved moderately. The patient has not experienced similar symptoms in the past. The patient has not recently seen a physician. 16:12 EMS stated that the Dialysis center though patient had aspirated while being dialized. jr8 EMS stated that patient was diaphoretic with near apnea and cyanosis upon arrival. Had to utilize BVM. Was preparing for intubation when patient came to. Patient now responsive upon arrival. Historical: - Allergies: 15:01 No Known Allergies; iw - PMHx: 14:54 "impared cognition, AEB forgetfulness"; anemia-iron; Blind in Both Eyes; CAD; Diabetes iw - IDDM; Dialysis; electrolyte/fluid imbalances; ESRD; HYPERGLYCEMIA; Hyperlipidemia; hyperparathyroidism; hypocalcemia; neuropathy; osteomyolitis; pressure ulcer R foot; - Immunization history:: Adult Immunizations unknown. - Social history:: Smoking status: unknown. ROS: 17:15 Cardiovascular: Negative for chest pain, palpitations, and edema, Abdomen/GI: Negative jr8 for abdominal pain, nausea, vomiting, diarrhea, and constipation, Back: Negative for injury and pain, MS/Extremity: Negative for injury and deformity, Skin: Negative for injury, rash, and discoloration, Neuro: Negative for headache, weakness, numbness, tingling, and seizure. 17:15 Respiratory: Positive for shortness of breath, wheezing. Exam: 17:15 ENT: Nares patent. No nasal discharge, no septal abnormalities noted. Tympanic jr8 membranes are normal and external auditory canals are clear. Oropharynx with no redness, swelling, or masses, exudates, or evidence of obstruction, uvula midline. Mucous membranes moist. Neck: Trachea midline, no thyromegaly or masses palpated, and no cervical lymphadenopathy. Supple, full range of motion without nuchal rigidity, or vertebral point tenderness. No Meningismus. Cardiovascular: Regular rate and rhythm with a normal S1 and S2. No gallops, murmurs, or rubs. Normal PMI, no JVD. No pulse deficits. Abdomen/GI: Soft, non-tender, with normal bowel sounds. No distension or tympany. No guarding or rebound. No evidence of tenderness throughout. Back: No spinal tenderness. No costovertebral tenderness. Full range of motion. Skin: Warm, dry with normal turgor. Normal color with no rashes, no lesions, and no evidence of cellulitis. MS/ Extremity: Pulses equal, no cyanosis. Neurovascular intact. Full, normal range of motion. Bilateral lower extremity amputee 17:15 Respiratory: the patient does not display signs of respiratory distress, Respirations: tachypnea, that is mild, Breath sounds: wheezing: expiratory that is mild, is heard diffusely. 17:15 Neuro: Orientation: to person, place, Mentation: able to follow commands, inappropriate for stated age, slow to respond, Cranial nerves: CN I not tested, CN II- XII are normal as tested, Motor: moves all fours, Sensation: no obvious gross deficits, seizure activity, is not displayed by the patient, Abnormal movements: there are no abnormal movements. Vital Signs: 14:50 BP 145 / 62; Pulse 66; Resp 22 S; Temp 97.0(A); Pulse Ox 95% on Non-rebreather mask; iw Pain 0/10; 15:55 BP 146 / 61; Pulse 68; Resp 20; Pulse Ox 100% on Non-rebreather mask; em 18:10 BP 208 / 95; Pulse 68; Resp 22; Pulse Ox 98% on 3 lpm NC; em 18:52 BP 177 / 80; Pulse 62; Resp 18; Pulse Ox 99% on 3 lpm NC; em MDM: 14:45 Patient medically screened. [facility] 17:15 Data reviewed: vital signs, nurses notes, lab test result(s), EKG, radiologic studies, [facility] CT scan, plain films. Data interpreted: Pulse oximetry: on room air is 100 %. Interpretation: normal. Counseling: I had a detailed discussion with the patient and/or guardian regarding: the historical points, exam findings, and any diagnostic results supporting the discharge/admit diagnosis, lab results, radiology results, the need to transfer to another facility, Dialysis patient. Still on Amoeba restriction . 12/11 14:46 Order name: Basic Metabolic Panel; Complete Time: 15:39 12/11 14:46 Order name: CBC with Diff; Complete Time: 15:39 12/11 14:46 Order name: LFT's; Complete Time: 15:39 12/11 14:46 Order name: Magnesium; Complete Time: 15:39 12/11 14:46 Order name: NT PRO-BNP; Complete Time: 15:39 12/11 14:46 Order name: PT-INR; Complete Time: 15:55 12/11 14:46 Order name: Troponin (emerg Dept Use Only); Complete Time: 15:39 12/11 14:46 Order name: XRAY Chest (1 view); Complete Time: 23:17 12/11 14:46 Order name: Ckmb; Complete Time: 15:39 12/11 14:46 Order name: CT Head Brain wo Cont; Complete Time: 23:17 12/11 14:46 Order name: Blood Culture Adult (2); Complete Time: 23:17 12/11 15:45 Order name: ABG; Complete Time: 16:13 12/11 14:46 Order name: EKG; Complete Time: 14:46 12/11 14:46 Order name: Cardiac monitoring; Complete Time: 19:16 12/11 14:46 Order name: EKG - Nurse/Tech; Complete Time: 19:16 12/11 14:46 Order name: IV Saline Lock; Complete Time: 15:05 12/11 14:46 Order name: Labs collected and sent; Complete Time: 15:05 12/11 14:46 Order name: O2 Per Protocol; Complete Time: 15:05 12/11 14:46 Order name: O2 Sat Monitoring; Complete Time: 15:05 Administered Medications: 15:54 Drug: Albuterol 2.5 mg Route: Inhalation; em 15:54 Drug: Albuterol 2.5 mg Route: Inhalation; em 15:55 Drug: Albuterol 2.5 mg Route: Inhalation; em 17:25 Drug: Zosyn 2.25 grams Route: IVPB; Infused Over: 60 mins; Site: right forearm; em 18:30 Follow up: IV Status: Completed infusion; IV Intake: 100ml em 18:50 Drug: hydrALAZINE 10 mg Route: IV; Rate: calculated rate; Site: right forearm; em 19:16 Follow up: Response: No adverse reaction; Blood pressure is lowered; IV Status: em Completed infusion 19:55 Drug: hydrALAZINE 10 mg Route: IV; Rate: 1 calculated rate; Site: right forearm; rv 20:35 Follow up: Response: No adverse reaction; IV Status: Completed infusion rv Disposition: 12/12 09:07 Co-signature as Attending Physician, Orion Brandon MD I agree with the assessment and kdr plan of care. Disposition: 12/12/19 17:14 Transfer ordered to Other Acute Care Facility. Diagnosis are Acute respiratory failure, Aspiration, Chronic kidney disease (CKD). - Reason for transfer: Higher level of care. - Accepting physician is Dr. Nicole. - Condition is Stable. - Problem is new. - Symptoms have improved. Addendum: 01/02/2020 23:18 Addendum: Diagnosis: Aspiration Pneumonia . j r8 Signatures: Dispatcher [employer] [facility] Orion Brandon MD MD kdr Munoz, Edgar, RN RN em Williams, Irene RN SHADY Jean Breaux PA PA jr8 Joya Vogt RN RN ea Vicente, Ronaldo, RN RN rv Corrections: (The following items were deleted from the chart) 12/11 15:13 14:54 Home Meds: acetaminophen-codeine 300-30 mg Oral tab 1 tab every 4 hours for Pain; iw 17:47 16:12 CORONAVIRUS+MR.LAB.BRZ ordered. [facility] 20:39 17:14 12/12/2019 17:14 Transfer ordered to Other Acute Care Facility. Diagnosis is rv Acute respiratory failure; Aspiration; Chronic kidney disease (CKD). Reason for transfer: Higher level of care. Accepting physician is Dr. Nicole. Condition is Stable. Problem is new. Symptoms have improved. jr8
[2019-12-12] MEDS ORDERED: HYDRALAZINE HCL 20 MG/ML VIAL ONE ×2 (18:40→20:00)
[2019-12-12 21:10] VITALS: TEMP 97
[2019-12-12 21:14] VITALS: BP 177/80; O2SAT 99
--- NOTE | 2019-12-13 00:32 | RAD REPORT ---
EXAM DESCRIPTION: CT - Head Brain Wo Cont - 12/12/2019 10:22 pm CLINICAL HISTORY: MENTAL STATUS CHANGE Headache, drowsiness COMPARISON: Head Brain Wo Cont dated 05/26/2018; Head Brain Wo Cont dated 06/24/2016 TECHNIQUE: All CT scans are performed using dose optimization technique as appropriate and may inclu de automated exposure control or mA/KV adjustment according to patient size. FINDINGS: No intracranial hemorrhage, hydrocephalus or extra-axial fluid collection.Prominent brain atrophy pattern is noted.No areas of brain edema or evidence of midline shift. Areas of gliosis poste rior left cerebral hemisphere likely related to prior trauma or infarct. Mild fluid is seen in the posterior sphenoid sinuses. The paranasal sinuses and mastoids are otherwis e clear. The calvarium is intact. Chronic calcification of both globes noted. IMPRESSION: No acute intracranial abnormality.
--- NOTE | 2019-12-13 11:40 | EKG ---
Test Date: 2019-12-12 Test Time: 15:54:11 Patternmaker Wood: ERIK MEASUREMENT RESULTS: Intervals: Rate: 66 CO: 180 QRSD: 96 QT: 500 QTc: 524 [place]: P: 15 CO: 180 QRS: -28 T: 98 INTERPRETIVE STATEMENTS: Normal sinus rhythm Inferior infarct, age undetermined T wave abnormality, consider lateral ischemia Prolonged QT Abnormal ECG Compared to ECG 05/07/2019 15:21:59 Myocardial infarct finding now present T-wave abnormality now present Possible ischemia now present Electronically Signed On 12-13-19 11:37:35 CDT by Mauricio Gomez
--- NOTE | 2019-12-13 12:15 | RAD REPORT ---
EXAM DESCRIPTION: RAD - Chest Single View - 12/12/2019 10:22 pm CLINICAL HISTORY: DYSPNEA Chest pain. COMPARISON: Chest Pa And Lat (2 Views) dated 05/07/2019; Chest Single View dated 05/26/2018; Chest Sin gle View dated 10/24/2017; Chest Single View dated 10/23/2017 FINDINGS: Portable technique limits examination quality. The lungs are grossly clear. The heart is upper limit of normal in size. No displaced fractures. IMPRESSION: No acute intrathoracic process suspected.
--- OUTSIDE RECORDS SUMMARY | 2019-12-18 16:44 | XMS REPORT | Clinical Summary ---
:1955 Author Organization [facility] Address [address] [place] [address] Care Team Providers Name Role Phone Pcp, No Primary Care Provider Unavailable Allergies No Known Allergies Medications Medication Sig Dispensed Refills Start End Date Status Date multivitamin per Take 1 tablet by 0 Active tablet mouth daily. zinc sulfate Take 220 mg by 0 Ac tive (ZINCATE) 220 mouth daily. (50) mg capsule calcium carbonate Take 2 tablets by 0 Active (TUMS) 500 mg mouth 3 (three) chewable times daily. tabletIndications : with meals folic acid Take 1 mg by mouth 0 Active (FOLVITE) 1 MG daily. tablet ascorbic acid, Take 500 mg by 0 Active vitamin C, mouth 2 (two) (ASCORBIC ACID times daily. WITH KYLAH HIPS) 500 MG tablet hydrALAZINE Take 25 mg by 0 Acti ve (APRESOLINE) 25 mouth 3 (three) MG tablet times daily. traMADol (ULTRAM) Take 50 mg by 0 Active 50 mg tablet mouth every 8 (eight) hours as needed for Pain. aspirin 81 MG EC Take 81 mg by 0 Active tablet mouth daily. acetaminophen Take 650 mg by 0 A ctive (TYLENOL) 325 MG mouth every 4 tablet (four) hours as needed for Pain. lactulose Take 20 g by mouth 0 A ctive (CHRONULAC) 20 continuous prn. gram/30 mL solution carvedilol Take 2 tablets 0 Acti ve (COREG) 6.25 MG (12.5 mg total) by 9 tablet mouth nightly. insulin detemir Inject 12 Units 10 mL 0 Active U-100 (LEVEMIR) subcutaneously 2 9 100 unit/mL (two) times daily. injection phenytoin Take 5 capsules 150 capsule 0 01/15/20 Ac tive (DILANTIN) 100 MG (500 mg total) by 0 20 ER capsule mouth nightly for 30 days. amLODIPine Take 1 tablet (10 30 tablet 0 01/16/20 A ctive (NORVASC) 10 MG mg total) by mouth 0 20 tablet daily for 30 days. sevelamer Take 1 tablet (800 90 tablet 0 01/15/20 A ctive (RENVELA) 800 mg mg total) by mouth 0 20 tablet 3 (three) times daily with meals for 30 days. amoxicillin-clavu Take 1 tablet by 8 tablet 0 12/19 Active lanate mouth 2 (two) 0 20 (AUGMENTIN) times daily for 4 500-125 mg per days. tablet phenytoin Take 300 mg by 0 12/16/19 Disco ntinued extended mouth daily. 20 (DILANTIN) 300 MG ER capsule gabapentin Take 1 capsule 0 05/22/19 Expi red (NEURONTIN) 100 (100 mg total) by 9 20 MG capsule mouth 3 (three) times daily. sevelamer Take 3 tablets 0 05/22/19 Expir ed (RENVELA) 800 mg (2,400 mg total) 9 20 tablet by mouth 3 (three) times daily with meals. Active Problems Problem Noted Date Hypoxia 12/12/2019 Diabetes mellitus 05/18/2018 Leucocytosis 05/18/2018 Anemia 05/18/2018 Arterial insufficiency of lower extremity 05/17/2018 Hyperkalemia 05/17/2018 ESRD on dialysis 05/17/2018 Encounters Date Type Specialty Care Team Description 12/12/2019 - Hospital Encounter General Internal Devan Nicole; 12/16/2019 Medicine MD Celestine ESRD on dialysis ([facility]); Tej, Hyperglycemia; MD Alton Encephalopath y; Essential hyper tension; Type 2 diabetes mellitus with chronic kidney disease on chronic dialysis, unspecified whether rn long term care insulin use ([facility]); Anemia due to c hronic kidney disease, on chronic dialysis ([facility]) after 12/17/2018 Social History Tobacco Use Types Packs/Day Years [...] six or more drinks on one occasion? No t asked Sex Assigned at Date Recorded Not on file Job Start Date Occupation Industry Not on file Not on file Not on file Travel History Travel Start Travel End No recent travel history available. Last Filed Vital Signs Vital Sign Reading Time Taken Blood Pressure 203/84 12/16/2019 3:00 PM CDT Pulse 81 12/16/2019 3:00 PM CDT Temperature 36.8 C (98.3 F) 12/16/2019 1:00 PM CDT Respiratory Rate 18 12/16/2019 3:00 PM CDT Oxygen Saturation 96% 12/16/2019 2:06 PM CDT Inhaled Oxygen Concentration 21% 12/16/2019 2:06 PM CDT Weight 65.8 kg (145 lb 1.6 oz) 12/16/2019 3:56 AM CDT Height - - Body Mass Index 25.7 12/16/2019 3:56 AM CDT Plan of Treatment Health Maintenance Due Date Last Done Comments COLON CANCER SCREENING COLONOSCOPY 1955 DIABETIC EYE EXAM 1965 DIABETIC FOOT EXAM 1965 URINE MICROALBUMIN 1963 PNEUMOCOCCAL 65+ LOW/MEDIUM RISK (1 of 2 - PCV13) 2018 MEDICARE ANNUAL WELLNESS (YEAR 2 or FIRST YEAR if no 03/14/2019 IPPE) INFLUENZA VACCINE (#1) 2019 01/05/2015 HEMOGLOBIN A1C 06/12/2020 12/13/2019 Implants Implanted Type Area Echo Technician Device Shelf Model / Identifier Expiration Serial / Date Lot Pwdr Cellerate Clgn 1gm Strl [id number] - [id number] Tissue Right: WOUND CARE 11/10/2019 [id number] / Implanted: Qty: 1 on 05/18/2018 by Joshua Jang MD Graft/Subs Knee INNOVATIONS Preclick / ePAR [id number] Procedures Procedure Name Priority Date/Time Associated Comments Diagnosis REPORT OF PROCEDURE - 12/18/2019 10:21 ENDOSCOPY SCAN AM CDT RHYTHM STRIP - SCAN 12/18/2019 10:21 AM CDT POCT-GLUCOSE METER Routine 12/16/2019 11:58 Resul ts for this AM CDT procedure are i n the results section. (MANUAL DIFFERENTIAL) Routine 12/16/2019 4:36 Re sults for this AM CDT procedure are i n the results section. CBC W/PLT COUNT & Routine 12/16/2019 4:36 Result s for this AUTO DIFFERENTIAL AM CDT procedure are in the results section. IRON, TIBC, % SAT. Routine 12/16/2019 4:36 Resul ts for this (WITHOUT FERRITIN) AM CDT procedure are in the results section. PHOSPHORUS Routine 12/16/2019 4:36 Results for this AM CDT procedure are i n the results section. MAGNESIUM Routine 12/16/2019 4:36 Results for this AM CDT procedure are i n the results section. BASIC METABOLIC PANEL Routine 12/16/2019 4:36 Re sults for this (7) AM CDT procedure are i n the results section. CBC W/PLT COUNT & Routine 12/16/2019 4:36 Result s for this AUTO DIFFERENTIAL AM CDT procedure are in the results section. POCT-GLUCOSE METER Routine 12/15/2019 8:37 Resul ts for this PM CDT procedure are i n the results section. POCT-GLUCOSE METER Routine 12/15/2019 11:51 Resul ts for this AM CDT procedure are i n the results section. POCT-GLUCOSE METER Routine 12/15/2019 6:02 Resul ts for this AM CDT procedure are i n the results section. (MANUAL DIFFERENTIAL) Routine 12/15/2019 5:34 Re sults for this AM CDT procedure are i n the results section. CBC W/PLT COUNT & Routine 12/15/2019 5:34 Result s for this AUTO DIFFERENTIAL AM CDT procedure are in the results section. PHOSPHORUS Routine 12/15/2019 5:34 Results for this AM CDT procedure are i n the results section. MAGNESIUM Routine 12/15/2019 5:34 Results for this AM CDT procedure are i n the results section. BASIC METABOLIC PANEL Routine 12/15/2019 5:34 Re sults for this (7) AM CDT procedure are i n the results section. CBC W/PLT COUNT & Routine 12/15/2019 5:34 Result s for this AUTO DIFFERENTIAL AM CDT procedure are in the results section. POCT-GLUCOSE METER Routine 12/14/2019 8:45 Resul ts for this PM CDT procedure are i n the results section. POCT-GLUCOSE METER Routine 12/14/2019 6:35 Resul ts for this PM CDT procedure are i n the results section. POCT-GLUCOSE METER Routine 12/14/2019 1:58 Resul ts for this PM CDT procedure are i n the results section. POCT-GLUCOSE METER Routine 12/14/2019 12:25 Resul ts for this PM CDT procedure are i n the results section. HEPATITIS B SURFACE Routine 12/14/2019 11:16 Resu lts for this ANTIBODY AM CDT procedure are i n the results section. HEPATITIS B SURFACE Routine 12/14/2019 11:16 Resu lts for this ANTIGEN AM CDT procedure are i n the results section. HEMODIALYSIS Routine 12/14/2019 10:02 INPATIENT AM CDT PHENYTOIN LEVEL, Routine 12/14/2019 8:36 Results for this TOTAL AND FREE AM CDT procedure are in the results section. CBC W/PLT COUNT & Routine 12/14/2019 5:18 Result s for this AUTO DIFFERENTIAL AM CDT procedure are in the results section. PHOSPHORUS Routine 12/14/2019 5:18 Results for this AM CDT procedure are i n the results section. MAGNESIUM Routine 12/14/2019 5:18 Results for this AM CDT procedure are i n the results section. BASIC METABOLIC PANEL Routine 12/14/2019 5:18 Re sults for this (7) AM CDT procedure are i n the results section. CBC W/PLT COUNT & Routine 12/14/2019 5:18 Result s for this AUTO DIFFERENTIAL AM CDT procedure are in the results section. KETONE, BLOOD Routine 12/14/2019 5:18 Results fo r this AM CDT procedure are i n the results section. LACTIC ACID, VENOUS Routine 12/14/2019 5:18 Resu lts for this AM CDT procedure are i n the results section. POCT-GLUCOSE METER Routine 12/13/2019 8:56 Resul ts for this PM CDT procedure are i n the results section. POCT-GLUCOSE METER Routine 12/13/2019 4:58 Resul ts for this PM CDT procedure are i n the results section. POCT-GLUCOSE METER Routine 12/13/2019 12:13 Resul ts for this PM CDT procedure are i n the results section. 2D ECHO W/ DOPPLER Routine 12/13/2019 10:17 Resul ts for this (CW/PW/COLOR) AM CDT procedure are in the results section. XR CHEST 1 VIEW Routine 12/13/2019 8:25 Results for this PORTABLE/BEDSIDE AM CDT procedure a re in the results section. POCT-GLUCOSE METER Routine 12/13/2019 6:24 Resul ts for this AM CDT procedure are i n the results section. CBC W/PLT COUNT & STAT 12/13/2019 5:48 Result s for this AUTO DIFFERENTIAL AM CDT procedure are in the results section. PHOSPHORUS Routine 12/13/2019 5:48 Results for this AM CDT procedure are i n the results section. MAGNESIUM Routine 12/13/2019 5:48 Results for this AM CDT procedure are i n the results section. PROTHROMBIN TIME/INR Routine 12/13/2019 5:48 Res ults for this AM CDT procedure are i n the results section. HEPATIC FUNCTION Routine 12/13/2019 5:48 Results for this PANEL AM CDT procedure are i n the results section. HEMOGLOBIN A1C Routine 12/13/2019 5:48 Results f or this AM CDT procedure are i n the results section. BASIC METABOLIC PANEL Routine 12/13/2019 5:48 Re sults for this (7) AM CDT procedure are i n the results section. CBC W/PLT COUNT & STAT 12/13/2019 5:48 Result s for this AUTO DIFFERENTIAL AM CDT procedure are in the results section. BLOOD CULTURE Routine 12/13/2019 5:45 Results fo r this AM CDT procedure are i n the results section. CT CHEST PE TEST Routine 12/13/2019 4:44 Results for this DESIGN AM CDT procedure are i n the results section. SARS-COV2/RT-PCR Routine 12/13/2019 1:07 Results for this ([facility]) AM CDT procedure are in the results section. BASIC METABOLIC PANEL STAT 12/13/2019 1:01 Re sults for this (7) AM CDT procedure are i n the results section. TROPONIN I Routine 12/13/2019 1:01 Results for this AM CDT procedure are i n the results section. BLOOD CULTURE Routine 12/13/2019 1:01 Results fo r this AM CDT procedure are i n the results section. POCT-GLUCOSE METER Routine 12/12/2019 10:21 Resul ts for this PM CDT procedure are i n the results section. after 12/17/2018 Results EKG-SCANNED (12/18/2019 10:21 AM CDT) Narrative Performed At This result has an attachment that is no t available. RHYTHM STRIP - SCAN (12/18/2019 10:21 AM CDT) Narrative Performed At This result has an attachment that is no t available. POC-Glucose meter (12/16/2019 11:58 AM CDT)Only the most recent of13 results within the time period is included. POC-Glucose Meter 173 (H)Comment: : TESTED 70 - 110 mg/dL [facility] [address] [facility] [id number]: In Room Dining Server/Folded Cloth Taper ID = [id number] for Noy Bradley Specimen Blood Performing Organization Address City/State/Zipcode Phone Number [facility] [address] [place] [address] CENTER Manual Differential (12/16/2019 4:36 AM CDT)Only the most recent of2 results within the time period is included. % Neutros (manual) 48 % [facility] % Lymphs (manual) 31 % [facility] % Monos (manual) 4 % [facility] % Eos (manual) 16 % [facility] % Bands (manual) 1 0 - 10 % [facility] # Neutros (manual) 3.79 1.80 - 8.00 K/L [facility] # Lymphs (manual) 2.45 1.48 - 4.50 K/L [facility] # Monos (manual) 0.32 0.00 - 1.30 K/L [facility] # Eos (manual) 1.26 (H) 0.00 - 0.50 K/L [facility] # Bands (manual) 0.1 0.0 - 0.8 K/L [facility] Total Counted 100 [facility] Bands plus Segmented Neutrophils 3.87 [facility] WBC Morphology Normal [facility] Large Platelet Present [facility] Anisocytosis 1+ few [facility] Specimen Blood Performing Organization Address City/State/Zipcode Phone Number [facility] [address] [place], [place] [address] Iron, TIBC, % sat. (without ferritin) (12/16/2019 4:36 AM CDT) Iron 37.0 (L) 45.0 - 170.0 ug/dL [facility] TIBC 174 (L) 250 - 550 ug/dL [facility] Iron % Saturation 21 20 - 55 % [facility] Specimen Blood Narrative Performed At In Room Dining Server ID - ADMIN [facility] Performing Organization Address City/State/Zipcode Phone Number [facility] [address] [place], [place] [address] CBC with platelet count + automated diff (12/16/2019 4:36 AM CDT)Only the most recent of4 resultswithin the time period is included. WBC 7.9 4.0 - 10.0 K/L [facility] RBC 2.86 (L) 4.20 - 5.80 M/L [facility] Hemoglobin 8.8 (L) 13.0 - 16.8 GM/DL [facility] Hematocrit 26.9 (L) 36.0 - 50.0 % [facility] MCV 94.1 82.0 - 99.0 fL [facility] MCH 30.8 27.0 - 33.0 pg [facility] MCHC 32.7 32.0 - 36.0 GM/DL [facility] RDW 14.6 12.0 - 15.0 % [facility] Platelets 260 150 - 430 K/CU MM [facility] MPV 10.6 6.0 - 11.5 fL [facility] nRBC 0 0 - 0 /100 WBC [facility] % Neutros 48 % [facility] % Lymphs 28 % [facility] % Monos 8 % [facility] % Eos 15 % [facility] % Baso 1 % [facility] # Neutros 3.77 1.80 - 8.00 K/L [facility] # Lymphs 2.24 1.48 - 4.50 K/L [facility] # Monos 0.62 0.00 - 1.30 K/L [facility] # Eos 1.18 (H) 0.00 - 0.50 K/L [facility] # Baso 0.05 0.00 - 0.20 K/L [facility] Immature Granulocytes-Relative 0 0 - 0 % [facility] Specimen Blood Performing Organization Address City/[facility]/Zipcode Phone Number [facility] [address] [place], [place] [address] Phosphorus (12/16/2019 4:36 AM CDT)Only the most recent of4 resultswithin the time period is included. Phosphorus 6.2 (H) 2.5 - 4.5 mg/dL [facility] Specimen Blood Narrative Performed At In Room Dining Server ID - ADMIN [facility] Performing Organization Address [facility]/Zipcode Phone Number [facility] [address] [place] [phone] Magnesium (12/16/2019 4:36 AM CDT)Only the most recent of4 resultswithin the time period is included. Magnesium 2.1 1.5 - 3.0 mg/dL [facility] Specimen Blood Narrative Performed At In Room Dining Server ID - ADMIN [facility] Performing Organization Address [facility] Phone Number [facility] [address] [place], [place] [address] Basic Metabolic Panel (12/16/2019 4:36 AM CDT)Only the most recent of5 results within the time period is included. Sodium 140 135 - 148 meq/L [facility] Potassium 4.6 3.6 - 5.5 meq/L [facility] Chloride 99 98 - 106 meq/L [facility] CO2 23 20 - 29 meq/L [facility] BUN 48 (H) 10 - 26 mg/dL [facility] Creatinine 8.79 (H) 0.50 - 1.20 mg/dL [facility] Glucose 67 (L) 70 - 110 mg/dL [facility] Calcium 8.4 (L) 8.5 - 10.5 mg/dL [facility] EGFR 6Comment: ESTIMATED GFR IS NOT mL/min/1.73 sq m [facility] ACCURATE CREATININE CLEARANCE IN PREDICTING GLOMERULAR FILTRATION RATE. ESTIMATED GFR IS NOT APPLICABLE FOR DIALYSIS PATIENTS. Specimen Blood Narrative Performed At In Room Dining Server ID - ADMIN [facility] Performing Organization Address City/[facility]/Zipcode Phone Number [facility] [address] [place], [place] [address] Hepatitis B surface antibody (12/14/2019 11:16 AM CDT) Hep B S Ab <8.0 <8.0 mIU/mL [facility] Specimen Blood Narrative Performed At In Room Dining Server ID - [facility] Performing Organization Address City/State/Zipcode Phone Number [facility] [address] [place] [address] CENTER Hepatitis B surface antigen (12/14/2019 11:16 AM CDT) HBsAg Screen Nonreactive Nonreactive [facility] Specimen Blood Narrative Performed At In Room Dining Server ID - ADMIN [facility] Performing Organization Address [facility] Phone Number [facility] [address] [place] [phone] Phenytoin level, total and free (12/14/2019 8:36 AM CDT) Phenytoin 5.5 (L) 10.0 - 20.0 ug/mL [facility] Dilantin, Free 0.65 (L) 1.00 - 2.00 mcg/ml [facility] Scan Result See Scanned Report [facility] Specimen Blood Narrative Performed At This result has an attachment that is no t available. Performing Organization Address [facility] Phone Number [facility] [address], [address] [place], [place] [address] Lactic acid, venous (12/14/2019 5:18 AM CDT) Lactate, Venous 1.26 0.50 - 2.00 mmol/L [facility] Specimen Blood Narrative Performed At In Room Dining Server ID - ADMIN [facility] Performing Organization Address [facility]/Zipcode Phone Number [facility] [address] [place], [place] [address] Ketone, blood (12/14/2019 5:18 AM CDT) Ketones, Blood 0.0 <0.4 mmol/L [facility] Specimen Blood Performing Organization Address City/State/Zipcode Phone Number [facility] [address] [place], [place] [address] 2D Echo W/Doppler(CW/PW/Color) (12/13/2019 10:17 AM CDT) Ejection Fraction [facility] ECHO HEAR TLAB MKCKESSON CPA Specimen Narrative Performed At Transthoracic Echocardiography Report (T TE) [facility] ECHO HEARTLAB MKCKESSON [facility] Demographics Patient NameCALNOEMI LOUIS,Date of Study12/13/2019 JELANI Gender Male Visit [id number] Race Unknown [id number] Number Date of 1955 Referring Physician Age 64 year(s) SonographerVnitza S Was JENNY brice Interpreting Kelli Faith MD. Physician Procedure Type of Study TTE procedure:2DECHO W DOPPLER(CW/PW/COLOR) (Routine) Indications:Shortness of breath. Clinical History DM, HTN, RENAL DISODER, LEGALLY BLIND. Height: 63 inches Weight: 68.49 kg (151 lbs) BSA: 1.72 m^2 BMI: 26.75 kg/m^2 HR: 82 bpm BP: 109/72 mmHg Summary Technically difficult study with poor endocardial delineation. Grossly normal LV systolic function with an estimated LVEF of 55-59%. Grade 1 diastolic dysfunction. Normal RV size and systolic function. Cannot estimate PA systolic pressure due insufficient TR jet. No pericardial effusion. No previous study to compare from. Signature Findings Left Ventricle The left ventricle is normal in size, wall th ickness, and contractility. Th e visual ejection fraction was estimated 55-59 %. Gr janet 1 diastolic dysfunction (impaired re laxation an d low-normal LA pressure). Left AtriumThe left atrium is not well visualized. Th e left atrium appears normal. Right VentricleThe right ventricle is not well visualized. Th e right ventricular chamber size and sys tolic fu nction are within normal limits. Right Atrium RA size is normal. Aortic Valve The aortic valve is not well visualized, but ap pears normal. Th ere is no aortic stenosis. Th ere is no aortic regurgitation. Mitral Valve The mitral valve is not well visualized. Tr jim mitral regurgitation. Tricuspid ValveThe tricuspid valve is not well visualized. No evidence of tricuspid regurgitation. Es timated peak systolic PA pressure is can not be de termined due to inadequate TR velocity s ignal . Pulmonic Valve No evidence of pulmonary regurgitation. AortaAortic root size (SInus of Valsalva diameter) i s no rmal . PericardiumNo pericardial effusion is visualized. IVC/SVC/PA/PV/PleuralThe inferior vena cava size is normal . Chambers/Structures Left Atrium LA Dimension: 4.09 cm Left Ventricle LVIDd: 3.03 cm LVEDV:35.74 ml LVIDs: 1.9 cm LVESV:11.11 ml LV Septum Diastolic: 1.79 cm LV Septum Systolic: 2.49 cmLV Length: 10.33 cm LV PW Diastolic: 0.98 cm LV FS: 37.3 % LV PW Systolic: 1.79 cm LVOT Diameter: 2.05 cm LVEF: 68.9 % Aorta Ao Root S of Rebeca.: 3.18 cm Doppler/Quantitative Measurements Mitral Valve MV Peak E-Wave: 0.38 m/sMV Peak A-Wave: 0.67 m/s P1/2t: 50.3 msecE/ A Ratio: 0.57 Peak Velocity: 0.85 m/s Peak Gradient: 0.58 mmHg Mean Velocity: 0.64 m/s Deceleration Time: 140.3 msec Mean Gradient: 1.73 mmHgArea (continuity): 1.77 cm^2 MV Area (PHT): 4.37 cm^2 MV VTI: 21.69 cm MV Marcin. Peak: Tissue Doppler E' Septal Velocity: 0.05 m/s E' Lateral Velocity: 0.04 m/s Aortic Valve Cusp Separation: 2.18 cm LVOT Peak Velocity: 0.8 m/sPeak Gradient: 2.54 mmHg Mean Velocity: 0.61 m/s Mean Gradient: 1.65 mmHg LVOT Diameter: 2.05 cmLVOT VTI: 11.62 cm LVOT Area: 3.3 cm^2 LVOT SV:38.33 ml LVOT CO: 3.14 l/min LVOT CI: 1.83 l/min/m^2 Pulmonic Valve Peak Velocity: 1.33 m/s Peak Gradient: 7.05 mmHg Procedure Note Interface, External Ris In - 12/13/2019 9:09 PM CDT Transthoracic Echocardiography Report (TTE) Demographics Patient Name GIOVANNA LOUIS, Date o f Study 12/13/2019 JELANI Gender Male Visit Number [id number] Race Unknown Room N [facility] 428 Number Date of 1955 Referr ing Physic haile Age 64 year(s) Sonogr apher Marcella S [place], [facility] Interp reting Kelli Faith MD. Physic haile Procedure Type of Study TTE procedure:2DECHO W DOPPLE R(CW/PW/COLOR) (Routine) Indications:Shortness of breath. Clinical History DM, HTN, RENAL DISODER, LEGALLY BLIND. Height: 63 inches Weight: 68.49 kg (151 lbs) BSA: 1.72 m^2 BMI: 26.75 kg/m^2 HR: 82 bpm BP: 109/72 mmHg Summary Technically difficult study with poor e ndocardial delineation. Grossly normal LV systolic function wit h an estimated LVEF of 55-59%. Grade 1 diastolic dysfunction. Normal RV size and systolic function. Cannot estimate PA systolic pressure du e insufficient TR jet. No pericardial effusion. No previous study to compare from. Signature Findings Left Ventricle The left ventric le is normal in size, wall thickness, and c ontractility. The visual eject ion fraction was estimated 55-59 %. Grade 1 diastoli c dysfunction (impaired relaxation and low-normal L A pressure). Left Atrium The left atrium is not well visualized. The left atrium appears normal. Right Ventricle The right ventri candido is not well visualized. The right ventri cular chamber size and systolic function are wit hin normal limits. Right Atrium RA size is mila l. Aortic Valve The aortic valve is not well visualized, but appears normal. There is no aort ic stenosis. There is no aort ic regurgitation. Mitral Valve The mitral valve is not well visualized. Trace mitral reg urgitation. Tricuspid Valve The tricuspid va lve is not well visualized. No evidence of t ricuspid regurgitation. Estimated peak s ystolic PA pressure is cannot be determined due t o inadequate TR velocity signal . Pulmonic Valve No evidence of p ulmonary regurgitation. Aorta Aortic root size (SInus of Valsalva diameter) is normal . Pericardium No pericardial e ffusion is visualized. IVC/SVC/PA/PV/Pleural The inferior maria dolores a cava size is normal . Chambers/Structures Left Atrium LA Dimension: 4.09 cm Left Ventricle LVIDd: 3.03 cm LVEDV:35.74 ml LVIDs: 1.9 cm LVESV:11.11 ml LV Septum Diastolic: 1.79 cm LV Septum Systolic: 2.49 cm LV Length: 10.33 cm LV PW Diastolic: 0.98 cm LV FS: 37.3 % LV PW Systolic: 1.79 cm LVOT Diameter: 2.05 cm LVEF: 68.9 % Aorta Ao Root S of Rebeca.: 3.18 cm Doppler/Quantitative Measurements Mitral Valve MV Peak E-Wave: 0.38 m/s M V Peak A-Wave: 0.67 m/s P1/2t: 50.3 msec E /A Ratio: 0.57 Peak Velocity: 0.85 m/s P eak Gradient: 0.58 mmHg Mean Velocity: 0.64 m/s D eceleration Time: 140.3 msec Mean Gradient: 1.73 mmHg A dayne (continuity): 1.77 cm^2 MV Area (PHT): 4.37 cm^2 M V VTI: 21.69 cm MV Marcin. Peak: Tissue Doppler E' Septal Velocity: 0.05 m/s E' Lateral Velocity: 0.04 m/s Aortic Valve Cusp Separation: 2.18 cm LVOT Peak Velocity: 0.8 m/s Pea k Gradient: 2.54 mmHg Mean Velocity: 0.61 m/s Lindsey n Gradient: 1.65 mmHg LVOT Diameter: 2.05 cm LVO T VTI: 11.62 cm LVOT Area: 3.3 cm^2 LVO T SV:38.33 ml LVOT CO: 3.14 l/min LVO T CI: 1.83 l/min/m^2 Pulmonic Valve Peak Velocity: 1.33 m/s Pea k Gradient: 7.05 mmHg Performing Organization Address City/State/[facility] Phone Number [facility] [email or web address] XR chest 1 view portable / bedside (12/13/2019 8:25 AM CDT) Specimen Narrative Performed At FINAL REPORT [employer] RIS TECHNIQUE: Frontal view of the chest. INDICATION: Hypoxia COMPARISON:CT three hours prior IMPRESSION: Lines and hardware: None. Heart and mediastinum: Stable. Lungs and pleura: Multifocal patchy airs pace opacities. No pleural effusion. No pneumothorax. Soft tissues and bones: No acute abnorma lity. Signed: Siva Genao MD Report Verified Date/Time:12/13/2019 12:26:51 Reading Location: [facility] Radiology Readin g Room Procedure Note Interface, External Ris In - 12/13/2019 12:29 PM CDT FINAL REPORT TECHNIQUE: Frontal view of the chest. INDICATION: Hypoxia COMPARISON:CT three hours prior IMPRESSION: Lines and hardware: None. Heart and mediastinum: Stable. Lungs and pleura: Multifocal patchy airs pace opacities. No pleural effusion. No pneumothorax. Soft tissues and bones: No acute abnorma lity. Signed: Siva Genao MD Report Verified Date/Time: 12/13/2019 1 2:26:51 Reading Location: [facility] Radiology [facility] Performing Organization Address City/State/Zipcode Phone Number GE RIS Prothrombin time/INR (12/13/2019 5:48 AM CDT) Protime 11.1 9.3 - 12.0 sec [facility] INR 1.02 <=5.90 [facility] Specimen Blood Narrative Performed At RECOMMENDED COUMADIN/WARFARIN INR THERAP Y RANGES [facility] STANDARD DOSE: 2.0 - 3.0 Includes: PROPHYLAXIS for venous thrombosis, systemic embolization; TREATMENT for venou s thrombosis and/or pulmonary embolus. HIGH RISK: Target INR is 2.5-3.5 for patients with mec hanical heart valves. Final Information (Auto Output) Final Information (Auto Output) Performing Organization Address City/[facility] Phone Number [facility] [address] [place] [phone] Hemoglobin A1c (12/13/2019 5:48 AM CDT) Hemoglobin A1C 6.8 (H) 4.3 - 6.1 % [facility] Specimen Blood Narrative Performed At In Room Dining Server ID - ADMIN [facility] Performing Organization Address [facility] Hospitalconc Phone Number [facility] [address] [place] [phone] Hepatic function panel (12/13/2019 5:48 AM CDT) Protein, Total 7.4 6.0 - 8.5 gm/dL [facility] Albumin 3.8 3.5 - 5.0 g/dL [facility] Total Bilirubin 0.5 0.1 - 1.2 mg/dL [facility] Bilirubin, Direct 0.2 0.0 - 0.4 mg/dL [facility] Alkaline Phosphatase 120 (H) 30 - 115 U/L [facility] AST 15 5 - 40 U/L [facility] ALT 21 5 - 50 U/L [facility] Specimen Blood Narrative Performed At In Room Dining Server ID - ADMIN [facility] Performing Organization Address City/State/[facility]code Phone Number [facility] [address] [place], [place] [phone] Blood Culture - Routine (Left Venipuncture) (12/13/2019 5:45 AM CDT)Only the most recent of2 resultswithin the time period is included. Result No growth in 5 days [facility] Specimen Blood Performing Organization Address City/State/Zipcode Phone Number [facility] [address] [place], [place] [phone] [address] chest PE test design (12/13/2019 4:44 AM CDT) Specimen Narrative Performed At FINAL REPORT [employer] TECHNIQUE: CT scan of the chest WITH int ravenous contrast. Dose modulation, iterative reconstruction, an d/or weight-based adjustment of the mA/kV was utilized to reduce the radiation dose to as low as reasonably achievable. INDICATION: Shortness of breath. COMPARISON: None. FINDINGS: LINES/TUBES: None. PULMONARY ARTERIES: Proximal to the bifu rcation of the main pulmonary artery, the main pulmonary artery is 2.8 cm in diameter.No filling defects within the pulmonary arteries to suggest pulmonary embolus. Suboptimal contrast bolus timing. LUNGS AND AIRWAYS: There are bibasilar, mainly centrilobular groundglass opacities with some more kimberly id consolidation in the deep dependent portion of the left upper lobe . There is some distribution in the right middle lobe as well. PLEURA: The pleural spaces are clear. HEART AND MEDIASTINUM: The visualized th yroid gland is normal. No significant mediastinal, hilar, or axill johanna lymphadenopathy. Prominent but nonenlarged partially calc ified lymph nodes in the mediastinum. This is most likely related to prior granulomatous disease. Small anterior pericardial effu maribel.. Moderate calcification of the aortic arch, descending thoracic aorta, and proximal arch branch vessels. Marked coronary arterial calcification. SOFT TISSUES AND BONES: Unremarkable. UPPER ABDOMEN: Unremarkable. IMPRESSION: 1.Contrast bolus timing is suboptimal. H owever, no central pulmonary embolism is seen. 2.The distribution of the centrilobular groundglass opacities in both bases is nonspecific. The distribution i n the right middle lobe would be atypical for aspiration. However, giv en the consolidation in the dependent portion of the left upper lobe , aspiration is in the differential. This could also be due to an atypical infection. While the pattern is not typical for COVID-19 pneumonia, COVID-19 pneumonia cannot be excluded on the basis of this CT. Signed: Ken Agee MD Report Verified Date/Time:12/13/2019 08:49:06 Reading Location: [facility] [address] [facility] Reading Room - [place] [address] Procedure Note Interface, External Ris In - 12/13/2019 8:51 AM CDT FINAL REPORT TECHNIQUE: CT scan of the chest WITH int ravenous contrast. Dose modulation, iterative reconstruction, an d/or weight-based adjustment of the mA/kV was utilized to reduce the radiation dose to as low as reasonably achievable. INDICATION: Shortness of breath. COMPARISON: None. FINDINGS: LINES/TUBES: None. PULMONARY ARTERIES: Proximal to the bifu rcation of the main pulmonary artery, the main pulmonary artery is 2.8 cm in diameter. No filling defects within the pulmonary arteries to suggest pulmonary embolus. Suboptimal contrast bolus timing. LUNGS AND AIRWAYS: There are bibasilar, mainly centrilobular groundglass opacities with some more kimberly id consolidation in the deep dependent portion of the left upper lobe . There is some distribution in the right middle lobe as well. PLEURA: The pleural spaces are clear. HEART AND MEDIASTINUM: The visualized th yroid gland is normal. No significant mediastinal, hilar, or axill johanna lymphadenopathy. Prominent but nonenlarged partially calc ified lymph nodes in the mediastinum. This is most likely related to prior granulomatous disease. Small anterior pericardial effu maribel.. Moderate calcification of the aortic arch, descending thoracic aorta, and proximal arch branch vessels. Marked coronary arterial calcification. SOFT TISSUES AND BONES: Unremarkable. UPPER ABDOMEN: Unremarkable. IMPRESSION: 1.Contrast bolus timing is suboptimal. H owever, no central pulmonary embolism is seen. 2.The distribution of the centrilobular groundglass opacities in both bases is nonspecific. The distribution i n the right middle lobe would be atypical for aspiration. However, giv en the consolidation in the dependent portion of the left upper lobe , aspiration is in the differential. This could also be due to an atypical infection. While the pattern is not typical for COVID-19 pneumonia, COVID-19 pneumonia cannot be excluded on the basis of this CT. Signed: Ken Agee MD Report Verified Date/Time: 12/13/2019 0 8:49:06 Reading Location: [facility] Reading Room - [place] [id number] Performing Organization Address City/State/Zipcode Phone Number [facility] SARS-CoV2/RT-PCR (Asymptomatic ONLY) (12/13/2019 1:07 AM CDT) SARS-COV2/RT-PCR Negative Not Detected, Negative, [facility] See external report for MEDICAL [facility]ENTER linked test SARS-COV-2 PERFORMING LAB [facility] JAIME [facility] Specimen Other Narrative Performed At Negative result for this test determines that [facility] SARS-CoV-2 RNA was not present in the specimen above the Limit of Detection (LOD).However, Negative results do not preclude SARS-CoV-2 infection and should not be used as the sole basis for treatment or patient management decisions. Negative results must be combined with clinical observations, patient history, and epidemiological information. A false negative result may occur if a specimen is improperly collected, transported or handled.A false negative result should be considered if patient's recent exposures or clinical presentation indicate that COVID-19 (SARS-CoV-2) is likely and diagnostic tests for other causes of illness are negative.Re-testing should be considered in cases of suspected false negatives. The limit of detection for this assay is 800 copies/mL. This SARS CoV-2 test is a real-time RT-PCR test intended for the qualitative detection of nucleic acid from SARS-CoV-2 in a nasopharyngeal swab specimen collected from individuals suspected of COVID-19 by their healthcare provider. This test has not been Food and Drug Administration (FDA) cleared or approved.This is a modified version of an approved Emergency Use Authorization (EUA) and is in the process of review by the FDA. Once authorized by the FDA, the issued EUA will be effective until the declaration that circumstances exist justifying the authorization of the emergency use of in vitro diagnostic tests for detection and/or diagnosis of COVID-19 is terminated under Section 564(b)(2) of the Act or the EUA is revoked under Section 564(g) of the Act. Fact Sheet for Healthcare Providers: https://www.[employer]/sites/default/files/pro duct/documents/Fact_Sheet_HC_Providers_Lyra_SA RS-CoV-2.pdf Fact Sheet for Healthcare Patients: https://www.[employer]/sites/default/files/pro duct/documents/Fact_Sheet_Patients_Lyra_SARS-C oV-2.pdf Performing Laboratory: [address] [place] [address] Performing Organization Address City/State/Zipcode Phone Number [address] [address] CENTER Troponin I (12/13/2019 1:01 AM CDT) Troponin I 0.03 0.00 - 0.15 ng/mL [facility] Specimen Blood Narrative Performed At Troponin I (TnI) levels must be interpreted in the con text of [facility] the presenting symptoms and the clinical findings. Corinna vated TnI levels indicate myocardial damage, but are not specifi c for ischemic heart disease. Elevated TnI levels are seen i n patients with other cardiac conditions (including myoc arditis and congestive heart failure), and slight TnI elevatio ns occur in patients with other conditions, including sepsis, r enal failure, acidosis, acute neurological disease, and per sistent tachyarrhythmia. In Room Dining Server ID - ADMIN Performing Organization Address City/State/Zipcode Phone Number [facility] [address] [place], [place] [address] after 12/17/2018 Insurance Payer Benefit Plan / Group Subscriber ID Type Phone A ddress MEDICARE MEDICARE A B xxxxxxxxxxx Medicare MEDICAID - MEDICAID MEDICAID [employer] xxxxxxxxx Medicaid MGD CARE Non-Contracted Advance Directives For more information, please contact:[facility] [place], [place] [phone] Code Status Date Activated Date Inactivated Comments Full Code 12/12/2019 11:27 PM 12/16/2019 7:13 PM This code status was determined by: Patient Full Code 05/17/2018 4:57 PM 05/22/2018 4:09 PM This code status was determined by: Patient Full Code 05/17/2018 12:40 PM 05/17/2018 4:57 PM This code status was determined by: Patient
--- OUTSIDE RECORDS SUMMARY | 2019-12-18 16:46 | XMS REPORT | Continuity of Care Document ---
:1955 Author Organization [facility] t Address [address] Rosa [address] [place] [id number] Care Team Providers Name Role Phone Pcp, No Primary Care Physician Unavailable VU DANIELS Attending Clinician Unavailable Celestine Daniels MD Attending Clinician Tej HINDS Attending Clinician Ana CARUSO Attending Clinician Unavailable Singer COPE Attending Clinician Lloyd HINDS Attending Clinician Anthony FARIA, G Attending Clinician Doctor Unassigned, Name Attending Clinician Unavailable LIVAN BRYAN Attending Clinician Unavailable TEJ Admitting Clinician Unavailable Lloyd HINDS Admitting Clinician LAKEISHA GRAYSON Admitting Clinician Unavailable Payers Payer Name Policy Policy Number Effective Expiration Source Type Date Date MEDICAREMEDICARE A xxxxxxxxxxx [facility] - MEDICAID MGD xxxxxxxxx [facility] - [id number] Medical Non-Contracted Center Problems Condition Condition Condition Status Onset Resolution Last Treating Co mments Source Name Details Category Date Date Treatment Clinician Date Hypoxia Hypoxia Disease Active 2019-[address] [facility] [address] [facility]01 [facility] - 00:00: Medical 00 Center Diabetes Diabetes Disease Active [facility] Leucocytos Leucocytos Disease Active [facility] is is 05[facility] Anemia Anemia Disease Active [facility] Arterial Arterial Disease Active [facility] insufficie insufficie 05-17 [facility] kes - ncy of ncy of 00:00: Medical lower lower 00 Center extremity extremity Hyperkalem Hyperkalem Disease Active [facility] ia ia 05-17 [facility] ESRD on ESRD on Disease Active [facility] dialysis dialysis 05-17 [facility] :00: Medical 00 Center Allergies, Adverse Reactions, Alerts This patient has no known allergies or adverse reactions. Social History Social Habit Start Date Stop Date Quantity Comments Source History SDWY Alcohol [facility] Std Drinks [facility] History [facility] Alcohol [facility] - Binge [facility] Sex Assigned [facility] History SDOH Alcohol 2018-05-17 2018-05-[address] [facility] Frequency 00:00:00 00:00:00 [facility] Smoking Status Start Date Stop Date Source Never smoker [facility] Ordered Filled Start Stop Current Ordering Indication Dosage Frequency Signature Comments Components Source Medication Medication Date Date Medication? Clinician (SIG) Name Name amLODIPine 2019-03- Yes 10mg QD Take [address] (NORVASC) 0-06 11-05 tablet (10 [facility] - 10 MG 00:00: 23:59 mg total) Medica l tablet 00 :00 by mouth Center daily for 30 days. phenytoin 2019-03- No 300mg QD Take [address] extended 0-05 10-05 mg by [facility] - (DILANTIN) 10:58: 00:00 mouth Medic al 300 MG ER 37 :00 daily. [place] capsule phenytoin 2019-03- Yes 500mg QD Take [address] (DILANTIN) 0-05 11-04 capsules Luke s - 100 MG ER 00:00: 23:59 (500 mg Medi rochelle capsule 00 :00 total) by Center mouth nightly for 30 days. sevelamer 2020-1 2020- Yes 800mg Take [address] (RENVELA) 0-05 11-04 tablet [facility] - 800 mg 00:00: 23:59 (800 mg Medical tablet 00 :00 total) by Center mouth 3 (three) times daily with meals for 30 days. amoxicillin 2019-03 2020- Yes 1{tbl} Q.5D Take [address] -clavulanat 0-05 10-09 tablet by Fern kes - e 00:00: 23:59 mouth 2 Medical (AUGMENTIN) 00 :00 (two) Center 500-125 mg times per tablet daily for 4 days. carvedilol Yes 12.5mg QD Take [address] (COREG) 3-12 tablets [facility] - 6.25 MG 00:00: (12.5 mg Medica l tablet 00 total) by Center mouth nightly. insulin 2018-0 Yes 12U Q.5D Inject 12 [facility] detemir 3-12 Units [facility] - U-100 00:00: subcutaneo Medica l (LEVEMIR) 00 usly 2 Center 100 unit/mL (two) injection times daily. gabapentin 2020- No 100mg Q.[id number] Take [address] (NEURONTIN) 3-12 03-11 [id number] capsule [facility] - 100 MG 00:00: 23:59 3D (100 mg Medical capsule 00 :00 total) by Center mouth 3 (three) times daily. sevelamer 2020- No 2400mg Take [address] (RENVELA) 3-12 03-11 tablets [facility] - 800 mg 00:00: 23:59 (2,400 mg Medic al tablet 00 :00 total) by Center mouth 3 (three) times daily with meals. lactulose 0 Yes 20g Take [address] (CHRONULAC) 3-08 by mouth Luke s - 20 gram/30 12:25: continuous M edical mL solution 18 prn. Center traMADol 0 Yes 50mg Take [address] (ULTRAM) 50 3-08 by mouth Luke s - mg tablet 12:24: every 8 Medic al 02 (eight) Center hours as needed for Pain. aspirin 81 2018-0 Yes 81mg QD Take [address] MG EC 3-08 by mouth [facility] - tablet 12:24: daily. Medical 02 Center acetaminoph Yes 650mg Take [address] en 3-08 mg by [facility] - (TYLENOL) 12:24: mouth Medical 325 MG 02 every 4 Center tablet (four) hours as needed for Pain. ascorbic Yes 500mg Q.5D Take [address] acid, 3-08 mg by [facility] - vitamin C, 12:24: mouth 2 Medi rochelle (ASCORBIC 01 (two) Center ACID WITH times KYLAH HIPS) daily. 500 MG tablet hydrALAZINE Yes 25mg Q.[id number] Take [address] (APRESOLINE 3-08 [id number] by mouth 3 [facility] - ) 25 MG 12:24: 3D (three) Medical tablet 01 times Center daily. calcium Yes 2{tbl} Q.82327609 Take [address] carbonate 3-08 [id number] tablets by [facility] - (TUMS) 500 12:21: 3D mouth 3 Medi rochelle mg chewable 48 (three) Cente r tablet times daily. folic acid Yes 1mg QD Take [address] (FOLVITE) 1 3-08 by mouth Luke s - MG tablet 12:21: daily. Medica l 48 [place] multivitami Yes 1{tbl} QD Take [address] n per 3-08 tablet by [facility] - tablet 12:21: mouth Medical 47 daily. [place] zinc Yes 220mg QD Take [address] sulfate 3-08 mg by [facility] - (ZINCATE) 12:21: mouth Medical 220 (50) mg 47 daily. [place] capsule Vital Signs Vital Name Observation Time Observation Value Comments Source Systolic blood 2019-12-16 15:00:00 203 mm[Hg] [facility] Diastolic blood 2019-12-16 15:00:00 84 mm[Hg] [facility] S t [facility] Heart rate 2019-12-16 15:00:00 81 /min [facility] Respiratory rate 2019-12-16 15:00:00 18 /min [facility] Oxygen saturation in 2019-12-16 14:06:00 96 /min [facility] Arterial blood by Medical Ce nter Pulse oximetry Body temperature 2019-12-16 13:00:00 36.83 [place] [facility] Body weight Measured 2019-12-16 03:56:00 65.817 kg [facility] BMI 2019-12-16 03:56:00 25.70 kg/m2 [facility] Procedures Procedure Date / Time Performed Performing Clinician Romelia e REPORT OF PROCEDURE - 2019-12-18 10:21:33 Provider, Default [facility] ENDOSCOPY SCAN [facility] RHYTHM STRIP - SCAN 2019-12-18 10:21:31 Provider, Default [facility] POCT-GLUCOSE METER 2019-12-16 11:58:00 Vu Daniels [facility] BASIC METABOLIC PANEL 2019-12-16 04:36:00 Vu Daniels [facility] () [facility] MAGNESIUM 2019-12-16 04:36:00 ShiVu villanueva [facility] PHOSPHORUS 2019-12-16 04:36:00 Vu Daniels [facility] IRON, TIBC, % SAT. 2019-12-16 04:36:00 Sharla, Ahmed Gary [facility] (WITHOUT FERRITIN) [facility] W/[facility]T COUNT & AUTO 2019-12-16 04:36:00 Vu Daniels [facility] (MANUAL DIFFERENTIAL) 2019-12-16 04:36:00 Vu Daniels [facility] POCT-GLUCOSE METER 2019-12-15 20:37:00 Vu Daniels [facility] POCT-GLUCOSE METER 2019-12-15 11:51:00 ShiehVu [facility] POCT-GLUCOSE METER 2019-12-15 06:02:00 Vu Daniels [facility] BASIC METABOLIC PANEL 2019-12-15 05:34:00 ShiVu villanueva [facility] () [facility] MAGNESIUM 2019-12-15 05:34:00 ShiVu villanueva [facility] PHOSPHORUS 2019-12-15 05:34:00 ShiVu villanueva [facility] CBC W/PLT COUNT & AUTO 2019-12-15 05:34:00 Vu Daniels [facility] (MANUAL DIFFERENTIAL) 2019-12-15 05:34:00 Vu Daniels [facility] POCT-GLUCOSE METER 2019-12-14 20:45:00 Vu Daniels [facility] POCT-GLUCOSE METER 2019-12-14 18:35:00 Vu Daniels [facility] POCT-GLUCOSE METER 2019-12-14 13:58:00 Vu Daniels [facility] POCT-GLUCOSE METER 2019-12-14 12:25:00 Vu Daniels [facility] HEPATITIS B SURFACE 2019-12-14 11:16:00 Sharla, [facility] Gary [facility] S t [facility] - ANTIGEN [facility] HEPATITIS B SURFACE 2019-12-14 11:16:00 Sharla, [facility] Gary [facility] t [facility] - ANTIBODY [facility] HEMODIALYSIS INPATIENT 2019-12-14 10:02:13 Sharla, [facility] Gary [facility] PHENYTOIN LEVEL, TOTAL 2019-12-14 08:36:[address] [facility] LACTIC ACID, VENOUS 2019-12-14 05:18:00 Sharla, [facility] KETONE, BLOOD 2019-12-14 05:18:00 Sharla [facility] Gary [facility] BASIC METABOLIC PANEL 2019-12-14 05:18:00 Vu Daniels [facility] (7) Medical [place] MAGNESIUM 2019-12-14 05:18:00 Vu Daniels [facility] PHOSPHORUS 2019-12-14 05:18:00 Vu Daniels [facility] CBC W/PLT COUNT & AUTO 2019-12-14 05:18:00 Vu Daniels [facility] POCT-GLUCOSE METER 2019-12-13 20:56:00 Shieh, Vu C. [facility] POCT-GLUCOSE METER 2019-12-13 16:58:00 Vu Daniels [facility] POCT-GLUCOSE METER 2019-12-13 12:13:00 Vu Daniels [facility] 2D ECHO W/ DOPPLER 2019-12-13 10:17:08 [facility] (CW/PW/COLOR) [facility] XR CHEST 1 VIEW 2019-12-13 08:25:00 Reba Ramesh [facility] PORTABLE/BEDSIDE Medical Center POCT-GLUCOSE METER 2019-12-13 06:24:00 Vu Daniels [facility] BASIC METABOLIC PANEL 2019-12-13 05:48:00 [facility] (7) [facility] HEMOGLOBIN A1C 2019-12-13 05:48:00 [facility] HEPATIC FUNCTION PANEL 2019-12-13 05:48:00 [facility] PROTHROMBIN TIME/INR 2019-12-13 05:48:00 [facility] MAGNESIUM 2019-12-13 05:48:00 [facility] PHOSPHORUS 2019-12-13 05:48:00 [facility] CBC W/PLT COUNT & AUTO 2019-12-13 05:48:00 [facility] BLOOD CULTURE 2019-12-13 05:45:00 [facility] CT CHEST PE TEST DESIGN 2019-12-13 04:44:00 [facility] SARS-COV2/RT-PCR ([facility] & 2019-12-13 01:07:00 [facility]) [facility] BLOOD CULTURE 2019-12-13 01:01:00 [facility] TROPONIN I 2019-12-13 01:01:00 [facility] BASIC METABOLIC PANEL 2019-12-13 01:01:00 Alton Burnham [facility] (7) [facility] POCT-GLUCOSE METER 2019-12-12 22:21:00 Vu Daniels [facility] Plan of Care Planned Activity Planned Date Details Comments Source Future Scheduled 2020-06-12 Hemoglobin A1c [facility] kes - Test 00:00:00 measurement Medical Center (procedure) [code = 22862499] Future Scheduled 2019-11-12 INFLUENZA VACCINE (#1) [facility] Test 00:[facility]00 [code = INFLUENZA Medical Ce nter VACCINE (#1)] Future Scheduled 2019-03-[address] [facility] - Test 00:00:00 WELLNESS (YEAR 2 or Medical Center FIRST YEAR if no IPPE) [code = MEDICARE ANNUAL WELLNESS (YEAR 2 or FIRST YEAR if no IPPE)] Future Scheduled 2018 PNEUMOCOCCAL [address] - Test 00:00:00 LOW/MEDIUM RISK (1 of Medica l Center 2 - PCV13) [code = PNEUMOCOCCAL 65+ LOW/MEDIUM RISK (1 of 2 - PCV13)] Future Scheduled [address] DI[address] EYE EXAM [facility] - Test 00:00:00 [code = DIABETIC EYE Medical Center EXAM] Future Scheduled [address] [facility] - Test 00:00:00 examination Medical Center (regime/therapy) [code = 887131793] Future Scheduled 1963 Urine screening [facility] - Test 00:00:00 protein (procedure) Medical Center [code = 730055696] Future Scheduled [address] [facility] St [facility] - Test 00:00:00 malignant [facility] colon (procedure) [code = 190308821] Encounters Start End Encounter Admission Attending Care Care Encounter Source Date/Time Date/Time Type Type Clinicians Facility Department ID 2019-10-21 2019-10-21 Transition Jeronimo Perez [id number] 00:00:00 00:00:00 of Care Chanel Malin [id number] Kateryna [id number] [id number] 2019-10-15 2019-10-19 [facility] Neftaly Ramirez [facility] [id number] 08:31:00 16:20:00 Encounter Cornel Desai [id number] [place] [id number] [place] [id number] 2019-06-04 2019-06-04 Emergency Anthony, [facility] [id number] 18:45:42 22:19:00 Eli Terrell 350.1.13.10 [place] [id number] [place] [id number] 2019-05-05 2019-05-05 Orders Doctor BEBE [id number] 00:00:00 00:00:00 Only Unassigned, MARGI 350.1.13.10 [place] [id number] Results Test Description Test Time Test Comments Results Result Comments Source Blood Culture - Routine (Left Venipuncture) 2019-12-18 10:00 :00 Test Item Value Reference Range Interpretation Comme nts Result (test code = 6463-4) No growth in 5 days [facility] [id number] 10:00:00 Test Item Value Reference Range Interpretation Comments CULTURE (BEAKER) (test No growth in 5 days code = 1095) BLOOD [id number] 07:00:00 Test Item Value Reference Range Interpretation Comments CULTURE (BEAKER) (test No growth in 5 days code = 1095) POC-Glucose [id number] 12:14:00 Test Item Value Reference Range Interpretation Comments POC-Glucose Meter (test 173 mg/dL 70-110 H : TE STED AT [facility] code = 1538) [address] [facility], [place] [id number]: Supervisor Phosphatic Fertilizer/Techni mer ID = [id number] for Noy Bradley Lab Interpretation (test Abnormal code = 04272-6) [facility] [id number] 12:14:00 Test Item Value Reference Range Interpretation Comments POC-GLUCOSE METER 173 mg/dL 70-110 H : TESTED A T [facility] [address] (BEAKER) (test code [address], = 1538) [place] [address]: Supervisor Phosphatic Fertilizer/Techni mer ID = [id number] for Noy Pappas CBC with platelet count + automated [id number] 05:16:00 Test Item Value Reference Range Interpretation Comments WBC (test code = 6690-2) 7.9 4.0- 10.0 K/L RBC (test code = 789-8) 2.86 4.20- 5.80 M/L L MCHC (test code = 786-4) 32.7 32.0- 36.0 GM/DL L Hematocrit (test code = 4544-3) 26.9 % 36-50 L MCV (test code = 787-2) 94.1 fL 82-99 MCH (test code = 785-6) 30.8 pg 27-33 RDW (test code = 788-0) 14.6 % 12-15 Platelets (test code = 777-3) 260 150- 430 K/CU MM MPV (test code = 77930-4) 10.6 fL 6-11.5 nRBC (test code = 413) 0 0- 0 /100 WBC % Neutros (test code = 429) 48 % % Lymphs (test code = 430) 28 % % Monos (test code = 431) 8 % % Eos (test code = 432) 15 % % Baso (test code = 437) 1 % # Neutros (test code = 670) 3.77 1.80- 8.00 K/L # Lymphs (test code = 414) 2.24 1.48- 4.50 K/L # Monos (test code = 415) 0.62 0.00- 1.30 K/L # Eos (test code = 416) 1.18 0.00- 0.50 K/L H # Baso (test code = 417) 0.05 0.00- 0.20 K/L Immature Granulocytes-Relative 0 % 0-0 (test code = 2801) Lab Interpretation (test code = Abnormal 13527-9) [facility] [id number] 05:16:00 Test Item Value Reference Range Interpretation Comments % Neutros (manual) (test code = 48 % 1359) % Lymphs (manual) (test code = 31 % 1360) % Monos (manual) (test code = 1361) 4 % % Eos (manual) (test code = 1362) 16 % % Bands (manual) (test code = 1348) 1 % 0-10 # Neutros (manual) (test code = 3.79 1.80- 8.00 K/L 1365) # Lymphs (manual) (test code = 2.45 1.48- 4.50 K/L 1366) # Monos (manual) (test code = 1367) 0.32 0.00- 1.30 K/L # Eos (manual) (test code = 1368) 1.26 0.00- 0.50 K/L H # Bands (manual) (test code = 1349) 0.1 0.0- 0.8 K/L Total Counted (test code = 1351) 100 Bands plus Segmented Neutrophils 3.87 (test code = 1352) WBC Morphology (test code = 487) Normal Large Platelet (test code = 2156) Present Anisocytosis (test code = 961) 1+ few Lab Interpretation (test code = Abnormal 08653-4) [facility] W/PLT COUNT & AUTO [id number] 05:16:00 Test Item Value Reference Range Interpretation Comments WHITE BLOOD CELL COUNT (BEAKER) 7.9 K/ L 4.0-10.0 (test code = 775) RED BLOOD CELL COUNT (BEAKER) 2.86 M/ L 4.20-5.80 L (test code = 761) HEMOGLOBIN (BEAKER) (test code = 8.8 GM/DL 13.0-16.8 L 410) HEMATOCRIT (BEAKER) (test code = 26.9 % 36.0-50.0 L 411) MEAN CORPUSCULAR VOLUME (BEAKER) 94.1 fL 82.0-99.0 (test code = 753) MEAN CORPUSCULAR HEMOGLOBIN 30.8 pg 27.0-33.0 (BEAKER) (test code = 751) MEAN CORPUSCULAR HEMOGLOBIN CONC 32.7 GM/DL 32.0-36.0 (BEAKER) (test code = 752) RED CELL DISTRIBUTION WIDTH 14.6 % 12.0-15.0 (BEAKER) (test code = 412) PLATELET COUNT (BEAKER) (test 260 K/CU MM 150-430 code = 756) MEAN PLATELET VOLUME (BEAKER) 10.6 fL 6.0-11.5 (test code = 754) NUCLEATED RED BLOOD CELLS 0 /100 WBC 0-0 (BEAKER) (test code = 413) NEUTROPHILS RELATIVE PERCENT 48 % (BEAKER) (test code = 429) LYMPHOCYTES RELATIVE PERCENT 28 % (BEAKER) (test code = 430) MONOCYTES RELATIVE PERCENT 8 % (BEAKER) (test code = 431) EOSINOPHILS RELATIVE PERCENT 15 % (BEAKER) (test code = 432) BASOPHILS RELATIVE PERCENT 1 % (BEAKER) (test code = 437) NEUTROPHILS ABSOLUTE COUNT 3.77 K/ L 1.80-8.00 (BEAKER) (test code = 670) LYMPHOCYTES ABSOLUTE COUNT 2.24 K/ L 1.48-4.50 (BEAKER) (test code = 414) MONOCYTES ABSOLUTE COUNT (BEAKER) 0.62 K/ L 0.00-1.30 (test code = 415) EOSINOPHILS ABSOLUTE COUNT 1.18 K/ L 0.00-0.50 H (BEAKER) (test code = 416) BASOPHILS ABSOLUTE COUNT (BEAKER) 0.05 K/ L 0.00-0.20 (test code = 417) IMMATURE GRANULOCYTES-RELATIVE 0 % 0-0 PERCENT (BEAKER) (test code = 2801) (MANUAL DIFFERENTIAL)2019-12-16 05:16:00 Test Item Value Reference Range Interpretation Comments NEUTROPHILS - REL (DIFF) (BEAKER) 48 % (test code = 1359) LYMPHOCYTES - REL (DIFF) (BEAKER) 31 % (test code = 1360) MONOCYTES - REL (DIFF) (BEAKER) 4 % (test code = 1361) EOSINOPHILS - REL (DIFF) (BEAKER) 16 % (test code = 1362) BANDS - REL (DIFF) (BEAKER) (test 1 % 0-10 code = 1348) NEUTROPHILS - ABS (DIFF) (BEAKER) 3.79 K/ L 1.80-8.00 (test code = 1365) LYMPHOCYTES - ABS (DIFF) (BEAKER) 2.45 K/ L 1.48-4.50 (test code = 1366) MONOCYTES - ABS (DIFF) (BEAKER) 0.32 K/ L 0.00-1.30 (test code = 1367) EOSINOPHILS - ABS (DIFF) (BEAKER) 1.26 K/ L 0.00-0.50 H (test code = 1368) BANDS-ABS (DIFF) (BEAKER) (test 0.1 K/ L 0.0-0.8 code = 1349) TOTAL COUNTED (BEAKER) (test code = 100 1351) BANDS + SEGMENTED NEUTROPHILS 3.87 (BEAKER) (test code = 1352) WBC MORPHOLOGY (BEAKER) (test code Normal = 487) LARGE PLT(BEAKER) (test code = Present 2156) ANISOCYTOSIS (BEAKER) (test code = 1+ few 961) Basic Metabolic [id number] 05:14:00 Test Item Value Reference Range Interpretation Comments Sodium (test code = 140 meq/L 461-983 3852-2) Potassium (test code = 4.6 meq/L 3.6-5.5 2823-3) Chloride (test code = 99 meq/L 98-106 2075-0) CO2 (test code = 23 meq/L 20-29 2028-9) BUN (test code = 48 mg/dL 10-26 H 3094-0) Creatinine (test code 8.79 mg/dL 0.5-1.2 H = 2160-0) Glucose (test code = 67 mg/dL 70-110 L 2345-7) Calcium (test code = 8.4 mg/dL 8.5-10.5 L 51275-4) EGFR (test code = 6 mL/min/1.73 [place] [address]-3) NOT ACCURATE CREATININE CLEARANCE IN PREDICTING GLOMERULAR FILTRATION RATE . ESTIMATED GFR I S NOT APPLICABLE FOR DIALYSIS PATIENTS. GERBER (test code = GERBER) Supervisor Phosphatic Fertilizer ID - ADMIN Lab Interpretation Abnormal (test code = 41699-4) [facility], TIBC, % sat. (without ferritin)2019-12-16 05:14:00 Test Item Value Reference Range Interpretation Comments Iron (test code = 2498-4) 37.0 ug/dL 45-170 L TIBC (test code = 2500-7) 174 ug/dL 250-550 L Iron % Saturation (test 21 % 20-55 code = 2502-3) GERBER (test code = GERBER) Supervisor Phosphatic Fertilizer ID - ADMIN Lab Interpretation (test Abnormal code = 93099-2) [facility]I METABOLIC [id number] 05:14:00 Test Item Value Reference Range Interpretation Comments SODIUM (BEAKER) 140 meq/L 135-148 (test code = 381) POTASSIUM (BEAKER) 4.6 meq/L 3.6-5.5 (test code = 379) CHLORIDE (BEAKER) 99 meq/L 98-106 (test code = 382) CO2 (BEAKER) (test 23 meq/L 20-29 code = 355) BLOOD UREA NITROGEN 48 mg/dL 10-26 H (BEAKER) (test code = 354) CREATININE (BEAKER) 8.79 mg/dL 0.50-1.20 H (test code = 358) GLUCOSE RANDOM 67 mg/dL 70-110 L (BEAKER) (test code = 652) CALCIUM (BEAKER) 8.4 mg/dL 8.5-10.5 L (test code = 697) EGFR (BEAKER) (test 6 mL/min/1.73 ESTIMAT ED GFR IS code = 1092) sq m NOT ACCURATE CREATININE CLEARANCE IN PREDICTING GLOMERULAR FILTRATION RATE . ESTIMATED GFR I S NOT APPLICABLE FOR DIALYSIS PATIEN TS. Supervisor Phosphatic Fertilizer ID - ADMINIRON, TIBC, % SAT. (WITHOUT FERRITIN)2019-12-16 05:14:00 Test Item Value Reference Range Interpretation Comments IRON (BEAKER) (test code = 547) 37.0 ug/dL 45.0-170.0 L TOTAL IRON BINDING CAPACITY 174 ug/dL 250-550 L (BEAKER) (test code = 769) IRON % SATURATION (2) (BEAKER) 21 % 20-55 (test code = 2590) Supervisor Phosphatic Fertilizer ID - [id number] 05:11:00 Test Item Value Reference Range Interpretation Comments Magnesium (test code = 2.1 mg/dL 1.5-3 99054-0) GERBER (test code = GERBER) Supervisor Phosphatic Fertilizer ID - ADMIN Lab Interpretation (test Normal code = 72847-8) [facility]2020-10-05 05:11:00 Test Item Value Reference Range Interpretation Comments MAGNESIUM (BEAKER) (test code = 2.1 mg/dL 1.5-3.0 627) Supervisor Phosphatic Fertilizer ID - [id number] 05:09:00 Test Item Value Reference Range Interpretation Comments Phosphorus (test code = 6.2 mg/dL 2.5-4.5 H 2777-1) GERBER (test code = GERBER) Supervisor Phosphatic Fertilizer ID - ADMIN Lab Interpretation (test Abnormal code = 09151-3) [facility]OS[facility]US2020-10-05 05:09:00 Test Item Value Reference Range Interpretation Comments PHOSPHORUS (BEAKER) (test code = 6.2 mg/dL 2.5-4.5 H 604) Supervisor Phosphatic Fertilizer ID - ADMINPOCT-GLUCOSE [id number] 20:49:00 Test Item Value Reference Range Interpretation Comments POC-GLUCOSE METER 137 mg/dL 70-110 H : Notified RN/MD: TESTED (BEAKER) (test code AT [facility] [address] = 1538) [place] [id number]: Supervisor Phosphatic Fertilizer/Techni mer ID = [id number] for Jenna Coffman POCT-GLUCOSE [id number] 12:03:00 Test Item Value Reference Range Interpretation Comments POC-GLUCOSE METER 123 mg/dL 70-110 H : TESTED A T [facility] [address] (BEAKER) (test code [address], = 1538) [place] [address]: Supervisor Phosphatic Fertilizer/Techni emr ID = [id number] for Bk Epps Hepatitis B surface [id number] 11:29:00 Test Item Value Reference Range Interpretation Comments Hep B S Ab (test code = <8.0 <8.0 mIU/mL 86619-0) GERBER (test code = GERBER) Supervisor [employer] ID - [id number] Lab Interpretation (test Normal code = 31881-8) [facility] [id number] 11:29:00 Test Item Value Reference Range Interpretation Comments HEPATITIS B SURFACE ANTIBODY < mIU/mL <8.0 (BEAKER) (test code = 647) Supervisor [employer] ID - ROSIANGPOCT-GLUCOSE [id number] 06:13:00 Test Item Value Reference Range Interpretation Comments POC-GLUCOSE METER 85 mg/dL 70-110 : TESTED A T [facility] 1317 (BEAKER) (test code = [address], [address]) [place] [id number]: Supervisor Phosphatic Fertilizer/Techni mer ID = [id number] for Aanu siem, felicity CBC W/PLT COUNT & AUTO [id number] 06:12:00 Test Item Value Reference Range Interpretation Comments WHITE BLOOD CELL COUNT (BEAKER) 8.5 K/ L 4.0-10.0 (test code = 775) RED BLOOD CELL COUNT (BEAKER) 2.94 M/ L 4.20-5.80 L (test code = 761) HEMOGLOBIN (BEAKER) (test code = 9.0 GM/DL 13.0-16.8 L 410) HEMATOCRIT (BEAKER) (test code = 27.6 % 36.0-50.0 L 411) MEAN CORPUSCULAR VOLUME (BEAKER) 93.9 fL 82.0-99.0 (test code = 753) MEAN CORPUSCULAR HEMOGLOBIN 30.6 pg 27.0-33.0 (BEAKER) (test code = 751) MEAN CORPUSCULAR HEMOGLOBIN CONC 32.6 GM/DL 32.0-36.0 (BEAKER) (test code = 752) RED CELL DISTRIBUTION WIDTH 14.6 % 12.0-15.0 (BEAKER) (test code = 412) PLATELET COUNT (BEAKER) (test 251 K/CU MM 150-430 code = 756) MEAN PLATELET VOLUME (BEAKER) 11.0 fL 6.0-11.5 (test code = 754) NUCLEATED RED BLOOD CELLS 0 /100 WBC 0-0 (BEAKER) (test code = 413) NEUTROPHILS RELATIVE PERCENT 49 % (BEAKER) (test code = 429) LYMPHOCYTES RELATIVE PERCENT 26 % (BEAKER) (test code = 430) MONOCYTES RELATIVE PERCENT 8 % (BEAKER) (test code = 431) EOSINOPHILS RELATIVE PERCENT 16 % (BEAKER) (test code = 432) BASOPHILS RELATIVE PERCENT 1 % (BEAKER) (test code = 437) NEUTROPHILS ABSOLUTE COUNT 4.18 K/ L 1.80-8.00 (BEAKER) (test code = 670) LYMPHOCYTES ABSOLUTE COUNT 2.24 K/ L 1.48-4.50 (BEAKER) (test code = 414) MONOCYTES ABSOLUTE COUNT (BEAKER) 0.67 K/ L 0.00-1.30 (test code = 415) EOSINOPHILS ABSOLUTE COUNT 1.37 K/ L 0.00-0.50 H (BEAKER) (test code = 416) BASOPHILS ABSOLUTE COUNT (BEAKER) 0.04 K/ L 0.00-0.20 (test code = 417) IMMATURE GRANULOCYTES-RELATIVE 0 % 0-0 PERCENT (BEAKER) (test code = 2801) (MANUAL DIFFERENTIAL)2019-12-15 06:12:00 Test Item Value Reference Range Interpretation Comments NEUTROPHILS - REL (DIFF) (BEAKER) 53 % (test code = 1359) LYMPHOCYTES - REL (DIFF) (BEAKER) 32 % (test code = 1360) MONOCYTES - REL (DIFF) (BEAKER) 4 % (test code = 1361) EOSINOPHILS - REL (DIFF) (BEAKER) 11 % (test code = 1362) NEUTROPHILS - ABS (DIFF) (BEAKER) 4.51 K/ L 1.80-8.00 (test code = 1365) LYMPHOCYTES - ABS (DIFF) (BEAKER) 2.72 K/ L 1.48-4.50 (test code = 1366) MONOCYTES - ABS (DIFF) (BEAKER) 0.34 K/ L 0.00-1.30 (test code = 1367) EOSINOPHILS - ABS (DIFF) (BEAKER) 0.94 K/ L 0.00-0.50 H (test code = 1368) TOTAL COUNTED (BEAKER) (test code = 100 1351) WBC MORPHOLOGY (BEAKER) (test code Normal = 487) LARGE PLT(BEAKER) (test code = Present 2156) ANISOCYTOSIS (BEAKER) (test code = 1+ few 961) [id number] 06:05:00 Test Item Value Reference Range Interpretation Comments MAGNESIUM (BEAKER) (test code = 2.0 mg/dL 1.5-3.0 627) Supervisor Phosphatic Fertilizer ID - ADMINBASIC METABOLIC [id number] 06:04:00 Test Item Value Reference Range Interpretation Comments SODIUM (BEAKER) 138 meq/L 135-148 (test code = 381) POTASSIUM (BEAKER) 4.3 meq/L 3.6-5.5 (test code = 379) CHLORIDE (BEAKER) 99 meq/L 98-106 (test code = 382) CO2 (BEAKER) (test 23 meq/L 20-29 code = 355) BLOOD UREA NITROGEN 35 mg/dL 10-26 H (BEAKER) (test code = 354) CREATININE (BEAKER) 6.52 mg/dL 0.50-1.20 H (test code = 358) GLUCOSE RANDOM 83 mg/dL 70-110 (BEAKER) (test code = 652) CALCIUM (BEAKER) 8.7 mg/dL 8.5-10.5 (test code = 697) EGFR (BEAKER) (test 9 mL/min/1.73 ESTIMAT ED GFR IS code = 1092) sq m NOT ACCURATE CREATININE CLEARANCE IN PREDICTING GLOMERULAR FILTRATION RATE . ESTIMATED GFR I S NOT APPLICABLE FOR DIALYSIS PATIEN TS. Supervisor Phosphatic Fertilizer ID - [id number] 06:02:00 Test Item Value Reference Range Interpretation Comments PHOSPHORUS (BEAKER) (test code = 5.3 mg/dL 2.5-4.5 H 604) Supervisor Phosphatic Fertilizer ID - ADMINPhenytoin level, total and [id number] 21:57:00 Test Item Value Reference Range Interpretation Comments Phenytoin (test code = 5.5 ug/mL 10-20 L 3968-5) Dilantin, Free (test code 0.65 1.00- 2.00 mcg/ml L = 3969-3) Scan Result (test code = See Scanned Report [id number]) Lab Interpretation (test Abnormal code = 14894-1) [facility], TOTAL AND [id number] 21:57:00 Test Item Value Reference Range Interpretation Comments PHENYTOIN (DILANTIN) 5.5 ug/mL 10.0-20.0 L (BEAKER) (test code = 605) PHENYTOIN FREE (BEAKER) 0.65 mcg/ml 1.00-2.00 L (test code = 847) SCAN RESULT (test code = See Scanned Report [id number]) POCT-GLUCOSE [id number] 20:56:00 Test Item Value Reference Range Interpretation Comments POC-GLUCOSE METER 120 mg/dL 70-110 H : TESTED A T [address] [address] (BEAKER) (test code [address], = 1538) [facility] 77 [address]: Supervisor Phosphatic Fertilizer/Techni mer ID = [id number] for Soco Zaldivar POCT-GLUCOSE [id number] 18:47:00 Test Item Value Reference Range Interpretation Comments POC-GLUCOSE METER 120 mg/dL 70-110 H : TESTED A T [address] [address] (BEAKER) (test code [address], = 1538) [place] [address]: Supervisor Phosphatic Fertilizer/Techni mer ID = [id number] for Kaitlin Amador POCT-GLUCOSE [id number] 14:11:00 Test Item Value Reference Range Interpretation Comments POC-GLUCOSE METER 92 mg/dL 70-110 : TESTED A T [address] (BEAKER) (test code = [address], [address]) [place] [address]: Supervisor Phosphatic Fertilizer/Techni mer ID = [id number] for Kaitlin Amador POCT-GLUCOSE [id number] 12:37:00 Test Item Value Reference Range Interpretation Comments POC-GLUCOSE METER 99 mg/dL 70-110 : TESTED A T [address] (BEAKER) (test code = [address], [address]) [place] [address]: Supervisor Phosphatic Fertilizer/Techni mer ID = [id number] for Liz Brito Hepatitis B surface [id number] 12:10:00 Test Item Value Reference Range Interpretation Comments HBsAg Screen (test code = Nonreactive Nonreactive 5195-3) GERBER (test code = GERBER) Supervisor Phosphatic Fertilizer ID - ADMIN Lab Interpretation (test Normal code = 27620-6) [facility] SURFACE [id number] 12:10:00 Test Item Value Reference Range Interpretation Comments HEPATITIS B SURFACE ANTIGEN (2) Nonreactive Nonreactive (BEAKER) (test code = 2585) Supervisor Phosphatic Fertilizer ID - ADMINBASIC METABOLIC [id number] 06:34:00 Test Item Value Reference Range Interpretation Comments SODIUM (BEAKER) 135 meq/L 135-148 (test code = 381) POTASSIUM (BEAKER) 4.6 meq/L 3.6-5.5 (test code = 379) CHLORIDE (BEAKER) 97 meq/L 98-106 L (test code = 382) CO2 (BEAKER) (test 21 meq/L 20-29 code = 355) BLOOD UREA NITROGEN 54 mg/dL 10-26 H (BEAKER) (test code = 354) CREATININE (BEAKER) 9.10 mg/dL 0.50-1.20 H (test code = 358) GLUCOSE RANDOM 107 mg/dL 70-110 (BEAKER) (test code = 652) CALCIUM (BEAKER) 8.7 mg/dL 8.5-10.5 (test code = 697) EGFR (BEAKER) (test 6 mL/min/1.73 ESTIMAT ED GFR IS code = 1092) sq m NOT ACCURATE CREATININE CLEARANCE IN PREDICTING GLOMERULAR FILTRATION RATE . ESTIMATED GFR I S NOT APPLICABLE FOR DIALYSIS PATIEN TS. Supervisor Phosphatic Fertilizer ID - [id number] 06:13:00 Test Item Value Reference Range Interpretation Comments MAGNESIUM (BEAKER) (test code = 2.2 mg/dL 1.5-3.0 627) Supervisor Phosphatic Fertilizer ID - ADMINKetone, [id number] 06:12:00 Test Item Value Reference Range Interpretation Comments Ketones, Blood (test code = 1103) 0.0 mmol/L <0.4 Lab Interpretation (test code = Normal 06397-8) [facility]ET[facility], [id number] 06:12:00 Test Item Value Reference Range Interpretation Comments KETONES, BLOOD (BEAKER) (test code 0.0 mmol/L <0.4 = 1103) [id number] 06:10:00 Test Item Value Reference Range Interpretation Comments PHOSPHORUS (BEAKER) (test code = 5.0 mg/dL 2.5-4.5 H 604) Supervisor Phosphatic Fertilizer ID - ADMINCBC W/PLT COUNT & AUTO [id number] 06:06:00 Test Item Value Reference Range Interpretation Comments WHITE BLOOD CELL COUNT (BEAKER) 14.9 K/ L 4.0-10.0 H (test code = 775) RED BLOOD CELL COUNT (BEAKER) 3.11 M/ L 4.20-5.80 L (test code = 761) HEMOGLOBIN (BEAKER) (test code = 9.5 GM/DL 13.0-16.8 L 410) HEMATOCRIT (BEAKER) (test code = 28.8 % 36.0-50.0 L 411) MEAN CORPUSCULAR VOLUME (BEAKER) 92.6 fL 82.0-99.0 (test code = 753) MEAN CORPUSCULAR HEMOGLOBIN 30.5 pg 27.0-33.0 (BEAKER) (test code = 751) MEAN CORPUSCULAR HEMOGLOBIN CONC 33.0 GM/DL 32.0-36.0 (BEAKER) (test code = 752) RED CELL DISTRIBUTION WIDTH 15.0 % 12.0-15.0 (BEAKER) (test code = 412) PLATELET COUNT (BEAKER) (test 255 K/CU MM 150-430 code = 756) MEAN PLATELET VOLUME (BEAKER) 11.5 fL 6.0-11.5 (test code = 754) NUCLEATED RED BLOOD CELLS 0 /100 WBC 0-0 (BEAKER) (test code = 413) NEUTROPHILS RELATIVE PERCENT 67 % (BEAKER) (test code = 429) LYMPHOCYTES RELATIVE PERCENT 18 % (BEAKER) (test code = 430) MONOCYTES RELATIVE PERCENT 6 % (BEAKER) (test code = 431) EOSINOPHILS RELATIVE PERCENT 8 % (BEAKER) (test code = 432) BASOPHILS RELATIVE PERCENT 0 % (BEAKER) (test code = 437) NEUTROPHILS ABSOLUTE COUNT 9.98 K/ L 1.80-8.00 H (BEAKER) (test code = 670) LYMPHOCYTES ABSOLUTE COUNT 2.71 K/ L 1.48-4.50 (BEAKER) (test code = 414) MONOCYTES ABSOLUTE COUNT (BEAKER) 0.87 K/ L 0.00-1.30 (test code = 415) EOSINOPHILS ABSOLUTE COUNT 1.23 K/ L 0.00-0.50 H (BEAKER) (test code = 416) BASOPHILS ABSOLUTE COUNT (BEAKER) 0.06 K/ L 0.00-0.20 (test code = 417) IMMATURE GRANULOCYTES-RELATIVE 1 % 0-0 H PERCENT (BEAKER) (test code = 2801) Lactic acid, [id number] 06:04:00 Test Item Value Reference Range Interpretation Comments Lactate, Venous (test code 1.26 mmol/L 0.5-2 = 2872) GERBER (test code = GERBER) Supervisor Phosphatic Fertilizer ID - ADMIN Lab Interpretation (test Normal code = 85590-0) [facility], [id number] 06:04:00 Test Item Value Reference Range Interpretation Comments LACTATE BLOOD VENOUS (2) (BEAKER) 1.26 mmol/L 0.50-2.00 (test code = 2872) Supervisor Phosphatic Fertilizer ID - [id number] Echo W/Doppler(CW/PW/Color)2019-12-13 21:09:25Ejection FractionSLEH ECHO HEARTLAB MKCKESSON CPACSInterface, External Ris In 12/13/2019 9:09 PM CDTTransthorac Echocardiography Report (TTE) Demographics Patient Name GIOVANNA LOUIS, Date ofStudy 12/13/2019 YAMINI Gender Male Visit Number [id number] Race Unknown RoomNumber 428 Number Date of 1955 Referring Physician Age 64 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 The visual ejection fraction was estimated 55-59 %. Grade 1 diastolic dysfunction (impaired relaxation and low-normalLA pressure). Left Atrium The left atrium is not well visualized.The left atrium appears normal. Right Ventricle The right ventricle is not well visualized. The right ventricular chamber size and systolic function are within normal limits. Right Atrium RA size is normal. Aortic Valve The aortic valve is not well visualized, but appears normal. There is no aortic stenosis. There is no aortic regurgitation. Mitral Valve The mitral valve is not well visualized. Trace mitral regurgitation.Tricuspid Valve The tricuspid valve is not well visualized. No evidence of tricuspid regurgitation. Estimated peak systolic PA pressure is cannot be determined due to inadequate TR velocity signal . Pulmonic Valve No evidence of pulmonary regurgitation. Aorta Aortic root size (SInus of Valsalva diameter) is normal . Pericardium No pericardial effusion is visualized. IVC/SVC/PA/PV/Pleural The inferior vena cava size is normal . [...] Mitral Valve MV Peak E-Wave: 0.38 m/s MV Peak A-Wave: 0.67 m/s P1/2t: 50.3 msec E/A Ratio: 0.57 Peak Velocity: 0.85 m/s Peak Gradient: 0.58 mmHg Mean Velocity: 0.64 m/s Deceleration Time: 140.3 msec Mean Gradient: 1.73 mmHg Area (continuity): 1.77 cm^2 MV Area (PHT): 4.37 cm^2 MV VTI: 21.69 cm MV Marcin. Peak: Tissue Doppler E' Septal Velocity: 0.05 m/s E' Lateral Velocity: 0.04 m/s Aortic Valve Cusp Separation: 2.18 cm LVOT Peak Velocity: 0.8 m/s Peak Gradient: 2.54 mmHg Mean Velocity: 0.61 m/s Mean Gradient: 1.65 mmHg LVOT Diameter: 2.05 cm LVOT VTI: 11.62 cm LVOT Area: 3.3 cm^2 LVOT SV:38.33 ml LVOT CO: 3.14 l/min LVOT CI: 1.83 l/min/m^2 Pulmonic Valve Peak Velocity: 1.33 m/s Peak Gradient: 7.05 mmHgCH[facility] CenterPOCT-GLUCOSE [id number] 21:08:00 Test Item Value Reference Range Interpretation Comments POC-GLUCOSE METER 202 mg/dL 70-110 H : TESTED A T [address] [address] (BEAKER) (test code [address], = 1538) [facility] 77 [address]: Supervisor Phosphatic Fertilizer/Techni mer ID = [id number] for Xi Fletcher POCT-GLUCOSE [id number] 17:10:00 Test Item Value Reference Range Interpretation Comments POC-GLUCOSE METER 207 mg/dL 70-110 H : TESTED A T [address] (BEAKER) (test code [address], = 1538) [place] [address]: Supervisor Phosphatic Fertilizer/Techni mer ID = [id number] for Kaitlin Amador SARS-CoV2/RT-PCR (Asymptomatic ONLY)2019-12-13 14:28:00 Test Item Value Reference Range Interpretation Comments SARS-COV2/RT-PCR Negative Not Detected, (test code = Negative, See 37855-6) external report for linked test SARS-COV-2 [facility] PERFORMING LAB (test code = 83204-3) GERBER (test code = Negative result for this GERBER) test determines that SARS-CoV-2 RNA was not present in the specimen above the Limit of Detection (LOD). However, Negative results do not preclude SARS-CoV-2 infection and should not be used as the sole basis for treatment or patient management decisions. Negative results must be combined with clinical observations, patient history, and epidemiological information. A false negative result may occur if a specimen is improperly collected, transported or handled. A false negative result should be considered if patient's recent exposures or clinical presentation indicate that COVID-19 (SARS-CoV-2) is likely and diagnostic tests for other causes of illness are negative. Re-testing should be considered in cases of suspected [...] Food and Drug Administration (FDA) cleared or approved. This is a modified version of an approved [...] of the Act. Fact Sheet for Healthcare Providers:https://www.[employer]/sites/default/f kimber/product/documents/F act_Sheet_HC_Providers_L zvg_OLDQ-WdT-6.pdf Fact Sheet for Healthcare Patients:https://www.[employer]/sites/default/fi les/product/documents/Fa ct_Sheet_Patients_Lyra_S ARS-CoV-2.pdf Performing Laboratory:[facility]OV2/RT-PCR ([facility])2019-12-13 14:28:00 Test Item Value Reference Range Interpretation Comments SARS-COV2/RT-PCR (test Negative Not Detected, Negative, code = 7084046) See external report for linked test SARS-COV-2 PERFORMING LAB [facility] (test code = 6000240) Negative result for this test determines that SARS-CoV-2 RNA was not present in the specimen above the Limit of Detection (LOD). However, Negative results do not preclude SARS-CoV-2 infection and should not be used as the sole basis for treatment or patient management decisions. Negative results mustbe combined with clinical observations, patient history, and epidemiological information. A false negative result may occur if a specimen is improperly collected, transported or handled. A false negative result should be considered if patient's recent exposures or clinical presentation indicate that COVID-19 (SARS-CoV-2) is likely and diagnostic tests for other causes of illness are negative. Re-testing should be considered in cases of suspected false negatives.The limit of detection for this assay is 800 copies/mL.This SARS CoV-2 test is a real-time RT-PCR test intended for the qualitative detection of nucleic acid from SARS-CoV-2 in a nasopharyngeal swab specimen collected from individuals susp ected of COVID-19 by their healthcare provider.This test has not been Food and Drug Administration (FDA) cleared or approved. This is a modified version of an approved [...] is revoked under Section 564(g) of the Act.Fact Sheet for Healthcare Providers:https://www.[employer]/sites/default/files/product/documents/Fact_Shee b_HJ_Lnzuovkip_Ircm_FIPN-VfI-1.pdfFact Sheet for Healthcare Patients:https://www.[employer]/sites/default/files/product/ documents/Mwvg_Tbqwt_Ylsiprjw_Svdf_SMBR-UmK-1.pdfPerforming Laboratory:[facility], [place] [address]VMG, CHEST, 1 VIEW, NON [id number] 12:26:00Reason for exam:->HypoxiaShould this be performed at the bedside?->YesFINAL REPORT TECHNIQUE: Frontal view of the chest. INDICATION: Hypoxia COMPARISON:CT three hours prior IMPRESSION:Lines and hardware: None.Heart and mediastinum: Stable.Lungs and pleura: Multifocal patchy airspace opacities. No pleural effusion. No pneumothorax.Soft tissues and bones: No acute abnormality. Signed: Marie Nichols MDReport Verified Date/Time: 12/13/2019 12:26:51 Reading Location: [facility] Radiology Reading Room XR chest 1 view portable / [id number] 12:26:00 Interface, External Ris In - 12/13/2019 12:29 PM CDTFINAL REPORT TECHNIQUE: Frontal view of the chest. INDICATION: Hypoxia COMPARISON:CT three hours prior IMPRESSION:Lines and hardware: None.Heart and mediastinum: Stable.Lungs and pleura: Multifocal patchy airspace opacities. Nopleural effusion. No pneumothorax.Soft tissues and bones: No acute abnormality. Signed: Marie Nichols MDReport Verified Date/Time: 12/13/2019 12:26:51 Reading Location: [facility] Radiology [facility] [id number] 12:25:00 Test Item Value Reference Range Interpretation Comments POC-GLUCOSE METER 270 mg/dL 70-110 H : TESTED A T [facility] 1317 (BEAKER) (test code [address], = 1538) [facility] 77 [address]: Supervisor Phosphatic Fertilizer/Techni mer ID = [id number] for Arlyn Pruitt CT, CHEST WITH IV CONTRAST- PE TEST [id number] 08:49:00Unlisted Reason for Exam - Click Yes and Enter Reason Below->NoFINAL REPORT TECHNIQUE: CT scan of the chest WITH intravenous contrast. Dose m odulation, iterative reconstruction, and/or weight-based adjustment of the mA/kV was utilized to reduce the radiation dose to as low as reasonably achievable. INDICATION: Shortness of breath. COMPARISON: None. FINDINGS: LINES/TUBES: None. PULMONARY ARTERIES: Proximal to the bifurcation of the main pulmonary artery, the main pulmonary artery is 2.8 cm in diameter. No filling defects within the pulmonary arteries to suggest pulmonary embolus. Suboptimal contrast bolus timing. LUNGS AND AIRWAYS: There are bibasilar, mainly centrilobular groundglass opacities with some more solid consolidation in the deep dependent portion of the left upper lobe. There is some distribution in the right middle lobe as well. PLEURA: The pleural spaces are clear. HEART AND MEDIASTINUM: The visualized thyroid gland isnormal. No significant mediastinal, hilar, or axillary lymphadenopathy. Prominent but nonenlarged partially calcified lymph nodes in the mediastinum. This is most likely related to prior granulomatous d isease. Small anterior pericardial effusion.. Moderate calcification of the aortic arch, descending thoracic aorta, and proximal arch branch vessels. Marked coronary arterial calcification. SOFT TISSUES AND BONES: Unremarkable. UPPER ABDOMEN: Unremarkable. IMPRESSION: 1.Contrast bolus timing is suboptimal. However, no central pulmonary embolism is seen. 2.The distribution of the centrilobular groundglass opacities in both bases is nonspecific. The distribution in the right middle lobe would be atypical for aspiration. However, given the consolidation in the dependent portion of the left upper lobe, aspiration is in the differential. This could also be due to an atypical infection. While the pattern is not typical for COVID-19 pneumonia, COVID-19 pneumonia cannot be excluded on the basis of this CT. Signed: Ken Agee MDReport Verified Date/Time: 12/13/2019 08:49:06 Reading Location: [facility] Imaging Reading Room - [place] [address] chest PE test [id number] 08:49:00 Interface, External Ris In - 12/13/2019 8:51 AM CDTFINAL REPORT TECHNIQUE: CT scan of the chest WITH intravenous contrast. Dose modulation, iterative reconstruction, and/or weight-based adjustment of the mA/kV was utilized to reduce the radiation dose to as low as reasonably ach ievable. INDICATION: Shortness of breath. COMPARISON: None. FINDINGS: LINES/TUBES: None. PULMONARYARTERIES: Proximal to the bifurcation of the main pulmonary artery, the main pulmonary artery is 2.8cm in diameter. No filling defects within the pulmonary arteries to suggest pulmonary embolus. Suboptimal contrast bolus timing. LUNGS AND AIRWAYS: There are bibasilar, mainly centrilobular groundglass opacities with some more solid consolidation in the deep dependent portion of the left upper lobe. There is some distribution in the right middle lobe as well. PLEURA: The pleural spaces are clear. HEART AND MEDIASTINUM: The visualized thyroid gland is normal. No significant mediastinal, hilar, or axillary lymphadenopathy. Prominent but nonenlarged partially calcified lymph nodes in the mediastinum.This is most likely related to prior granulomatous disease. Small anterior pericardial effusion.. Moderate calcification of the aortic arch, descending thoracic aorta, and proximal arch branch vessels.Marked coronary arterial calcification. SOFT TISSUES AND BONES: Unremarkable. UPPER ABDOMEN: Unremarkable. IMPRESSION: 1.Contrast bolus timing is suboptimal. However, no central pulmonary embolism is seen. 2.The distribution of the centrilobular groundglass opacities in both bases is nonspecific. Thedistribution in the right middle lobe would be atypical for aspiration. However, given the consolidation in the dependent portion of the left upper lobe, aspiration is in the differential. This could also be due to an atypical infection. While the pattern is not typical for COVID-19 pneumonia, COVID-19 pneumonia cannot be excluded on the basis of this CT. Signed: Ken Agee Verified Date/Time: 12/13/2019 08:49:06 Reading Location: [facility] Diagnostic Imaging Reading Room - [place] [address] [address] [facility] [id number] 06:36:00 Test Item Value Reference Range Interpretation Comments POC-GLUCOSE METER 361 mg/dL 70-110 H : TESTED A T [facility] 1317 (BEAKER) (test code [address], = 1538) [facility] 77 478: Supervisor Phosphatic Fertilizer/Techni mer ID = [id number] for Misti Jain BASIC METABOLIC [id number] 06:28:00 Test Item Value Reference Range Interpretation Comments SODIUM (BEAKER) 131 meq/L 135-148 L (test code = 381) POTASSIUM (BEAKER) 4.7 meq/L 3.6-5.5 (test code = 379) CHLORIDE (BEAKER) 95 meq/L 98-106 L (test code = 382) CO2 (BEAKER) (test 19 meq/L 20-29 L code = 355) BLOOD UREA NITROGEN 32 mg/dL 10-26 H (BEAKER) (test code = 354) CREATININE (BEAKER) 7.18 mg/dL 0.50-1.20 H (test code = 358) GLUCOSE RANDOM 366 mg/dL 70-110 H (BEAKER) (test code = 652) CALCIUM (BEAKER) 8.6 mg/dL 8.5-10.5 (test code = 697) EGFR (BEAKER) (test 8 mL/min/1.73 ESTIMAT ED GFR IS code = 1092) sq m NOT ACCURATE CREATININE CLEARANCE IN PREDICTING GLOMERULAR FILTRATION RATE . ESTIMATED GFR I S NOT APPLICABLE FOR DIALYSIS PATIEN TS. Supervisor Phosphatic Fertilizer ID - ADMINHepatic function [id number] 06:27:00 Test Item Value Reference Range Interpretation Comments Protein, Total (test code 7.4 6.0- 8.5 gm/dL = 2885-2) Albumin (test code = 3.8 g/dL 3.5-5 52613-3) Total Bilirubin (test code 0.5 mg/dL 0.1-1.2 = 1975-2) Bilirubin, Direct (test 0.2 mg/dL 0-0.4 code = 1968-7) Alkaline Phosphatase (test 120 U/L 30-115 H code = 6768-6) AST (test code = 1920-8) 15 U/L 5-40 ALT (test code = 1742-6) 21 U/L 5-50 GERBER (test code = GERBER) Supervisor Phosphatic Fertilizer ID - ADMIN Lab Interpretation (test Abnormal code = 69165-7) [id number] 06:27:00 Test Item Value Reference Range Interpretation Comments MAGNESIUM (BEAKER) (test code = 1.7 mg/dL 1.5-3.0 627) Supervisor Phosphatic Fertilizer ID - ADMINHEPATIC FUNCTION [id number] 06:27:00 Test Item Value Reference Range Interpretation Comments TOTAL PROTEIN (BEAKER) (test code = 7.4 gm/dL 6.0-8.5 770) ALBUMIN (BEAKER) (test code = 1145) 3.8 g/dL 3.5-5.0 BILIRUBIN TOTAL (BEAKER) (test code 0.5 mg/dL 0.1-1.2 = 377) BILIRUBIN DIRECT (BEAKER) (test 0.2 mg/dL 0.0-0.4 code = 706) ALKALINE PHOSPHATASE (BEAKER) (test 120 U/L 30-115 H code = 346) AST (SGOT) (BEAKER) (test code = 15 U/L 5-40 353) ALT (SGPT) (BEAKER) (test code = 21 U/L 5-50 347) Supervisor Phosphatic Fertilizer ID - ADMINHemoglobin [id number] 06:26:00 Test Item Value Reference Range Interpretation Comments Hemoglobin A1C (test code 6.8 % 4.3-6.1 H = 4548-4) GERBER (test code = GERBER) Supervisor Phosphatic Fertilizer ID - ADMIN Lab Interpretation (test Abnormal code = 67807-0) [facility] [id number] 06:26:00 Test Item Value Reference Range Interpretation Comments HEMOGLOBIN A1C (BEAKER) (test code = 6.8 % 4.3-6.1 H 368) Supervisor Phosphatic Fertilizer ID - [id number] 06:24:00 Test Item Value Reference Range Interpretation Comments PHOSPHORUS (BEAKER) (test code = 2.9 mg/dL 2.5-4.5 604) Supervisor Phosphatic Fertilizer ID - ADMINProthrombin time/[id number] 06:20:00 Test Item Value Reference Range Interpretation Comments Protime (test code = 11.1 9.3- 12.0 sec 5902-2) INR (test code = 1.02 <=5.90 6301-6) GERBER (test code = GERBER) RECOMMENDED COUMADIN/WARFARIN INR THERAPY RANGESSTANDARD DOSE: 2.0 - 3.0 Includes: PROPHYLAXIS for venous thrombosis, systemic embolization; TREATMENT for venous thrombosis and/or pulmonary embolus.HIGH RISK: Target INR is 2.5-3.5 for patients with mechanical heart valves.Final Information (Auto Output)Final Information (Auto Output) Lab Interpretation Normal (test code = 38981-1) [facility]/[id number] 06:20:00 Test Item Value Reference Range Interpretation Comments PROTIME (BEAKER) (test code = 759) 11.1 sec 9.3-12.0 INR (BEAKER) (test code = 370) 1.02 <=5.90 RECOMMENDED COUMADIN/WARFARIN INR THERAPY RANGESSTANDARD DOSE: 2.0 - 3.0 Includes: PROPHYLAXIS forvenous thrombosis, systemic embolization; TREATMENT for venous thrombosis and/or pulmonary embolus.HIGH RISK: Target INR is 2.5-3.5 for patients with mechanical heart valves.Final Information (Auto Output)Final Information (Auto Output)CBC W/PLT COUNT & AUTO [id number] 06:15:00 Test Item Value Reference Range Interpretation Comments WHITE BLOOD CELL COUNT (BEAKER) 20.6 K/ L 4.0-10.0 H (test code = 775) RED BLOOD CELL COUNT (BEAKER) 3.24 M/ L 4.20-5.80 L (test code = 761) HEMOGLOBIN (BEAKER) (test code = 10.1 GM/DL 13.0-16.8 L 410) HEMATOCRIT (BEAKER) (test code = 29.8 % 36.0-50.0 L 411) MEAN CORPUSCULAR VOLUME (BEAKER) 92.0 fL 82.0-99.0 (test code = 753) MEAN CORPUSCULAR HEMOGLOBIN 31.2 pg 27.0-33.0 (BEAKER) (test code = 751) MEAN CORPUSCULAR HEMOGLOBIN CONC 33.9 GM/DL 32.0-36.0 (BEAKER) (test code = 752) RED CELL DISTRIBUTION WIDTH 14.6 % 12.0-15.0 (BEAKER) (test code = 412) PLATELET COUNT (BEAKER) (test 240 K/CU MM 150-430 code = 756) MEAN PLATELET VOLUME (BEAKER) 11.1 fL 6.0-11.5 (test code = 754) NUCLEATED RED BLOOD CELLS 0 /100 WBC 0-0 (BEAKER) (test code = 413) NEUTROPHILS RELATIVE PERCENT 86 % (BEAKER) (test code = 429) LYMPHOCYTES RELATIVE PERCENT 9 % (BEAKER) (test code = 430) MONOCYTES RELATIVE PERCENT 5 % (BEAKER) (test code = 431) EOSINOPHILS RELATIVE PERCENT 0 % (BEAKER) (test code = 432) BASOPHILS RELATIVE PERCENT 0 % (BEAKER) (test code = 437) NEUTROPHILS ABSOLUTE COUNT 17.65 K/ L 1.80-8.00 H (BEAKER) (test code = 670) LYMPHOCYTES ABSOLUTE COUNT 1.79 K/ L 1.48-4.50 (BEAKER) (test code = 414) MONOCYTES ABSOLUTE COUNT (BEAKER) 0.92 K/ L 0.00-1.30 (test code = 415) EOSINOPHILS ABSOLUTE COUNT 0.05 K/ L 0.00-0.50 (BEAKER) (test code = 416) BASOPHILS ABSOLUTE COUNT (BEAKER) 0.04 K/ L 0.00-0.20 (test code = 417) IMMATURE GRANULOCYTES-RELATIVE 1 % 0-0 H PERCENT (BEAKER) (test code = 2801) BASIC METABOLIC [id number] 01:58:00 Test Item Value Reference Range Interpretation Comments SODIUM (BEAKER) 132 meq/L 135-148 L (test code = 381) POTASSIUM (BEAKER) 4.1 meq/L 3.6-5.5 (test code = 379) CHLORIDE (BEAKER) 95 meq/L 98-106 L (test code = 382) CO2 (BEAKER) (test 19 meq/L 20-29 L code = 355) BLOOD UREA NITROGEN 28 mg/dL 10-26 H (BEAKER) (test code = 354) CREATININE (BEAKER) 6.58 mg/dL 0.50-1.20 H (test code = 358) GLUCOSE RANDOM 260 mg/dL 70-110 H (BEAKER) (test code = 652) CALCIUM (BEAKER) 9.1 mg/dL 8.5-10.5 (test code = 697) EGFR (BEAKER) (test 9 mL/min/1.73 ESTIMAT ED GFR IS code = 1092) sq m NOT ACCURATE CREATININE CLEARANCE IN PREDICTING GLOMERULAR FILTRATION RATE . ESTIMATED GFR I S NOT APPLICABLE FOR DIALYSIS PATIEN TS. Supervisor Phosphatic Fertilizer ID - ADMINTroponin [id number] 01:54:00 Test Item Value Reference Range Interpretation Comments Troponin I (test code = 0.03 ng/mL 0-0.15 24401-2) GERBER (test code = GERBER) Troponin I (TnI) levels must be interpreted in the context of the presenting symptoms and the clinical findings. Elevated TnI levels indicate myocardial damage, but are not specific for ischemic heart disease. Elevated TnI levels are seen in patients with other cardiac conditions (including myocarditis and congestive heart failure), and slight TnI elevations occur in patients with other conditions, including sepsis, renal failure, acidosis, acute neurological disease, and persistent tachyarrhythmia.Opera tor ID - ADMIN Lab Interpretation (test Normal code = 79664-5) [facility] [id number] 01:54:00 Test Item Value Reference Range Interpretation Comments TROPONIN I (BEAKER) (test code = 0.03 ng/mL 0.00-0.15 397) Troponin I (TnI) levels must be interpreted in the context of the presenting symptoms and the clinical findings. Elevated TnI levels indicate myocardial damage, but are not specific for ischemic heart disease. Elevated TnI levels are seen in patients with other cardiac conditions (including myocarditis and congestive heart failure), and slight TnI elevations occur in patients with other conditions, including sepsis, renal failure, acidosis, acute neurological disease, and persistent tachyarrhythmia.Supervisor Phosphatic Fertilizer ID - ADMINPOCT-GLUCOSE METER 2019-12-12 22:33:00 Test Item Value Reference Range Interpretation Comments POC-GLUCOSE METER 299 mg/dL 70-110 H : TESTED A T [facility] (BEAKER) (test code [address], = 1538) [facility] 77 478: Supervisor Phosphatic Fertilizer/Techni mer ID = [id number] for Misti Jain TISSUE [id number] 08:08:00Surgical Pathology Report Case: [id number] Authorizing Provider: Joshua Jang, Collected: 05/18/2018 0923 Ordering Location: [address] Received: 05/18/2018 1028 Cardiovascular Pathologist: Maxime Lau MD Specimen: Leg,Right, ABOVE THE KNEE AMPUTATION PART A RIGHT LEG, ABOVE THE KNEE AMPUTATION:GANGRENOUS NECROSIS OF SKIN AND SOFT TISSUE.CHRONIC OSTEOMYELITIS.CALCIFIC ATHEROSCLEROTIC DISEASE.SKIN, SOFT TISSUE, AND BONE MARGINS ARE UNINVOLVED. Signing Pathologist Direct Phone Line: [phone] signed by Maxime Lau MD on 05/25/2018 at 8:08 [id number], [id number] artery disease, Limb ischemia Right above knee amputationThe specimen is received in a biohazard bag labeled with the patient's information labeled "right above knee amputation" and consists of right above knee amputation with an exposed femur measuring 4.5 cm in length x 3.5cm in diameter. The leg from resection margin to heel measures 52 x 10 cm and foot from great toe heel, 23 x 6.5 cm. The 5th digit has been previously amputated. All toes have blue-purple discolorationwith the previous 5th digit having a necrotic [...] decal; A7, bone marrow at margin. CG/pl PERFORMED.BLOOD [id number] 20:01:00 Test Item Value Reference Range Interpretation Comments CULTURE (BEAKER) (test No growth in 5 days code = 1095) BLOOD [id number] 20:01:00 Test Item Value Reference Range Interpretation Comments CULTURE (BEAKER) (test No growth in 5 days code = 1095) POCT-GLUCOSE [id number] 11:44:00 Test Item Value Reference Range Interpretation Comments POC-GLUCOSE METER 144 mg/dL 70-110 H TESTED AT [facility] 6720 (BEAKER) (test code = [place] [place] [place] 1538) [address] POCT-GLUCOSE [id number] 09:45:00 Test Item Value Reference Range Interpretation Comments POC-GLUCOSE METER 135 mg/dL 70-110 H [facility] AT [place] [address] [facility] (test code = [facility] [place]inic[place] 1538) [address] BASIC METABOLIC [id number] 04:31:00 Test Item Value Reference Range Interpretation Comments SODIUM (BEAKER) 138 meq/L 136-145 (test code = 381) POTASSIUM (BEAKER) 4.1 meq/L 3.5-5.1 (test code = 379) CHLORIDE (BEAKER) 101 meq/L 98-107 (test code = 382) CO2 (BEAKER) (test 23 meq/L 22-29 code = 355) BLOOD UREA NITROGEN 51 mg/dL 7-21 H (BEAKER) (test code = 354) CREATININE (BEAKER) 4.44 mg/dL 0.57-1.25 H (test code = 358) GLUCOSE RANDOM 96 mg/dL 70-105 (BEAKER) (test code = 652) CALCIUM (BEAKER) 8.7 mg/dL 8.4-10.2 (test code = 697) EGFR (BEAKER) (test 13 mL/min/1.73 ESTIMA DEREK GFR IS code = 1092) sq m NOT ACCURATE CREATININE CLEARANCE IN PREDICTING GLOMERULAR FILTRATION RATE . ESTIMATED GFR I S NOT APPLICABLE FOR DIALYSIS PATIEN TS. [id number] 04:29:00 Test Item Value Reference Range Interpretation Comments PHOSPHORUS (BEAKER) (test code = 5.4 mg/dL 2.3-4.7 H 604) [id number] 04:29:00 Test Item Value Reference Range Interpretation Comments MAGNESIUM (BEAKER) (test code = 2.0 mg/dL 1.6-2.6 627) [id number] 04:17:00 Test Item Value Reference Range Interpretation Comments PARTIAL THROMBOPLASTIN TIME 40.1 seconds 22.5-36.0 H (BEAKER) (test code = 760) PROTHROMBIN [id number] 04:16:00 Test Item Value Reference Range Interpretation Comments PROTIME (BEAKER) (test code = 14.9 seconds 11.7-14.7 H 759) INR (BEAKER) (test code = 370) 1.2 <=5.9 RECOMMENDED COUMADIN/WARFARIN INR THERAPY RANGESSTANDARD DOSE: 2.0 - 3.0 Includes: PROPHYLAXIS forvenous thrombosis, systemic embolization; TREATMENT for venous thrombosis and/or pulmonary embolus.HIGH RISK: Target INR is 2.5-3.5 for patients with mechanical heart valves.CBC W/PLT COUNT & AUTO DIFFERENTIAL 2018-05-22 04:09:00 Test Item Value Reference Range Interpretation Comments WHITE BLOOD CELL COUNT (BEAKER) 22.0 K/ L 3.5-10.5 H (test code = 775) RED BLOOD CELL COUNT (BEAKER) 2.68 M/ L 4.63-6.08 L (test code = 761) HEMOGLOBIN (BEAKER) (test code = 8.1 GM/DL 13.7-17.5 L 410) HEMATOCRIT (BEAKER) (test code = 25.1 % 40.1-51.0 L 411) MEAN CORPUSCULAR VOLUME (BEAKER) 93.7 fL 79.0-92.2 H (test code = 753) MEAN CORPUSCULAR HEMOGLOBIN 30.2 pg 25.7-32.2 (BEAKER) (test code = 751) MEAN CORPUSCULAR HEMOGLOBIN CONC 32.3 GM/DL 32.3-36.5 (BEAKER) (test code = 752) RED CELL DISTRIBUTION WIDTH 14.8 % 11.6-14.4 H (BEAKER) (test code = 412) PLATELET COUNT (BEAKER) (test 390 K/CU MM 150-450 code = 756) MEAN PLATELET VOLUME (BEAKER) 10.6 fL 9.4-12.4 (test code = 754) NUCLEATED RED BLOOD CELLS 0 /100 WBC 0-0 (BEAKER) (test code = 413) NEUTROPHILS RELATIVE PERCENT 85 % (BEAKER) (test code = 429) LYMPHOCYTES RELATIVE PERCENT 7 % (BEAKER) (test code = 430) MONOCYTES RELATIVE PERCENT 5 % (BEAKER) (test code = 431) EOSINOPHILS RELATIVE PERCENT 1 % (BEAKER) (test code = 432) BASOPHILS RELATIVE PERCENT 0 % (BEAKER) (test code = 437) NEUTROPHILS ABSOLUTE COUNT 18.70 K/ L 1.78-5.38 H (BEAKER) (test code = 670) LYMPHOCYTES ABSOLUTE COUNT 1.45 K/ L 1.32-3.57 (BEAKER) (test code = 414) MONOCYTES ABSOLUTE COUNT (BEAKER) 1.16 K/ L 0.30-0.82 H (test code = 415) EOSINOPHILS ABSOLUTE COUNT 0.30 K/ L 0.04-0.54 (BEAKER) (test code = 416) BASOPHILS ABSOLUTE COUNT (BEAKER) 0.05 K/ L 0.01-0.08 (test code = 417) IMMATURE GRANULOCYTES-RELATIVE 2 % 0-1 H PERCENT (BEAKER) (test code = 2801) HEPATITIS B SURFACE [id number] 00:38:00 Test Item Value Reference Range Interpretation Comments HEPATITIS B SURFACE ANTIGEN (2) Nonreactive Nonreactive (BEAKER) (test code = 2585) For chronic HD patients, draw HBsAg with each admission then every 30 days.POCT- GLUCOSE [id number] 21:59:00 Test Item Value Reference Range Interpretation Comments POC-GLUCOSE METER 153 mg/dL 70-110 H TESTED AT [facility] 67 ([facility]) (test code = [facility] Mooney [facility] 1538) [address] POCT-GLUCOSE [id number] 17:42:00 Test Item Value Reference Range Interpretation Comments POC-GLUCOSE METER 160 mg/dL 70-110 H TESTED AT [facility] 6720 ([facility]) (test code = [facility]COL[facility] Mooney [facility] 1538) [address] POCT-GLUCOSE [id number] 11:59:00 Test Item Value Reference Range Interpretation Comments POC-GLUCOSE METER 192 mg/dL 70-110 H TESTED AT [facility] 67 ([facility]) (test code = MALCOL[facility] Mooney [facility] 1538) [address] POCT-GLUCOSE [id number] 08:16:00 Test Item Value Reference Range Interpretation Comments POC-GLUCOSE METER 135 mg/dL 70-110 H TESTED AT [facility] 67[address] (BEAKER) (test code = [place] 1538) [address] [id number] 05:05:00 Test Item Value Reference Range Interpretation Comments PHOSPHORUS (BEAKER) (test code = 10.4 mg/dL 2.3-4.7 HH 604) BASIC METABOLIC [id number] 05:01:00 Test Item Value Reference Range Interpretation Comments SODIUM (BEAKER) 136 meq/L 136-145 (test code = 381) POTASSIUM (BEAKER) 5.5 meq/L 3.5-5.1 H (test code = 379) CHLORIDE (BEAKER) 100 meq/L 98-107 (test code = 382) CO2 (BEAKER) (test 20 meq/L 22-29 L code = 355) BLOOD UREA NITROGEN 107 mg/dL 7-21 H (BEAKER) (test code = 354) CREATININE (BEAKER) 7.82 mg/dL 0.57-1.25 H (test code = 358) GLUCOSE RANDOM 116 mg/dL 70-105 H (BEAKER) (test code = 652) CALCIUM (BEAKER) 8.1 mg/dL 8.4-10.2 L (test code = 697) EGFR (BEAKER) (test 7 mL/min/1.73 ESTIMAT ED GFR IS code = 1092) sq m NOT ACCURATE CREATININE CLEARANCE IN PREDICTING GLOMERULAR FILTRATION RATE . ESTIMATED GFR I S NOT APPLICABLE FOR DIALYSIS PATIEN TS. [id number] 04:56:00 Test Item Value Reference Range Interpretation Comments MAGNESIUM (BEAKER) (test code = 2.5 mg/dL 1.6-2.6 627) PROTHROMBIN [id number] 04:35:00 Test Item Value Reference Range Interpretation Comments PROTIME (BEAKER) (test code = 15.1 seconds 11.7-14.7 H 759) INR (BEAKER) (test code = 370) 1.2 <=5.9 RECOMMENDED COUMADIN/WARFARIN INR THERAPY RANGESSTANDARD DOSE: 2.0 - 3.0 Includes: PROPHYLAXIS forvenous thrombosis, systemic embolization; TREATMENT for venous thrombosis and/or pulmonary embolus.HIGH RISK: Target INR is 2.5-3.5 for patients with mechanical heart valves.[id number] 04:35:00 Test Item Value Reference Range Interpretation Comments PARTIAL THROMBOPLASTIN TIME 36.1 seconds 22.5-36.0 H (BEAKER) (test code = 760) CBC W/PLT COUNT & AUTO [id number] 04:26:00 Test Item Value Reference Range Interpretation Comments WHITE BLOOD CELL COUNT (BEAKER) 20.1 K/ L 3.5-10.5 H (test code = 775) RED BLOOD CELL COUNT (BEAKER) 2.79 M/ L 4.63-6.08 L (test code = 761) HEMOGLOBIN (BEAKER) (test code = 8.6 GM/DL 13.7-17.5 L 410) HEMATOCRIT (BEAKER) (test code = 26.8 % 40.1-51.0 L 411) MEAN CORPUSCULAR VOLUME (BEAKER) 96.1 fL 79.0-92.2 H (test code = 753) MEAN CORPUSCULAR HEMOGLOBIN 30.8 pg 25.7-32.2 (BEAKER) (test code = 751) MEAN CORPUSCULAR HEMOGLOBIN CONC 32.1 GM/DL 32.3-36.5 L (BEAKER) (test code = 752) RED CELL DISTRIBUTION WIDTH 15.1 % 11.6-14.4 H (BEAKER) (test code = 412) PLATELET COUNT (BEAKER) (test 376 K/CU MM 150-450 code = 756) MEAN PLATELET VOLUME (BEAKER) 10.7 fL 9.4-12.4 (test code = 754) NUCLEATED RED BLOOD CELLS 0 /100 WBC 0-0 (BEAKER) (test code = 413) NEUTROPHILS RELATIVE PERCENT 78 % (BEAKER) (test code = 429) LYMPHOCYTES RELATIVE PERCENT 13 % (BEAKER) (test code = 430) MONOCYTES RELATIVE PERCENT 7 % (BEAKER) (test code = 431) EOSINOPHILS RELATIVE PERCENT 2 % (BEAKER) (test code = 432) BASOPHILS RELATIVE PERCENT 0 % (BEAKER) (test code = 437) NEUTROPHILS ABSOLUTE COUNT 15.61 K/ L 1.78-5.38 H (BEAKER) (test code = 670) LYMPHOCYTES ABSOLUTE COUNT 2.58 K/ L 1.32-3.57 (BEAKER) (test code = 414) MONOCYTES ABSOLUTE COUNT (BEAKER) 1.38 K/ L 0.30-0.82 H (test code = 415) EOSINOPHILS ABSOLUTE COUNT 0.35 K/ L 0.04-0.54 (BEAKER) (test code = 416) BASOPHILS ABSOLUTE COUNT (BEAKER) 0.03 K/ L 0.01-0.08 (test code = 417) IMMATURE GRANULOCYTES-RELATIVE 1 % 0-1 PERCENT (BEAKER) (test code = 2801) POCT-GLUCOSE [id number] 21:48:00 Test Item Value Reference Range Interpretation Comments POC-GLUCOSE METER 147 mg/dL 70-110 H TESTED AT [facility] 6720 (BEAKER) (test code = [place] 1538) [address] POCT-GLUCOSE [id number] 19:15:00 Test Item Value Reference Range Interpretation Comments POC-GLUCOSE METER 166 mg/dL 70-110 H TESTED AT [facility] 6720 (BEAKER) (test code = [facility] Vinicio [facility] 1538) [address] BASIC METABOLIC [id number] 17:45:00 Test Item Value Reference Range Interpretation Comments SODIUM (BEAKER) 135 meq/L 136-145 L (test code = 381) POTASSIUM (BEAKER) 5.5 meq/L 3.5-5.1 H (test code = 379) CHLORIDE (BEAKER) 99 meq/L 98-107 (test code = 382) CO2 (BEAKER) (test 21 meq/L 22-29 L code = 355) BLOOD UREA NITROGEN 97 mg/dL 7-21 H (BEAKER) (test code = 354) CREATININE (BEAKER) 7.03 mg/dL 0.57-1.25 H (test code = 358) GLUCOSE RANDOM 168 mg/dL 70-105 H (BEAKER) (test code = 652) CALCIUM (BEAKER) 8.0 mg/dL 8.4-10.2 L (test code = 697) EGFR (BEAKER) (test 8 mL/min/1.73 ESTIMAT ED GFR IS code = 1092) sq m NOT ACCURATE CREATININE CLEARANCE IN PREDICTING GLOMERULAR FILTRATION RATE . ESTIMATED GFR I S NOT APPLICABLE FOR DIALYSIS PATIEN TS. [id number] 17:44:00 Test Item Value Reference Range Interpretation Comments PHOSPHORUS (BEAKER) (test code = 9.2 mg/dL 2.3-4.7 HH 604) [id number] 17:42:00 Test Item Value Reference Range Interpretation Comments MAGNESIUM (BEAKER) (test code = 2.4 mg/dL 1.6-2.6 627) POCT-GLUCOSE [id number] 15:14:00 Test Item Value Reference Range Interpretation Comments POC-GLUCOSE METER 197 mg/dL 70-110 H TESTED AT [facility] 6720 (BEAKER) (test code = [facility] 1538) [address] POCT-GLUCOSE [id number] 09:36:00 Test Item Value Reference Range Interpretation Comments POC-GLUCOSE METER 201 mg/dL 70-110 H TESTED AT [facility] 6720 [facility] (test code = [facility] 1538) [address] BASIC METABOLIC [id number] 05:03:00 Test Item Value Reference Range Interpretation Comments SODIUM (BEAKER) 134 meq/L 136-145 L (test code = 381) POTASSIUM (BEAKER) 5.0 meq/L 3.5-5.1 (test code = 379) CHLORIDE (BEAKER) 101 meq/L 98-107 (test code = 382) CO2 (BEAKER) (test 20 meq/L 22-29 L code = 355) BLOOD UREA NITROGEN 83 mg/dL 7-21 H (BEAKER) (test code = 354) CREATININE (BEAKER) 5.92 mg/dL 0.57-1.25 H (test code = 358) GLUCOSE RANDOM 193 mg/dL 70-105 H (BEAKER) (test code = 652) CALCIUM (BEAKER) 8.0 mg/dL 8.4-10.2 L (test code = 697) EGFR (BEAKER) (test 10 mL/min/1.73 ESTIMA DEREK GFR IS code = 1092) sq m NOT ACCURATE CREATININE CLEARANCE IN PREDICTING GLOMERULAR FILTRATION RATE . ESTIMATED GFR I S NOT APPLICABLE FOR DIALYSIS PATIEN TS. [id number] 05:01:00 Test Item Value Reference Range Interpretation Comments PHOSPHORUS (BEAKER) (test code = 7.7 mg/dL 2.3-4.7 H 604) [id number] 05:01:00 Test Item Value Reference Range Interpretation Comments MAGNESIUM (BEAKER) (test code = 2.4 mg/dL 1.6-2.6 627) CBC W/PLT COUNT & AUTO [id number] 04:31:00 Test Item Value Reference Range Interpretation Comments WHITE BLOOD CELL COUNT (BEAKER) 20.3 K/ L 3.5-10.5 H (test code = 775) RED BLOOD CELL COUNT (BEAKER) 2.85 M/ L 4.63-6.08 L (test code = 761) HEMOGLOBIN (BEAKER) (test code = 8.6 GM/DL 13.7-17.5 L 410) HEMATOCRIT (BEAKER) (test code = 27.1 % 40.1-51.0 L 411) MEAN CORPUSCULAR VOLUME (BEAKER) 95.1 fL 79.0-92.2 H (test code = 753) MEAN CORPUSCULAR HEMOGLOBIN 30.2 pg 25.7-32.2 (BEAKER) (test code = 751) MEAN CORPUSCULAR HEMOGLOBIN CONC 31.7 GM/DL 32.3-36.5 L (BEAKER) (test code = 752) RED CELL DISTRIBUTION WIDTH 15.3 % 11.6-14.4 H (BEAKER) (test code = 412) PLATELET COUNT (BEAKER) (test 368 K/CU MM 150-450 code = 756) MEAN PLATELET VOLUME (BEAKER) 10.5 fL 9.4-12.4 (test code = 754) NUCLEATED RED BLOOD CELLS 0 /100 WBC 0-0 (BEAKER) (test code = 413) NEUTROPHILS RELATIVE PERCENT 76 % (BEAKER) (test code = 429) LYMPHOCYTES RELATIVE PERCENT 12 % (BEAKER) (test code = 430) MONOCYTES RELATIVE PERCENT 9 % (BEAKER) (test code = 431) EOSINOPHILS RELATIVE PERCENT 1 % (BEAKER) (test code = 432) BASOPHILS RELATIVE PERCENT 0 % (BEAKER) (test code = 437) NEUTROPHILS ABSOLUTE COUNT 15.53 K/ L 1.78-5.38 H (BEAKER) (test code = 670) LYMPHOCYTES ABSOLUTE COUNT 2.48 K/ L 1.32-3.57 (BEAKER) (test code = 414) MONOCYTES ABSOLUTE COUNT (BEAKER) 1.90 K/ L 0.30-0.82 H (test code = 415) EOSINOPHILS ABSOLUTE COUNT 0.14 K/ L 0.04-0.54 (BEAKER) (test code = 416) BASOPHILS ABSOLUTE COUNT (BEAKER) 0.03 K/ L 0.01-0.08 (test code = 417) IMMATURE GRANULOCYTES-RELATIVE 1 % 0-1 PERCENT (BEAKER) (test code = 2801) [id number] 04:11:00 Test Item Value Reference Range Interpretation Comments PARTIAL THROMBOPLASTIN TIME 41.4 seconds 22.5-36.0 H ([facility]) (test code = 760) PROTHROMBIN [id number] 04:10:00 Test Item Value Reference Range Interpretation Comments PROTIME (BEAKER) (test code = 16.8 seconds 11.7-14.7 H 759) [facility] (test code = 370) 1.3 <=5.9 RECOMMENDED COUMADIN/WARFARIN INR THERAPY RANGESSTANDARD DOSE: 2.0 - 3.0 Includes: PROPHYLAXIS forvenous thrombosis, systemic embolization; TREATMENT for venous thrombosis and/or pulmonary embolus.HIGH RISK: Target INR is 2.5-3.5 for patients with mechanical heart valves.POCT-GLUCOSE [id number] 00:02:00 Test Item Value Reference Range Interpretation Comments POC-GLUCOSE METER 277 mg/dL 70-110 H TESTED AT [place] [address] ([facility]) (test code = [place] 1538) [id number] 20:49:00 Test Item Value Reference Range Interpretation Comments PHOSPHORUS (BEAKER) (test code = 7.4 mg/dL 2.3-4.7 H 604) [id number] 20:49:00 Test Item Value Reference Range Interpretation Comments MAGNESIUM (BEAKER) (test code = 2.3 mg/dL 1.6-2.6 627) POCT-GLUCOSE [id number] 16:21:00 Test Item Value Reference Range Interpretation Comments POC-GLUCOSE METER 220 mg/dL 70-110 H TESTED AT [place] [address] ([facility]) (test code = [place] [facility] 1538) [id number] POCT-GLUCOSE [id number] 11:29:00 Test Item Value Reference Range Interpretation Comments POC-GLUCOSE METER 206 mg/dL 70-110 H TESTED AT [place] [address] ([facility]) (test code = [place] 1538) [id number] CBC W/PLT COUNT & AUTO [id number] 09:00:00 Test Item Value Reference Range Interpretation Comments WHITE BLOOD CELL COUNT (BEAKER) 20.8 K/ L 3.5-10.5 H (test code = 775) RED BLOOD CELL COUNT (BEAKER) 3.42 M/ L 4.63-6.08 L (test code = 761) HEMOGLOBIN (BEAKER) (test code = 10.5 GM/DL 13.7-17.5 L 410) HEMATOCRIT (BEAKER) (test code = 32.1 % 40.1-51.0 L 411) MEAN CORPUSCULAR VOLUME (BEAKER) 93.9 fL 79.0-92.2 H (test code = 753) MEAN CORPUSCULAR HEMOGLOBIN 30.7 pg 25.7-32.2 (BEAKER) (test code = 751) MEAN CORPUSCULAR HEMOGLOBIN CONC 32.7 GM/DL 32.3-36.5 (BEAKER) (test code = 752) RED CELL DISTRIBUTION WIDTH 15.5 % 11.6-14.4 H (BEAKER) (test code = 412) PLATELET COUNT (BEAKER) (test 453 K/CU MM 150-450 H code = 756) MEAN PLATELET VOLUME (BEAKER) 10.6 fL 9.4-12.4 (test code = 754) NUCLEATED RED BLOOD CELLS 0 /100 WBC 0-0 (BEAKER) (test code = 413) (CELLAVISION MANUAL DIFF)[id number] 09:00:00 Test Item Value Reference Range Interpretation Comments NEUTROPHILS - REL 90 % (CELLAVISION)(BEAKER) (test code = 2816) LYMPHOCYTES - REL 5 % (CELLAVISION)(BEAKER) (test code = 2817) MONOCYTES - REL 4 % (CELLAVISION)(BEAKER) (test code = 2818) BANDS - REL (CELLAVISION)(BEAKER) 1 % 0-10 (test code = 2826) NEUTROPHILS - ABS 18.72 K/ul 1.78-5.38 H (CELLAVISION)(BEAKER) (test code = 2830) LYMPHOCYTES - ABS 1.04 K/ul 1.32-3.57 L (CELLAVISION)(BEAKER) (test code = 2831) MONOCYTES - ABS 0.83 K/uL 0.30-0.82 H (CELLAVISION)(BEAKER) (test code = 2832) BANDS - ABS (CELLAVISION)(BEAKER) 0.21 K/uL 0.00-0.80 (test code = 2840) TOTAL COUNTED (BEAKER) (test code 100 = 1351) WBC MORPHOLOGY (BEAKER) (test Normal code = 487) GIANT PLATELETS (BEAKER) (test Present code = 313) LARGE PLT(BEAKER) (test code = Present 2156) POLYCHROMATOPHILLIC RBCS(BEAKER) 1+ few (test code = 478) HYPOCHROMIA (BEAKER) (test code = 1+ few 963) ANISOCYTOSIS (BEAKER) (test code 1+ few = 961) MICROCYTES (BEAKER) (test code = 1+ few 965) MACROCYTES (BEAKER) (test code = 2+ moderate 964) POIKILOCYTES (BEAKER) (test code 1+ few = 966) OVALOCYTES (BEAKER) (test code = 1+ few 477) ARTIFACT (CELLAVISION)(BEAKER) Present (test code = 3432) PLATELET CONCENTRATION Increased (CELLAVISION)(BEAKER) (test code = 3438) Received comment: User comments: Slide comments:POCT-GLUCOSE [id number] 06:06:00 Test Item Value Reference Range Interpretation Comments POC-GLUCOSE METER 148 mg/dL 70-110 H TESTED AT [facility] 6720 (BEAKER) (test code = [place] 1538) [address] BASIC METABOLIC [id number] 05:23:00 Test Item Value Reference Range Interpretation Comments SODIUM (BEAKER) 137 meq/L 136-145 (test code = 381) POTASSIUM (BEAKER) 4.8 meq/L 3.5-5.1 (test code = 379) CHLORIDE (BEAKER) 101 meq/L 98-107 (test code = 382) CO2 (BEAKER) (test 25 meq/L 22-29 code = 355) BLOOD UREA NITROGEN 42 mg/dL 7-21 H (BEAKER) (test code = 354) CREATININE (BEAKER) 2.96 mg/dL 0.57-1.25 H (test code = 358) GLUCOSE RANDOM 109 mg/dL 70-105 H (BEAKER) (test code = 652) CALCIUM (BEAKER) 9.3 mg/dL 8.4-10.2 (test code = 697) EGFR (BEAKER) (test 21 mL/min/1.73 ESTIMA DEREK GFR IS code = 1092) sq m NOT ACCURATE CREATININE CLEARANCE IN PREDICTING GLOMERULAR FILTRATION RATE . ESTIMATED GFR I S NOT APPLICABLE FOR DIALYSIS PATIEN [id number] 05:16:00 Test Item Value Reference Range Interpretation Comments PARTIAL THROMBOPLASTIN TIME 34.3 seconds 22.5-36.0 (BEAKER) (test code = 760) PROTHROMBIN [id number] 05:15:00 Test Item Value Reference Range Interpretation Comments PROTIME (BEAKER) (test code = 15.5 seconds 11.7-14.7 H 759) INR (BEAKER) (test code = 370) 1.2 <=5.9 RECOMMENDED COUMADIN/WARFARIN INR THERAPY RANGESSTANDARD DOSE: 2.0 - 3.0 Includes: PROPHYLAXIS forvenous thrombosis, systemic embolization; TREATMENT for venous thrombosis and/or pulmonary embolus.HIGH RISK: Target INR is 2.5-3.5 for patients with mechanical heart valves.[id number] 05:13:00 Test Item Value Reference Range Interpretation Comments POTASSIUM (BEAKER) (test code = 4.8 meq/L 3.5-5.1 379) [id number] 05:13:00 Test Item Value Reference Range Interpretation Comments MAGNESIUM (BEAKER) (test code = 2.3 mg/dL 1.6-2.6 627) [id number] 05:13:00 Test Item Value Reference Range Interpretation Comments PHOSPHORUS (BEAKER) (test code = 4.3 mg/dL 2.3-4.7 604) BASIC METABOLIC [id number] 01:01:00 Test Item Value Reference Range Interpretation Comments SODIUM (BEAKER) 136 meq/L 136-145 (test code = 381) POTASSIUM (BEAKER) 4.9 meq/L 3.5-5.1 (test code = 379) CHLORIDE (BEAKER) 101 meq/L 98-107 (test code = 382) CO2 (BEAKER) (test 22 meq/L 22-29 code = 355) BLOOD UREA NITROGEN 65 mg/dL 7-21 H (BEAKER) (test code = 354) CREATININE (BEAKER) 4.55 mg/dL 0.57-1.25 H (test code = 358) GLUCOSE RANDOM 124 mg/dL 70-105 H (BEAKER) (test code = 652) CALCIUM (BEAKER) 8.1 mg/dL 8.4-10.2 L (test code = 697) EGFR (BEAKER) (test 13 mL/min/1.73 ESTIMA DEREK GFR IS code = 1092) sq m NOT ACCURATE CREATININE CLEARANCE IN PREDICTING GLOMERULAR FILTRATION RATE . ESTIMATED GFR I S NOT APPLICABLE FOR DIALYSIS PATIEN TS. [id number] 00:52:00 Test Item Value Reference Range Interpretation Comments POTASSIUM (BEAKER) (test code = 4.9 meq/L 3.5-5.1 379) [id number] 00:52:00 Test Item Value Reference Range Interpretation Comments MAGNESIUM (BEAKER) (test code = 1.7 mg/dL 1.6-2.6 627) [id number] 00:52:00 Test Item Value Reference Range Interpretation Comments PHOSPHORUS (BEAKER) (test code = 6.1 mg/dL 2.3-4.7 H 604) POCT-GLUCOSE [id number] 00:17:00 Test Item Value Reference Range Interpretation Comments POC-GLUCOSE METER 143 mg/dL 70-110 H TESTED AT [facility] 6720 (BEAKER) (test code = [place] 1538) [address] [id number] 21:42:00 Test Item Value Reference Range Interpretation Comments PHOSPHORUS (BEAKER) 12.1 mg/dL 2.3-4.7 HH Specimen moderately (test code = 604) hemolyzed [id number] 21:33:00 Test Item Value Reference Range Interpretation Comments MAGNESIUM (BEAKER) 2.4 mg/dL 1.6-2.6 Specimen moderately (test code = 627) hemolyzed POCT-GLUCOSE [id number] 21:30:00 Test Item Value Reference Range Interpretation Comments POC-GLUCOSE METER 132 mg/dL 70-110 H TESTED AT [facility] 6720 (BEAKER) (test code = [place] 1538) [address] POCT-GLUCOSE [id number] 20:34:00 Test Item Value Reference Range Interpretation Comments POC-GLUCOSE METER 189 mg/dL 70-110 H TESTED AT [facility] 6720 (BEAKER) (test code = MALCOLM Mooney [facility] 1538) [address] POCT-GLUCOSE [id number] 17:30:00 Test Item Value Reference Range Interpretation Comments POC-GLUCOSE METER 170 mg/dL 70-110 H TESTED AT [facility] 6720 (BEAKER) (test code = MALCOLM Mooney [facility] 1538) [address] POCT-GLUCOSE [id number] 11:55:00 Test Item Value Reference Range Interpretation Comments POC-GLUCOSE METER 189 mg/dL 70-110 H TESTED AT [facility] 6720 (BEAKER) (test code = MALCOLM Mooney [facility] 1538) [address] [id number] 11:20:00 Test Item Value Reference Range Interpretation Comments PHOSPHORUS (BEAKER) (test code = 9.7 mg/dL 2.3-4.7 HH 604) BASIC METABOLIC [id number] 11:16:00 Test Item Value Reference Range Interpretation Comments SODIUM (BEAKER) 135 meq/L 136-145 L (test code = 381) POTASSIUM (BEAKER) 5.1 meq/L 3.5-5.1 (test code = 379) CHLORIDE (BEAKER) 100 meq/L 98-107 (test code = 382) CO2 (BEAKER) (test 21 meq/L 22-29 L code = 355) BLOOD UREA NITROGEN 95 mg/dL 7-21 H (BEAKER) (test code = 354) CREATININE (BEAKER) 6.69 mg/dL 0.57-1.25 H (test code = 358) GLUCOSE RANDOM 165 mg/dL 70-105 H (BEAKER) (test code = 652) CALCIUM (BEAKER) 7.5 mg/dL 8.4-10.2 L (test code = 697) EGFR (BEAKER) (test 8 mL/min/1.73 ESTIMAT ED GFR IS code = 1092) sq m NOT ACCURATE CREATININE CLEARANCE IN PREDICTING GLOMERULAR FILTRATION RATE . ESTIMATED GFR I S NOT APPLICABLE FOR DIALYSIS PATIEN TS. [id number] 11:12:00 Test Item Value Reference Range Interpretation Comments MAGNESIUM (BEAKER) (test code = 1.9 mg/dL 1.6-2.6 627) [id number] 11:06:00 Test Item Value Reference Range Interpretation Comments PARTIAL THROMBOPLASTIN TIME 40.1 seconds 22.5-36.0 H (BEAKER) (test code = 760) PROTHROMBIN [id number] 11:05:00 Test Item Value Reference Range Interpretation Comments PROTIME (BEAKER) (test code = 16.7 seconds 11.7-14.7 H 759) INR (BEAKER) (test code = 370) 1.3 <=5.9 RECOMMENDED COUMADIN/WARFARIN INR THERAPY RANGESSTANDARD DOSE: 2.0 - 3.0 Includes: PROPHYLAXIS forvenous thrombosis, systemic embolization; TREATMENT for venous thrombosis and/or pulmonary embolus.HIGH RISK: Target INR is 2.5-3.5 for patients with mechanical heart valves.CBC (HEMOGRAM ONLY)2018-05-18 10:54:00 Test Item Value Reference Range Interpretation Comments WHITE BLOOD CELL COUNT (BEAKER) 24.6 K/ L 3.5-10.5 H (test code = 775) RED BLOOD CELL COUNT (BEAKER) 3.03 M/ L 4.63-6.08 L (test code = 761) HEMOGLOBIN (BEAKER) (test code = 9.3 GM/DL 13.7-17.5 L 410) HEMATOCRIT (BEAKER) (test code = 28.1 % 40.1-51.0 L 411) MEAN CORPUSCULAR VOLUME (BEAKER) 92.7 fL 79.0-92.2 H (test code = 753) MEAN CORPUSCULAR HEMOGLOBIN 30.7 pg 25.7-32.2 (BEAKER) (test code = 751) MEAN CORPUSCULAR HEMOGLOBIN CONC 33.1 GM/DL 32.3-36.5 (BEAKER) (test code = 752) RED CELL DISTRIBUTION WIDTH 15.4 % 11.6-14.4 H (BEAKER) (test code = 412) PLATELET COUNT (BEAKER) (test 373 K/CU MM 150-450 code = 756) MEAN PLATELET VOLUME (BEAKER) 10.4 fL 9.4-12.4 (test code = 754) NUCLEATED RED BLOOD CELLS 0 /100 WBC 0-0 (BEAKER) (test code = 413) BASIC METABOLIC [id number] 07:56:00 Test Item Value Reference Range Interpretation Comments SODIUM (BEAKER) 134 meq/L 136-145 L (test code = 381) POTASSIUM (BEAKER) 4.8 meq/L 3.5-5.1 (test code = 379) CHLORIDE (BEAKER) 97 meq/L 98-107 L (test code = 382) CO2 (BEAKER) (test 21 meq/L 22-29 L code = 355) BLOOD UREA NITROGEN 87 mg/dL 7-21 H (BEAKER) (test code = 354) CREATININE (BEAKER) 6.03 mg/dL 0.57-1.25 H (test code = 358) GLUCOSE RANDOM 177 mg/dL 70-105 H (BEAKER) (test code = 652) CALCIUM (BEAKER) 8.1 mg/dL 8.4-10.2 L (test code = 697) EGFR (BEAKER) (test 9 mL/min/1.73 ESTIMAT ED GFR IS code = 1092) sq m NOT ACCURATE CREATININE CLEARANCE IN PREDICTING GLOMERULAR FILTRATION RATE . ESTIMATED GFR I S NOT APPLICABLE FOR DIALYSIS PATIEN TS. [id number] 07:55:00 Test Item Value Reference Range Interpretation Comments PHOSPHORUS (BEAKER) (test code = 7.7 mg/dL 2.3-4.7 H 604) [id number] 07:55:00 Test Item Value Reference Range Interpretation Comments MAGNESIUM (BEAKER) (test code = 2.0 mg/dL 1.6-2.6 627) [id number] 07:50:00 Test Item Value Reference Range Interpretation Comments PARTIAL THROMBOPLASTIN TIME 99.4 seconds 22.5-36.0 H (BEAKER) (test code = 760) CBC W/PLT COUNT & AUTO [id number] 07:37:00 Test Item Value Reference Range Interpretation Comments WHITE BLOOD CELL COUNT (BEAKER) 34.0 K/ L 3.5-10.5 H (test code = 775) RED BLOOD CELL COUNT (BEAKER) 3.31 M/ L 4.63-6.08 L (test code = 761) HEMOGLOBIN (BEAKER) (test code = 10.1 GM/DL 13.7-17.5 L 410) HEMATOCRIT (BEAKER) (test code = 30.3 % 40.1-51.0 L 411) MEAN CORPUSCULAR VOLUME (BEAKER) 91.5 fL 79.0-92.2 (test code = 753) MEAN CORPUSCULAR HEMOGLOBIN 30.5 pg 25.7-32.2 (BEAKER) (test code = 751) MEAN CORPUSCULAR HEMOGLOBIN CONC 33.3 GM/DL 32.3-36.5 (BEAKER) (test code = 752) RED CELL DISTRIBUTION WIDTH 15.2 % 11.6-14.4 H (BEAKER) (test code = 412) PLATELET COUNT (BEAKER) (test 459 K/CU MM 150-450 H code = 756) MEAN PLATELET VOLUME (BEAKER) 10.6 fL 9.4-12.4 (test code = 754) NUCLEATED RED BLOOD CELLS 0 /100 WBC 0-0 (BEAKER) (test code = 413) (CELLAVISION MANUAL DIFF)2018-05-18 07:37:00 Test Item Value Reference Range Interpretation Comments NEUTROPHILS - REL 85 % (CELLAVISION)(BEAKER) (test code = 2816) LYMPHOCYTES - REL 5 % (CELLAVISION)(BEAKER) (test code = 2817) MONOCYTES - REL 8 % (CELLAVISION)(BEAKER) (test code = 2818) EOSINOPHILS - REL 1 % (CELLAVISION)(BEAKER) (test code = 2819) METAMYELOCYTES - REL 1 % 0-0 H (CELLAVISION)(BEAKER) (test code = 2821) NEUTROPHILS - ABS 28.90 K/ul 1.78-5.38 H (CELLAVISION)(BEAKER) (test code = 2830) LYMPHOCYTES - ABS 1.70 K/ul 1.32-3.57 (CELLAVISION)(BEAKER) (test code = 2831) MONOCYTES - ABS 2.72 K/uL 0.30-0.82 H (CELLAVISION)(BEAKER) (test code = 2832) EOSINOPHILS - ABS 0.34 K/uL 0.04-0.54 (CELLAVISION)(BEAKER) (test code = 2834) METAMYELOCYTES - ABS 0.34 K/uL 0.00-0.00 H (CELLAVISION)(BEAKER) (test code = 2836) TOTAL COUNTED (BEAKER) (test code 100 = 1351) SMUDGE CELLS (BEAKER) (test code = Present 1371) GIANT PLATELETS (BEAKER) (test Present code = 313) ANISOCYTOSIS (BEAKER) (test code = 1+ few 961) POIKILOCYTES (BEAKER) (test code = 1+ few 966) FAHAD CELLS (BEAKER) (test code = 1+ few 474) PLATELET CONCENTRATION Increased (CELLAVISION)(BEAKER) (test code = 3438) Received comment: User comments: Slide comments:POCT-GLUCOSE [id number] 06:32:00 Test Item Value Reference Range Interpretation Comments POC-GLUCOSE METER 187 mg/dL 70-110 H TESTED AT [facility] 6720 (BEAKER) (test code = [place] 1538) [address] [id number] 06:25:00 Test Item Value Reference Range Interpretation Comments PARTIAL THROMBOPLASTIN TIME 162.4 seconds 22.5-36.0 HH (BEAKER) (test code = 760) BASIC METABOLIC [id number] 04:35:00 Test Item Value Reference Range Interpretation Comments SODIUM (BEAKER) 135 meq/L 136-145 L (test code = 381) POTASSIUM (BEAKER) 5.0 meq/L 3.5-5.1 (test code = 379) CHLORIDE (BEAKER) 97 meq/L 98-107 L (test code = 382) CO2 (BEAKER) (test 22 meq/L 22-29 code = 355) BLOOD UREA NITROGEN 94 mg/dL 7-21 H (BEAKER) (test code = 354) CREATININE (BEAKER) 7.10 mg/dL 0.57-1.25 H (test code = 358) GLUCOSE RANDOM 171 mg/dL 70-105 H (BEAKER) (test code = 652) CALCIUM (BEAKER) 8.2 mg/dL 8.4-10.2 L (test code = 697) EGFR (BEAKER) (test 8 mL/min/1.73 ESTIMAT ED GFR IS code = 1092) sq m NOT ACCURATE CREATININE CLEARANCE IN PREDICTING GLOMERULAR FILTRATION RATE . ESTIMATED GFR I S NOT APPLICABLE FOR DIALYSIS PATIEN TS. [id number] 04:14:00 Test Item Value Reference Range Interpretation Comments PARTIAL THROMBOPLASTIN TIME > seconds 22.5-36.0 HH (BEAKER) (test code = 760) PROTHROMBIN [id number] 03:47:00 Test Item Value Reference Range Interpretation Comments PROTIME (BEAKER) (test code = 17.5 seconds 11.7-14.7 H 759) INR (BEAKER) (test code = 370) 1.4 <=5.9 RECOMMENDED COUMADIN/WARFARIN INR THERAPY RANGESSTANDARD DOSE: 2.0 - 3.0 Includes: PROPHYLAXIS forvenous thrombosis, systemic embolization; TREATMENT for venous thrombosis and/or pulmonary embolus.HIGH RISK: Target INR is 2.5-3.5 for patients with mechanical heart valves.[id number] 00:26:00 Test Item Value Reference Range Interpretation Comments PHOSPHORUS (BEAKER) (test code = 10.8 mg/dL 2.3-4.7 HH 604) POCT-GLUCOSE [id number] 00:21:00 Test Item Value Reference Range Interpretation Comments POC-GLUCOSE METER 158 mg/dL 70-110 H TESTED AT [facility] 6720 (BEAKER) (test code = [place] 1538) [address] BASIC METABOLIC [id number] 00:16:00 Test Item Value Reference Range Interpretation Comments SODIUM (BEAKER) 133 meq/L 136-145 L (test code = 381) POTASSIUM (BEAKER) 5.1 meq/L 3.5-5.1 (test code = 379) CHLORIDE (BEAKER) 95 meq/L 98-107 L (test code = 382) CO2 (BEAKER) (test 18 meq/L 22-29 L code = 355) BLOOD UREA NITROGEN 114 mg/dL 7-21 H (BEAKER) (test code = 354) CREATININE (BEAKER) 7.99 mg/dL 0.57-1.25 H (test code = 358) GLUCOSE RANDOM 144 mg/dL 70-105 H (BEAKER) (test code = 652) CALCIUM (BEAKER) 7.7 mg/dL 8.4-10.2 L (test code = 697) EGFR (BEAKER) (test 7 mL/min/1.73 ESTIMAT ED GFR IS code = 1092) sq m NOT ACCURATE CREATININE CLEARANCE IN PREDICTING GLOMERULAR FILTRATION RATE . ESTIMATED GFR I S NOT APPLICABLE FOR DIALYSIS PATIEN TS. [id number] 00:03:00 Test Item Value Reference Range Interpretation Comments MAGNESIUM (BEAKER) (test code = 2.1 mg/dL 1.6-2.6 627) POCT-GLUCOSE [id number] 21:42:00 Test Item Value Reference Range Interpretation Comments POC-GLUCOSE METER 200 mg/dL 70-110 H TESTED AT [facility] 6720 (BEAKER) (test code = [place] 1538) [address] LACTIC ACID, VENOUS, WHOLE [id number] 21:18:00 Test Item Value Reference Range Interpretation Comments LACTATE BLOOD VENOUS (2) (BEAKER) 0.3 mmol/L 0.5-2.2 L (test code = 2872) CBC W/PLT COUNT & AUTO [id number] 19:51:00 Test Item Value Reference Range Interpretation Comments WHITE BLOOD CELL COUNT (BEAKER) 30.1 K/ L 3.5-10.5 H (test code = 775) RED BLOOD CELL COUNT (BEAKER) 3.60 M/ L 4.63-6.08 L (test code = 761) HEMOGLOBIN (BEAKER) (test code = 11.1 GM/DL 13.7-17.5 L 410) HEMATOCRIT (BEAKER) (test code = 32.8 % 40.1-51.0 L 411) MEAN CORPUSCULAR VOLUME (BEAKER) 91.1 fL 79.0-92.2 (test code = 753) MEAN CORPUSCULAR HEMOGLOBIN 30.8 pg 25.7-32.2 (BEAKER) (test code = 751) MEAN CORPUSCULAR HEMOGLOBIN CONC 33.8 GM/DL 32.3-36.5 (BEAKER) (test code = 752) RED CELL DISTRIBUTION WIDTH 14.9 % 11.6-14.4 H (BEAKER) (test code = 412) PLATELET COUNT (BEAKER) (test 525 K/CU MM 150-450 H code = 756) MEAN PLATELET VOLUME (BEAKER) 10.6 fL 9.4-12.4 (test code = 754) NUCLEATED RED BLOOD CELLS 0 /100 WBC 0-0 (BEAKER) (test code = 413) (CELLAVISION MANUAL DIFF)2018-05-17 19:51:00 Test Item Value Reference Range Interpretation Comments NEUTROPHILS - REL 92 % (CELLAVISION)(BEAKER) (test code = 2816) LYMPHOCYTES - REL 5 % (CELLAVISION)(BEAKER) (test code = 2817) MONOCYTES - REL 1 % (CELLAVISION)(BEAKER) (test code = 2818) METAMYELOCYTES - REL 1 % 0-0 H (CELLAVISION)(BEAKER) (test code = 2821) BANDS - REL (CELLAVISION)(BEAKER) 1 % 0-10 (test code = 2826) NEUTROPHILS - ABS 27.69 K/ul 1.78-5.38 H (CELLAVISION)(BEAKER) (test code = 2830) LYMPHOCYTES - ABS 1.51 K/ul 1.32-3.57 (CELLAVISION)(BEAKER) (test code = 2831) MONOCYTES - ABS 0.30 K/uL 0.30-0.82 (CELLAVISION)(BEAKER) (test code = 2832) METAMYELOCYTES - ABS 0.30 K/uL 0.00-0.00 H (CELLAVISION)(BEAKER) (test code = 2836) BANDS - ABS (CELLAVISION)(BEAKER) 0.30 K/uL 0.00-0.80 (test code = 2840) TOTAL COUNTED (BEAKER) (test code 100 = 1351) WBC MORPHOLOGY (BEAKER) (test Normal code = 487) GIANT PLATELETS (BEAKER) (test Present code = 313) ANISOCYTOSIS (BEAKER) (test code 1+ few = 961) POIKILOCYTES (BEAKER) (test code 2+ moderate = 966) ROULEAUX (BEAKER) (test code = 1+ few 763) ELLIPTOCYTES (BEAKER) (test code 1+ few = 962) ARTIFACT (CELLAVISION)(BEAKER) Present (test code = 3432) PLATELET CONCENTRATION Increased (CELLAVISION)(BEAKER) (test code = 3438) Received comment: User comments: Slide comments:BASIC METABOLIC [id number] 19:27:00 Test Item Value Reference Range Interpretation Comments SODIUM (BEAKER) 131 meq/L 136-145 L (test code = 381) POTASSIUM (BEAKER) 6.1 meq/L 3.5-5.1 HH (test code = 379) CHLORIDE (BEAKER) 92 meq/L 98-107 L (test code = 382) CO2 (BEAKER) (test 16 meq/L 22-29 L code = 355) BLOOD UREA NITROGEN 117 mg/dL 7-21 H (BEAKER) (test code = 354) CREATININE (BEAKER) 9.98 mg/dL 0.57-1.25 H (test code = 358) GLUCOSE RANDOM 159 mg/dL 70-105 H (BEAKER) (test code = 652) CALCIUM (BEAKER) 8.3 mg/dL 8.4-10.2 L (test code = 697) EGFR (BEAKER) (test 5 mL/min/1.73 ESTIMAT ED GFR IS code = 1092) sq m NOT ACCURATE CREATININE CLEARANCE IN PREDICTING GLOMERULAR FILTRATION RATE . ESTIMATED GFR I S NOT APPLICABLE FOR DIALYSIS PATIEN TS. RAD, CHEST, 1 VIEW, NON [id number] 19:15:00Reason for exam:->s/p right HD IJ placementShould this be performed at the bedside?->YesFINAL REPORT RAD, CHEST, 1 VIEW, NON DEPT INDICATION: s/p right HD IJ placemen t COMPARISON: Same day's exam FINDINGS: Portable frontal [...] Oliveros Verified Date/Time: 05/17/2018 19:15:04 Reading Location: [address] Reading Room [id number] 19:04:00 Test Item Value Reference Range Interpretation Comments PARTIAL THROMBOPLASTIN TIME 47.6 seconds 22.5-36.0 H (BEAKER) (test code = 760) PROTHROMBIN [id number] 19:03:00 Test Item Value Reference Range Interpretation Comments PROTIME (BEAKER) (test code = 16.7 seconds 11.7-14.7 H 759) INR (BEAKER) (test code = 370) 1.3 <=5.9 RECOMMENDED COUMADIN/WARFARIN INR THERAPY RANGESSTANDARD DOSE: 2.0 - 3.0 Includes: PROPHYLAXIS forvenous thrombosis, systemic embolization; TREATMENT for venous thrombosis and/or pulmonary embolus.HIGH RISK: Target INR is 2.5-3.5 for patients with mechanical heart valves.POCT-GLUCOSE [id number] 18:28:00 Test Item Value Reference Range Interpretation Comments POC-GLUCOSE METER 153 mg/dL 70-110 H TESTED AT [facility] 6720 (AKER) (test code = [place] 1538) [id number] 16:58:00 Test Item Value Reference Range Interpretation Comments PARTIAL THROMBOPLASTIN TIME > seconds 22.5-36.0 HH (BEAKER) (test code = 760) CREATINE KINASE (CK)2018-05-17 15:07:00 Test Item Value Reference Range Interpretation Comments CREATINE KINASE TOTAL (BEAKER) (test 3619 U/L 29-200 H code = 380) CBC W/PLT COUNT & AUTO [id number] 13:09:00 Test Item Value Reference Range Interpretation Comments WHITE BLOOD CELL COUNT (BEAKER) 28.2 K/ L 3.5-10.5 H (test code = 775) RED BLOOD CELL COUNT (BEAKER) 3.81 M/ L 4.63-6.08 L (test code = 761) HEMOGLOBIN (BEAKER) (test code = 11.6 GM/DL 13.7-17.5 L 410) HEMATOCRIT (BEAKER) (test code = 35.4 % 40.1-51.0 L 411) MEAN CORPUSCULAR VOLUME (BEAKER) 92.9 fL 79.0-92.2 H (test code = 753) MEAN CORPUSCULAR HEMOGLOBIN 30.4 pg 25.7-32.2 (BEAKER) (test code = 751) MEAN CORPUSCULAR HEMOGLOBIN CONC 32.8 GM/DL 32.3-36.5 (BEAKER) (test code = 752) RED CELL DISTRIBUTION WIDTH 15.1 % 11.6-14.4 H (BEAKER) (test code = 412) PLATELET COUNT (BEAKER) (test 526 K/CU MM 150-450 H code = 756) MEAN PLATELET VOLUME (BEAKER) 10.6 fL 9.4-12.4 (test code = 754) NUCLEATED RED BLOOD CELLS 0 /100 WBC 0-0 (BEAKER) (test code = 413) (CELLAVISION MANUAL DIFF)2018-05-17 13:09:00 Test Item Value Reference Range Interpretation Comments NEUTROPHILS - REL 91 % (CELLAVISION)(BEAKER) (test code = 2816) LYMPHOCYTES - REL 1 % (CELLAVISION)(BEAKER) (test code = 2817) MONOCYTES - REL 5 % (CELLAVISION)(BEAKER) (test code = 2818) EOSINOPHILS - REL 1 % (CELLAVISION)(BEAKER) (test code = 2819) PROMYELOCYTES - REL 1 % 0-0 H (CELLAVSION)(BEAKER) (test code = 2825) BANDS - REL (CELLAVISION)(BEAKER) 1 % 0-10 (test code = 2826) NEUTROPHILS - ABS 25.66 K/ul 1.78-5.38 H (CELLAVISION)(BEAKER) (test code = 2830) LYMPHOCYTES - ABS 0.28 K/ul 1.32-3.57 L (CELLAVISION)(BEAKER) (test code = 2831) MONOCYTES - ABS 1.41 K/uL 0.30-0.82 H (CELLAVISION)(BEAKER) (test code = 2832) EOSINOPHILS - ABS 0.28 K/uL 0.04-0.54 (CELLAVISION)(BEAKER) (test code = 2834) PROMYELOCYTES - ABS 0.28 K/uL 0.00-0.00 H (CELLAVISION)(BEAKER) (test code = 2838) BANDS - ABS (CELLAVISION)(BEAKER) 0.28 K/uL 0.00-0.80 (test code = 2840) TOTAL COUNTED (BEAKER) (test code 100 = 1351) WBC MORPHOLOGY (BEAKER) (test code Normal = 487) GIANT PLATELETS (BEAKER) (test Present code = 313) ANISOCYTOSIS (BEAKER) (test code = 1+ few 961) MACROCYTES (BEAKER) (test code = 1+ few 964) POIKILOCYTES (BEAKER) (test code = 1+ few 966) ELLIPTOCYTES (BEAKER) (test code = 1+ few 962) ARTIFACT (CELLAVISION)(BEAKER) Present (test code = 3432) PLATELET CONCENTRATION Increased (CELLAVISION)(BEAKER) (test code = 3438) Received comment: User comments: Slide comments:BASIC METABOLIC [id number] 12:44:00 Test Item Value Reference Range Interpretation Comments SODIUM (BEAKER) 131 meq/L 136-145 L (test code = 381) POTASSIUM (BEAKER) 5.6 meq/L 3.5-5.1 H (test code = 379) CHLORIDE (BEAKER) 93 meq/L 98-107 L (test code = 382) CO2 (BEAKER) (test 15 meq/L 22-29 L code = 355) BLOOD UREA NITROGEN 115 mg/dL 7-21 H (BEAKER) (test code = 354) CREATININE (BEAKER) 9.55 mg/dL 0.57-1.25 H (test code = 358) GLUCOSE RANDOM 194 mg/dL 70-105 H (BEAKER) (test code = 652) CALCIUM (BEAKER) 8.7 mg/dL 8.4-10.2 (test code = 697) EGFR (BEAKER) (test mL/min/1.73 INSUFFIC IENT CLINICAL code = 1092) sq m DATA TO CALCULA TE ESTIMATED GFR. RAD, CHEST, 1 VIEW, NON [id number] 12:29:00Reason for exam:->chest painShould this be performed [...] Wade Verified Date/Time: 05/17/2018 12:29:30 Reading Location: [address] Consult Reading Room [id number] 12:28:00 Test Item Value Reference Range Interpretation Comments PROTIME (BEAKER) (test code = 15.4 seconds 11.7-14.7 H 759) INR (BEAKER) (test code = 370) 1.2 <=5.9 PARTIAL THROMBOPLASTIN TIME 32.3 seconds 22.5-36.0 (BEAKER) (test code = 760) RECOMMENDED COUMADIN/WARFARIN INR THERAPY RANGESSTANDARD DOSE: 2.0 - 3.0 Includes: PROPHYLAXIS forvenous thrombosis, systemic embolization; TREATMENT for venous thrombosis and/or pulmonary embolus.HIGH RISK: Target INR is 2.5-3.5 for patients with mechanical heart valves.
--- OUTSIDE RECORDS SUMMARY | 2019-12-18 16:47 | XMS REPORT | Summary of Care ---
:[address] [facility] Address [address] [place] [id number] Care Team Providers Name Role Phone Monet Willard RN Unavailable Unavailable Tech, Cardio Vascular Unavailable Unavailable Vicente Primary Care Provider Reason for Referral (Routine) Status Reason Specialty Diagnoses / Referred By Contact Refe rred To Procedures Contact New Request Diagnoses ESRD (end stage renal disease) on dialysis Cornel Desai MD Rajan, Kavitha Procedures Discharge Follow-up: PCP COLLEEN ZAHNG; [address] [place] [address] [address] [place], [place] [address] [place] [address] Phone: Phone: Fax: (Routine) Status Reason Specialty Diagnoses / Referred By Referred To Procedures Contact Contact New Request Vascular Procedures Lucia Miller, Sonography BILATERAL VENOUS MD DUPLEX LOWER [address] [place] [address] EXTREMITY [facility]. VASCULAR LAB RT [address] [place] [id number] (Routine) Status Reason Specialty Diagnoses / Referred By Contact Refe rred To Procedures Contact New Request Cardiology Diagnoses Respiratory distress Lucia Miller MD Procedures ECHO ROUTINE W/DOPPLER COLOR [address] [place] [address]. [address] [place], [place] [address] Phone: Radiology Services (STAT) Status Reason Specialty Diagnoses / Referred By Referred To Procedures Contact Contact New Request Diagnostic Diagnoses Respiratory distress Neftaly Ramirez, Radiology Procedures XR CHEST 1 VW DO [address] [facility]. [address] [place] [address] Reason for Visit Reason Comments Respiratory Problem Auth/Cert Status Reason Specialty Diagnoses / Referred By Referred To Procedures Contact Contact Emergency Medicine [facility] Em ergency Dept [address] [place] [address] [place] [address] Fax: Encounter Details Date Type Department Care Team Description 10/15/2019 - [facility] ADC Intensive Care RamirezAdria, DO [address] [facility]. [address] [place], [place] [address] Acute respiratory 10/19/2019 Encounter Unit Cornel Desai MD [address] [place] [id number] failure with [address] [place] [address] Allergies No Known Allergiesdocumented as of this encounter (statuses as of 10/19/2019) Medications Medication Sig Dispensed Refills Start Date End Date Status carvedilol (COREG) Take 6.25 mg 0 Active 6.25 mg tablet by mouth 2 (two) times daily with meals. amLODIPine Take 10 mg 0 Active (NORVASC) 10 mg by mouth tablet daily. pravastatin Take 40 mg 0 Active (PRAVACHOL) 40 mg by mouth at tablet bedtime. aspirin 81 mg Take 1 30 tablet 11 07/08/2015 Activ e chewable tablet tablet by mouth daily. acetaminophen-code Take 1 60 tablet 0 07/08/2015 Active ine (TYLENOL #3) tablet by 300-30 mg tablet mouth every 4 (four) hours as needed for Pain (scale 4-6) or Pain (scale 7-10). docusate (COLACE) Take 1 40 capsule 0 07/21/2015 Active 100 mg capsule capsule by mouth once daily as needed for Constipation . LEVEMIR FLEXTOUCH INJECT 20 3 10/23/2015 A ctive 100 unit/mL (3 mL) UNITS UNDER injection SKIN AT NIGHT phenytoin ER 200 TAKE 1 2 05/16/2016 Ac tive mg ER capsule CAPSULE 3 TIMES A DAY traMADOL 50 mg Take 1 45 tablet 0 07/02/2016 Acti ve tablet tablet by mouth every 12 (twelve) hours as needed for Pain (scale 1-3). clopidogrel 75 mg Take 1 60 tablet 0 07/02/2016 A ctive tablet tablet by mouth daily. hydrALAZINE 50 mg Take 1 60 tablet 0 10/19/2019 A ctive tabletIndications: tablet by ESRD (end stage mouth 2 renal disease) on (two) times dialysis daily. lactobacillus Take 1 60 tablet 0 10/19/2019 Activ e acidophilus 25 tablet by million cell -100 mouth 2 mg (two) times captabIndications: daily. ESRD (end stage renal disease) on dialysis sevelamer 800 mg Take 2 180 tablet 0 10/19/2019 A ctive tabletIndications: tablets by ESRD (end stage mouth 3 renal disease) on (three) dialysis times daily with meals. gabapentin 100 mg Take 1 90 capsule 0 10/19/2019 Active capsuleIndications capsule by : ESRD (end stage mouth 3 renal disease) on (three) dialysis times daily. levoFLOXacin 250 Take 1 5 tablet 0 10/19/2019 Ac tive mg tablet by tabletIndications: mouth every ESRD (end stage 24 renal disease) on (twenty-four dialysis ) hours. lisinopril Take 1 30 tablet 10 08/17/2015 Disconti nued (PRINIVIL,ZESTRIL) tablet by 0 40 mg mouth daily. tabletIndications: Gangrene of foot insulin glargine inject 22 10 mL 0 09/05/2015 Di scontinued (LANTUS U-100) 100 Units under 0 unit/mL injection the skin at bedtime. levoFLOXacin 250 Take 1 5 tablet 0 10/19/2019 Di scontinued mg tablet by 0 (Reorder) tabletIndications: mouth every ESRD (end stage 24 renal disease) on (twenty-four dialysis ) hours for 5 days. documented as of this encounter (statuses as of 10/19/2019) Active Problems Problem Noted Date Bilateral pneumonia 10/15/2019 Acute respiratory failure with hypoxia 10/15/2019 Troponin I above reference range 10/15/2019 Acute combined systolic and diastolic congestive heart failure 10/15/2019 Hyperkalemia 10/15/2019 VT (ventricular tachycardia) 10/15/2019 Hypertensive emergency 10/15/2019 Hyperglycemia 09/05/2015 PAD 09/05/2015 HTN (hypertension) 09/05/2015 Open wound 08/11/2015 ESRD (end stage renal disease) on dialysis 07/19/2015 DM (diabetes mellitus) 07/19/2015 Gangrene of foot 07/18/2015 Osteomyelitis 07/01/2015 documented as of this encounter (statuses as of 10/19/2019) Immunizations Name Administration Dates Next Due Influenza Virus Vaccine 02/19/2011 Td 09/04/2015 documented as of this encounter Social History Tobacco Use Types Packs/Day Years Used Date Former Smoker Quit: 03/13/18 90 Smokeless Tobacco: Never Used Alcohol Use Drinks/Week oz/Week Comments No Sex Assigned at Date Recorded Not on file COVID-19 Exposure Response Date Recorded In the last month, have you been in contact with Yes 10/15/2019 9:24 AM CDT someone who was confirmed or suspected to have Coronavirus / COVID-19? documented as of this encounter Last Filed Vital Signs Vital Sign Reading Time Taken Comments Blood Pressure 141/62 10/19/2019 12:00 PM CDT Pulse 61 10/19/2019 12:00 PM CDT Temperature 36.8 C (98.3 F) 10/19/2019 12:00 PM CDT Respiratory Rate 18 10/19/2019 9:15 AM CDT Oxygen Saturation 95% 10/19/2019 9:00 AM CDT Inhaled Oxygen Concentration - - Weight 66 kg (145 lb 8.1 oz) 10/19/2019 9:15 AM CDT Height - - Body Mass Index 24.21 01/13/2017 11:05 AM CDT documented in this encounter Discharge Instructions AttachmentsThe following attachments cannot be sent through Care Everywhere. Hyperkalemia (Senegalese)Potassium (Senegalese)Levofloxacin tablets (Senegalese) documented in this encounter Progress Notes Michelle Riojas LBSW - 10/19/2019 1:03 PM CDTSocial Work Note: 10/19/2019 1:03 PM SW received phone call from ADELAIDA [facility] [employer] asking for assistance with getting patient to dialysis and then back to [place] [address] 1/2 [facility] [place] [address] F: [phone]. JAVIER called [employer] and spoke to Ayse, charge nurse who stated they cannot set up transportation on the weekends, but they will take him back tonight if we can find transportation for him. [facility] arranged transport with [facility] for transport from [facility] to [facility] at 4:00. JAVIER arranged transport from [facility] to [facility] at 9:30. SW discussed this with [facility], [facility] ([facility]) and [facility]. Everyone is in agreement with plan. [facility] to inform family of plan. LOUIS Mccullough Social Work Care Management [facility] [phone] (office) [phone] (fax) Sofiya Werner MD - 10/19/2019 11:14 AM CDT Nephrology note 10/19/2019 CC: ESRD on HD , Hyperkalemia Jayne Raymundo is a 64 year old male presenting with respiratory distress and hypoxia from [facility] by ambulance. Reportedly 66% on RA. Patient placed on NRB by EMS. Sats improved to 95%. Patient is ESRD on dialysis. Due for dialysis. He was confused but able to respond to simple questions. Presented in extremis BP > 230 RR 40 HR 120. Immediately placed on Bipap and Nitro gtt upon presentation to ED. He is admitted to ICU for COVID pneumonia, was found to have hyperkalemia and HD was ordered to treat hyperkalemia, provide metabolic clearance. 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 Osteomyelitis Past Surgical History: Procedure Laterality Date ANGIOPLASTY Left 07/01/2016 Surgeon: Rubin Barrera MD; Location: [facility] [place] ARTERIOGRAM Right 07/06/2015 Surgeon: Rubin Barrera MD; Location: [facility] [place] ARTERIOGRAM Left 06/30/2016 Surgeon: Washington Peter MD; Location: [facility] ARTERIOGRAM Left 07/01/2016 Surgeon: Rubin Barrera MD; Location: [facility] CENTRAL VENOUS ACCESS CATHETER PLACEMENT N/A 06/08/2016 Surgeon: Washington Peter MD; Location: [facility] [place] OR Location ENDODIATHERMY 04/19/2011 Surgeon:TAI BIGGS; Location:[facility] ENDOLASER PHOTOCOAGULATION 04/19/2011 Surgeon:TAI BIGGS; Location:[facility] INFUSION CATHETER PLACEMENT (SHX) Left 06/30/2016 Surgeon: Washington Peter MD; [facility]: [facility] INFUSION CATHETER REMOVAL (SHX) Left 07/01/2016 Surgeon: Rubin Barrera MD; Location: [facility] MEMBRANE PEELING 04/19/2011 Surgeon:TAI BIGGS; Location:[facility] PARS PLANA VITRECTOMY 04/19/2011 Surgeon:TAI BIGGS; Location:[facility] LOC[facility] PARS PLANA VITRECTOMY 06/21/2011 Surgeon:VLADIMIR WU; Location:[facility] SILICONE OIL PLACEMENT 04/19/2011 Surgeon:TAI BIGGS; Location:[facility] SILICONE OIL REMOVAL 06/21/2011 Surgeon:VLADIMIR WU; Location:[facility] SYNECHIALYSIS 06/21/2011 Surgeon:VLADIMIR WU; Location:[facility] TOE AMPUTATION Left 07/06/2015 Surgeon: Rubin Barrera MD; Location: [facility] TOE AMPUTATION Left 07/20/2015 Surgeon: Washington Peter MD; Location: [facility] VASCULAR STENTING Right 07/06/2015 Surgeon: Rubin Barrera MD; Location: [facility] VASCULAR STENTING Left 07/01/2016 Surgeon: Rbuin Barrera MD; Location: [facility] Location Family History Problem Relation Age of Onset Diabetes Mother ALLERGIES No Known Allergies ROS: unobtainable, patient lethargic PHYSICAL EXAMINATION BP (!) 191/71 | Pulse 97 | Temp 37 C (98.6 F) (Axillary) | Resp 18 | Wt 145 lb 8.1 oz (66 kg) | SpO2 93% | BMI 24.21 kg/m Physical Exam Constitutional: He appears well-developed. HENT: Head: Normocephalic. Eyes: Pupils are equal, round, and reactive to light. Neck: Normal range of motion. Cardiovascular: Murmur heard. Pulmonary/Chest: He has wheezes. He has rales. Abdominal: Soft. Neurological: He is alert. Skin: Skin is warm. LABS - reviewed pertinent labs as below: CBC WBC x10^3 (/CMM) Date Value 04/22/2011 8.9 WBC (10*3/L) Date Value 10/19/2019 6.32 RBC x10^6 (/CMM) Date Value 04/22/2011 5.05 RBC (10*6/L) Date Value 10/19/2019 3.16 (L) PLT x10^3 (/CMM) Date Value 04/22/2011 303 PLT (10*3/L) Date Value 10/19/2019 202 HGB Date Value 10/19/2019 9.4 g/dL (L) 04/22/2011 13.8 G/DL HCT (%) Date Value 10/19/2019 29.0 (L) 04/22/2011 41.0 NA Date Value 10/19/2019 138 mmol/L 04/22/2011 139 MMOL/L K Date Value 10/19/2019 4.5 mmol/L 04/22/2011 3.8 MMOL/L CALCIUM Date Value 10/19/2019 8.0 mg/dL (L) 04/22/2011 8.8 MG/DL CL Date Value 10/19/2019 97 mmol/L (L) 04/22/2011 101 MMOL/L BUN Date Value 10/19/2019 49 mg/dL (H) 04/22/2011 25 MG/DL (H) CREATININE Date Value 10/19/2019 5.97 mg/dL (H) 04/22/2011 1.30 MG/DL (H) GLUCOSE Date Value 10/19/2019 131 mg/dL (H) 04/22/2011 180 MG/DL (H) CO2 TOTAL Date Value 10/19/2019 25 mmol/L 04/22/2011 26 MMOL/L ALBUMIN Date Value 10/19/2019 3.5 g/dL 02/17/2003 3.7 G/DL T PROTEIN Date Value 10/19/2019 6.7 g/dL 02/17/2003 7.1 G/DL TOTAL BILI Date Value 10/19/2019 0.2 mg/dL 02/17/2003 0.2 MG/DL BILI UNCON Date Value 06/27/2016 0.1 mg/dL 02/17/2003 0.3 MG/DL BILI CONJ Date Value 06/27/2016 0.0 mg/dL 02/17/2003 0.0 MG/DL ALT(SGPT) (U/L) Date Value 06/27/2016 36 02/17/2003 41 ALTv (U/L) Date Value 10/19/2019 13 AST(SGOT) (U/L) Date Value 10/19/2019 20 02/17/2003 23 ALK PHOS (U/L) Date Value 10/19/2019 85 02/17/2003 141 (H) IMAGING - reviewed, pertinent results as below: CXR--pulmonary edema EKG: Various arrhythmias--VT, accelerated junctional rhythm, sinus bradycardia, sinus pause, junctional escape rhythm etc. ASSESSMENT/PLAN Principal Problem: Acute respiratory failure with hypoxia ESRD , Hyperkalemia with ekg changes Active Problems: ESRD (end stage renal disease) on dialysis, : Patient pulled his needle today Will arrange for outpatient dialysis today at 5 PM at the [facility] Discuss with Dr. Desai and the nurse in ICU for management for transportation Hyper K resolved DM (diabetes mellitus), continue insulin PAD per cardio HTN (hypertension), to utlized BP for UF COVID Pneu : continuecurrent tx Bilateral pneumonia due to covid , per ID and primary team CHF Ex withVT / Urgent HTN /over volume receive daily dialysis recovering very well : HD today Troponin I above reference range,f/u cardio Acute combined systolic and diastolic congestive heart failure, continue beta oli , control volemia with HD today will taper down Nitro Acute respiratory failure with COVID infection--per primary team. THITCkita, MD David - 10/19/2019 10:08 AM CDT [facility] Cardiology progress note Date of Service: 10/19/2019 Jayne Raymundo is a 64 years old male hospitalized for COVID infection. No further arrhythmias. K is normal. PHYSICAL EXAM Vitals: 10/19/19 0400 10/19/19 0713 10/19/19 0800 10/19/19 0823 BP: 137/61 (!) 177/68 (!) 177/68 Pulse: 63 65 65 Resp: 12 18 22 18 Temp: 36.7 C (98 F) 37 C (98.6 F) 37 C (98.6 F) TempSrc: Axillary Oral Axillary SpO2: 96% 96% 93% Weight: 66 kg (145 lb 8.1 oz) Exam is limited due to COVID Constitutional: no apparent distress ENT: normocephalic atraumatic GI: non-distended : not examined Medications: I have reviewed the patient's medications; see Medication Reconciliation. Labs: I have reviewed the patient's labs. ASSESSMENT AND PLAN Principal Problem: Acute respiratory failure with hypoxia Active Problems: ESRD (end stage renal disease) on dialysis DM (diabetes mellitus) PAD HTN (hypertension) Bilateral pneumonia Troponin I above reference range Acute combined systolic and diastolic congestive heart failure Hyperkalemia VT (ventricular tachycardia) Hypertensive emergency Acute respiratory failure with COVID infection--per primary team. Various arrhythmias including VT etc--likely due to hyperkalemia. Off IV amiodarone. K is corrected.No recurrent arrhythmias. Acute HFrEF--Uncertain etiology. Possible pulmonary edema by CXR. BNP elevated. Fluid removal via HD. Continue coreg. Continue ASA/plavix/lipitor. Consider conservative management given multiple comorbidities and poor functional capacity. Not on ACEI/ARB due to ESRD. Troponin elevation--likely due to demand ischemia from HF/HTN/HD, type 2 MN. Trending down. Was treated with IV heparin for 48 hours. Hypertensive emergency--improved. Continue amlodipine/coreg/hydralazine. PAD--s/p bilateral amputation. David Alston MD, FACC, BARON Roll Line Operator, Division of Cardiology [facility] Holly Abraham MD - 10/18/2019 11:14 PM CDT CC: ESRD on HD , Hyperkalemia Jayne Raymundo is a 64 year old male presenting with respiratory distress and hypoxia from [facility] by ambulance. Reportedly 66% on RA. Patient placed on NRB by EMS. Sats improved to 95%. Patient is ESRD on dialysis. Due for dialysis. He was confused but able to respond to simple questions. Presented in extremis BP > 230 RR 40 HR 120. Immediately placed on Bipap and Nitro gtt upon presentation to ED. He is admitted to ICU for COVID pneumonia, was found to have hyperkalemia and HD was ordered to treat hyperkalemia, provide metabolic clearance. Patient was treated with IV meds for hypertensive emergency, cardiology consultation was ordered. Hyperkalemia resolved. ROS: no new complaints PHYSICAL EXAM: BP 139/61 | Pulse 69 | Temp 37.1 C (98.8 F) (Axillary) | Resp 16 | Wt 144 lb 6.4 oz (65.5 kg) | SpO2 94% | BMI 24.03 kg/m General: No respiratory distress Neuro: AAOx1, no focal deficits Psych: Normal affect LABS/IMAGING - reviewed, pertinent results as below: CBC BMP PT/INR WBC x10^3 (/CMM) Date Value 04/22/2011 8.9 WBC (10*3/L) Date Value 10/18/2019 5.06 NA Date Value 10/18/2019 138 mmol/L 04/22/2011 139 MMOL/L No results found for: PT RBC x10^6 (/CMM) Date Value 04/22/2011 5.05 RBC (10*6/L) Date Value 10/18/2019 3.44 (L) K Date Value 10/18/2019 3.6 mmol/L 04/22/2011 3.8 MMOL/L PT INR (no units) Date Value 01/24/2004 1.0 INR (no units) Date Value 10/15/2019 1.0 PLT x10^3 (/CMM) Date Value 04/22/2011 303 PLT (10*3/L) Date Value 10/18/2019 205 CALCIUM Date Value 10/18/2019 8.6 mg/dL 04/22/2011 8.8 MG/DL HGB Date Value 10/18/2019 10.3 g/dL (L) 04/22/2011 13.8 G/DL CL Date Value 10/18/2019 96 mmol/L (L) 04/22/2011 101 MMOL/L aPTT HCT (%) Date Value 10/18/2019 31.3 (L) 04/22/2011 41.0 BUN Date Value 10/18/2019 26 mg/dL (H) 04/22/2011 25 MG/DL (H) APTT (SEC) Date Value 01/24/2004 25 APTT Patient (Seconds) Date Value 10/17/2019 59 (H) CREATININE Date Value 10/18/2019 3.82 mg/dL (H) 04/22/2011 1.30 MG/DL (H) ASSESSMENT/PLAN Principal Problem: Acute respiratory failure with hypoxia ESRD , Hyperkalemia with ekg changes Active Problems: ESRD (end stage renal disease) on dialysis, still over volume S/p HD yesterday : . The patient back to his as scheduled TTS due for dialysis today Hyper K resolved DM (diabetes mellitus), continue insulin PAD per cardio HTN (hypertension), to utlized BP for UF COVID Pneu : continuecurrent tx Bilateral pneumonia due to covid , per ID and primary team CHF Ex withVT / Urgent HTN currently normal volume : HD tomorrow Troponin I above reference range,f/u cardio Acute combined systolic and diastolic congestive heart failure, continue beta oli , currently normal volume will continue HD today will taper down Nitro Acute respiratory failure with COVID infection--per primary team. Dashawn Duke FNP - 10/18/2019 3:06 PM CDT Subjective: Patient is a 64-year-old male [facility] resident who presents with respiratory distress and hypoxia. Patient has a history of ESRD on dialysis. Patientfound to be in V Tach andhypertensive emergency. Patient also found to haveleukocytosis and pneumonia secondary [id number] infection which I have been consulted for. No new changes. Patient still on room air. Vitals stable Objective: Vitals: 10/18/19 0800 10/18/19 0807 10/18/19 1153 10/18/19 1200 BP: 139/61 139/61 (!) 142/58 111/64 Pulse: 68 69 72 71 Resp: 16 16 21 Temp: 37.1 C (98.8 F) 37 C (98.6 F) TempSrc: Axillary Axillary SpO2: 96% 94% 100% 100% Weight: CBC WBC x10^3 (/CMM) Date Value 04/22/2011 8.9 WBC (10*3/L) Date Value 10/18/2019 5.06 RBC x10^6 (/CMM) Date Value 04/22/2011 5.05 RBC (10*6/L) Date Value 10/18/2019 3.44 (L) PLT x10^3 (/CMM) Date Value 04/22/2011 303 PLT (10*3/L) Date Value 10/18/2019 205 HGB Date Value 10/18/2019 10.3 g/dL (L) 04/22/2011 13.8 G/DL HCT (%) Date Value 10/18/2019 31.3 (L) 04/22/2011 41.0 CMP NA Date Value 10/18/2019 138 mmol/L 04/22/2011 139 MMOL/L K Date Value 10/18/2019 3.6 mmol/L 04/22/2011 3.8 MMOL/L CALCIUM Date Value 10/18/2019 8.6 mg/dL 04/22/2011 8.8 MG/DL CL Date Value 10/18/2019 96 mmol/L (L) 04/22/2011 101 MMOL/L BUN Date Value 10/18/2019 26 mg/dL (H) 04/22/2011 25 MG/DL (H) CREATININE Date Value 10/18/2019 3.82 mg/dL (H) 04/22/2011 1.30 MG/DL (H) GLUCOSE Date Value 10/18/2019 99 mg/dL 04/22/2011 180 MG/DL (H) CO2 TOTAL Date Value 10/18/2019 28 mmol/L 04/22/2011 26 MMOL/L ALBUMIN Date Value 10/18/2019 4.1 g/dL 02/17/2003 3.7 G/DL T PROTEIN Date Value 10/18/2019 7.8 g/dL 02/17/2003 7.1 G/DL TOTAL BILI Date Value 10/18/2019 0.4 mg/dL 02/17/2003 0.2 MG/DL BILI UNCON Date Value 06/27/2016 0.1 mg/dL 02/17/2003 0.3 MG/DL BILI CONJ Date Value 06/27/2016 0.0 mg/dL 02/17/2003 0.0 MG/DL ALT(SGPT) (U/L) Date Value 06/27/2016 36 02/17/2003 41 ALTv (U/L) Date Value 10/18/2019 15 AST(SGOT) (U/L) Date Value 10/18/2019 30 02/17/2003 23 ALK PHOS (U/L) Date Value 10/18/2019 101 02/17/2003 141 (H) Chest xray 10/14: HISTORY: SOB. TECHNIQUE: Portable AP semierect view of the chest is obtained. Comparison made with 06/27/2016 study. FINDINGS: Multiple patchy areas of bilateral pulmonary infiltrates noted, slightly more in the right lower lung. Mild cardiomegaly noted. No pneumothorax or pleural effusion. There is minimal underlying pulmonary edema. CONCLUSIONS: Bilateral pulmonary infiltrates, more severe in the right lung with minimal acute pulmonary edema. Etiology includes possibility of COVID19 type infection. Please correlate clinically. Assessment and plan: Leukocytosis, improved Pneumonia secondary to Covid 19 infection D-Dimer elevated, on ASA Procalcitoninelevated 4.93 Finished 3 days of Zosyn, Now on PO Levaquin Recommend total of 2 weeks of antibiotics for Pneumonia ESRD on dialysis Diabetes mellitus, monitor glycemic control 06/15 Will continue to monitor Patient discussed with Dr. Vega Cornel Alexander MD - 10/18/2019 10:54 AM CDT [facility] Hospitalist Progress Note SUBJECTIVE: No acute events overnight. CURRENT MEDICATIONS - reviewed. Current Facility-Administered Medications Medication Dose Route Frequency Last Rate Last Dose levoFLOXacin (LEVAQUIN) tablet 250 mg 250 mg Oral Q24H ABX 250 mg at 10/17/19 1511 remdesivir 100 mg in NaCl 0.9% (NS) 250 mL infusion 100 mg IV Infusion Q24H 100 mg at 08/06/20 2218 amLODIPine (NORVASC) tablet 10 mg 10 mg Oral DAILY 10 mg at 10/18/19932 aspirin chewable tablet 81 mg 81 mg Oral DAILY 81 mg at 10/18/19932 atorvastatin (LIPITOR) tablet 20 mg 20 mg Oral QHS 20 mg at 10/16/191951 carvediloL (COREG) tablet 12.5 mg 12.5 mg Oral BID MEALS 12.5 mg at 10/18/19932 clopidogreL (PLAVIX) tablet 75 mg 75 mg Oral DAILY 75 mg at 10/18/19932 dextrose 50 % in water (D50W) injection 25 mL 25 mL Slow IV Push PRN docusate (COLACE) capsule 100 mg 100 mg Oral BID 100 mg at 10/18/19932 gabapentin (NEURONTIN) capsule 300 mg 300 mg Oral TID 300 mg at 10/18/19932 glucagon (GLUCAGEN DIAGNOSTIC KIT) injection 1 mg 1 mg Intramuscular PRN hydrALAZINE (APRESOLINE) tablet 25 mg 25 mg Oral BID 25 mg at 10/18/19932 insulin detemir U-100 (LEVEMIR U-100 INSULIN) injection 18 Units 18 Units Subcutaneous QAM WITHBREAKFAST 18 Units at 10/17/19 0946 lactobacillus acidophilus (ACIDOPHILLUS) 25 million cell -100 mg captab 1 tablet 1 tablet Oral BID 1 tablet at 10/18/19932 nitroglycerin 50 mg in D5W 250 mL infusion RTU 5-200 mcg/min IV Infusion TITRATE Stopped at 10/16/19 1200 ondansetron (ZOFRAN (PF)) injection 4 mg 4 mg Slow IV Push Q6HPRN phenytoin Extended (DILANTIN KAPSEAL) capsule 200 mg 200 mg Oral BID 200 mg at 10/18/19 0933 piperacillin-tazobactam (ZOSYN) 2.25 g/50 mL RTU 2.25 g IV Piggyback Q8H ABX 2.25 g at 10/18/19 0431 sevelamer (RENVELA) tablet 1,600 mg 1,600 mg Oral TID MEALS Stopped at 10/18/19 0800 Sliding Scale Insulin - Aspart (NOVOLOG) + Fsbg Testing Subcutaneous TID MEALS+HS Stopped at10/16/19 1637 PHYSICAL EXAM: BP 139/61 | Pulse 69 | Temp 37.1 C (98.8 F) (Axillary) | Resp 16 | Wt 144 lb 6.4 oz (65.5 kg) | SpO2 94% | BMI 24.03 kg/m General: No respiratory distress Neuro: AAOx1, no focal deficits Psych: Normal affect LABS/IMAGING - reviewed, pertinent results as below: CBC BMP PT/INR WBC x10^3 (/CMM) Date Value 04/22/2011 8.9 WBC (10*3/L) Date Value 10/18/2019 5.06 NA Date Value 10/18/2019 138 mmol/L 04/22/2011 139 MMOL/L No results found for: PT RBC x10^6 (/CMM) Date Value 04/22/2011 5.05 RBC (10*6/L) Date Value 10/18/2019 3.44 (L) K Date Value 10/18/2019 3.6 mmol/L 04/22/2011 3.8 MMOL/L PT INR (no units) Date Value 01/24/2004 1.0 INR (no units) Date Value 10/15/2019 1.0 PLT x10^3 (/CMM) Date Value 04/22/2011 303 PLT (10*3/L) Date Value 10/18/2019 205 CALCIUM Date Value 10/18/2019 8.6 mg/dL 04/22/2011 8.8 MG/DL HGB Date Value 10/18/2019 10.3 g/dL (L) 04/22/2011 13.8 G/DL CL Date Value 10/18/2019 96 mmol/L (L) 04/22/2011 101 MMOL/L aPTT HCT (%) Date Value 10/18/2019 31.3 (L) 04/22/2011 41.0 BUN Date Value 10/18/2019 26 mg/dL (H) 04/22/2011 25 MG/DL (H) APTT (SEC) Date Value 01/24/2004 25 APTT Patient (Seconds) Date Value 10/17/2019 59 (H) CREATININE Date Value 10/18/2019 3.82 mg/dL (H) 04/22/2011 1.30 MG/DL (H) IMAGING- Hospital Encounter on 10/15/19 XR CHEST 1 VW Narrative HISTORY: SOB. TECHNIQUE: Portable AP semierect view of the chest is obtained. Comparison made with 06/27/2016 study. FINDINGS: Multiple patchy areas of bilateral pulmonary infiltrates noted, slightly more in the right lower lung. Mild cardiomegaly noted. No pneumothorax or pleural effusion. There is minimal underlying pulmonary edema. CONCLUSIONS: Bilateral pulmonary infiltrates, more severe in the right lung with minimal acute pulmonary edema. Etiology includes possibility of COVID19 type infection. Please correlate clinically. ASSESSMENT/PLAN Jayne Raymundo is a 64 year old male with PMH as listed above, admitted to the hospital with: Acute hypoxic and hypercapneic respiratory failure, requiring bipap on admission Hypertensive emergency Nstemi type 2 likely COVID19 pneumonia Hyperkalemia NSVT ESRD Acute CHF exacerbation, unclear if diastolic or systolic. Elevated BNP Bilateral pneumonia COVID Mild to moderate ARDS On remdesivir day 4/ Received emergent HD and much improved. Follows Dr. Vasques as outpatient. IV heparin drip day 2 for troponin elevation and low EF Received amiodarone drip for NSVT then discontinued, was likely due to hyperkalemia Consult cardiology Dr. Alston, updated Consult nephrology Dr. Werner on board. On TTS. On po levaquin for pneumonia ID consult Dr. Vega IV dexamethasone day 4, monitor blood glucose given uncontrolled dm Weaned off nitro drip dvt proph hep subq Full code, advance care planning dsicussed with patient for 18 minutes and surrogate decision maker Piedad daughter. Updated both about plan of care. Prognosis guarded PAD Right AKA Left BKA Carotid artery disease Unsure why patient is not on asa, plavix, will restart, prescribe on discharge Continue statin ESRD on TTS via VF nephrology consult dr. Maddox IDDM uncontrolled with hpyeglycemia Check A1c Sliding scale qachs Glipizide 5 mg qd, hld levemir 18 units in AM, resume tomorrow if taking po diet Asa, statin Hypertension, uncontrolled At home on norvasc 10 mg qd, coreg 12.5 mg qhs, hydralazine 25 mg QD Will restart norvasc and increase coreg to bid and increase hydralazine to BID Might need further uptitration B/l blind Hx of osteo in the pst Former smoker ? Hx of dementia, previous notes mention AAOx1 Maybe hx of seizure disorder, unclear. On dilantin 400 mg qhs, gabapentin 300 mg TID Chronic pain on tramadol bid Vit D deficiency Hx of anemia detention resident at [facility] Dispo - back to [facility] when stable Cornel Desai MD Raul, MD David - 10/18/2019 8:12 AM CDT [facility] Cardiology progress note Date of Service: 10/18/2019 Jayne Raymundo is a 64 years old male hospitalized for COVID infection. No further arrhythmias. K is normal. PHYSICAL EXAM Vitals: 10/18/19 0113 10/18/19 0410 10/18/19 0715 10/18/19 0807 BP: (!) 168/70 (!) 169/61 139/61 Pulse: 75 72 69 Resp: 17 17 16 Temp: 36.7 C (98 F) 36.8 C (98.3 F) 37.1 C (98.8 F) TempSrc: Axillary Axillary Axillary SpO2: 98% 98% 98% 94% Weight: Exam is limited due to COVID Constitutional: no apparent distress ENT: normocephalic atraumatic GI: non-distended : not examined Medications: I have reviewed the patient's medications; see Medication Reconciliation. Labs: I have reviewed the patient's labs. ASSESSMENT AND PLAN Principal Problem: Acute respiratory failure with hypoxia Active Problems: ESRD (end stage renal disease) on dialysis DM (diabetes mellitus) PAD HTN (hypertension) Bilateral pneumonia Troponin I above reference range Acute combined systolic and diastolic congestive heart failure Hyperkalemia VT (ventricular tachycardia) Hypertensive emergency Acute respiratory failure with COVID infection--per primary team. Various arrhythmias including VT etc--likely due to hyperkalemia. Off IV amiodarone. K is corrected.No recurrent arrhythmias. Acute HFrEF--Uncertain etiology. Possible pulmonary edema by CXR. BNP elevated. Fluid removal via HD. Continue coreg. Continue ASA/plavix/lipitor. If patient and family pursue aggressive approach, consider transfer to [facility]. Not on ACEI/ARB due to ESRD. Troponin elevation--likely due to demand ischemia from HF/HTN/HD, type 2 MN. Trending down. Will discontinue IV heparin today--finished 48 hours. Hypertensive emergency--improved. Continue amlodipine/coreg/hydralazine. PAD--s/p bilateral amputation. David Alston MD, [facility] [place] Roll Line Operator, Division of Cardiology [facility] Cornel Alexander MD - 10/17/2019 3:16 PM CDT [facility] Hospitalist Progress Note SUBJECTIVE: No acute events overnight. CURRENT MEDICATIONS - reviewed. Current Facility-Administered Medications Medication Dose Route Frequency Last Rate Last Dose heparin (PF) 1,000 unit/mL injection 1,500 Units 1,500 Units Slow IV Push DIALYSIS ONCE - PT ROOM Stopped at 10/17/19 1130 Followed by heparin (PF) 1,000 unit/mL injection 1,500 Units 1,500 Units Slow IV Push DIALYSIS ONCE - PT ROOM Stopped at 10/17/19 1130 levoFLOXacin (LEVAQUIN) tablet 250 mg 250 mg Oral Q24H ABX 250 mg at 10/17/19 1511 lidocaine 1% (PF) (XYLOCAINE) injection 0.3 mL 0.3 mL Infiltration DIALYSIS ONCE - PT ROOM remdesivir 100 mg in NaCl 0.9% (NS) 250 mL infusion 100 mg IV Infusion Q24H heparin (1,000 unit/mL, 10 mL vial) for Rebolusing 3,000 Units Slow IV Push FOR REBOLUSING heparin 25,000 unit/250 mL (Premixed Bag) in 0.45 % NS 12 Units/kg/hr IV Infusion TITRATE 5.75 mL/hr at 10/17/19 1220 575 Units/hr at 10/17/19 1220 amLODIPine (NORVASC) tablet 10 mg 10 mg Oral DAILY 10 mg at 10/17/19 0946 aspirin chewable tablet 81 mg 81 mg Oral DAILY 81 mg at 10/17/19 0945 atorvastatin (LIPITOR) tablet 20 mg 20 mg Oral QHS 20 mg at 10/16/19 1952 carvediloL (COREG) tablet 12.5 mg 12.5 mg Oral BID MEALS 12.5 mg at 10/17/19 0946 clopidogreL (PLAVIX) tablet 75 mg 75 mg Oral DAILY 75 mg at 10/17/19 0945 dextrose 50 % in water (D50W) injection 25 mL 25 mL Slow IV Push PRN docusate (COLACE) capsule 100 mg 100 mg Oral BID 100 mg at 10/17/19 0945 gabapentin (NEURONTIN) capsule 300 mg 300 mg Oral TID 300 mg at 10/17/19 1511 glucagon (GLUCAGEN DIAGNOSTIC KIT) injection 1 mg 1 mg Intramuscular PRN hydrALAZINE (APRESOLINE) tablet 25 mg 25 mg Oral BID 25 mg at 10/17/19 0946 insulin detemir U-100 (LEVEMIR U-100 INSULIN) injection 18 Units 18 Units Subcutaneous QAM WITHBREAKFAST 18 Units at 10/17/19 0946 lactobacillus acidophilus (ACIDOPHILLUS) 25 million cell -100 mg captab 1 tablet 1 tablet Oral BID 1 tablet at 10/17/19 0945 nitroglycerin 50 mg in D5W 250 mL infusion RTU 5-200 mcg/min IV Infusion TITRATE Stopped at 10/16/19 1200 ondansetron (ZOFRAN (PF)) injection 4 mg 4 mg Slow IV Push Q6HPRN phenytoin Extended (DILANTIN KAPSEAL) capsule 200 mg 200 mg Oral BID 200 mg at 10/17/19 0945 piperacillin-tazobactam (ZOSYN) 2.25 g/50 mL RTU 2.25 g IV Piggyback Q8H ABX 2.25 g at 10/17/19 1312 sevelamer (RENVELA) tablet 1,600 mg 1,600 mg Oral TID MEALS Stopped at 10/17/19 1200 Sliding Scale Insulin - Aspart (NOVOLOG) + Fsbg Testing Subcutaneous TID MEALS+HS Stopped at10/16/19 1637 PHYSICAL EXAM: BP (!) 143/64 | Pulse 81 | Temp 36.8 C (98.3 F) (Axillary) | Resp 17 | Wt 149 lb 9 oz (67.8 kg) | SpO2 96% | BMI 24.89 kg/m General: No respiratory distress Neuro: AAOx1, no focal deficits Psych: Normal affect LABS/IMAGING - reviewed, pertinent results as below: CBC BMP PT/INR WBC x10^3 (/CMM) Date Value 04/22/2011 8.9 WBC (10*3/L) Date Value 10/17/2019 9.05 NA Date Value 10/17/2019 136 mmol/L 04/22/2011 139 MMOL/L No results found for: PT RBC x10^6 (/CMM) Date Value 04/22/2011 5.05 RBC (10*6/L) Date Value 10/17/2019 3.57 (L) K Date Value 10/17/2019 3.9 mmol/L 04/22/2011 3.8 MMOL/L PT INR (no units) Date Value 01/24/2004 1.0 INR (no units) Date Value 10/15/2019 1.0 PLT x10^3 (/CMM) Date Value 04/22/2011 303 PLT (10*3/L) Date Value 10/17/2019 212 CALCIUM Date Value 10/17/2019 8.5 mg/dL (L) 04/22/2011 8.8 MG/DL HGB Date Value 10/17/2019 10.8 g/dL (L) 04/22/2011 13.8 G/DL CL Date Value 10/17/2019 94 mmol/L (L) 04/22/2011 101 MMOL/L aPTT HCT (%) Date Value 10/17/2019 32.0 (L) 04/22/2011 41.0 BUN Date Value 10/17/2019 31 mg/dL (H) 04/22/2011 25 MG/DL (H) APTT (SEC) Date Value 01/24/2004 25 APTT Patient (Seconds) Date Value 10/17/2019 50 (H) CREATININE Date Value 10/17/2019 5.06 mg/dL (H) 04/22/2011 1.30 MG/DL (H) IMAGING- Hospital Encounter on 10/15/19 XR CHEST 1 VW Narrative HISTORY: SOB. TECHNIQUE: Portable AP semierect view of the chest is obtained. Comparison made with 06/27/2016 study. FINDINGS: Multiple patchy areas of bilateral pulmonary infiltrates noted, slightly more in the right lower lung. Mild cardiomegaly noted. No pneumothorax or pleural effusion. There is minimal underlying pulmonary edema. CONCLUSIONS: Bilateral pulmonary infiltrates, more severe in the right lung with minimal acute pulmonary edema. Etiology includes possibility of COVID19 type infection. Please correlate clinically. ASSESSMENT/PLAN Jayne Raymundo is a 64 year old male with PMH as listed above, admitted to the hospital with: Acute hypoxic and hypercapneic respiratory failure, requiring bipap on admission Hypertensive emergency Nstemi type 2 likely COVID19 pneumonia Hyperkalemia NSVT ESRD Acute CHF exacerbation, unclear if diastolic or systolic. Elevated BNP Bilateral pneumonia COVID Mild to moderate ARDS On remdesivir day 3/5 Received emergent HD and much improved. Follows Dr. Vasques as outpatient. IV heparin drip day 2 for troponin elevation and low EF Received amiodarone drip for NSVT then discontinued, was likely due to hyperkalemia Consult cardiology Dr. Alston, updated Consult nephrology Dr. Werner on board. On TTS. On po levaquin for pneumonia ID consult Dr. Vega IV dexamethasone day 3, monitor blood glucose given uncontrolled dm Continue nitro drip to keep SBP < 180 and wean off dvt proph hep subq Full code, advance care planning dsicussed with patient for 18 minutes and surrogate decision maker Piedad daughter. Updated both about plan of care. Prognosis guarded PAD Right AKA Left BKA Carotid artery disease Unsure why patient is not on asa, plavix, will restart, prescribe on discharge Continue statin ESRD on TTS via VF nephrology consult dr. Maddox IDDM uncontrolled with hpyeglycemia Check A1c Sliding scale qachs Glipizide 5 mg qd, hld levemir 18 units in AM, resume tomorrow if taking po diet Asa, statin Hypertension, uncontrolled At home on norvasc 10 mg qd, coreg 12.5 mg qhs, hydralazine 25 mg QD Will restart norvasc and increase coreg to bid and increase hydralazine to BID Might need further uptitration B/l blind Hx of osteo in the pst Former smoker ? Hx of dementia, previous notes mention AAOx1 Maybe hx of seizure disorder, unclear. On dilantin 400 mg qhs, gabapentin 300 mg TID Chronic pain on tramadol bid Vit D deficiency Hx of anemia detention resident at [facility] Dispo - back to [facility] when stable Cornel Desai MD Dashawn Duke FNP - 10/17/2019 1:25 PM CDT Subjective: Patient is a 64-year-old male [facility] resident who presents with respiratory distress and hypoxia. Patient has a history of ESRD on dialysis. Patientfound to be in V Tach andhypertensive emergency. Patient also found to haveleukocytosis and pneumonia secondary [id number] infection which I have been consulted for. Patient on room air. Patient still pulling at lines and has decreased apetitie. Has pulled out all of his IV lines. Objective: Vitals: 10/17/19 0600 10/17/19 0807 10/17/19 0820 10/17/19 1125 BP: (!) 171/72 (!) 178/81 (!) 143/64 Pulse: 79 81 Resp: 17 18 18 17 Temp: 37 C (98.6 F) 36.8 C (98.3 F) TempSrc: Axillary SpO2: 95% 93% 94% 96% Weight: CBC WBC x10^3 (/CMM) Date Value 04/22/2011 8.9 WBC (10*3/L) Date Value 10/17/2019 9.05 RBC x10^6 (/CMM) Date Value 04/22/2011 5.05 RBC (10*6/L) Date Value 10/17/2019 3.57 (L) PLT x10^3 (/CMM) Date Value 04/22/2011 303 PLT (10*3/L) Date Value 10/17/2019 212 HGB Date Value 10/17/2019 10.8 g/dL (L) 04/22/2011 13.8 G/DL HCT (%) Date Value 10/17/2019 32.0 (L) 04/22/2011 41.0 CMP NA Date Value 10/17/2019 136 mmol/L 04/22/2011 139 MMOL/L K Date Value 10/17/2019 3.9 mmol/L 04/22/2011 3.8 MMOL/L CALCIUM Date Value 10/17/2019 8.5 mg/dL (L) 04/22/2011 8.8 MG/DL CL Date Value 10/17/2019 94 mmol/L (L) 04/22/2011 101 MMOL/L BUN Date Value 10/17/2019 31 mg/dL (H) 04/22/2011 25 MG/DL (H) CREATININE Date Value 10/17/2019 5.06 mg/dL (H) 04/22/2011 1.30 MG/DL (H) GLUCOSE Date Value 10/17/2019 190 mg/dL (H) 04/22/2011 180 MG/DL (H) CO2 TOTAL Date Value 10/17/2019 28 mmol/L 04/22/2011 26 MMOL/L ALBUMIN Date Value 10/17/2019 4.1 g/dL 02/17/2003 3.7 G/DL T PROTEIN Date Value 10/17/2019 7.9 g/dL 02/17/2003 7.1 G/DL TOTAL BILI Date Value 10/17/2019 0.4 mg/dL 02/17/2003 0.2 MG/DL BILI UNCON Date Value 06/27/2016 0.1 mg/dL 02/17/2003 0.3 MG/DL BILI CONJ Date Value 06/27/2016 0.0 mg/dL 02/17/2003 0.0 MG/DL ALT(SGPT) (U/L) Date Value 06/27/2016 36 02/17/2003 41 ALTv (U/L) Date Value 10/17/2019 17 AST(SGOT) (U/L) Date Value 10/17/2019 29 02/17/2003 23 ALK PHOS (U/L) Date Value 10/17/2019 116 02/17/2003 141 (H) Chest xray 10/14: HISTORY: SOB. TECHNIQUE: Portable AP semierect view of the chest is obtained. Comparison made with 06/27/2016 study. FINDINGS: Multiple patchy areas of bilateral pulmonary infiltrates noted, slightly more in the right lower lung. Mild cardiomegaly noted. No pneumothorax or pleural effusion. There is minimal underlying pulmonary edema. CONCLUSIONS: Bilateral pulmonary infiltrates, more severe in the right lung with minimal acute pulmonary edema. Etiology includes possibility of COVID19 type infection. Please correlate clinically. ROS: General: restless, room air, vitals stable Assessment and plan: Leukocytosis, improved Pneumonia secondary to Covid 19 infection D-Dimer elevated, on ASA Procalcitonin elevated 4.93 Zosyn day 3 Recommend to continue for total of 2 weeks, can change to PO Levaquin ESRD on dialysis Diabetes mellitus, monitor glycemic control Remdes05/15 Will continue to monitor Patient discussed with Dr. Vega Sofiya Garner MD - 10/17/2019 11:51 AM CDT Nephrology note 10/17/2019 CC: ESRD on HD , Hyperkalemia Jayne Raymundo is a 64 year old male presenting with respiratory distress and hypoxia from [facility] by ambulance. Reportedly 66% on RA. Patient placed on NRB by EMS. Sats improved to 95%. Patient is ESRD on dialysis. Due for dialysis. He was confused but able to respond to simple questions. Presented in extremis BP > 230 RR 40 HR 120. Immediately placed on Bipap and Nitro gtt upon presentation to ED. He is admitted to ICU for COVID pneumonia, was found to have hyperkalemia and HD was ordered to treat hyperkalemia, provide metabolic clearance. Patient was treated with IV meds for hypertensive emergency, cardiology consultation was ordered. 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 Osteomyelitis Past Surgical History: Procedure Laterality Date ANGIOPLASTY Left 07/01/2016 Surgeon: Rubin Barrera MD; Location: [facility] [place] ARTERIOGRAM Right 07/06/2015 Surgeon: Rubin Barrera MD; Location: [facility] [place] ARTERIOGRAM Left 06/30/2016 Surgeon: Washington Peter MD; Location: [facility] [place] ARTERIOGRAM Left 07/01/2016 Surgeon: Rubin Barrera MD; Location: [facility] [place] CENTRAL VENOUS ACCESS CATHETER PLACEMENT N/A 06/08/2016 Surgeon: Washington Peter MD; Location: [facility] [place] ENDODIATHERMY 04/19/2011 Surgeon:TAI BIGGS; Location[facility] [place] ENDOLASER PHOTOCOAGULATION 04/19/2011 Surgeon:TAI BIGGS; Location:[facility] [place] INFUSION CATHETER PLACEMENT (SHX) Left 06/30/2016 Surgeon: Washington Peter MD; Location: [facility] [place] INFUSION CATHETER REMOVAL (SHX) Left 07/01/2016 Surgeon: Rubin Barrera MD; Location: [facility] [place] MEMBRANE PEELING 04/19/2011 Surgeon:TAI BIGGS; Location:[facility] PARS PLANA VITRECTOMY 04/19/2011 Surgeon:TAI BIGGS; Location:[facility] PARS [place]NA VITRECTOMY 06/21/2011 Surgeon:VLADIMIR WU; Location:[facility] SILICONE OIL PLACEMENT 04/19/2011 Surgeon:TAI BIGGS; Location:[facility] [place] SILICONE OIL REMOVAL 06/21/2011 Surgeon:VLADIMIR WU; Location:[facility] SYNECHIALYSIS 06/21/2011 Surgeon:VLADIMIR WU; Location:[facility] TOE AMPUTATION Left 07/06/2015 Surgeon: Rubin Barrera MD; Location: [facility] [place] TOE AMPUTATION Left 07/20/2015 Surgeon: Washington Peter MD; Location: [facility] VASCULAR STENTING Right 07/06/2015 Surgeon: Rubin Barrera MD; Location: [facility] VASCULAR STENTING Left 07/01/2016 Surgeon: Rubin Barrera MD; Location: [facility] Family History Problem Relation Age of Onset Diabetes Mother ALLERGIES No Known Allergies ROS: unobtainable, patient lethargic PHYSICAL EXAMINATION BP (!) 178/81 | Pulse 81 | Temp 37 C (98.6 F) | Resp 18 | Wt 149 lb 9 oz (67.8 kg) | SpO2 94% | BMI 24.89 kg/m Physical Exam Constitutional: He appears well-developed. HENT: Head: Normocephalic. Eyes: Pupils are equal, round, and reactive to light. Neck: Normal range of motion. Cardiovascular: Murmur heard. Pulmonary/Chest: He has wheezes. He has rales. Abdominal: Soft. Neurological: He is alert. Skin: Skin is warm. LABS - reviewed pertinent labs as below: CBC WBC x10^3 (/CMM) Date Value 04/22/2011 8.9 WBC (10*3/L) Date Value 10/17/2019 9.05 RBC x10^6 (/CMM) Date Value 04/22/2011 5.05 RBC (10*6/L) Date Value 10/17/2019 3.57 (L) PLT x10^3 (/CMM) Date Value 04/22/2011 303 PLT (10*3/L) Date Value 10/17/2019 212 HGB Date Value 10/17/2019 10.8 g/dL (L) 04/22/2011 13.8 G/DL HCT (%) Date Value 10/17/2019 32.0 (L) 04/22/2011 41.0 NA Date Value 10/17/2019 136 mmol/L 04/22/2011 139 MMOL/L K Date Value 10/17/2019 3.9 mmol/L 04/22/2011 3.8 MMOL/L CALCIUM Date Value 10/17/2019 8.5 mg/dL (L) 04/22/2011 8.8 MG/DL CL Date Value 10/17/2019 94 mmol/L (L) 04/22/2011 101 MMOL/L BUN Date Value 10/17/2019 31 mg/dL (H) 04/22/2011 25 MG/DL (H) CREATININE Date Value 10/17/2019 5.06 mg/dL (H) 04/22/2011 1.30 MG/DL (H) GLUCOSE Date Value 10/17/2019 190 mg/dL (H) 04/22/2011 180 MG/DL (H) CO2 TOTAL Date Value 10/17/2019 28 mmol/L 04/22/2011 26 MMOL/L ALBUMIN Date Value 10/17/2019 4.1 g/dL 02/17/2003 3.7 G/DL T PROTEIN Date Value 10/17/2019 7.9 g/dL 02/17/2003 7.1 G/DL TOTAL BILI Date Value 10/17/2019 0.4 mg/dL 02/17/2003 0.2 MG/DL BILI UNCON Date Value 06/27/2016 0.1 mg/dL 02/17/2003 0.3 MG/DL BILI CONJ Date Value 06/27/2016 0.0 mg/dL 02/17/2003 0.0 MG/DL ALT(SGPT) (U/L) Date Value 06/27/2016 36 02/17/2003 41 ALTv (U/L) Date Value 10/17/2019 17 AST(SGOT) (U/L) Date Value 10/17/2019 29 02/17/2003 23 ALK PHOS (U/L) Date Value 10/17/2019 116 02/17/2003 141 (H) IMAGING - reviewed, pertinent results as below: CXR--pulmonary edema EKG: Various arrhythmias--VT, accelerated junctional rhythm, sinus bradycardia, sinus pause, junctional escape rhythm etc. ASSESSMENT/PLAN Principal Problem: Acute respiratory failure with hypoxia ESRD , Hyperkalemia with ekg changes Active Problems: ESRD (end stage renal disease) on dialysis, still over volume S/p HD yesterday : . The patient back to his as scheduled TTS due for dialysis today Hyper K resolved DM (diabetes mellitus), continue insulin PAD per cardio HTN (hypertension), to utlized BP for UF COVID Pneu : continuecurrent tx Bilateral pneumonia due to covid , per ID and primary team CHF Ex withVT / Urgent HTN currently normal volume : HD today Troponin I above reference range,f/u cardio Acute combined systolic and diastolic congestive heart failure, continue beta oli , currently normal volume will continue HD today will taper down Nitro Acute respiratory failure with COVID infection--per primary team. Diarrhea Follow-up with the primary THITCkita, MD David - 10/17/2019 8:26 AM CDT [facility] Cardiology progress note Date of Service: 10/17/2019 Jayne Raymundo is a 64 years old male hospitalized for COVID infection. No further arrhythmias. K is normal. PHYSICAL EXAM Vitals: 10/17/19 0400 10/17/19 0600 10/17/19 0807 10/17/19 0820 BP: (!) 179/68 (!) 171/72 (!) 178/81 Pulse: 79 79 81 Resp: 19 17 18 18 Temp: 36.9 C (98.4 F) 37 C (98.6 F) TempSrc: Temporal Artery SpO2: 95% 95% 93% 94% Weight: 67.8 kg (149 lb 9 oz) Exam is limited due to COVID Constitutional: no apparent distress ENT: normocephalic atraumatic GI: non-distended : not examined Medications: I have reviewed the patient's medications; see Medication Reconciliation. Labs: I have reviewed the patient's labs. ASSESSMENT AND PLAN Principal Problem: Acute respiratory failure with hypoxia Active Problems: ESRD (end stage renal disease) on dialysis DM (diabetes mellitus) PAD HTN (hypertension) Bilateral pneumonia Troponin I above reference range Acute combined systolic and diastolic congestive heart failure Hyperkalemia VT (ventricular tachycardia) Hypertensive emergency Acute respiratory failure with COVID infection--per primary team. Various arrhythmias including VT etc--likely due to hyperkalemia. Off IV amiodarone. K is corrected.No recurrent arrhythmias. Acute HFrEF--Uncertain etiology. Possible pulmonary edema by CXR. BNP elevated. Fluid removal via HD. Continue coreg. Continue ASA/plavix/lipitor. If patient and family pursue aggressive approach, consider transfer to [facility]. Not on ACEI/ARB due to ESRD. Troponin elevation--likely due to demand ischemia from HF/HTN/HD, type 2 MN. Trending down. Will continue IV heparin for 48 hours. Hypertensive emergency--improved. Continue amlodipine/coreg/hydralazine. PAD--s/p bilateral amputation. David Alston MD, [facility] [place] Roll Line Operator, Division of Cardiology [facility] THITTDashawn wetzel FNP - 10/16/2019 2:33 PM CDT Subjective: Patient is a 64-year-old male [facility] resident who presents with respiratory distress and hypoxia. Patient has a history of ESRD on dialysis. Patient found to be in V Tach and hypertensive emergency. Patient also found to have leukocytosis and pneumonia secondary to Covid 19 infectionwhich I have been consulted for. Patient utilizing 2L nasal cannula. Per nurse, patient alert and oriented to person, pulling at lines and has decreased apetitie. Objective: Vitals: 10/16/19 1030 10/16/19 1100 10/16/19 1145 10/16/19 1200 BP: 138/68 (!) 148/69 (!) 152/64 Pulse: 76 74 75 Resp: Temp: 37.3 C (99.1 F) TempSrc: Axillary SpO2: 90% 90% 91% Weight: CBC WBC x10^3 (/CMM) Date Value 04/22/2011 8.9 WBC (10*3/L) Date Value 10/16/2019 8.51 RBC x10^6 (/CMM) Date Value 04/22/2011 5.05 RBC (10*6/L) Date Value 10/16/2019 3.67 (L) PLT x10^3 (/CMM) Date Value 04/22/2011 303 PLT (10*3/L) Date Value 10/16/2019 224 HGB Date Value 10/16/2019 11.1 g/dL (L) 04/22/2011 13.8 G/DL HCT (%) Date Value 10/16/2019 32.8 (L) 04/22/2011 41.0 CMP NA Date Value 10/16/2019 133 mmol/L (L) 10/16/2019 133 mmol/L (L) 04/22/2011 139 MMOL/L K Date Value 10/16/2019 4.7 mmol/L 10/16/2019 4.7 mmol/L 04/22/2011 3.8 MMOL/L CALCIUM Date Value 10/16/2019 8.6 mg/dL 10/16/2019 8.6 mg/dL 04/22/2011 8.8 MG/DL CL Date Value 10/16/2019 91 mmol/L (L) 10/16/2019 91 mmol/L (L) 04/22/2011 101 MMOL/L BUN Date Value 10/16/2019 41 mg/dL (H) 10/16/2019 41 mg/dL (H) 04/22/2011 25 MG/DL (H) CREATININE Date Value 10/16/2019 6.31 mg/dL (H) 10/16/2019 6.31 mg/dL (H) 04/22/2011 1.30 MG/DL (H) GLUCOSE Date Value 10/16/2019 172 mg/dL (H) 10/16/2019 172 mg/dL (H) 04/22/2011 180 MG/DL (H) CO2 TOTAL Date Value 10/16/2019 29 mmol/L 10/16/2019 29 mmol/L 04/22/2011 26 MMOL/L ALBUMIN Date Value 10/16/2019 4.2 g/dL 02/17/2003 3.7 G/DL T PROTEIN Date Value 10/16/2019 7.7 g/dL 02/17/2003 7.1 G/DL TOTAL BILI Date Value 10/16/2019 0.5 mg/dL 02/17/2003 0.2 MG/DL BILI UNCON Date Value 06/27/2016 0.1 mg/dL 02/17/2003 0.3 MG/DL BILI CONJ Date Value 06/27/2016 0.0 mg/dL 02/17/2003 0.0 MG/DL ALT(SGPT) (U/L) Date Value 06/27/2016 36 02/17/2003 41 ALTv (U/L) Date Value 10/16/2019 21 AST(SGOT) (U/L) Date Value 10/16/2019 31 02/17/2003 23 ALK PHOS (U/L) Date Value 10/16/2019 144 (H) 02/17/2003 141 (H) Chest xray 10/14: HISTORY: SOB. TECHNIQUE: Portable AP semierect view of the chest is obtained. Comparison made with 06/27/2016 study. FINDINGS: Multiple patchy areas of bilateral pulmonary infiltrates noted, slightly more in the right lower lung. Mild cardiomegaly noted. No pneumothorax or pleural effusion. There is minimal underlying pulmonary edema. CONCLUSIONS: Bilateral pulmonary infiltrates, more severe in the right lung with minimal acute pulmonary edema. Etiology includes possibility of COVID19 type infection. Please correlate clinically. ROS: General: restless, utilizing nasal cannula, vitals stable Assessment and plan: Leukocytosis, improved Pneumonia secondary to Covid 19 infection D-Dimer elevated, on ASA Procalcitonin elevated 4.93 Zosyn day 2 and Vancomycin day 1, recommend to continue for total of 2 weeks ESRD on dialysis Diabetes mellitus, monitor glycemic control Remdesivir day 2/5 Recommend adding Solumedrol 40mg IV daily x5 days Will continue to monitor Thank you for consult Patient discussed with Dr. Vega Cornel Alexander MD - 10/16/2019 12:16 PM CDT [facility] Hospitalist Progress Note SUBJECTIVE: Weaned off bipap overnight. Still on nitro drip. CURRENT MEDICATIONS - reviewed. Current Facility-Administered Medications Medication Dose Route Frequency Last Rate Last Dose heparin (1,000 unit/mL, 10 mL vial) for Rebolusing 3,000 Units Slow IV Push FOR REBOLUSING heparin (PF) 1,000 unit/mL injection 1,500 Units 1,500 Units Slow IV Push DIALYSIS ONCE - PT ROOM Followed by heparin (PF) 1,000 unit/mL injection 1,500 Units 1,500 Units Slow IV Push DIALYSIS ONCE - PT ROOM heparin 1000 unit/mL injection Soln 4,000 Units 4,000 Units IV Push ONCE Stopped at 10/16/19 0815 heparin 25,000 unit/250 mL (Premixed Bag) in 0.45 % NS 12 Units/kg/hr IV Infusion TITRATE 8.26 mL/hr at 10/16/19 0916 12 Units/kg/hr at 10/16/19 0916 lidocaine 1% (PF) (XYLOCAINE) injection 0.3 mL 0.3 mL Infiltration DIALYSIS ONCE - PT ROOM amLODIPine (NORVASC) tablet 10 mg 10 mg Oral DAILY 10 mg at 10/16/19 0857 aspirin chewable tablet 81 mg 81 mg Oral DAILY 81 mg at 10/16/19 0857 atorvastatin (LIPITOR) tablet 20 mg 20 mg Oral QHS carvediloL (COREG) tablet 12.5 mg 12.5 mg Oral BID MEALS 12.5 mg at 10/16/19 0856 clopidogreL (PLAVIX) tablet 75 mg 75 mg Oral DAILY 75 mg at 10/16/19 0857 dextrose 50 % in water (D50W) injection 25 mL 25 mL Slow IV Push PRN docusate (COLACE) capsule 100 mg 100 mg Oral BID 100 mg at 10/16/19 0856 gabapentin (NEURONTIN) capsule 300 mg 300 mg Oral TID 300 mg at 10/16/19 0857 glucagon (GLUCAGEN DIAGNOSTIC KIT) injection 1 mg 1 mg Intramuscular PRN hydrALAZINE (APRESOLINE) tablet 25 mg 25 mg Oral BID 25 mg at 10/16/19 0857 insulin detemir U-100 (LEVEMIR U-100 INSULIN) injection 18 Units 18 Units Subcutaneous QAM WITHBREAKFAST 18 Units at 10/16/19 0901 lactobacillus acidophilus (ACIDOPHILLUS) 25 million cell -100 mg captab 1 tablet 1 tablet Oral BID 1 tablet at 10/16/19 0856 nitroglycerin 50 mg in D5W 250 mL infusion RTU 5-200 mcg/min IV Infusion TITRATE Stopped at 10/16/19 1200 ondansetron (ZOFRAN (PF)) injection 4 mg 4 mg Slow IV Push Q6HPRN phenytoin Extended (DILANTIN KAPSEAL) capsule 200 mg 200 mg Oral BID 200 mg at 10/16/19 0857 piperacillin-tazobactam (ZOSYN) 2.25 g/50 mL RTU 2.25 g IV Piggyback Q8H ABX 2.25 g at 10/16/19 0604 remdesivir 100 mg in NaCl 0.9% (NS) 250 mL infusion 100 mg IV Infusion Q24H sevelamer (RENVELA) tablet 1,600 mg 1,600 mg Oral TID MEALS 1,600 mg at 10/16/19 0903 Sliding Scale Insulin - Aspart (NOVOLOG) + Fsbg Testing Subcutaneous TID MEALS+HS Stopped at10/15/19 1200 PHYSICAL EXAM: BP (!) 152/64 | Pulse 75 | Temp 37.3 C (99.1 F) (Axillary) | Resp 19 | Wt 151 lb 10.8 oz (68.8 kg) | SpO2 91% | BMI 25.24 kg/m General: No respiratory distress Neuro: AAOx3, no focal deficits Psych: Normal affect LABS/IMAGING - reviewed, pertinent results as below: CBC BMP PT/INR WBC x10^3 (/CMM) Date Value 04/22/2011 8.9 WBC (10*3/L) Date Value 10/16/2019 8.51 NA Date Value 10/16/2019 133 mmol/L (L) 10/16/2019 133 mmol/L (L) 04/22/2011 139 MMOL/L No results found for: PT RBC x10^6 (/CMM) Date Value 04/22/2011 5.05 RBC (10*6/L) Date Value 10/16/2019 3.67 (L) K Date Value 10/16/2019 4.7 mmol/L 10/16/2019 4.7 mmol/L 04/22/2011 3.8 MMOL/L PT INR (no units) Date Value 01/24/2004 1.0 INR (no units) Date Value 10/15/2019 1.0 PLT x10^3 (/CMM) Date Value 04/22/2011 303 PLT (10*3/L) Date Value 10/16/2019 224 CALCIUM Date Value 10/16/2019 8.6 mg/dL 10/16/2019 8.6 mg/dL 04/22/2011 8.8 MG/DL HGB Date Value 10/16/2019 11.1 g/dL (L) 04/22/2011 13.8 G/DL CL Date Value 10/16/2019 91 mmol/L (L) 10/16/2019 91 mmol/L (L) 04/22/2011 101 MMOL/L aPTT HCT (%) Date Value 10/16/2019 32.8 (L) 04/22/2011 41.0 BUN Date Value 10/16/2019 41 mg/dL (H) 10/16/2019 41 mg/dL (H) 04/22/2011 25 MG/DL (H) APTT (SEC) Date Value 01/24/2004 25 APTT Patient (Seconds) Date Value 10/15/2019 22 (L) CREATININE Date Value 10/16/2019 6.31 mg/dL (H) 10/16/2019 6.31 mg/dL (H) 04/22/2011 1.30 MG/DL (H) IMAGING- Hospital Encounter on 10/15/19 XR CHEST 1 VW Narrative HISTORY: SOB. TECHNIQUE: Portable AP semierect view of the chest is obtained. Comparison made with 06/27/2016 study. FINDINGS: Multiple patchy areas of bilateral pulmonary infiltrates noted, slightly more in the right lower lung. Mild cardiomegaly noted. No pneumothorax or pleural effusion. There is minimal underlying pulmonary edema. CONCLUSIONS: Bilateral pulmonary infiltrates, more severe in the right lung with minimal acute pulmonary edema. Etiology includes possibility of COVID19 type infection. Please correlate clinically. ASSESSMENT/PLAN Jayne Raymundo is a 64 year old male with PMH as listed above, admitted to the hospital with: Acute hypoxic and hypercapneic respiratory failure, requiring bipap on admission Hypertensive emergency, on nitro drip Nstemi type 2 likely Hyperkalemia K 6.5 with EKG changes. Treated medically after vtach with calcium, insulin/dextrose VTAC, started on amio drip on admission then discontinued JONAH on CKD 5 Acute CHF exacerbation, unclear if diastolic or systolic. Elevated BNP Anion gap metabolic acidosis Bilateral pneumonia COVID Mild to moderate ARDS Elevated D-dimer, order bilateral doppers to check upper thighs. Consider ordering CTA chest if symptoms dont improve before next dialysis session. Patient has other etiology for respiratory distress IV heparin drip x 48h for troponin elevation and low EF Received emergent HD. Follows Dr. Vasques as outpatient. ICU Consult cariology Dr. Alston, updated Consult nephrology Dr. Werner on board. Additional HD today. IV vanc and zosyn day 2, renally dosed, monitor vanc levels F/u blood cultures, procalcitonin ID consult Dr. Vega IV dexamethasone day 2, monitor blood glucose given uncontrolled dm Continue nitro drip to keep SBP < 180 and wean off dvt proph hep subq Full code, advance care planning dsicussed with patient for 18 minutes and surrogate decision maker Piedad daughter. Updated both about plan of care. Prognosis guarded PAD Right AKA Left BKA Carotid artery disease Unsure why patient is not on asa, plavix, will restart, prescribe on discharge Continue statin ESRD on TTS via VF nephrology consult dr. Maddox IDDM uncontrolled with hpyeglycemia Check A1c Sliding scale qachs Glipizide 5 mg qd, hld levemir 18 units in AM, resume tomorrow if taking po diet Asa, statin Hypertension, uncontrolled At home on norvasc 10 mg qd, coreg 12.5 mg qhs, hydralazine 25 mg QD Will restart norvasc and increase coreg to bid and increase hydralazine to BID Might need further uptitration B/l blind Hx of osteo in the pst Former smoker ? Hx of dementia, previous notes mention AAOx1 Maybe hx of seizure disorder, unclear. On dilantin 400 mg qhs, gabapentin 300 mg TID Chronic pain on tramadol bid Vit D deficiency Hx of anemia detention resident at [facility] Dispo - back to [facility] when stable Cornel Desai MD Jagjit Moses RN - 10/16/2019 11:59 AM CDTCare Management Social Functional Assessment Patient Name: Jayne Raymundo Age: [age] year old Sex: male Patient's Previous Admission Date at [facility]: 06/27/2016 Current diagnosis and co-morbidities: Hyperkalemia Acute respiratory failure with hypoxia Readmission Questions: Was patient discharged from any acute care hospital within the last 30 days: No Social Functional Assessment: Primary language spoken/preferred: Senegalese Mental Status: Alert & Oriented to Person,Place & Time Information given by: Other Name and phone number of person giving information: [facility] Patient's support system: Child Name and number of support system: Piedad Richardson [phone], [facility] Primary Map Maker: Same as Support System Name and phone number of primary caregiver: CW MPOA: Same as support system Living Arrangement: [facility], [facility] [address] [place] [address] () [phone] (F) [phone] Persons living in home: Self Barriers to returning home: None Baseline functional status- ambulation: Dependent Functional status-baseline personal care: Dependent Baseline functional status- driving: Dependent Baseline functional status- grocery shopping: Dependent Functional status-baseline housekeeping: Dependent Functional status-baseline meal prep: Dependent Current functional status same as prior: Yes Do you have a PCP?: Yes Name of PCP: [facility] Agency: No Provider Services: No DME Company: No Equipment: Shower bench;Bedside Commode;Shower Chair;Grab bars;Hospital Bed;Cane;Crutches;Walker;Rollator;Wheelchair: Manual;Wheelchair: Electric;O2: LPM;O2:Portable tank available;Nebulizer Hemodialysis: Yes Dialysis Facility: [facility] [address] [place]. [address] (P) [phone] (F) [phone] Dialysis Schedule: MWF Dialysis Time: 1000 Mode of Transportation: Other Other Mode of Transportation: CW Type of Access: AV Fistula Last Dialysis date at Dialysis Center: 10/14/19 Funding Resources: Medicare A & B Prescription coverage plan: Medicare Part D Pharmacy where meds are filled: (CW) Anticipated services prior to disharge: Continue Medical Eval Expected mode of discharge transportation: Ambulance Additional info required for discharge planning: Pending medical evaluation Recommended discharge plan: Return to facility SFA Complete: Social Functional Assessment complete: Yes Alcohol Use Screening (AUDIT-C) How often do you have a drink containing alcohol?: Never SCORE: 0 Role of Care Management explained. Yes Any issues or concerns with obtaining/affording your medications at home: no. Are you or your support system able to slate picker medications at discharge: yes. Describe: Jagjit Chang RN, BSN [facility] ADC Sow Manager [phone] Sofiya Garner MD - 10/16/2019 10:17 AM CDT Nephrology note 10/16/2019 CC: ESRD on HD , Hyperkalemia Jayne Raymundo is a 64 year old male presenting with respiratory distress and hypoxia from [facility] by ambulance. Reportedly 66% on RA. Patient placed on NRB by EMS. Sats improved to 95%. Patient is ESRD on dialysis. Due for dialysis. He was confused but able to respond to simple questions. Presented in extremis BP > 230 RR 40 HR 120. Immediately placed on Bipap and Nitro gtt upon presentation to ED. He is admitted to ICU for COVID pneumonia, was found to have hyperkalemia and HD was ordered to treat hyperkalemia, provide metabolic clearance. Patient was treated with IV meds for hypertensive emergency, cardiology consultation was ordered. 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 Osteomyelitis Past Surgical History: Procedure Laterality Date ANGIOPLASTY Left 07/01/2016 Surgeon: Rubin Barrera MD; [facility]: [facility] ARTERIOGRAM Right 07/06/2015 Surgeon: Rubin Barrera MD; Location: [facility] ARTERIOGRAM Left 06/30/2016 Surgeon: Washington Peter MD; Location: [facility] [place] ARTERIOGRAM Left 07/01/2016 Surgeon: Rubin Barrera MD; [facility]: [facility] [place] CENTRAL VENOUS ACCESS CATHETER PLACEMENT N/A 06/08/2016 Surgeon: Washington Peter MD; [facility]: [facility] [place] ENDODIATHERMY 04/19/2011 Surgeon:TAI BIGGS; [facility] ENDOLASER PHOTOCOAGULATION 04/19/2011 Surgeon:TAI BIGGS; [facility] INFUSION CATHETER PLACEMENT (SHX) Left 06/30/2016 Surgeon: Washington Peter MD; [facility]: [facility] INFUSION CATHETER REMOVAL (SHX) Left 07/01/2016 Surgeon: Rubin Barrera MD; [facility]: [facility] MEMBRANE PEELING 04/19/2011 Surgeon:TAI BIGGS; Location:[facility] PARS PLANA VITRECTOMY 04/19/2011 Surgeon:TAI BIGGS; Location:[facility] PARS PLANA VITRECTOMY 06/21/2011 Surgeon:VLADIMIR WU; [facility] SILICONE OIL PLACEMENT 04/19/2011 Surgeon:TAI BIGGS; Location:[facility] SILICONE OIL REMOVAL 06/21/2011 Surgeon:VLADIMIR WU; Location:[facility] SYNECHIALYSIS 06/21/2011 Surgeon:VLADIMIR WU; [facility] TOE AMPUTATION Left 07/06/2015 Surgeon: Rubin Barrera MD; Location: [facility] TOE AMPUTATION Left 07/20/2015 Surgeon: Washington Peter MD; Location: [facility] VASCULAR STENTING Right 07/06/2015 Surgeon: Rubin Barrera MD; Location: [facility] VASCULAR STENTING Left 07/01/2016 Surgeon: Rubin Barrera MD; Location: [facility] Family History Problem Relation Age of Onset Diabetes Mother ALLERGIES No Known Allergies ROS: unobtainable, patient lethargic PHYSICAL EXAMINATION BP (!) 146/70 | Pulse 83 | Temp 36.7 C (98 F) (Axillary) | Resp 18 | Wt 151 lb 10.8 oz (68.8kg) | SpO2 91% | BMI 25.24 kg/m Physical Exam Constitutional: He appears well-developed. HENT: Head: Normocephalic. Eyes: Pupils are equal, round, and reactive to light. Neck: Normal range of motion. Cardiovascular: Murmur heard. Pulmonary/Chest: He has wheezes. He has rales. Abdominal: Soft. Neurological: He is alert. Skin: Skin is warm. LABS - reviewed pertinent labs as below: CBC BMP PT/INR WBC x10^3 (/CMM) Date Value 04/22/2011 8.9 WBC (10*3/L) Date Value 10/15/2019 21.45 (H) NA Date Value 10/15/2019 138 mmol/L 04/22/2011 139 MMOL/L No results found for: PT PLT x10^3 (/CMM) Date Value 04/22/2011 303 PLT (10*3/L) Date Value 10/15/2019 294 K Date Value 10/15/2019 6.5 mmol/L (HH) 04/22/2011 3.8 MMOL/L PT INR (no units) Date Value 01/24/2004 1.0 INR (no units) Date Value 10/15/2019 1.0 HGB Date Value 10/15/2019 12.5 g/dL 04/22/2011 13.8 G/DL BUN Date Value 10/15/2019 78 mg/dL (H) 04/22/2011 25 MG/DL (H) HCT (%) Date Value 10/15/2019 38.0 (L) 04/22/2011 41.0 CREATININE Date Value 10/15/2019 9.95 mg/dL (H) 04/22/2011 1.30 MG/DL (H) LIPID PROFILE GLUCOSE Date Value 10/15/2019 256 mg/dL (H) 04/22/2011 180 MG/DL (H) CHOL Date Value 10/15/2019 213 mg/dL (H) 02/17/2003 176 MG/DL TSH LDL CHOL Date Value 10/15/2019 133 mg/dL 02/17/2003 107 MG/DL TSH (mIU/L) Date Value 10/15/2019 1.18 CARDIAC ENZYMES HDL CHOL (MG/DL) Date Value 02/17/2003 31 (L) HDL (mg/dL) Date Value 10/15/2019 40 (L) CK (U/L) Date Value 10/15/2019 90 04/20/2011 154 TRIG Date Value 10/15/2019 199 mg/dL (H) 02/17/2003 190 MG/DL (H) LFTs CK-MB (ng/mL) Date Value 04/20/2011 .5 AST(SGOT) (U/L) Date Value 10/15/2019 29 02/17/2003 23 TROPONIN I (ng/mL) Date Value 10/15/2019 0.036 (H) 04/20/2011 0.014 ALT(SGPT) (U/L) Date Value 06/27/2016 36 02/17/2003 41 ALTv (U/L) Date Value 10/15/2019 24 No results found for: BNP IMAGING - reviewed, pertinent results as below: CXR--pulmonary edema EKG: Various arrhythmias--VT, accelerated junctional rhythm, sinus bradycardia, sinus pause, junctional escape rhythm etc. ASSESSMENT/PLAN Principal Problem: Acute respiratory failure with hypoxia ESRD , Hyperkalemia with ekg changes Active Problems: ESRD (end stage renal disease) on dialysis, still over volume S/p HD yesterday : Will do another HD today To establish better volume Hyper K resolved DM (diabetes mellitus), continue insulin PAD per cardio HTN (hypertension), to utlized BP for UF COVID Pneu : continuecurrent tx Bilateral pneumonia due to covid , per ID and primary team CHF Ex withVT / Urgent HTN : HD today Troponin I above reference range,f/u cardio Acute combined systolic and diastolic congestive heart failure, continue beta oli , control volemia with HD today will taper down Nitro Acute respiratory failure with COVID infection--per primary team. THITCkita, MD David - 10/16/2019 8:18 AM CDT [facility] Cardiology progress note Date of Service: 10/16/2019 Jayne Raymundo is a 64 years old male hospitalized for COVID infection. No further arrhythmias. K is normal. PHYSICAL EXAM Vitals: 10/16/19 0200 10/16/19 0249 10/16/19 0400 10/16/19 0803 BP: 138/68 (!) 159/73 Pulse: 75 76 82 Resp: 23 21 Temp: 36.9 C (98.5 F) TempSrc: Oral SpO2: (!) 89% 90% 91% 90% Weight: Exam is limited due to COVID Constitutional: no apparent distress ENT: normocephalic atraumatic GI: non-distended : not examined Medications: I have reviewed the patient's medications; see Medication Reconciliation. Labs: I have reviewed the patient's labs. ASSESSMENT AND PLAN Principal Problem: Acute respiratory failure with hypoxia Active Problems: ESRD (end stage renal disease) on dialysis DM (diabetes mellitus) PAD HTN (hypertension) Bilateral pneumonia Troponin I above reference range Acute combined systolic and diastolic congestive heart failure Hyperkalemia VT (ventricular tachycardia) Hypertensive emergency Acute respiratory failure with COVID infection--per primary team. Various arrhythmias including VT etc--likely due to hyperkalemia. Will discontinue IV amiodarone fornow. K is corrected. Will watch and reassess. Acute HFrEF--Uncertain etiology. Possible pulmonary edema by CXR. BNP elevated. Fluid removal via HD. Continue coreg. Continue ASA/plavix/lipitor. If patient and family pursue aggressive approach, consider transfer to [facility]. Not on ACEI/ARB due to ESRD. Troponin elevation--likely due to demand ischemia from HF/HTN/HD, type 2 MN. Will start IV heparin for 48 hours. Hypertensive emergency--improved. Continue amlodipine/coreg/hydralazine. PAD--s/p bilateral amputation. David Alston MD, [facility] Roll Line Operator, Division of Cardiology [facility] ao Arroyo RT - 10/16/2019 8:01 AM CDTO2 Saturation at REST on Room Air = 88% O2 Saturation at REST on 2 LPM of Oxygen = 92% documented in this encounter H&P Notes Lucia Miller MD - 10/15/2019 10:31 AM CDT General Internal Medicine Admission History & Physical CHIEF COMPLAINT: dyspnea History of Present Illness Unable to get proper history from patient or ROS due to patient being on bipap and acute condition. Reviewed records, dsicussed with ER physician and nursing and daughter. Jayne Raymundo is a 64 year old male presenting with respiratory distress and hypoxia from [facility] by ambulance. Reportedly 66% on RA. Patient placed on NRB by EMS. Sats improved to 95%. Patient is ESRD on dialysis. Due for dialysis. He is confused but able to respond to simple questions. Presented in extremis BP > 230 RR 40 HR 120. Immediately placed on Bipap and Nitro gtt upon presentation to ED. History limited 2/2 patient condition. 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 Osteomyelitis Past Surgical History: Procedure Laterality Date ANGIOPLASTY Left 07/01/2016 Surgeon: Rubin Barrera MD; [facility]: [facility] [place] ARTERIOGRAM Right 07/06/2015 Surgeon: Rubin Barrera MD; Location: [facility] [place] ARTERIOGRAM Left 06/30/2016 Surgeon: Washington Peter MD; Location: [facility] [place] ARTERIOGRAM Left 07/01/2016 Surgeon: Rubin Barrera MD; [facility]: [facility] [place] CENTRAL VENOUS ACCESS CATHETER PLACEMENT N/A 06/08/2016 Surgeon: Washington Peter MD; Location: [facility] [place] ENDODIATHERMY 04/19/2011 Surgeon:TAI BIGGS; Location[facility] ENDOLASER PHOTOCOAGULATION 04/19/2011 Surgeon:TAI BIGGS; [facility] INFUSION CATHETER PLACEMENT (SHX) Left 06/30/2016 Surgeon: Washington Peter MD; [facility]: [facility] INFUSION CATHETER REMOVAL (SHX) Left 07/01/2016 Surgeon: Rubin Barrera MD; [facility]: [facility] [place] MEMBRANE PEELING 04/19/2011 Surgeon:TAI BIGGS; [facility] PARS PLANA VITRECTOMY 04/19/2011 Surgeon:TAI BIGGS; [facility] PARS PLANA VITRECTOMY 06/21/2011 Surgeon:VLADIMIR WU; [facility] [place] SILICONE OIL PLACEMENT 04/19/2011 Surgeon:TAI BIGGS; Location:[facility] SILICONE OIL REMOVAL 06/21/2011 Surgeon:VLADIMIR WU; [facility] SYNECHIALYSIS 06/21/2011 Surgeon:VLADIMIR WU; [facility] TOE AMPUTATION Left 07/06/2015 Surgeon: Rubin Barrera MD; Location: [facility] TOE AMPUTATION Left 07/20/2015 Surgeon: Washington Peter MD; Location: [facility] VASCULAR STENTING Right 07/06/2015 Surgeon: Rubin Barrera MD; Location: [facility] VASCULAR STENTING Left 07/01/2016 Surgeon: Rubin Barrera MD; Location: [facility] Family History Problem Relation Age of Onset Diabetes Mother ALLERGIES No Known Allergies MEDICATIONS Patient's Medications START taking these medications No medications on file CONTINUE taking these medications which have NOT CHANGED ACETAMINOPHEN-CODEINE (TYLENOL #3) 300-30 MG TABLET Take 1 tablet by mouth every 4 (four) hours as needed for Pain (scale 4-6) or Pain (scale 7-10). AMLODIPINE (NORVASC) 10 MG TABLET Take 10 mg by mouth daily. ASPIRIN 81 MG CHEWABLE TABLET Take 1 tablet by mouth daily. CARVEDILOL (COREG) 6.25 MG TABLET Take 6.25 mg by mouth 2 (two) times daily with meals. CLOPIDOGREL 75 MG TABLET Take 1 tablet by mouth daily. DOCUSATE (COLACE) 100 MG CAPSULE Take 1 capsule by mouth once daily as needed for Constipation. INSULIN GLARGINE (LANTUS U-100) 100 UNIT/ML INJECTION inject 22 Units under the skin at bedtime. LEVEMIR FLEXTOUCH 100 UNIT/ML (3 ML) INJECTION INJECT 20 UNITS UNDER SKIN AT NIGHT LISINOPRIL (PRINIVIL,ZESTRIL) 40 MG TABLET Take 1 tablet by mouth daily. PHENYTOIN ER 200 MG ER CAPSULE TAKE 1 CAPSULE 3 TIMES A DAY PRAVASTATIN (PRAVACHOL) 40 MG TABLET Take 40 mg by mouth at bedtime. TRAMADOL 50 MG TABLET Take 1 tablet by mouth every 12 (twelve) hours as needed for Pain (scale 1-3). START taking Modified Medications as Prescribed No medications on file STOP taking these medications No medications on file SOCIAL HISTORY Social History Socioeconomic History Marital status: Spouse name: Not on file Number of children: Not on file Years of education: Not on file Highest education level: Not on file Occupational History Not on file Social Needs Financial resource strain: Not on file Food insecurity Worry: Not on file Inability: Not on file Transportation needs Medical: Not on file Non-medical: Not on file Tobacco Use Smoking status: Former Smoker Quit date: 03/13/1989 Years since quittin.6 Smokeless tobacco: Never Used Substance and Sexual Activity Alcohol use: No Drug use: No Sexual activity: Not on file Lifestyle Physical activity Days per week: Not on file Minutes per session: Not on file Stress: Not on file Relationships Social connections Talks on phone: Not on file Gets together: Not on file Attends baptism service: Not on file Active member of club or organization: Not on file Attends meetings of clubs or organizations: Not on file Relationship status: Not on file Intimate partner violence Fear of current or ex partner: Not on file Emotionally abused: Not on file Physically abused: Not on file Forced sexual activity: Not on file Other Topics Concern Not on file Social History Narrative Not on file REVIEW OF SYSTEMS Unable to obtain ROS due to acute condition and on bipap PHYSICAL EXAMINATION Vitals: 10/15/19 1010 10/15/19 1015 10/15/19 1020 10/15/19 1025 BP: (!) 154/84 (!) 153/83 (!) 164/84 (!) 153/85 Pulse: 98 85 86 87 Resp: 19 Temp: TempSrc: SpO2: 100% 100% 100% 100% Weight: Acute respiratory distress on bipap Anicteric sclera, oral mucosa clear Poor air entry b/l Tachycardia, reg rhtyhm, nl s1s2 Abd soft NT Right AKA Left BKA Mild edema in thighs AAOx1, no gross deficits Skin warm and dry B/l elbows not swllen LABS - reviewed pertinent labs as below: CBC BMP PT/INR WBC x10^3 (/CMM) Date Value 04/22/2011 8.9 WBC (10*3/L) Date Value 10/15/2019 21.45 (H) NA Date Value 10/15/2019 138 mmol/L 04/22/2011 139 MMOL/L No results found for: PT RBC x10^6 (/CMM) Date Value 04/22/2011 5.05 RBC (10*6/L) Date Value 10/15/2019 4.22 (L) K Date Value 10/15/2019 6.5 mmol/L (HH) 04/22/2011 3.8 MMOL/L PT INR (no units) Date Value 01/24/2004 1.0 INR (no units) Date Value 10/15/2019 1.0 PLT x10^3 (/CMM) Date Value 04/22/2011 303 PLT (10*3/L) Date Value 10/15/2019 294 CALCIUM Date Value 10/15/2019 7.9 mg/dL (L) 04/22/2011 8.8 MG/DL HGB Date Value 10/15/2019 12.5 g/dL 04/22/2011 13.8 G/DL CL Date Value 10/15/2019 96 mmol/L (L) 04/22/2011 101 MMOL/L aPTT HCT (%) Date Value 10/15/2019 38.0 (L) 04/22/2011 41.0 BUN Date Value 10/15/2019 78 mg/dL (H) 04/22/2011 25 MG/DL (H) APTT (SEC) Date Value 01/24/2004 25 APTT Patient (Seconds) Date Value 10/15/2019 22 (L) CREATININE Date Value 10/15/2019 9.95 mg/dL (H) 04/22/2011 1.30 MG/DL (H) IMAGING - reviewed, pertinent results as below: Hospital Encounter on 10/15/19 XR CHEST 1 VW Narrative HISTORY: SOB. TECHNIQUE: Portable AP semierect view of the chest is obtained. Comparison made with 06/27/2016 study. FINDINGS: Multiple patchy areas of bilateral pulmonary infiltrates noted, slightly more in the right lower lung. Mild cardiomegaly noted. No pneumothorax or pleural effusion. There is minimal underlying pulmonary edema. CONCLUSIONS: Bilateral pulmonary infiltrates, more severe in the right lung with minimal acute pulmonary edema. Etiology includes possibility of COVID19 type infection. Please correlate clinically. EKG: Sinus tachycardia ASSESSMENT/PLAN Jayne Raymundo is a 64 year old male with PMH as listed above, admitted to the hospital with: Acute respiratory failure with hypoxia Acute hypoxic and hypercapneic respiratory failure, requiring bipap on admission Hypertensive emergency, started on nitro drip nstemi type 2 likely Hyperkalemia K 6.5 with EKG changes. Treated medically after vtach with calcium, insulin/dextrose VTAC, started on amio drip on admission. Likely due to hyperkalemia JONAH on CKD 5 Acute CHF exacerbation, unclear if diastolic or systolic. Elevated BNP Anion gap metabolic acidosis Bilateral pneumonia COVID Mild to moderate ARDS Elevated D-dimer, order bilateral doppers to check upper thighs. Consider ordering CTA chest if symptoms dont improve before next dialysis session. Patient has other etiology for respiratory distress - full admission ICU Consult cariology Dr. Alston, updated Consult nephrology Dr. Maddox, updated, stat dialysis orders placed, dsicussed with HD nurse on thefloor Might need dialysis tomorrow, defer to nephrology Trend trops, echo, telemetry, puls oximetry, strict i/o Continue amio drip for now, per cardiology going forward IV vanc and zosyn day 1, renally dosed, monitor vanc levels F/u blood cultures, procalcitonin ID consult Dr. Vega IV dexamethasone day 1, monitor blood glucose given uncontrolled dm Recheck BMP and ABG 1 hour after dialysis Continue nitro drip to keep SBP < 180 and wean off dvt proph hep subq Full code, advance care planning dsicussed with patient for 18 minutes and surrogate decision maker Piedad daughter. Updated both about plan of care. Prognosis guarded PAD Right AKA Left BKA Carotid artery disease Unsure why patient is not on asa, plavix, will restart, prescribe on discharge Continue statin ESRD on TTS via VF nephrology consult dr. Maddox IDDM uncontrolled with hpyeglycemia Check A1c Sliding scale qachs Glipizide 5 mg qd, hld levemir 18 units in AM, resume tomorrow if taking po diet Asa, statin Hypertension, uncontrolled At home on norvasc 10 mg qd, coreg 12.5 mg qhs, hydralazine 25 mg QD Will restart norvasc and increase coreg to bid and increase hydralazine to BID Might need further uptitration B/l blind Hx of osteo in the pst Former smoker ? Hx of dementia, previous notes mention AAOx1 Maybe hx of seizure disorder, unclear. On dilantin 400 mg qhs, gabapentin 300 mg TID Chronic pain on tramadol bid Vit D deficiency Hx of anemia detention resident at [facility] - back to [facility] when stable Critical care time - 60 minutes dsicussed with consults, adjsuted drips and bipap, exmined patient multiple times, reviewed imaging and labs documented in this encounter Consult Notes Holly Ann MD - 10/15/2019 7:55 PM CDTAssociated Order(s): CONSULT NEPHROLOGY CC: ESRD on HD , Hyperkalemia Jayne Raymundo is a 64 year old male presenting with respiratory distress and hypoxia from [facility] by ambulance. Reportedly 66% on RA. Patient placed on NRB by EMS. Sats improved to 95%. Patient is ESRD on dialysis. Due for dialysis. He was confused but able to respond to simple questions. Presented in extremis BP > 230 RR 40 HR 120. Immediately placed on Bipap and Nitro gtt upon presentation to ED. He is admitted to ICU for COVID pneumonia, was found to have hyperkalemia and HD was ordered to treat hyperkalemia, provide metabolic clearance. Patient was treated with IV meds for hypertensive emergency, cardiology consultation was ordered. 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 Osteomyelitis Past Surgical History: Procedure Laterality Date ANGIOPLASTY Left 07/01/2016 Surgeon: Rubin Barrera MD; [facility]: [facility] [place] ARTERIOGRAM Right 07/06/2015 Surgeon: Rubin Barrera MD; Location: [facility] [place] ARTERIOGRAM Left 06/30/2016 Surgeon: Washington Peter MD; [facility]: [facility] [place] ARTERIOGRAM Left 07/01/2016 Surgeon: Rubin Barrera MD; Location: [facility] [place] CENTRAL VENOUS ACCESS CATHETER PLACEMENT N/A 06/08/2016 Surgeon: Washington Peter MD; [facility]: [facility] [place] ENDODIATHERMY 04/19/2011 Surgeon:TAI BIGGS; [facility] ENDOLASER PHOTOCOAGULATION 04/19/2011 Surgeon:TAI BIGGS; [facility] INFUSION CATHETER PLACEMENT (SHX) Left 06/30/2016 Surgeon: Washington Peter MD; [facility]: [facility] INFUSION CATHETER REMOVAL (SHX) Left 07/01/2016 Surgeon: Rubin Barrera MD; [facility]: [facility] MEMBRANE PEELING 04/19/2011 Surgeon:TAI BIGGS; Location:[facility] LOC[facility] PARS PLANA VITRECTOMY 04/19/2011 Surgeon:TAI BIGGS; Location:[facility] LOC[facility] PARS PLANA VITRECTOMY 06/21/2011 Surgeon:VLADIMIR WU; Location:[facility] LOCATION SILICONE OIL PLACEMENT 04/19/2011 Surgeon:TAI BIGGS; Location:[facility] SILICONE OIL REMOVAL 06/21/2011 Surgeon:VLADIMIR WU; [facility] SYNECHIALYSIS 06/21/2011 Surgeon:VLADIMIR WU; Location:[facility] TOE AMPUTATION Left 07/06/2015 Surgeon: Rubin Barrera MD; Location: [facility] TOE AMPUTATION Left 07/20/2015 Surgeon: Washington Peter MD; Location: [facility] VASCULAR STENTING Right 07/06/2015 Surgeon: Rubin Barrera MD; [facility]: [facility] VASCULAR STENTING Left 07/01/2016 Surgeon: Rubin Barrera MD; Location: [facility] Family History Problem Relation Age of Onset Diabetes Mother ALLERGIES No Known Allergies ROS: unobtainable, patient lethargic PHYSICAL EXAMINATION Vitals Vitals: 10/15/19 1630 10/15/19 1645 10/15/19 1700 10/15/19 1707 BP: 99/59 122/79 (!) 141/71 (!) 163/79 Pulse: 81 81 81 79 Resp: Temp: TempSrc: SpO2: Weight: Exam is limited due to COVID Constitutional: no apparent distress ENT: normocephalic atraumatic GI: non-distended LABS - reviewed pertinent labs as below: CBC BMP PT/INR WBC x10^3 (/CMM) Date Value 04/22/2011 8.9 WBC (10*3/L) Date Value 10/15/2019 21.45 (H) NA Date Value 10/15/2019 138 mmol/L 04/22/2011 139 MMOL/L No results found for: PT PLT x10^3 (/CMM) Date Value 04/22/2011 303 PLT (10*3/L) Date Value 10/15/2019 294 K Date Value 10/15/2019 6.5 mmol/L (HH) 04/22/2011 3.8 MMOL/L PT INR (no units) Date Value 01/24/2004 1.0 INR (no units) Date Value 10/15/2019 1.0 HGB Date Value 10/15/2019 12.5 g/dL 04/22/2011 13.8 G/DL BUN Date Value 10/15/2019 78 mg/dL (H) 04/22/2011 25 MG/DL (H) HCT (%) Date Value 10/15/2019 38.0 (L) 04/22/2011 41.0 CREATININE Date Value 10/15/2019 9.95 mg/dL (H) 04/22/2011 1.30 MG/DL (H) LIPID PROFILE GLUCOSE Date Value 10/15/2019 256 mg/dL (H) 04/22/2011 180 MG/DL (H) CHOL Date Value 10/15/2019 213 mg/dL (H) 02/17/2003 176 MG/DL TSH LDL CHOL Date Value 10/15/2019 133 mg/dL 02/17/2003 107 MG/DL TSH (mIU/L) Date Value 10/15/2019 1.18 CARDIAC ENZYMES HDL CHOL (MG/DL) Date Value 02/17/2003 31 (L) HDL (mg/dL) Date Value 10/15/2019 40 (L) CK (U/L) Date Value 10/15/2019 90 04/20/2011 154 TRIG Date Value 10/15/2019 199 mg/dL (H) 02/17/2003 190 MG/DL (H) LFTs CK-MB (ng/mL) Date Value 04/20/2011 .5 AST(SGOT) (U/L) Date Value 10/15/2019 29 02/17/2003 23 TROPONIN I (ng/mL) Date Value 10/15/2019 0.036 (H) 04/20/2011 0.014 ALT(SGPT) (U/L) Date Value 06/27/2016 36 02/17/2003 41 ALTv (U/L) Date Value 10/15/2019 24 No results found for: BNP IMAGING - reviewed, pertinent results as below: CXR--pulmonary edema EKG: Various arrhythmias--VT, accelerated junctional rhythm, sinus bradycardia, sinus pause, junctional escape rhythm etc. ASSESSMENT/PLAN Principal Problem: Acute respiratory failure with hypoxia ESRD , Hyperkalemia with ekg changes Active Problems: ESRD (end stage renal disease) on dialysis, urgent hd was ordered to treat hyperkalemia, pending follow-up bmp to check k level DM (diabetes mellitus), continue insulin PAD per cardio HTN (hypertension), continue Iv meds Bilateral pneumonia due to covid , per ID and primary team Troponin I above reference range, cardio consulted Acute combined systolic and diastolic congestive heart failure, continue beta oli , control volemia with HD Hyperkalemia, treated , reevaluate bmp VT (ventricular tachycardia) Acute respiratory failure with COVID infection--per primary team. THITCDavid east MD - 10/15/2019 5:25 PM CDTAssociated Order(s): CONSULT CARDIOLOGY [facility] Cardiology Consult PCP: Colleen Zhang Date of Service: 10/15/2019 CHIEF COMPLAINT/reason for consult: VT HISTORY OF PRESENT ILLNESS This is a 64 year-old male with PMH DM, blindness, ESRD on HD, PAD s/p bilateral amputation, HTN, etc. He was admitted to [facility] from [place] for respiratory distress and hypoxia. Found to be in hypertensive emergency, mild troponin elevation with K 6.5. Was started on IV amiodarone for VT. Getting HD. The history is limited due to respiratory distress. 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 Osteomyelitis Past Surgical History: Procedure Laterality Date ANGIOPLASTY Left 07/01/2016 Surgeon: Rubin Barrera MD; Location: [facility] ARTERIOGRAM Right 07/06/2015 Surgeon: Rubin Barrera MD; Location: [facility] ARTERIOGRAM Left 06/30/2016 Surgeon: Washington Peter MD; Location: [facility] [place] [facility] ARTERIOGRAM Left 07/01/2016 Surgeon: Rbuin Barrera MD; Location: [facility] CENTRAL VENOUS ACCESS CATHETER PLACEMENT N/A 06/08/2016 Surgeon: Washington Peter MD; Location[facility] Location ENDODIATHERMY 04/19/2011 Surgeon:TAI BIGGS; Location:[facility] ENDOLASER PHOTOCOAGULATION 04/19/2011 Surgeon:TAI BIGGS; Location:[facility] INFUSION CATHETER PLACEMENT (SHX) Left 06/30/2016 Surgeon: Washington Peter MD; Location: [facility] INFUSION CATHETER REMOVAL (SHX) Left 07/01/2016 Surgeon: Rubin Barrera MD; Location: [facility] MEMBRANE PEELING 04/19/2011 Surgeon:TAI BIGGS; Location:[facility] LOC[facility] PARS PLANA VITRECTOMY 04/19/2011 Surgeon:TAI BIGGS; Location:[facility] LOC[facility] PARS PLANA VITRECTOMY 06/21/2011 Surgeon:VLADIMIR WU; Location:[facility] LOC[facility] SILICONE OIL PLACEMENT 04/19/2011 Surgeon:TAI BIGGS; Location:[facility] LOC[facility] SILICONE OIL REMOVAL 06/21/2011 Surgeon:VLADIMIR WU; Location:[facility] SYNECHIALYSIS 06/21/2011 Surgeon:VLADIMIR WU; Location:[facility] TOE AMPUTATION Left 07/06/2015 Surgeon: Rubin Barrera MD; Location: [facility] TOE AMPUTATION Left 07/20/2015 Surgeon: Washington Peter MD; Location: [facility] VASCULAR STENTING Right 07/06/2015 Surgeon: Rubin Barrera MD; Location: [facility] VASCULAR STENTING Left 07/01/2016 Surgeon: Rubin Barrera MD; Location: [facility] [place] Family History Problem Relation Age of Onset Diabetes Mother ALLERGIES No Known Allergies MEDICATIONS No current facility-administered medications on file prior to encounter. Current Outpatient Medications on File Prior to Encounter Medication Sig Dispense Refill clopidogrel 75 mg tablet Take 1 tablet by mouth daily. 60 tablet 0 traMADOL 50 mg tablet Take 1 tablet by mouth every 12 (twelve) hours as needed for Pain (scale 1-3). 45 tablet 0 phenytoin ER 200 mg ER capsule TAKE 1 CAPSULE 3 TIMES A DAY 2 LEVEMIR FLEXTOUCH 100 unit/mL (3 mL) injection INJECT 20 UNITS UNDER SKIN AT NIGHT 3 insulin glargine (LANTUS U-100) 100 unit/mL injection inject 22 Units under the skin at bedtime.10 mL lisinopril (PRINIVIL,ZESTRIL) 40 mg tablet Take 1 tablet by mouth daily. 30 tablet 10 docusate (COLACE) 100 mg capsule Take 1 capsule by mouth once daily as needed for Constipation. 40 capsule 0 acetaminophen-codeine (TYLENOL #3) 300-30 mg tablet Take 1 tablet by mouth every 4 (four) hours as needed for Pain (scale 4-6) or Pain (scale 7-10). 60 tablet 0 aspirin 81 mg chewable tablet Take 1 tablet by mouth daily. 30 tablet 11 amLODIPine (NORVASC) 10 mg tablet Take 10 mg by mouth daily. carvedilol (COREG) 6.25 mg tablet Take 6.25 mg by mouth 2 (two) times daily with meals. pravastatin (PRAVACHOL) 40 mg tablet Take 40 mg by mouth at bedtime. SOCIAL HISTORY Social History Socioeconomic History Marital status: Spouse name: Not on file Number of children: Not on file Years of education: Not on file Highest education level: Not on file Occupational History Not on file Social Needs Financial resource strain: Not on file Food insecurity Worry: Not on file Inability: Not on file Transportation needs Medical: Not on file Non-medical: Not on file Tobacco Use Smoking status: Former Smoker Quit date: 03/13/1989 Years since quittin.6 Smokeless tobacco: Never Used Substance and Sexual Activity Alcohol use: No Drug use: No Sexual activity: Not on file Lifestyle Physical activity Days per week: Not on file Minutes per session: Not on file Stress: Not on file Relationships Social connections Talks on phone: Not on file Gets together: Not on file Attends baptism service: Not on file Active member of club or organization: Not on file Attends meetings of clubs or organizations: Not on file Relationship status: Not on file Intimate partner violence Fear of current or ex partner: Not on file Emotionally abused: Not on file Physically abused: Not on file Forced sexual activity: Not on file Other Topics Concern Not on file Social History Narrative Not on file REVIEW OF SYSTEMS At least 10 systems reviewed, negative except as mentioned in HPI PHYSICAL EXAMINATION Vitals: 10/15/19 1630 10/15/19 1645 10/15/19 1700 10/15/19 1707 BP: 99/59 122/79 (!) 141/71 (!) 163/79 Pulse: 81 81 81 79 Resp: Temp: TempSrc: SpO2: Weight: Exam is limited due to COVID Constitutional: no apparent distress ENT: normocephalic atraumatic GI: non-distended : not examined LABS - reviewed pertinent labs as below: CBC BMP PT/INR WBC x10^3 (/CMM) Date Value 04/22/2011 8.9 WBC (10*3/L) Date Value 10/15/2019 21.45 (H) NA Date Value 10/15/2019 138 mmol/L 04/22/2011 139 MMOL/L No results found for: PT PLT x10^3 (/CMM) Date Value 04/22/2011 303 PLT (10*3/L) Date Value 10/15/2019 294 K Date Value 10/15/2019 6.5 mmol/L (HH) 04/22/2011 3.8 MMOL/L PT INR (no units) Date Value 01/24/2004 1.0 INR (no units) Date Value 10/15/2019 1.0 HGB Date Value 10/15/2019 12.5 g/dL 04/22/2011 13.8 G/DL BUN Date Value 10/15/2019 78 mg/dL (H) 04/22/2011 25 MG/DL (H) HCT (%) Date Value 10/15/2019 38.0 (L) 04/22/2011 41.0 CREATININE Date Value 10/15/2019 9.95 mg/dL (H) 04/22/2011 1.30 MG/DL (H) LIPID PROFILE GLUCOSE Date Value 10/15/2019 256 mg/dL (H) 04/22/2011 180 MG/DL (H) CHOL Date Value 10/15/2019 213 mg/dL (H) 02/17/2003 176 MG/DL TSH LDL CHOL Date Value 10/15/2019 133 mg/dL 02/17/2003 107 MG/DL TSH (mIU/L) Date Value 10/15/2019 1.18 CARDIAC ENZYMES HDL CHOL (MG/DL) Date Value 02/17/2003 31 (L) HDL (mg/dL) Date Value 10/15/2019 40 (L) CK (U/L) Date Value 10/15/2019 90 04/20/2011 154 TRIG Date Value 10/15/2019 199 mg/dL (H) 02/17/2003 190 MG/DL (H) LFTs CK-MB (ng/mL) Date Value 04/20/2011 .5 AST(SGOT) (U/L) Date Value 10/15/2019 29 02/17/2003 23 TROPONIN I (ng/mL) Date Value 10/15/2019 0.036 (H) 04/20/2011 0.014 ALT(SGPT) (U/L) Date Value 06/27/2016 36 02/17/2003 41 ALTv (U/L) Date Value 10/15/2019 24 No results found for: BNP IMAGING - reviewed, pertinent results as below: CXR--pulmonary edema EKG: Various arrhythmias--VT, accelerated junctional rhythm, sinus bradycardia, sinus pause, junctional escape rhythm etc. ASSESSMENT/PLAN Principal Problem: Acute respiratory failure with hypoxia Active Problems: ESRD (end stage renal disease) on dialysis DM (diabetes mellitus) PAD HTN (hypertension) Bilateral pneumonia Troponin I above reference range Acute combined systolic and diastolic congestive heart failure Hyperkalemia VT (ventricular tachycardia) Acute respiratory failure with COVID infection--per primary team. Various arrhythmias including VT etc--likely due to hyperkalemia. Will continue IV amiodarone for now. Once K is corrected, will stop amiodarone and reassess. Acute HFrEF--Uncertain etiology. Possible pulmonary edema by CXR. BNP elevated. Fluid removal via HD. Continue coreg. Continue ASA/plavix/lipitor. If patient and family pursue aggressive approach, consider transfer to [facility]. Troponin elevation--likely due to demand ischemia from HF/HTN/HD, type 2 MN. Hypertensive emergency--improved. Continue amlodipine/coreg/hydralazine. PAD--s/p bilateral amputation. Thank you for allowing us to participate in the care of your patient. Please feel free to contact usfor any questions or if we can be of further assistance. David Alston MD, [facility] Roll Line Operator, Division of Cardiology [facility] damari DashawnMARIVEL - 10/15/2019 12:01 PM CDTAssociated Order(s): CONSULT INFECTIOUS DISEASE Subjective: Patient is a 64-year-old male [facility] resident who presents with respiratory distress and hypoxia. Patient has a history of ESRD on dialysis. Patient found to be in V Tach and hypertensive emergency. Patient also found to have leukocytosis and pneumonia secondary to Covid 19 infectionwhich I have been consulted for. 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 Osteomyelitis Past Surgical History: Procedure Laterality Date ANGIOPLASTY Left 07/01/2016 Surgeon: Rubin Barrera MD; [facility]: [facility] [place] ARTERIOGRAM Right 07/06/2015 Surgeon: Rubin Barrera MD; Location: [facility] [place] ARTERIOGRAM Left 06/30/2016 Surgeon: Washington Peter MD; Location: [facility] [place] ARTERIOGRAM Left 07/01/2016 Surgeon: Rubin Barrera MD; [facility]: [facility] [place] CENTRAL VENOUS ACCESS CATHETER PLACEMENT N/A 06/08/2016 Surgeon: Washington Peter MD; [facility] [place] ENDODIATHERMY 04/19/2011 Surgeon:TAI BIGGS; [facility] [place] ENDOLASER PHOTOCOAGULATION 04/19/2011 Surgeon:TAI BIGGS; [facility] [place] INFUSION CATHETER PLACEMENT (SHX) Left 06/30/2016 Surgeon: Washington Peter MD; [facility]: [facility] [place] INFUSION CATHETER REMOVAL (SHX) Left 07/01/2016 Surgeon: Rubin Barrera MD; [facility]: [facility] [place] MEMBRANE PEELING 04/19/2011 Surgeon:TAI BIGGS; Location:[facility] LOC[facility] PARS PLANA VITRECTOMY 04/19/2011 Surgeon:TAI BIGGS; Location:[facility] LOCATION PARS PLANA VITRECTOMY 06/21/2011 Surgeon:VLADIMIR WU; Location:[facility] LOCATION SILICONE OIL PLACEMENT 04/19/2011 Surgeon:TAI BIGGS; Location:[facility] LOC[facility] SILICONE OIL REMOVAL 06/21/2011 Surgeon:VLADIMIR WU; [facility] LOC[facility] SYNECHIALYSIS 06/21/2011 Surgeon:VLADIMIR WU; Location:[facility] LOC[facility] TOE AMPUTATION Left 07/06/2015 Surgeon: Rubin Barrera MD; Location: [facility] TOE AMPUTATION Left 07/20/2015 Surgeon: Washington Peter MD; Location: [facility] VASCULAR STENTING Right 07/06/2015 Surgeon: Rubin Barrera MD; [facility] VASCULAR STENTING Left 07/01/2016 Surgeon: Rubin Barrera MD; Location: [facility] Social History Socioeconomic History Marital status: Spouse name: Not on file Number of children: Not on file Years of education: Not on file Highest education level: Not on file Occupational History Not on file Social Needs Financial resource strain: Not on file Food insecurity Worry: Not on file Inability: Not on file Transportation needs Medical: Not on file Non-medical: Not on file Tobacco Use Smoking status: Former Smoker Quit date: 03/13/1989 Years since quittin.6 Smokeless tobacco: Never Used Substance and Sexual Activity Alcohol use: No Drug use: No Sexual activity: Not on file Lifestyle Physical activity Days per week: Not on file Minutes per session: Not on file Stress: Not on file Relationships Social connections Talks on phone: Not on file Gets together: Not on file Attends baptism service: Not on file Active member of club or organization: Not on file Attends meetings of clubs or organizations: Not on file Relationship status: Not on file Intimate partner violence Fear of current or ex partner: Not on file Emotionally abused: Not on file Physically abused: Not on file Forced sexual activity: Not on file Other Topics Concern Not on file Social History Narrative Not on file Family History Problem Relation Age of Onset Diabetes Mother No Known Allergies Current Facility-Administered Medications: amiodarone (CORDARONE) 900 mg in D5W 500 mL infusion, 1 mg/min, IV Infusion, CONTINUOUS, Neftaly Ramirez DO, Last Rate: 33.33 mL/hr at 10/15/19 1044, 1 mg/min at 10/15/19 1044 amLODIPine (NORVASC) tablet 10 mg, 10 mg, Oral, DAILY, Lucia Miller MD aspirin chewable tablet 81 mg, 81 mg, Oral, DAILY, Lucia Miller MD atorvastatin (LIPITOR) tablet 20 mg, 20 mg, Oral, QHS, Lucia Miller MD carvediloL (COREG) tablet 12.5 mg, 12.5 mg, Oral, BID MEALS, Lucia Miller MD clopidogreL (PLAVIX) tablet 75 mg, 75 mg, Oral, DAILY, Lucia Miller MD dextrose 50 % in water (D50W) injection 25 mL, 25 mL, Slow IV Push, PRN, Lucia Miller MD docusate (COLACE) capsule 100 mg, 100 mg, Oral, BID, Lucia Miller MD gabapentin (NEURONTIN) capsule 300 mg, 300 mg, Oral, TID, Lucia Miller MD glucagon (GLUCAGEN DIAGNOSTIC KIT) injection 1 mg, 1 mg, Intramuscular, PRN, Lucia Miller MD heparin (PF) 1,000 unit/mL injection 1,500 Units, 1,500 Units, Slow IV Push, DIALYSIS ONCE - PTROOM FOLLOWED BY heparin (PF) 1,000 unit/mL injection 1,500 Units, 1,500 Units, Slow IV Push, DIALYSIS ONCE - PT ROOM, Mando Maddox DO heparin (porcine) injection 5,000 Units, 5,000 Units, Subcutaneous, Q8H, Lucia Miller MD, Stopped at 10/15/19 1145 hydrALAZINE (APRESOLINE) tablet 25 mg, 25 mg, Oral, BID, Lucia Miller MD insulin detemir U-100 (LEVEMIR U-100 INSULIN) injection 18 Units, 18 Units, Subcutaneous, QAM WITH BREAKFAST, Lucia Miller MD lactobacillus acidophilus (ACIDOPHILLUS) 25 million cell -100 mg captab 1 tablet, 1 tablet, Oral, BID, Lucia Miller MD NaCl 0.9% (NS) injection 10 mL, 10 mL, Slow IV Push, DIALYSIS ONCE - PT ROOM, Mando Maddox DO nitroglycerin 50 mg in D5W 250 mL infusion RTU, 5-200 mcg/min, IV Infusion, TITRATE, Neftaly Ramirez DO, Last Rate: 30 mL/hr at 10/15/19 0855, 100 mcg/min at 10/15/19 0855 ondansetron (ZOFRAN (PF)) injection 4 mg, 4 mg, Slow IV Push, Q6HPRN, Lucia Miller MD phenytoin Extended (DILANTIN KAPSEAL) capsule 200 mg, 200 mg, Oral, BID, Lucia Miller MD piperacillin-tazobactam (ZOSYN) 2.25 g/50 mL RTU, 2.25 g, IV Piggyback, Q8H ABX, Lucia Miller MD sevelamer (RENVELA) tablet 1,600 mg, 1,600 mg, Oral, TID MEALS, Lucia Miller MD Sliding Scale Insulin - Aspart (NOVOLOG) + Fsbg Testing, , Subcutaneous, TID MEALS+HS, Lucia Miller MD [START ON 10/16/2019] vancomycin 1250 mg in NS 250 mL RTU IV Piggyback 1,250 mg, 1,250 mg, IV Piggyback, Q24H ABX, Lucia Miller MD Objective: Vitals: 10/15/19 1020 10/15/19 1025 10/15/19 1114 10/15/19 1116 BP: (!) 164/84 (!) 153/85 (!) 168/84 Pulse: 86 87 85 Resp: Temp: 36.6 C (97.9 F) TempSrc: Axillary SpO2: 100% 100% 100% 100% Weight: CBC WBC x10^3 (/CMM) Date Value 04/22/2011 8.9 WBC (10*3/L) Date Value 10/15/2019 21.45 (H) RBC x10^6 (/CMM) Date Value 04/22/2011 5.05 RBC (10*6/L) Date Value 10/15/2019 4.22 (L) PLT x10^3 (/CMM) Date Value 04/22/2011 303 PLT (10*3/L) Date Value 10/15/2019 294 HGB Date Value 10/15/2019 12.5 g/dL 04/22/2011 13.8 G/DL HCT (%) Date Value 10/15/2019 38.0 (L) 04/22/2011 41.0 CMP NA Date Value 10/15/2019 138 mmol/L 04/22/2011 139 MMOL/L K Date Value 10/15/2019 6.5 mmol/L (HH) 04/22/2011 3.8 MMOL/L CALCIUM Date Value 10/15/2019 7.9 mg/dL (L) 04/22/2011 8.8 MG/DL CL Date Value 10/15/2019 96 mmol/L (L) 04/22/2011 101 MMOL/L BUN Date Value 10/15/2019 78 mg/dL (H) 04/22/2011 25 MG/DL (H) CREATININE Date Value 10/15/2019 9.95 mg/dL (H) 04/22/2011 1.30 MG/DL (H) GLUCOSE Date Value 10/15/2019 256 mg/dL (H) 04/22/2011 180 MG/DL (H) CO2 TOTAL Date Value 10/15/2019 22 mmol/L (L) 04/22/2011 26 MMOL/L ALBUMIN Date Value 10/15/2019 4.6 g/dL 02/17/2003 3.7 G/DL T PROTEIN Date Value 10/15/2019 8.5 g/dL (H) 02/17/2003 7.1 G/DL TOTAL BILI Date Value 10/15/2019 0.5 mg/dL 02/17/2003 0.2 MG/DL BILI UNCON Date Value 06/27/2016 0.1 mg/dL 02/17/2003 0.3 MG/DL BILI CONJ Date Value 06/27/2016 0.0 mg/dL 02/17/2003 0.0 MG/DL ALT(SGPT) (U/L) Date Value 06/27/2016 36 02/17/2003 41 ALTv (U/L) Date Value 10/15/2019 24 AST(SGOT) (U/L) Date Value 10/15/2019 29 02/17/2003 23 ALK PHOS (U/L) Date Value 10/15/2019 160 (H) 02/17/2003 141 (H) Chest xray 10/14: HISTORY: SOB. TECHNIQUE: Portable AP semierect view of the chest is obtained. Comparison made with 06/27/2016 study. FINDINGS: Multiple patchy areas of bilateral pulmonary infiltrates noted, slightly more in the right lower lung. Mild cardiomegaly noted. No pneumothorax or pleural effusion. There is minimal underlying pulmonary edema. CONCLUSIONS: Bilateral pulmonary infiltrates, more severe in the right lung with minimal acute pulmonary edema. Etiology includes possibility of COVID19 type infection. Please correlate clinically. ROS: General: Lethargic, utilizing BIPAP, tachypneic Assessment and plan: Leukocytosis Pneumonia secondary to Covid 19 infection D-Dimer elevated, on ASA Procalcitonin pending Zosyn day 1, Vancomycin to start tomorrow ESRD on dialysis Diabetes mellitus, monitor glycemic control From ID standpoint, patient would benefit from Remdesivir Will continue to monitor Thank you for consult Patient discussed with Dr. Vega documented in this encounter Nursing Notes Melo Tucker RN - 10/17/2019 3:44 PM CDTHEMODIALYSIS NURSING NOTE Number Hours: 4.0 hours Bath: 2K 2.5 Calcium (low calcium) Heparin: held, patient on heparin drip Access: left AVF forearm Net UF: 2100 mL Weight: pre 67.5 kg, post 65.5 kg Post BP 165/74 Post Pulse 65 Antibiotics/Medications Given: None Complications/Events of Treatment: Episodes of asymptomatic hypotension throughout treatment, Gave atotal of 500 cc of NSS and lowered UF goal. Post treatment vital signs stable and patient denies anycomplaints. Handoff report to: SHADY Tamez, ICU nurse Mode of Transport Back to Unit: NA - patient done at bedside See hemodialysis flowsheet for details of treatment. documented in this encounter ED Notes Leslie Hayes RN - 10/15/2019 8:32 AM CDTPt presents for hypoxia and difficulty breathing. Pt is due for dialysis. Reports that he has been [facility] all morning. On NC at [facility] he was 66% SPO2. 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 Reportedly 66% on RA. Patient placed on NRB by EMS. Sats improved to 95%. Patient is ESRD on dialysis. Due for dialysis. He is confused but able to respond to simple questions. Presented in extremis BP > 230 RR 40 HR 120. Immediately placed on Bipap and Nitro gtt upon presentation to ED. History limited 2/2 patient condition. 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 Osteomyelitis Tetanus received in last 5 years: Yes Childhood immunizations: Up-to-date Past Surgical History Past Surgical History: Procedure Laterality Date ANGIOPLASTY Left 07/01/2016 Surgeon: Rubin Barrera MD; Location: [facility] ARTERIOGRAM Right 07/06/2015 Surgeon: Rubin Barrera MD; Location: [facility] [place] ARTERIOGRAM Left 06/30/2016 Surgeon: Washington Peter MD; Location: [facility] ARTERIOGRAM Left 07/01/2016 Surgeon: Rubin Barrera MD; Location: [facility] [place] CENTRAL VENOUS ACCESS CATHETER PLACEMENT N/A 06/08/2016 Surgeon: Washington Peter MD; [facility] ENDODIATHERMY 04/19/2011 Surgeon:TAI BIGGS; Location[facility] ENDOLASER PHOTOCOAGULATION 04/19/2011 Surgeon:TAI BIGGS; Location[facility] INFUSION CATHETER PLACEMENT (SHX) Left 06/30/2016 Surgeon: Washington Peter MD; Location: [facility] [place] INFUSION CATHETER REMOVAL (SHX) Left 07/01/2016 Surgeon: Rubin Barrera MD; Location: [facility] MEMBRANE PEELING 04/19/2011 Surgeon:TAI BIGGS; [facility] PARS PLANA VITRECTOMY 04/19/2011 Surgeon:TAI BIGGS; Location:[facility] PARS PLANA VITRECTOMY 06/21/2011 Surgeon:VLADIMIR WU; Location:[facility] SILICONE OIL PLACEMENT 04/19/2011 Surgeon:TAI BIGGS; Location:[facility] SILICONE OIL REMOVAL 06/21/2011 Surgeon:VLADIMIR WU; Location:[facility] SYNECHIALYSIS 06/21/2011 Surgeon:VLADIMIR WU; Location:[facility] TOE AMPUTATION Left 07/06/2015 Surgeon: Rubin Barrera MD; Location: [facility] [place] TOE AMPUTATION Left 07/20/2015 Surgeon: Washington Peter MD; Location: [facility] [place] VASCULAR STENTING Right 07/06/2015 Surgeon: Rubin Barrera MD; Location: [facility] [place] VASCULAR STENTING Left 07/01/2016 Surgeon: Rubin Barrera MD; Location: [facility] [place] Allergies No Known Allergies Social History Tobacco Use Former Smoker; Quit 03/13/1989. Smokeless Tobacco: Never used smokeless tobacco. Alcohol Use No. Drug Use No. Review of Systems Review of Systems Unable to perform ROS: Other Confused / not providing reliable history. Physical Exam BP (!) 190/74 | Pulse 72 | Temp 36.4 C (97.5 F) (Oral) | Resp 25 | Wt 68 kg (150 lb) | [id number]% | BMI 24.96 kg/m Physical Exam Vitals signs and nursing note reviewed. Constitutional: Appearance: He is well-developed. He is obese. He is diaphoretic. Interventions: Face mask in place. HENT: Head: Normocephalic and atraumatic. Eyes: General: No scleral icterus. Conjunctiva/sclera: Conjunctivae normal. Pupils: Pupils are equal, round, and reactive to light. Neck: Musculoskeletal: Normal range of motion and neck supple. Vascular: No JVD. Cardiovascular: Rate and Rhythm: Regular rhythm. Tachycardia present. Pulses: Normal pulses. Heart sounds: Normal heart sounds. Arteriovenous access: left arteriovenous access is present. Pulmonary: Effort: Respiratory distress present. Breath sounds: No stridor. Rhonchi and rales present. No wheezing. Abdominal: General: Bowel sounds are normal. Palpations: Abdomen is soft. Musculoskeletal: Comments: Bilateral BKA. Skin: General: Skin is warm. Neurological: General: No focal deficit present. Mental Status: He is alert. He is confused. Cranial Nerves: Cranial nerves are intact. Psychiatric: Behavior: Behavior normal. Thought Content: Thought content normal. Labs Recent Results (from the past 24 hour(s)) CBC WITH DIFF Collection Time: 10/15/19 8:43 AM Result Value Ref Range WBC 21.45 (H) 4.20 - 10.70 10*3/L RBC 4.22 (L) 4.26 - 5.52 10*6/L HGB 12.5 12.2 - 16.4 g/dL HCT 38.0 (L) 38.4 - 49.3 % MCV 90.0 81.7 - 95.6 fL MCH 29.6 26.1 - 32.7 pg MCHC 32.9 31.2 - 35.0 g/dL RDW-SD 48.5 38.5 - 51.6 fL RDW-CV 14.9 12.1 - 15.4 % PLT 294 150 - 328 10*3/L MPV 11.4 9.8 - 13.0 fL NRBC/100 WBC 0.0 0.0 - 10.0 /100 WBCs NRBC x10^3 <0.01 10*3/L GRAN MAT (NEUT) % 56.9 % IMM GRAN % 0.50 % LYMPH % 32.7 % MONO % 3.4 % EOS % 6.3 % BASO % 0.2 % GRAN MAT x10^3(ANC) 12.20 (H) 1.99 - 6.95 10*3/uL IMM GRAN x10^3 0.11 (H) 0.00 - 0.06 10*3/uL LYMPH x10^3 7.01 (H) 1.09 - 3.23 10*3/uL MONO x10^3 0.73 0.36 - 1.02 10*3/uL EOS x10^3 1.35 (H) 0.06 - 0.53 10*3/uL BASO x10^3 0.05 0.01 - 0.09 10*3/uL BANDS Increased (A) COMP. METABOLIC PANEL (74586) Collection Time: 10/15/19 8:43 AM Result Value Ref Range NA 138 135 - 145 mmol/L K 6.5 (HH) 3.5 - 5.0 mmol/L CL 96 (L) 98 - 108 mmol/L CO2 TOTAL 22 (L) 23 - 31 mmol/L AGAP 20 (H) 2 - 16 BUN 78 (H) 7 - 23 mg/dL GLUCOSE 256 (H) 70 - 110 mg/dL CREATININE 9.95 (H) 0.60 - 1.25 mg/dL TOTAL BILI 0.5 0.1 - 1.1 mg/dL CALCIUM 7.9 (L) 8.6 - 10.6 mg/dL T PROTEIN 8.5 (H) 6.3 - 8.2 g/dL ALBUMIN 4.6 3.5 - 5.0 g/dL ALK PHOS 160 (H) 34 - 122 U/L ALTv 24 5 - 50 U/L AST(SGOT) 29 13 - 40 U/L eGFR Calculation (Non-) 5.3 mL/min/1.73m2 eGFR Calculation () 6.4 mL/min/1.73m2 N-TERMINAL PRO-BNP Collection Time: 10/15/19 8:43 AM Result Value Ref Range NT-proBNP 21,600 (H) <=125 pg/mL TROPONIN I Collection Time: 10/15/19 8:43 AM Result Value Ref Range TROPONIN I 0.036 (H) <=0.034 ng/mL D-DIMER Collection Time: 10/15/19 8:43 AM Result Value Ref Range D-DIMER 1.18 (H) <0.41 g/mL (FEU) PROTHROMBIN TIME / INR Collection Time: 10/15/19 8:43 AM Result Value Ref Range PROTIME PATIENT 12.5 12.0 - 14.7 Seconds INR 1.0 aPTT Collection Time: 10/15/19 8:43 AM Result Value Ref Range APTT Patient 22 (L) 23 - 38 Seconds AC ABG + LACTIC ACID Collection Time: 10/15/19 8:46 AM Result Value Ref Range PH 7.14 (LL) 7.35 - 7.45 PCO2 62 (H) 35 - 45 mmHg PO2 57 (L) 80 - 100 mmHg HCO3 21 (L) 22 - 26 mEq/L BE -9.0 (L) -3.0 - 3.0 mEq/L LACTIC ACID 2.33 mmol/L COVID-19 (ID NOW RAPID TESTING) Collection Time: 10/15/19 8:54 AM Specimen: NASOPHARYNGEAL SWAB Result Value Ref Range SARS-CoV-2 Rapid ID NOW Positive (A) Not Detected Imaging Hospital Encounter on 10/15/19 XR CHEST 1 VW Narrative HISTORY: SOB. TECHNIQUE: Portable AP semierect view of the chest is obtained. Comparison made with 06/27/2016 study. FINDINGS: Multiple patchy areas of bilateral pulmonary infiltrates noted, slightly more in the right lower lung. Mild cardiomegaly noted. No pneumothorax or pleural effusion. There is minimal underlying pulmonary edema. CONCLUSIONS: Bilateral pulmonary infiltrates, more severe in the right lung with minimal acute pulmonary edema. Etiology includes possibility of COVID19 type infection. Please correlate clinically. Orders and Treatments Orders Placed This Encounter Procedures XR CHEST 1 VW CBC WITH DIFF COMP. METABOLIC PANEL (62544) N-TERMINAL PRO-BNP TROPONIN I AC ABG + LACTIC ACID Lactic Acid Whole Blood D-DIMER PROTHROMBIN TIME / INR aPTT COVID-19 (ID NOW RAPID TESTING) CONSULT NEPHROLOGY BI-PAP I Orders Placed This Encounter Medications nitroglycerin 50 mg in D5W 250 mL infusion RTU vancomycin 1000 mg in NS 200 mL RTU IV Piggyback 1,000 mg piperacillin-tazobactam (ZOSYN) 3.375 g in NaCl 0.9% (NS) 100 mL MINI-BAG Procedures See ED Procedure Note / Critical care Notes & MDM Patient was evaluated for an emergency medical condition related to Respiratory Problem . Differential diagnoses considered by presenting complaints but not limited to: Acute pulmonary edema, Hypertensive Emergency, Pneumonia, Infection NOS, Hyperkalemia requiring dialysis, Respiratory acidosis, Hypoxic respiratory failure, ACS, PE, Arrhythmia, Ventricular tachycardiaand others. Labs:were ordered, and resulted, any relevant abnormalities were considered. Imaging:Ordered, and resulted, any relevant abnormalities were considered. IV fluids: not indicated Procedures:were performed as documented above. EK:32 Rate: 111. Sinus tachycardia, incomplete left bundle-branch block, normal axis, prolonged QTC 533 ms, normal ST segments. Interpreted. 9:05 AM. Rate 94. Sinus rhythm with nonspecific intraventricular conduction delay QRS 146. QTc improved to 495. Normal ST segments. Interpreted. Rhythm Strip Interpretation: 97 Normal Sinus Rhythm Pulse Oximetry 100% on BiPAP 15/8. Hypoxic. Interpreted. Assessment: 64-year-old male presenting with acute hypoxic respiratory failure secondary to flash pulmonary edema and underlying infection. Patient started on vancomycin and Zosyn. Initially started on BiPAP as well as a nitro drip. Patient improved with nitroglycerin, BiPAP. Patient admitted to the ICU for emergent dialysis and continuing evaluation and management. Addenda: After patient was accepted to the ICU, I was called by nursing staff for sustained V. tach.Patient had pulses and was awake during the incident. Believe that this was likely related to his hyperkalemia. Initiated emergent treatment with calcium gluconate as his QRS was greater than 110. Insulin and glucose was given thereafter. Mag sulfate was given. Patient was started on an amiodarone bolus and drip. High-dose albuterol was withheld secondary to him being positive with Covid 19. Discussed case with Dr. Desai and updated on clinical course. History, physical exam findings, results of visit, differential diagnosis, medication regimens and plan of future care have been considered. Additional MDM may be found in the ED course. Differential diagnosis considered and final disposition made based on information gathered during evaluation and may not be completely ruled out or specifically listed. Vital signs were rechecked before final disposition and determined to be expected for patient's clinical condition. Patient ready for admission. Discussed the patient's laboratory and radiologic results & the anticipated course following admission with the patient & present family members. Patient verbalizedunderstanding of above. All questions asked were answered. The patient case has been discussed with Dr. Desai at 9:24 am who agrees to assume the care and responsibility of the patients future hospital course. Call Admitting physician immediately for further orders, clarification of orders or change in patients condition. If patient has not been evaluated by Admitting Physician, review these orders with the Admitting Physician immediately on arrival to floor. Diagnosis ICD-10-CM ICD-9-CM 1. Respiratory distress R06.03 786.09 2. Acute respiratory failure with hypoxia J96.01 518.81 3. Hyperkalemia E87.5 276.7 4. Pneumonia of both lower lobes due to infectious organism J18.1 483.8 5. Acute pulmonary edema J81.0 518.4 6. COVID-19 virus infection U07.1 Disposition & Follow Up ED Disposition ED Disposition Condition Comment Admit - Inpatient Serious Patients undergoing COVID-19 testing are cared for in a designated unit and care team. Is this patient being tested for COVID-19?: Yes Treatment Team: [facility] [[id number]] Primary reason for admission: Bilateral pneumonia [677968] Secondary reason for admission: Hyperkalemia [642140] Secondary reason for admission: Acute respiratory failure with hypoxia [682635] Secondary reason for admission: Acute exacerbation of CHF (congestive heart failure) [025691] Secondary reason for admission: Respira tory acidosis [277176] Is (or was) this a planned re-admission?: No My concerns are:: hypoxia My concerns are:: need for cardiac monitoring My concerns are:: electrolyte imbalance My concerns are:: risk of mortality My concerns are:: risk of mo rbidity The risks to the patient are: morbidity or mortality in the short term Expected length of stay: At least 2 midnights Expected discharge disposition: Halfway Facility Certification: I certify the inpatient services are medically ne cessary and in accordance with Medicare regulations. Patient's Medications START taking these medications No medications on file CONTINUE taking these medications which have NOT CHANGED ACETAMINOPHEN-CODEINE (TYLENOL #3) 300-30 MG TABLET Take 1 tablet by mouth every 4 (four) hours as needed for Pain (scale 4-6) or Pain (scale 7-10). AMLODIPINE (NORVASC) 10 MG TABLET Take 10 mg by mouth daily. ASPIRIN 81 MG CHEWABLE TABLET Take 1 tablet by mouth daily. CARVEDILOL (COREG) 6.25 MG TABLET Take 6.25 mg by mouth 2 (two) times daily with meals. CLOPIDOGREL 75 MG TABLET Take 1 tablet by mouth daily. DOCUSATE (COLACE) 100 MG CAPSULE Take 1 capsule by mouth once daily as needed for Constipation. INSULIN GLARGINE (LANTUS U-100) 100 UNIT/ML INJECTION inject 22 Units under the skin at bedtime. LEVEMIR FLEXTOUCH 100 UNIT/ML (3 ML) INJECTION INJECT 20 UNITS UNDER SKIN AT NIGHT LISINOPRIL (PRINIVIL,ZESTRIL) 40 MG TABLET Take 1 tablet by mouth daily. PHENYTOIN ER 200 MG ER CAPSULE TAKE 1 CAPSULE 3 TIMES A DAY PRAVASTATIN (PRAVACHOL) 40 MG TABLET Take 40 mg by mouth at bedtime. TRAMADOL 50 MG TABLET Take 1 tablet by mouth every 12 (twelve) hours as needed for Pain (scale 1-3). START taking Modified Medications as Prescribed No medications on file STOP taking these medications No medications on file Neftaly Ramirez DO 10/15/2019 9:30 AM ACTIVE COVID-19 PANDEMIC. documented in this encounter Miscellaneous Notes Care Plan - Sole Teran RN - 10/19/2019 3:47 PM CDT Problem: Respiratory Function - Impaired Goal: Able to cough effectively Outcome: Progressing as expected Goal: Adequate oxygenation Outcome: Progressing as expected Goal: Adequate work of breathing Outcome: Progressing as expected Goal: Patent airway Outcome: Progressing as expected Problem: Procedure Routine Goal: Knowledge of procedure Outcome: Progressing as expected Problem: Restraint Use Goal: Absence of restraint indications Outcome: Progressing as expected Goal: Absence of restraint-related injury Outcome: Progressing as expected ursing Note - Ying Jones RN - 10/19/2019 9:54 AM [facility] and notified staff of pending discharge for today. Charge nurse notified that patient will receive last dose of antiviral before return to facility this afternoon. ursing Note - Valeriano Avery RN - 10/19/2019 9:38 AM CDTPatient HD access was used for HD treatment around 08:45 am and tx was started at 08:50 am however patient pulled his venous lines and was not able to continue treatment . Patient must have lost 20 ml of blood. Patient access was secured with gauze and tape and pressure was applyed for [address] Vasques was notified and ordered to hold hemodialysis for today. Patient primary nurse Sole Alejandro was no tified. No bleeding was noted at time of DC. are Plan - Valeriano Avery RN - 10/19/2019 8:45 AM CDT Problem: Procedure Routine Goal: Knowledge of procedure Outcome: Not progressing as expected Hemodialysis Plan of care reviewed r/t treatment time & UF goal. Also reviewed possible side effects of HD tx, such as s/s of hypotension, cramping (during tx and at rare times after tx), N/V, CP or any other concerns. Patient acknowledge understanding of treatment plan. are Plan - Dashawn Sánchez RN - 10/18/2019 11:57 PM CDT Problem: Respiratory Function - Impaired Goal: Able to cough effectively Outcome: Progressing as expected Goal: Adequate oxygenation Outcome: Progressing as expected Goal: Adequate work of breathing Outcome: Progressing as expected Goal: Patent airway Outcome: Progressing as expected Problem: Procedure Routine Goal: Knowledge of procedure Outcome: Progressing as expected Problem: Restraint Use Goal: Absence of restraint indications Outcome: Progressing as expected Goal: Absence of restraint-related injury Outcome: Progressing as expected are Claire - Luz Maria Krishnan RN - 10/18/2019 5:27 PM CDT Problem: Respiratory Function - Impaired Goal: Able to cough effectively Outcome: Progressing as expected Goal: Adequate oxygenation Outcome: Progressing as expected Goal: Adequate work of breathing Outcome: Progressing as expected Goal: Patent airway Outcome: Progressing as expected Problem: Procedure Routine Goal: Knowledge of procedure Outcome: Progressing as expected Problem: Restraint Use Goal: Absence of restraint indications Outcome: Progressing as expected Goal: Absence of restraint-related injury Outcome: Progressing as expected ursing Note - Luz Maria Krishnan RN - 10/18/2019 5:00 PM CDTPatient ate about 4-5 bites of his dinner. He drank some Glucerna about 6 drinks. are Plan - Melo Tucker RN - 10/17/2019 3:43 PM CDTHemodialysis Plan of care explained r/t treatment time and UF goal Pt aware to notify me of any discomfort or questions. Pt Sen[place]alese speaking with limited Ecuadorean, patient slightly altered, unable to acknowledge understanding of treatment plan. are Plan - Deisy Bone RN - 10/16/2019 7:32 PM CDT Problem: Respiratory Function - Impaired Goal: Able to cough effectively Outcome: Progressing as expected Goal: Adequate oxygenation Outcome: Progressing as expected Goal: Adequate work of breathing Outcome: Progressing as expected Goal: Patent airway Outcome: Progressing as expected Problem: Procedure Routine Goal: Knowledge of procedure Outcome: Progressing as expected Problem: Restraint Use Goal: Absence of restraint indications Outcome: Progressing as expected Goal: Absence of restraint-related injury Outcome: Progressing as expected ursing Note - Alejandra Nunez RN - 10/16/2019 6:47 PM CDTHEMODIALYSIS NURSING NOTE Number Hours: 3.0 hours Bath: 2K 2.5 Calcium (low calcium) Heparin: Held - patient on heparin drip Access: left AVF forearm Net UF: 3,000 ml Weight: pre 69.5 kg, post 66.5 kg Post BP 145/64 Post Pulse 79 Antibiotics/Medications Given: None Complications/Events of Treatment: Tolerated treatment well. No complications noted during HD. Left the patient in his room post HD without complaints or distress. Verbal handoff report given to primary nurse SHADY Olivas Mode of Transport Back to Unit: NA - patient done at bedside in [facility] ICU See hemodialysis flowsheet for details of treatment. ursing Note - Sole Teran RN - 10/15/2019 7:25 PM CDTSpoke with daughter for admission information. ursing Note - Anushka Tucker RN - 10/15/2019 5:38 PM CDTHEMODIALYSIS NURSING NOTE Number Hours: 3.5 hours Bath: 2K 3 Calcium (standard dialysate) Heparin: limited heparin (3000 units total) Access: left AVF forearm Net UF: 3.2 L Weight: pre 72 kg, post 68.8 kg (per patient's bed scale) Post BP 170/78 Post Pulse 80 Antibiotics/Medications Given: none Complications/Events of Treatment: episodes of asymptomatic hypertension throughout tx, resolved by primary RN initiating nitroglycerin drip as needed. Patient tolerated treatment. Verbal report to: SHADY Whipple Mode of Transport Back to Unit: NA - patient done at bedside, [facility]103 See hemodialysis flowsheet for details of treatment. Care Plan - Anushka Tucker RN - 10/15/2019 1:57 PM CDTHemodialysis Plan of care reviewed r/t treatment time & UF goal. Also reviewed possible side effects of HD tx, such as s/s of hypotension, cramping (during tx and at rare times after tx), N/V, CP or any other concerns. Patient acknowledge understanding of treatment plan. D Nurse Note - Herman Soto RN - 10/15/2019 10:37 AM CDTReport to SHADY Whipple D Procedure Note - Neftaly Ramirez DO - 10/15/2019 10:16 AM CDTAssociated Order(s): Critical CareCritical Care Performed by: Neftaly Ramirez DO Authorized by: Neftaly Ramirez DO Critical care provider statement: Critical care time (minutes): 50 Critical care time was exclusive of: Separately billable procedures and treating other patients Critical care was necessary to treat or prevent imminent or life-threatening deterioration of the following conditions: Circulatory failure, cardiac failure, respiratory failure and metabolic crisis(Acute pulmonary edema, bilateral pneumonia, respiratory acidosis, ventricular tachycardia secondaryto metabolic derangement of hyperkalemia.) Critical care was time spent personally by me on the following activities: Ordering and performing treatments and interventions, re-evaluation of patient's condition, obtaining history from patient or surrogate, examination of patient, evaluation of patient's response to treatment, ordering and review of laboratory studies, ordering and review of radiographic studies, development of treatment planwith patient or surrogate, discussions with consultants, pulse oximetry and ventilator management Comments: Given the critical condition in which the patient arrived, the patient was immediately assessed by myself and the nurse, and cardiac monitoring initiated due to the potential for rapid decompensation of the patient's clinical condition. During the course of the patient's stay, I spent a considerable amount of time at the bedside performing serial re-evaluations of the patient's hemodynamic and clinical status because of the recognized potential threat to life or limb in this condition. I then hada chance to review not only all of the available current laboratory and radiographic studies obtained today, but I also reviewed old records available to me at the time. Additionally, any ancillary information available including logger all round records were reviewed. Sequential vital signs were obtained. Critical Care time reported above was performed exclusive of billable procedures documented in this encounter Plan of Treatment Name Type Priority Associated Diagnoses Date/Ti me BLOOD CULTURE SCREEN LAB MULUGETA 020 1:43 PM CDT BLOOD CULTURE SCREEN LAB MULUGETA 020 1:46 PM CDT Name Type Priority Associated Diagnoses Order S chedule CBC WITH DIFF LAB Routine EVERY MORNING AT 0400 for 3 Days starting 10/19/2019 unti l 10/21/2019, 1 c ompleted COMP. METABOLIC PANEL LAB Routine EVERY MORNING AT 0400 for (01830) 3 Days starting 10/19/2019 unti l 10/21/2019, 1 c ompleted Health Maintenance Due Date Last Done Comments HEPATITIS C (HCV) SCREEN 1953 EYE EXAM 1963 Depression Screening 1965 FOOT EXAM 1971 DTaP,Tdap,and Td Vaccines (1 - 1972 09/04/2015 Tdap) COLON CANCER SCREENING ANNUAL 2003 FIT/FOBT COLON CANCER SCREENING FIT DNA 2003 EVERY 3 YEARS COLON CANCER SCREENING 2003 SIGMOIDOSCOPY EVERY 5 YEARS COLONOSCOPY 2003 Colorectal Cancer Screening 2003 Zoster Recombinant Vaccine 2003 (SHINGRIX) (1 of 2) Medicare Wellness Visit 2018 PNEUMOCOCCAL VACCINES 65+ (1 of 1 2018 - PPSV23) INFLUENZA VACCINE (#1) 2019 02/19/2011 HgA1C 04/16/2020 10/15/2019, 09/05/2015, 07/02/2015, Additional history exists LDL-C 10/14/2020 10/15/2019, 07/01/2015, 02/17/2003 CREATININE (SERUM) 10/17/2020 10/18/2019, 10/17/2019, 10/16/2019, Additional history exists documented as of this encounter Implants Implanted Type Area Pick Pack Worker Device Shelf Model / Identifier Expiration Serial / Lot Date Stent, Bard 7 Mm X 150 Mm X 130 Cm Lifes tent Xl Vascular System #[id number] - [id number] STENT Right: Bard [id number] / Implanted: Qty: 1 on 07/06/2015 by Rubin Da Silva MD at [facility] REF [id number] / [id number] Stent Viabahn 0.018" [id number] 6fr [place] #[id number] - [id number] STENT Left: Leg W L [place] 01/06/2019 [id number] / Implanted: Qty: 1 on 07/01/2016 by Rubin Da Silva MD at [facility] [id number] / NA Balloon Catheter, Lutonix 130cm 6x120 Dcp Bard #[id number] - Lo [id number] Right: Bard 10/14/2016 [id number] / Implanted: Qty: 1 on 07/06/2015 by Rubin Da Silva MD at [facility] Groin REF [id number] / [id number] Angio-Seal Evolution Vascular Closure De vice [employer] #[id number] - [id number] Right: [employer] 09/10/2015 [id number] / Implanted: Qty: 1 on 07/06/2015 by Rubin Da Silva MD at [facility] 0 / [id number] Angio-Seal Evolution Vascular Closure Device [employer] #[id number] - Sna Right: [employer] 03/12/2017 [id number] / Implanted: Qty: 1 on 07/01/2016 by Rubin Da Silva MD at [facility] NA / [id number] documented as of this encounter Procedures Procedure Name Priority Date/Time Associated Comments Diagnosis POCT GLUCOSE Routine 10/19/2019 7:34 Results for this (AUTOMATED) AM CDT procedure are i n the results section. CBC WITH DIFF Routine 10/19/2019 4:19 Results fo r this AM CDT procedure are i n the results section. COMP. METABOLIC PANEL Routine 10/19/2019 4:19 Re sults for this (27808) AM CDT procedure are i n the results section. POCT GLUCOSE Routine 10/18/2019 4:37 Results for this (AUTOMATED) PM CDT procedure are i n the results section. POCT GLUCOSE Routine 10/18/2019 11:52 Results for this (AUTOMATED) AM CDT procedure are i n the results section. POCT GLUCOSE Routine 10/18/2019 8:06 Results for this (AUTOMATED) AM CDT procedure are i n the results section. N-TERMINAL PRO-BNP Routine 10/18/2019 4:19 Resul ts for this AM CDT procedure are i n the results section. CBC WITH DIFF Routine 10/18/2019 4:19 Results fo r this AM CDT procedure are i n the results section. COMP. METABOLIC PANEL Routine 10/18/2019 4:19 Re sults for this ([id number]) AM CDT procedure are i n the results section. ACTIVATED PARTIAL Routine 10/17/2019 9:32 Result s for this THRMPLAS MICHAEL PM CDT procedure are i n the results section. POCT GLUCOSE Routine 10/17/2019 4:24 Results for this (AUTOMATED) PM CDT procedure are i n the results section. ACTIVATED PARTIAL Routine 10/17/2019 11:23 Result s for this THRMPLAS MICHAEL AM CDT procedure are i n the results section. POCT GLUCOSE Routine 10/17/2019 11:19 Results for this (AUTOMATED) AM CDT procedure are i n the results section. POCT GLUCOSE Routine 10/17/2019 8:07 Results for this (AUTOMATED) AM CDT procedure are i n the results section. N-TERMINAL PRO-BNP Routine 10/17/2019 1:39 Resul ts for this AM CDT procedure are i n the results section. ACTIVATED PARTIAL Routine 10/17/2019 1:39 Result s for this THRMPLAS MICHAEL AM CDT procedure are i n the results section. CBC WITH DIFF Routine 10/17/2019 1:39 Results fo r this AM CDT procedure are i n the results section. COMP. METABOLIC PANEL Routine 10/17/2019 1:39 Re sults for this ([id number]) AM CDT procedure are i n the results section. TROPONIN I Routine 10/17/2019 1:39 Results for this AM CDT procedure are i n the results section. POCT GLUCOSE Routine 10/16/2019 8:01 Results for this (AUTOMATED) PM CDT procedure are i n the results section. ACTIVATED PARTIAL Routine 10/16/2019 5:18 Result s for this THRMPLAS MICHAEL PM CDT procedure are i n the results section. POCT GLUCOSE Routine 10/16/2019 4:29 Results for this (AUTOMATED) PM CDT procedure are i n the results section. VANCOMYCIN TROUGH Routine 10/16/2019 1:13 Result s for this PM CDT procedure are i n the results section. POCT GLUCOSE Routine 10/16/2019 11:45 Results for this (AUTOMATED) AM CDT procedure are i n the results section. PNEUMOCOCCAL ANTIGEN Routine 10/16/2019 9:50 Res ults for this AM CDT procedure are i n the results section. LEGIONELLA URINARY Routine 10/16/2019 9:50 Resul ts for this ANTIGEN TST AM CDT procedure are i n the results section. POCT GLUCOSE Routine 10/16/2019 8:23 Results for this (AUTOMATED) AM CDT procedure are i n the results section. ACUTE CARE VENOUS Routine 10/16/2019 1:53 Result s for this BLOOD GAS AM CDT procedure are i n the results section. N-TERMINAL PRO-BNP Routine 10/16/2019 1:52 Resul ts for this AM CDT procedure are i n the results section. CBC WITH DIFF Routine 10/16/2019 1:52 Results fo r this AM CDT procedure are i n the results section. COMP. METABOLIC PANEL Routine 10/16/2019 1:52 Re sults for this (05772) AM CDT procedure are i n the results section. BASIC METABOLIC PANEL Routine 10/16/2019 1:52 Re sults for this (NA, K, CL, CO2, AM CDT procedure a re in GLUCOSE, BUN, the results CREATININE, CA) section. TROPONIN I Routine 10/16/2019 1:52 Results for this AM CDT procedure are i n the results section. MAGNESIUM Routine 10/16/2019 1:52 Results for this AM CDT procedure are i n the results section. URIC ACID Routine 10/16/2019 1:52 Results for this AM CDT procedure are i n the results section. PHOSPHORUS Routine 10/16/2019 1:52 Results for this AM CDT procedure are i n the results section. POCT GLUCOSE Routine 10/15/2019 4:13 Results for this (AUTOMATED) PM CDT procedure are i n the results section. BILATERAL VENOUS Routine 10/15/2019 3:25 DUPLEX LOWER PM CDT EXTREMITY BY VASCULAR LAB BLOOD CULTURE SCREEN MULUGETA 10/15/2019 1:46 PM CDT LACTATE DEHYDROGENASE MULUGETA 10/15/2019 1:45 Re sults for this PM CDT procedure are i n the results section. PROCALCITONIN MULUGETA 10/15/2019 1:44 Results fo r this PM CDT procedure are i n the results section. HEPATITIS B SURFACE Add-on 10/15/2019 1:44 Resu lts for this ANTIGEN PM CDT procedure are i n the results section. HEPATITIS B SURFACE Add-on 10/15/2019 1:44 Resu lts for this ANTIBODY PM CDT procedure are i n the results section. MYCOPLASMA PNEUMONIAE Routine 10/15/2019 1:44 Re sults for this ANTIBODY, IGM PM CDT procedure are in the results section. PHENYTOIN FREE Routine 10/15/2019 1:44 Results f or this PM CDT procedure are i n the results section. PHENYTOIN Routine 10/15/2019 1:44 Results for this PM CDT procedure are i n the results section. GRAM POSITIVE BLOOD Routine 10/15/2019 1:43 Resu lts for this PATHOGENS DNA PM CDT procedure are in PROBE-AEROBIC the results section. BLOOD CULTURE WORKUP MULUGETA 10/15/2019 1:43 Res ults for this PM CDT procedure are i n the results section. BLOOD CULTURE SCREEN MULUGETA 10/15/2019 1:43 PM CDT ECHO ROUTINE Routine 10/15/2019 11:41 Respiratory W/DOPPLER COLOR AM CDT distress POCT GLUCOSE Routine 10/15/2019 11:34 Results for this (AUTOMATED) AM CDT procedure are i n the results section. AC PANEL 20 + LACTIC Routine 10/15/2019 10:21 Res ults for this ACID AM CDT procedure are i n the results section. CRITICAL CARE Routine 10/15/2019 10:16 Results fo r this AM CDT procedure are i n the results section. EKG-12 LEAD Routine 10/15/2019 10:02 AM CDT XR CHEST 1 VW STAT 10/15/2019 9:06 Respiratory Results fo r this AM CDT distress procedure are i n the results section. EKG-12 LEAD Routine 10/15/2019 9:05 AM CDT COVID-19 (ID NOW STAT 10/15/2019 8:54 Respiratory Results for this RAPID TESTING) AM CDT distress procedure are in the results section. AC ABG + LACTIC ACID STAT 10/15/2019 8:46 Respiratory Res ults for this AM CDT distress procedure are i n the results section. N-TERMINAL PRO-BNP STAT 10/15/2019 8:43 Respiratory Resul ts for this AM CDT distress procedure are i n the results section. ACTIVATED PARTIAL STAT Add-On 10/15/2019 8:43 Respiratory Result s for this THRMPLAS MICHAEL AM CDT distress procedure are i n the results section. D-DIMER STAT 10/15/2019 8:43 Respiratory Results for this AM CDT distress procedure are i n the results section. PROTHROMBIN TIME / STAT Add-On 10/15/2019 8:43 Respiratory Resul ts for this INR AM CDT distress procedure are i n the results section. GLYCOSYLATED Add-on 10/15/2019 8:43 Results for this HEMOGLOBIN (A1C) AM CDT procedure a re in the results section. CBC WITH DIFF STAT 10/15/2019 8:43 Respiratory Results fo r this AM CDT distress procedure are i n the results section. LIPID PANEL Add-on 10/15/2019 8:43 Results for this ([id number])(TOTAL AM CDT procedure are in CHOLESTEROL, the results TRIGLYCERIDES, HDL) section. COMP. METABOLIC PANEL STAT 10/15/2019 8:43 Respiratory Re sults for this ([id number]) AM CDT distress procedure are i n the results section. THYROID STIMULATING Add-on 10/15/2019 8:43 Resu lts for this HORMONE AM CDT procedure are i n the results section. TROPONIN I STAT 10/15/2019 8:43 Respiratory Results for this AM CDT distress procedure are i n the results section. FERRITIN SERUM Add-on 10/15/2019 8:43 Results f or this AM CDT procedure are i n the results section. MAGNESIUM MULUGETA Add-On 10/15/2019 8:43 Results for this AM CDT procedure are i n the results section. URIC ACID MULUGETA Add-On 10/15/2019 8:43 Results for this AM CDT procedure are i n the results section. CREATINE KINASE Add-on 10/15/2019 8:43 Results for this AM CDT procedure are i n the results section. PHOSPHORUS MULUGETA Add-On 10/15/2019 8:43 Results for this AM CDT procedure are i n the results section. EKG-12 LEAD Routine 10/15/2019 8:41 AM CDT EKG-12 LEAD Routine 10/15/2019 8:32 AM CDT EMERGENCY DEPARTMENT Routine 10/15/2019 12:01 DOCUMENTS AM CDT documented in this encounter Results POCT GLUCOSE (AUTOMATED) (10/19/2019 7:34 AM CDT) Pathologist Sig nature POCT GLU 127 (H) 70 - 110 mg/dL [facility] Specimen Blood Performing Organization Address City/State/Zipcode Phone Number [facility] CLIA: [id number] [place] [address] COMP. METABOLIC PANEL ([id number]) (10/19/2019 4:19 AM CDT) NA 138 135 - 145 [facility] mmol/L [facility] K 4.5 3.5 - 5.0 [facility] mmol/L [facility] CL 97 (L) 98 - 108 mmol/L [facility] CO2 TOTAL 25 23 - 31 mmol/L [facility] AGAP 16 2 - 16 [facility] BUN 49 (H) 7 - 23 mg/dL [facility] GLUCOSE 131 (H) 70 - 110 mg/dL [facility] CREATININE 5.97 (H) 0.60 - 1.25 [facility] mg/dL [facility] TOTAL BILI 0.2 0.1 - 1.1 mg/dL [facility] CALCIUM 8.0 (L) 8.6 - 10.6 [facility] mg/dL [facility] T PROTEIN 6.7 6.3 - 8.2 g/dL [facility] ALBUMIN 3.5 3.5 - 5.0 g/dL [facility] ALK PHOS 85 34 - 122 U/L [facility] ALTv 13 5 - 50 U/L [facility] AST(SGOT) 20 13 - 40 U/L [facility] eGFR Calculation 9.5 mL/min/1.73m2 [facility] ([facility] [place]) eGFR Calculation 11.5 mL/min/1.73m2 [facility] () [facility] Specimen Blood - ARM, LEFT Narrative Performed At [facility] of Glomerular Filtration Rate (GFR) [facility] and Staging of Kidney Disease* + + +- + | GFR (mL/min/1.73 m2) | With Kidney Damage | Without Kidney Damage + + +- + | >90 | Stage one | Normal + + +- + | 60-89 | Stage two | Decreased GFR + + +- + | 30-59 | Stage three | Stage three + + +- + | 15-29 | Stage four | Stage four + + +- + | <15 (or dialysis) | Stage five | Stage five + + +- + *Each stage assumes the associated GFR level has been in effect for at least three months. Stages 1 to 5, with or without kidney disease, indicate chronic kidney disease. Notes: Determination of stages one and two (with eGFR >59mL/min/1.73 m2) requires estimation of kidney damage for at least three months as defined by structural or functional abnormalities of the kidney, manifested by either: Pathological abnormalities or Markers of kidney damage (including abnormalities in the composition of the blood or urine or abnormalities in imaging tests). Performing Organization Address City/State/Zipcode Phone Number [facility] CLIA: [id number] [place] [address] CBC WITH DIFF (10/19/2019 4:19 AM CDT) Pathologist Sig nature WBC 6.32 4.20 - 10.70 [facility] 10*3/L [facility] RBC 3.16 (L) 4.26 - 5.52 [facility] 10*6/L [facility] HGB 9.4 (L) 12.2 - 16.4 [facility] g/dL [facility] HCT 29.0 (L) 38.4 - 49.3 % [facility] MCV 91.8 81.7 - 95.6 fL [facility] MCH 29.7 26.1 - 32.7 pg [facility] MCHC 32.4 31.2 - 35.0 [facility] g/dL [facility] RDW-SD 49.9 38.5 - 51.6 fL [facility] RDW-CV 14.8 12.1 - 15.4 % [facility] PLT 202 150 - 328 [facility] 10*3/L [facility] MPV 11.5 9.8 - 13.0 fL [facility] NRBC/100 WBC 0.0 0.0 - 10.0 /100 [facility] WBCs [facility] NRBC x10^3 <0.01 10*3/L [facility] GRAN MAT (NEUT) % 30.9 % [facility] IMM GRAN % 0.20 % [facility] LYMPH % 43.0 % [facility] MONO % 8.7 % [facility] EOS % 16.9 % [facility] BASO % 0.3 % [facility] GRAN MAT x10^3(ANC) 1.95 (L) 1.99 - 6.95 [facility] 10*3/uL HOSPITAL LAB[facility]ATORY IMM GRAN x10^3 <0.03 0.00 - 0.06 [facility] 10*3/uL [facility]PITAL LAB[facility] LYMPH x10^3 2.72 1.09 - 3.23 [facility] 10*3/uL [facility]PITAL [facility] MONO x10^3 0.55 0.36 - 1.02 [facility] 10*3/uL HOSPITAL LAB[facility]ORY EOS x10^3 1.07 (H) 0.06 - 0.53 [facility] 10*3/uL [facility] BASO x10^3 <0.03 0.01 - 0.09 [facility] 10*3/uL [facility] Specimen Blood - ARM, LEFT Performing Organization Address [facility] Phone Number [facility] CLIA: [id number] [place] [address] POCT GLUCOSE (AUTOMATED) (10/18/2019 4:37 PM CDT) Pathologist Sig nature POCT GLU 240 (H) 70 - 110 mg/dL [facility] Specimen Blood Performing Organization Address [facility] Phone Number [facility] CLIA: [id number] [place] [address] POCT GLUCOSE (AUTOMATED) (10/18/2019 11:52 AM CDT) Pathologist Sig nature POCT GLU 117 (H) 70 - 110 mg/dL [facility] Specimen Blood Performing Organization Address [facility] Phone Number [facility] CLIA: [id number] [place] [address] POCT GLUCOSE (AUTOMATED) (10/18/2019 8:06 AM CDT) Pathologist Sig nature POCT GLU 92 70 - 110 mg/dL [facility] Specimen Blood Performing Organization Address [facility] Phone Number [facility] CLIA: [id number] [place] [address] CBC WITH DIFF (10/18/2019 4:19 AM CDT) Pathologist Sig nature WBC 5.06 4.20 - 10.70 [facility] 10*3/L HOSPITAL LAB[facility]ORY RBC 3.44 (L) 4.26 - 5.52 [facility] 10*6/L HOSPITAL [facility] HGB 10.3 (L) 12.2 - 16.4 [facility] g/dL [facility] HCT 31.3 (L) 38.4 - 49.3 % [facility] MCV 91.0 81.7 - 95.6 fL [facility] MCH 29.9 26.1 - 32.7 pg [facility] MCHC 32.9 31.2 - 35.0 [facility] g/dL [facility] RDW-SD 49.3 38.5 - 51.6 fL [facility] RDW-CV 14.9 12.1 - 15.4 % [facility] PLT 205 150 - 328 [facility] 10*3/L [facility] MPV 11.5 9.8 - 13.0 fL [facility] NRBC/100 WBC 0.0 0.0 - 10.0 /100 [facility] WBCs [facility] NRBC x10^3 <0.01 10*3/L [facility] GRAN MAT (NEUT) % 39.1 % [facility] IMM GRAN % 0.20 % [facility] LYMPH % 44.5 % [facility] MONO % 11.1 % [facility] EOS % 4.9 % [facility] BASO % 0.2 % [facility] GRAN MAT x10^3(ANC) 1.98 (L) 1.99 - 6.95 [facility] 10*3/uL HOSPITAL LAB[facility]ATORY IMM GRAN x10^3 <0.03 0.00 - 0.06 [facility] 10*3/uL HOSPITAL LAB[facility]ORY LYMPH x10^3 2.25 1.09 - 3.23 [facility] 10*3/uL HOSPITAL LAB[facility] MONO x10^3 0.56 0.36 - 1.02 [facility] 10*3/uL HOSPITAL LAB[facility]ORY EOS x10^3 0.25 0.06 - 0.53 [facility] 10*3/uL [facility]ITAL [facility] BASO x10^3 <0.03 0.01 - 0.09 [facility] 10*3/uL [facility]PITAL LAB[facility] Specimen Blood - ARM, LEFT Performing Organization Address City/State/Zipcode Phone Number [facility] CLIA: [id number] [place] [address] [place] [address] N-TERMINAL PRO-BNP (10/18/2019 4:19 AM CDT) Pathologist Sig nature NT-proBNP 40,400 (H) <=125 pg/mL [facility] Specimen Blood - ARM, LEFT Narrative Performed At Biotin has been reported to cause a negative [facility] bias, interpret results relative to patient's use of biotin. Performing Organization Address City/[facility]/Zipcode Phone Number [facility] CLIA: [id number] [place] [address] [place] [address] COMP. METABOLIC PANEL (35316) (10/18/2019 4:19 AM CDT) NA 138 135 - 145 [facility] mmol/L [facility] K 3.6 3.5 - 5.0 [facility] mmol/L [facility] CL 96 (L) 98 - 108 mmol/L [facility] CO2 TOTAL 28 23 - 31 mmol/L [facility] AGAP 14 2 - 16 [facility] BUN 26 (H) 7 - 23 mg/dL [facility] GLUCOSE 99 70 - 110 mg/dL [facility] CREATININE 3.82 (H) 0.60 - 1.25 [facility] mg/dL [facility] TOTAL BILI 0.4 0.1 - 1.1 mg/dL [facility] CALCIUM 8.6 8.6 - 10.6 [facility] mg/dL [facility] T PROTEIN 7.8 6.3 - 8.2 g/dL [facility] ALBUMIN 4.1 3.5 - 5.0 g/dL [facility] ALK PHOS 101 34 - 122 U/L [facility] ALTv 15 5 - 50 U/L [facility] AST(SGOT) 30 13 - 40 U/L [facility] eGFR Calculation 15.9 mL/min/1.73m2 [facility] ([facility] [place]) eGFR Calculation 19.3 mL/min/1.73m2 [facility] ([facility]) [facility] Specimen Blood - ARM, LEFT Narrative Performed At Association of Glomerular Filtration Rate (GFR) [facility] and Staging of Kidney Disease* + + +- + | GFR (mL/min/1.73 m2) | With Kidney Damage | Without Kidney Damage + + +- + | >90 | Stage one | Normal + + +- + | 60-89 | Stage two | Decreased GFR + + +- + | 30-59 | Stage three | Stage three + + +- + | 15-29 | Stage four | Stage four + + +- + | <15 (or dialysis) | Stage five | Stage five + + +- + *Each stage assumes the associated GFR level has been in effect for at least three months. Stages 1 to 5, with or without kidney disease, indicate chronic kidney disease. Notes: Determination of stages one and two (with eGFR >59mL/min/1.73 m2) requires estimation of kidney damage for at least three months as defined by structural or functional abnormalities of the kidney, manifested by either: Pathological abnormalities or Markers of kidney damage (including abnormalities in the composition of the blood or urine or abnormalities in imaging tests). Performing Organization Address [facility] Phone Number [facility] CLIA: [id number] [place], [place] [id number] LABORATORY [address] [place] [address] aPTT (for use with Heparin Practice Guideline). Note: Draw and Send all Lab STAT. (10/17/2019 9:32 PM CDT) Pathologist Sig nature APTT Patient 59 (H) 23 - 38 Seconds [facility] Specimen Blood - ARM, LEFT Narrative Performed At The [facility] patient population mean normal value [facility] for aPTT is 30 seconds. Performing Organization Address [facility]ode Phone Number [facility] CLIA: [id number] [place] [address] [place] [address] Drive POCT GLUCOSE (AUTOMATED) (10/17/2019 4:24 PM CDT) [facility] [employer] POCT GLU 91 70 - 110 mg/dL [facility] Specimen Blood Performing Organization Address [facility]ode Phone Number [facility] CLIA: [id number] [place] [address] [address] aPTT (for use with Heparin Practice Guideline). Note: Draw and Send all Lab STAT. (10/17/2019 11:23 AM CDT) Pathologist Sig nature APTT Patient 50 (H) 23 - 38 Seconds [facility] Specimen Blood - ARM, RIGHT Narrative Performed At The [facility] patient population mean normal value [facility] for aPTT is 30 seconds. Performing Organization Address City/[facility]ode Phone Number [facility] CLIA: [id number] [place] [address] LAB[address] POCT GLUCOSE (AUTOMATED) (10/17/2019 11:19 AM CDT) [facility] POCT GLU 204 (H) 70 - 110 mg/dL [facility] Specimen Blood Performing Organization Address [facility] Phone Number [facility] CLIA: [id number] [place] [address] [place] [address] POCT GLUCOSE (AUTOMATED) (10/17/2019 8:07 AM CDT) [facility] POCT GLU 149 (H) 70 - 110 mg/dL [facility] Specimen Blood Performing Organization Address [facility] Phone Number [facility] CLIA: [id number] [place] [address] aPTT (10/17/2019 1:39 AM CDT) [facility] APTT Patient 99 (H) 23 - 38 Seconds [facility] Specimen Blood - ARM, RIGHT Narrative Performed At The [facility] patient population mean normal value [facility] for aPTT is 30 seconds. Performing Organization Address [facility] Phone Number [facility] CLIA: [id number] [place] [address] [place] [address] CBC WITH DIFF (10/17/2019 1:39 AM CDT) Pathologist Sig nature WBC 9.05 4.20 - 10.70 [facility] 10*3/L HOSPITAL [facility]ORY RBC 3.57 (L) 4.26 - 5.52 [facility] 10*6/L [facility] HGB 10.8 (L) 12.2 - 16.4 [facility] g/dL [facility] HCT 32.0 (L) 38.4 - 49.3 % [facility] MCV 89.6 81.7 - 95.6 fL [facility] MCH 30.3 26.1 - 32.7 pg [facility] MCHC 33.8 31.2 - 35.0 [facility] g/dL [facility] RDW-SD 48.2 38.5 - 51.6 fL [facility] RDW-CV 14.8 12.1 - 15.4 % [facility] PLT 212 150 - 328 [facility] 10*3/L [facility] MPV 11.3 9.8 - 13.0 fL [facility] NRBC/100 WBC 0.0 0.0 - 10.0 /100 [facility] WBCs [facility] NRBC x10^3 <0.01 10*3/L [facility] GRAN MAT (NEUT) % 59.7 % [facility] IMM GRAN % 0.20 % [facility] LYMPH % 31.2 % [facility] MONO % 8.6 % [facility] EOS % 0.2 % [facility] BASO % 0.1 % [facility] GRAN MAT x10^3(ANC) 5.40 1.99 - 6.95 [facility] 10*3/uL HOSPITAL [facility] IMM GRAN x10^3 <0.03 0.00 - 0.06 [facility] 10*3/uL [facility] LYMPH x10^3 2.82 1.09 - 3.23 [facility] 10*3/uL [facility]ITAL [facility] MONO x10^3 0.78 0.36 - 1.02 [facility] 10*3/uL HOSPITAL [facility] EOS x10^3 <0.03 (L) 0.06 - 0.53 [facility] 10*3/uL [facility]OSPITAL [facility] BASO x10^3 <0.03 0.01 - 0.09 [facility] 10*3/uL [facility]OS[facility]ITAL [facility] Specimen Blood - ARM, RIGHT Performing Organization Address City/State/Zipcode Phone Number [facility] CLIA: [id number] [place] [address] N-TERMINAL PRO-BNP (10/17/2019 1:39 AM CDT) Pathologist Sig nature NT-proBNP 51,700 (H) <=125 pg/mL [facility] Specimen Blood - ARM, RIGHT Narrative Performed At Biotin has been reported to cause a negative [facility] bias, interpret results relative to patient's use of biotin. Performing Organization Address [facility] Phone Number [facility] CLIA: [id number] [place] [address] TROPONIN I (10/17/2019 1:39 AM CDT) Pathologist Sig nature TROPONIN I 0.114 (H) <=0.034 ng/mL [facility] Specimen Blood - ARM, RIGHT Narrative Performed At Equal or Less than 0.034 ng/ml---Normal [facility] Note: Cardiac troponin begins to rise 3-4 hours after the onset of ischemia. Repeat in 4-6 hours if the sample was drawn within 3-4 hours of the onset of the symptom and found normal. Between 0.035 and 0.120 ng/mL--- Borderline. Questionable myocardial injury or necros is Note: Serial measurement may be necessary to confirm or exclude the diagnosis of myocardial injury or necrosis; Clinical correlation (symptoms, EKGs, imaging studies, and others) required; Repeat in 4-6 hours if clinically indicated. Equal or Higher than 0.121 ng/mL---Abnormal. Myocardial Injury or Necrosis Likely Biotin has been reported to cause a negative bias, interpret results relative to patient's use of biotin. Performing Organization Address [facility]ercode Phone Number [facility] CLIA: [id number] [place] [address] COMP. METABOLIC PANEL (37202) (10/17/2019 1:39 AM CDT) NA 136 135 - 145 [facility] mmol/L [facility] K 3.9 3.5 - 5.0 [facility] mmol/L [facility] CL 94 (L) 98 - 108 mmol/L [facility] CO2 TOTAL 28 23 - 31 mmol/L [facility] AGAP 14 2 - 16 [facility] BUN 31 (H) 7 - 23 mg/dL [facility] GLUCOSE 190 (H) 70 - 110 mg/dL [facility] CREATININE 5.06 (H) 0.60 - 1.25 [facility] mg/dL [facility] TOTAL BILI 0.4 0.1 - 1.1 mg/dL [facility] CALCIUM 8.5 (L) 8.6 - 10.6 [facility] mg/dL [facility] T PROTEIN 7.9 6.3 - 8.2 g/dL [facility] ALBUMIN 4.1 3.5 - 5.0 g/dL [facility] ALK PHOS 116 34 - 122 U/L [facility] ALTv 17 5 - 50 U/L [facility] AST(SGOT) 29 13 - 40 U/L [facility] eGFR Calculation 11.5 mL/min/1.73m2 [facility] ([facility] [place]) eGFR Calculation 14.0 mL/min/1.73m2 [facility] () [facility] Specimen Blood - ARM, RIGHT Narrative Performed At [facility] Glomerular Filtration Rate (GFR) [facility] and Staging of Kidney Disease* + + +- + | GFR (mL/min/1.73 m2) | With Kidney Damage | Without Kidney Damage + + +- + | >90 | Stage one | Normal + + +- + | 60-89 | Stage two | Decreased GFR + + +- + | 30-59 | Stage three | Stage three + + +- + | 15-29 | Stage four | Stage four + + +- + | <15 (or dialysis) | Stage five | Stage five + + +- + *Each stage assumes the associated GFR level has been in effect for at least three months. Stages 1 to 5, with or without kidney disease, indicate chronic kidney disease. Notes: Determination of stages one and two (with eGFR >59mL/min/1.73 m2) requires estimation of kidney damage for at least three months as defined by structural or functional abnormalities of the kidney, manifested by either: Pathological abnormalities or Markers of kidney damage (including abnormalities in the composition of the blood or urine or abnormalities in imaging tests). Performing Organization Address City/State/[facility]ode Phone Number [facility] CLIA: [id number] [place] [address] POCT GLUCOSE (AUTOMATED) (10/16/2019 8:01 PM CDT) Pathologist [facility] [employer] POCT GLU 141 (H) 70 - 110 mg/dL [facility] Specimen Blood Performing Organization Address [facility] Phone Number [facility] CLIA: [id number] [place] [address] aPTT (for use with Heparin Practice Guideline). Note: Draw and Send all Lab STAT. (10/16/2019 5:18 PM CDT) Pathologist [facility] [employer] APTT Patient 118 (HH) 23 - 38 Seconds [facility] Specimen Blood - ARM, LEFT Narrative Performed At The [facility] patient population mean normal value [facility] for aPTT is 30 seconds. Performing Organization Address [facility] Phone Number [facility] CLIA: [id number] [place] [address] POCT GLUCOSE (AUTOMATED) (10/16/2019 4:29 PM CDT) Pathologist [facility] [employer] POCT GLU 155 (H) 70 - 110 mg/dL [facility] Specimen Blood Performing Organization Address [facility] Phone Number [facility] CLIA: [id number] [place] [address] Vancomycin Trough Level - Draw trough at 1300 (10/16/2019 1:13 PM CDT) Pathologist [facility] [employer] VANCO TROUGH 8.4 (L) 10.0 - 20.0 ug/mL [facility] Specimen Blood - ARM, RIGHT Narrative Performed At Toxic Range: >20 ug/mL [facility] 15-20 ug/mL is recommended for severe infection or when Vancomycin DEMETRIO is greater than or equal to 2. Performing Organization Address [facility] Cent[facility]ode Phone Number [facility] CLIA: [id number] [place] [address] POCT GLUCOSE (AUTOMATED) (10/16/2019 11:45 AM CDT) Pathologist Sig nature POCT GLU 230 (H) 70 - 110 mg/dL [facility] Specimen Blood Performing Organization Address [facility] Phone Number [facility] CLIA: [id number] [place] [address] [address] LEGIONELLA URINARY ANTIGEN TST (10/16/2019 9:50 AM CDT) Pathologist Sig nature Legionella Urinary Negative Negative [facility] Antigen SERVICES Specimen Urine - URINE, CLEAN CATCH Narrative Performed At Negative for L. pneumophilia serogroup I antigen in ur ine [facility] suggesting no recent or current infection. Infection d ue to Legionella cannot be ruled out since other serogroups and species may cause disease. Furthermore, antigens may n ot be present in urine during early stage of infection, or t he level of antigen present in urine may be below the det ection limit of the test. Performing Organization Address [facility] Phone Number [facility] CLIA: [id number] [place] [address] [place] [address] PNEUMOCOCCAL ANTIGEN (10/16/2019 9:50 AM CDT) Pathologist [facility] S. pneumoniae antigen Negative Negative [facility] SERVICES Specimen Urine - URINE, CLEAN CATCH Performing Organization Address [facility] Phone Number [facility] CLIA: [id number] [place] [address] [place] [address] POCT GLUCOSE (AUTOMATED) (10/16/2019 8:23 AM CDT) Pathologist Sig nature POCT GLU 141 (H) 70 - 110 mg/dL [facility] Specimen Blood Performing Organization Address [facility]ode Phone Number [facility] CLIA: [id number] [place] [address] [place] [address] ACUTE CARE VENOUS BLOOD GAS (10/16/2019 1:53 AM CDT) Pathologist [facility] PH 7.45 (H) 7.32 - 7.42 [facility] PCO2 [place] 38 (L) 41 - 51 mmHg [facility] PO2 [place] 57 (HH) 25 - 40 mmHg [facility] HCO3 [place] 26 24 - 28 mEq/L [facility] AC VBE(BEAKER) 1.7 mEq/L [facility] Specimen Blood - ARM, RIGHT Performing Organization Address [facility] Phone Number [facility] CLIA: [id number] [place] [address] PHOSPHORUS (10/16/2019 1:52 AM CDT) Pathologist Sig nature PHOSPHORUS 6.4 (H) 2.5 - 5.0 mg/dL [facility] Specimen Blood - ARM, RIGHT Performing Organization Address [facility] Phone Number [facility] CLIA: [id number] [place] [address] MAGNESIUM (10/16/2019 1:52 AM CDT) Pathologist Sig nature MAGNESIUM 2.3 1.7 - 2.4 mg/dL [facility] Specimen Blood - ARM, RIGHT Performing Organization Address [facility] Phone Number [facility] CLIA: [id number] [place] [address] URIC ACID (10/16/2019 1:52 AM CDT) Pathologist Sig nature URIC ACID 4.5 3.6 - 8.0 mg/dL [facility] Specimen Blood - ARM, RIGHT Performing Organization Address [facility] Phone Number [facility] CLIA: [id number] [place] [address] BASIC METABOLIC PANEL (NA, K, CL, CO2, GLUCOSE, BUN, CREATININE, CA) (10/16/2019 1:52 AM CDT) NA 133 (L) 135 - 145 [facility] mmol/L [facility] K 4.7 3.5 - 5.0 [facility] mmol/L [facility] CL 91 (L) 98 - 108 mmol/L [facility] CO2 TOTAL 29 23 - 31 mmol/L [facility] AGAP 13 2 - 16 [facility] BUN 41 (H) 7 - 23 mg/dL [facility] GLUCOSE 172 (H) 70 - 110 mg/dL [facility] CREATININE 6.31 (H) 0.60 - 1.25 [facility] mg/dL [facility] CALCIUM 8.6 8.6 - 10.6 [facility] mg/dL [facility] eGFR Calculation 8.9 mL/min/1.73m2 [facility] ([facility]ORY [place]) eGFR Calculation 10.8 mL/min/1.73m2 [facility] () [facility] Specimen Blood - ARM, RIGHT Narrative Performed At [facility] Glomerular Filtration Rate (GFR) [facility] and Staging of Kidney Disease* + + +- + | GFR (mL/min/1.73 m2) | With Kidney Damage | Without Kidney Damage + + +- + | >90 | Stage one | Normal + + +- + | 60-89 | Stage two | Decreased GFR + + +- + | 30-59 | Stage three | Stage three + + +- + | 15-29 | Stage four | Stage four + + +- + | <15 (or dialysis) | Stage five | Stage five + + +- + *Each stage assumes the associated GFR level has been in effect for at least three months. Stages 1 to 5, with or without kidney disease, indicate chronic kidney disease. Notes: Determination of stages one and two (with eGFR >59mL/min/1.73 m2) requires estimation of kidney damage for at least three months as defined by structural or functional abnormalities of the kidney, manifested by either: Pathological abnormalities or Markers of kidney damage (including abnormalities in the composition of the blood or urine or abnormalities in imaging tests). Performing Organization Address City/State/Zipcode Phone Number [facility] CLIA: [id number] [place] [address] CBC WITH DIFF (10/16/2019 1:52 AM CDT) [facility] nature WBC 8.51 4.20 - 10.70 [facility] 10*3/L [facility] RBC 3.67 (L) 4.26 - 5.52 [facility] 10*6/L [facility] HGB 11.1 (L) 12.2 - 16.4 [facility] g/dL HOSPITAL LABORATORY HCT 32.8 (L) 38.4 - 49.3 % [facility] MCV 89.4 81.7 - 95.6 fL [facility] MCH 30.2 26.1 - 32.7 pg [facility] MCHC 33.8 31.2 - 35.0 [facility] g/dL [facility] RDW-SD 48.3 38.5 - 51.6 fL [facility] RDW-CV 14.9 12.1 - 15.4 % [facility] PLT 224 150 - 328 [facility] 10*3/L [facility] MPV 11.0 9.8 - 13.0 fL [facility] NRBC/100 WBC 0.0 0.0 - 10.0 /100 [facility] WBCs [facility] NRBC x10^3 <0.01 10*3/L [facility] GRAN MAT (NEUT) % 70.5 % [facility] IMM GRAN % 0.50 % [facility] LYMPH % 21.2 % [facility] MONO % 7.5 % [facility] EOS % 0.2 % [facility] BASO % 0.1 % [facility] GRAN MAT x10^3(ANC) 6.00 1.99 - 6.95 [facility] 10*3/uL [facility] IMM GRAN x10^3 0.04 0.00 - 0.06 [facility] 10*3/uL HOSPITAL LABORATORY LYMPH x10^3 1.80 1.09 - 3.23 [facility] 10*3/uL [facility] MONO x10^3 0.64 0.36 - 1.02 [facility] 10*3/uL HOSPITAL LAB[facility]ORY EOS x10^3 <0.03 (L) 0.06 - 0.53 [facility] 10*3/uL [facility]OSPITAL [facility] BASO x10^3 <0.03 0.01 - 0.09 [facility] 10*3/uL [facility] Specimen Blood - ARM, LEFT Performing Organization Address City/State/Zipcode Phone Number [facility] CLIA: [id number] [place] [address] N-TERMINAL PRO-BNP (10/16/2019 1:52 AM CDT) Pathologist Sig nature NT-proBNP 56,700 (H) <=125 pg/mL [facility] Specimen Blood - ARM, RIGHT Narrative Performed At Biotin has been reported to cause a negative [facility] bias, interpret results relative to patient's use of biotin. Performing Organization Address [facility] Phone Number [facility] CLIA: [id number] [place] [address] [address] TROPONIN I (10/16/2019 1:52 AM CDT) Pathologist Sig nature TROPONIN I 0.127 (H) <=0.034 ng/mL [facility] Specimen Blood - ARM, RIGHT Narrative Performed At Equal or Less than 0.034 ng/ml---Normal [facility] Note: Cardiac troponin begins to rise 3-4 hours after the onset of ischemia. Repeat in 4-6 hours if the sample was drawn within 3-4 hours of the onset of the symptom and found normal. Between 0.035 and 0.120 ng/mL--- Borderline. Questionable myocardial injury or necros is Note: Serial measurement may be necessary to confirm or exclude the diagnosis of myocardial injury or necrosis; Clinical correlation (symptoms, EKGs, imaging studies, and others) required; Repeat in 4-6 hours if clinically indicated. Equal or Higher than 0.121 ng/mL---Abnormal. Myocardial Injury or Necrosis Likely Biotin has been reported to cause a negative bias, interpret results relative to patient's use of biotin. Performing Organization Address [facility] Phone Number [facility] CLIA: [id number] [place] [address] [place] [address] COMP. METABOLIC PANEL ([id number]) (10/16/2019 1:52 AM CDT) NA 133 (L) 135 - 145 [facility] mmol/L [facility] K 4.7 3.5 - 5.0 [facility] mmol/L [facility] CL 91 (L) 98 - 108 mmol/L [facility] CO2 TOTAL 29 23 - 31 mmol/L [facility] AGAP 13 2 - 16 [facility] BUN 41 (H) 7 - 23 mg/dL [facility] GLUCOSE 172 (H) 70 - 110 mg/dL [facility] CREATININE 6.31 (H) 0.60 - 1.25 [facility] mg/dL [facility] TOTAL BILI 0.5 0.1 - 1.1 mg/dL [facility] CALCIUM 8.6 8.6 - 10.6 [facility] mg/dL [facility] T PROTEIN 7.7 6.3 - 8.2 g/dL [facility] ALBUMIN 4.2 3.5 - 5.0 g/dL [facility] [facility] ALK PHOS 144 (H) 34 - 122 U/L [facility] ALTv 21 5 - 50 U/L [facility] AST(SGOT) 31 13 - 40 U/L [facility] eGFR Calculation 8.9 mL/min/1.73m2 [facility] ([facility] [place]) eGFR Calculation 10.8 mL/min/1.73m2 [facility] () [facility] Specimen Blood - ARM, RIGHT Narrative Performed At Association of Glomerular Filtration Rate (GFR) [facility] and Staging of Kidney Disease* + + +- + | GFR (mL/min/1.73 m2) | With Kidney Damage | Without Kidney Damage + + +- + | >90 | Stage one | Normal + + +- + | 60-89 | Stage two | Decreased GFR + + +- + | 30-59 | Stage three | Stage three + + +- + | 15-29 | Stage four | Stage four + + +- + | <15 (or dialysis) | Stage five | Stage five + + +- + *Each stage assumes the associated GFR level has been in effect for at least three months. Stages 1 to 5, with or without kidney disease, indicate chronic kidney disease. Notes: Determination of stages one and two (with eGFR >59mL/min/1.73 m2) requires estimation of kidney damage for at least three months as defined by structural or functional abnormalities of the kidney, manifested by either: Pathological abnormalities or Markers of kidney damage (including abnormalities in the composition of the blood or urine or abnormalities in imaging tests). Performing Organization Address City/State/Zipcode Phone Number [facility] CLIA: [id number] [place] [address] POCT GLUCOSE (AUTOMATED) (10/15/2019 4:13 PM CDT) Pathologist [facility] POCT GLU 144 (H) 70 - 110 mg/dL [facility] Specimen Blood Performing Organization Address [facility] Phone Number [facility] CLIA: [id number] [place] [address] LACTATE DEHYDROGENASE (10/15/2019 1:45 PM CDT) [facility] LDH 497 300 - 600 U/L [facility] Specimen Blood - ARM, RIGHT Performing Organization Address [facility] Phone Number [facility] CLIA: [id number] [place] [address] Hepatitis B Surface Antigen (HBsAg) (10/15/2019 1:44 PM CDT) [facility] HBsAg Negative Negative [facility] HBsAg 0.05 [facility] Semi-Quantitative SERVICES Specimen Blood Performing Organization Address [facility] Phone Number [facility] CLIA: [id number] [place] [address] [place] [address] Hepatitis B Surface Antibody (HBsAb) (10/15/2019 1:44 PM CDT) [facility] HBsAB Positive [facility] HBsAb 15.00 mIU/mL [facility] Semi-Quantitative SERVICES Specimen Blood Narrative Performed At Interpretation: Hepatitis B Surface An tibody [facility] Negative - Patient is considered to be not immu ne to infection with HBV. Positive - Anti-HBs detected at greater than or equal to 12 mIU/mL. Patient is considered to be immune to infection with HBV. Performing Organization Address City/[facility] Phone Number [facility] CLIA: [id number] [place] [address] [place] [address] MYCOPLASMA PNEUMONIAE ANTIBODY, IGM (10/15/2019 1:44 PM CDT) Pathologist Sig [facility] Mycoplasma IGM 0.11 <=0.76 U/L [facility] Comment: INTERPRETIVE INFORMATION: Mycoplasma pneumoniae Ab, IgM 0.76 U/L or less .......... Negative: No clinically significa nt amount of M. pneumo niae IgM antibody detected. 0.77 - 0.95 U/L ........... Low Positive: M. pneumo niae- specific IgM presumptively detected. Collection of a follow-up sample in 1-2 weeks is recommended to assure re activity. 0.96 U/L or greater ....... Positive: Highly signif icant amount of M. pneumoniae- specific IgM antibody detected. However, low levels of IgM an tibodies may occasiona lly persist for more than 12 m onths post-infection. Performed By: [employer] [address] [place] [address] Assistant Casino Shift Manager: Ulices Zavala MD, MS Specimen Blood - ARM, RIGHT Performing Organization Address City/[facility]/Zipcode Phone Number [address] [phone] PHENYTOIN (10/15/2019 1:44 PM CDT) Pathologist Sig nature PHENYTOIN 5.0 (L) 10.0 - 20.0 ug/mL [facility] Specimen Blood - ARM, RIGHT Narrative Performed At Toxic Range: [facility] 0-3 Months Greater than 14 ug/mL 3 Months - 150 Years Greater than 20 ug/mL Performing Organization Address City/[facility] Phone Number [facility] CLIA: [id number] [place] [address] PHENYTOIN FREE (10/15/2019 1:44 PM CDT) Pathologist Sig nature PHENY FREE 0.8 (L) 1.0 - 2.0 ug/mL [facility] Specimen Blood - ARM, RIGHT Narrative Performed At Toxic Range: Greater than 2. 5 ug/mL [facility] Test developed and characteristics determined by [facility]. Performing Organization Address City/[facility] Phone Number [facility] CLIA: [id number] [place] [address] [place] [address] PROCALCITONIN (10/15/2019 1:44 PM CDT) Pathologist Sig nature Procalcitonin 4.93 (H) <0.07 ng/mL [facility] Specimen Blood - ARM, RIGHT Narrative Performed At INTERPRETATION OF PROCALCITONIN RESULTS IN ADULTS >= 1 8 [facility] YEARS OF AGE Initiation and discontinuation of antibiotics on patie nts with suspected or confirmed Lower Respiratory Tract Infection in Adults >= 18 years of age. + + + +----- ------ + |Procalcitonin |Interpretation |Antibiotic |Considerations |ng/mL | |recommend ation | + + + +----- ------ + | <0.1 | Bacterial | Strongly | | | infection very | discouraged | Overruling: | | unlikely | | Clinically unstable + + + + H igh risk for adverse | <0.25 | Bacterial | Discouraged | outcome | | infection | | SEE IMPORTANT NOTE | | unlikely | | + + + +----- ------ + | >=0.25 | Bacterial | Encouraged | | | infection | | | | likely | | Consider treatment failure + + + + if nat sesay does not decrease | >0.5 | Bacterial | Strongly | appropriately | | infection very | encouraged | | | likely | | + + + +----- ------ + Discontinuation of antibiotics in high-acuity patients with suspected or confirmed sepsis in Adults >= 18 years of age. + + + +----- ------ + |Procalcitonin |Interpretation |Antibiotic |Considerations |ng/mL | |recommend ation | + + + +----- ------ + | <0.25 | Bacterial | Strongly | | | infection very | discouraged | Overruling: | | unlikely | | Clinically unstable + + + + H igh risk for adverse | <0.5 or drop | Bacterial | Discouraged | outcome | >80% from | infection | | SEE IMPORTANT NOTE | highest PCT | unlikely | | | level | | | + + + +----- ------ + | >=0.5 | Bacterial | Encouraged | | | infection | | | | likely | | Consider treatment failure + + + + if l evels does not decrease | >1.0 | Bacterial | Strongly | appropriately | | infection very | encouraged | | | likely | | + + + +----- ------ + Percentage of drop of Procalcitonin calculation for Discontinuation of antibiotics in high-acuity patients with suspected or confirmed sepsis in Adults >= 18 years of age. Procalcitonin highest{}-Procalcitonin current{} Delta Procalcitonin = x100% Procalcitonin current {} IMPORTANT NOTE: Procalcitonin may be elevated without bacterial infection by physiologic stress related to t rauma, bartlett, chronic dialysis, metastatic cancer, surgery in the past seven days, malaria, some fungal infections, and some forms of vasculitis. The interpretation algorithm may not apply to patients with immunosuppression (equivalent o f >10 mg of prednisone daily), HIV with CD4 cell count < 350 cells/mm3, active malignancy on systemic chemotherapy, solid organ transplant or hematopoietic stem cell transplant ation, or hospital acquired pneumonia. Additionally, some cli nical trials of procalcitonin have excluded patients with sh ock requiring vasopressor use, acute respiratory failure requiring mechanical ventilation, or those with known lung abscess/empyema. For further information please refer to: [email or web address] Performing Organization Address City/State/Zipcode Phone Number [facility] CLIA: [id number] [place] [address] [place] [address] GRAM POSITIVE BLOOD PATHOGENS DNA PROBE-AEROBIC (10/15/2019 1:43 PM CDT) Coagulase Negative Positive (A) Negative [facility] Staphylococcus SERVICES Specimen Blood - ARM, RIGHT Narrative Performed At [facility] Coagulase negative Staphylococcus (CoNS) detected by D NA probe. CoNS often contaminate blood cultures from sk in colonization during phlebotomy. Preferred management is to repeat blood cultures, and monitor off antibiotics. Contamination is suggested by culture growth after 4 8 hours, or growth in single culture (i.e., one of two s ets). True bacteremia is suggested by the fever, hypotensi on, and leukocytosis that are not explained by an alternat estephanie infection, or indwelling foreign devices that appear infected (catheters, lines, or prosthese s). Consider Infectious Diseases consultation if different iation of CoNS bacteremia from contamination is uncertain. If clinical context suggests true bacteremia, preferre d therapy is vancomycin. Please contact the Antimicrobial Stewardship Program w ith questions. Pager: [phone] Testing included eleven identification and three resis tance marker targets. Performing Organization Address City/State/Zipcode Phone Number [facility] CLIA: [id number] [place] [address] [place] [address] BLOOD CULTURE WORKUP (10/15/2019 1:43 PM CDT) Blood Culture Coagulase negative [facility] Workup StaphylococcusComme SERVICES nt: Additional work-up performed only per request. Culture plate(s) will be saved until this date: - 10/22/2019 Gram stain Isolated from [facility] aerobic bottle Gram [facility] positive cocci Specimen Blood - ARM, RIGHT Performing Organization Address City/[facility]/Zipcode Phone Number [facility] CLIA: [id number] [place] [address] [place] [address] CLIA: [id number] [place], [place] [address] [phone] POCT GLUCOSE (AUTOMATED) (10/15/2019 11:34 AM CDT) [facility] Sig nature POCT GLU 234 (H) 70 - 110 mg/dL [facility] Specimen Blood Performing Organization Address [facility] Phone Number [facility] CLIA: [id number] [place] [address] LAB[address] [facility] AC PANEL 20 + LACTIC ACID (10/15/2019 10:21 AM CDT) [facility] PH 7.30 (L) 7.35 - 7.45 [facility] PCO2 41 35 - 45 mmHg [facility] PO2 286 (H) 80 - 100 mmHg [facility] HCO3 20 (L) 22 - 26 mEq/L [facility] BE -6.2 (L) -3.0 - 3.0 mEq/L [facility] THB 11.5 (L) 13.5 - 18.0 g/dL [facility] %O2HB 98.7 94.0 - 99.0 % [facility] %COHB ART 0.3 0.0 - 1.5 % [facility] %METHB ART 0.3 (L) 0.4 - 1.5 % [facility] VOL%O2 ART 16.7 15.0 - 23.0 % [facility] NA 130 (L) 135 - 145 mmol/L [facility] K+ 6.4 (HH) 3.5 - 5.0 mmol/L [facility] AC CA IONZ 4.10 (L) 4.50 - 5.30 mg/dL [facility] GLUCOSE 329 (H) 70 - 110 mg/dL [facility] LACTIC ACID 2.09 mmol/L [facility] Specimen Blood - ARTERIAL Performing Organization Address [facility] Phone Number [facility] CLIA: [id number] [place] [address] Critical Care (10/15/2019 10:16 AM CDT) Narrative Performed At Neftaly Ramirez DO 10/15/2019 10:18 AM Critical Care Performed by: Neftaly Ramirez DO Authorized by: Neftaly Ramirez DO Critical care provider statement: Critical care time (minutes): 50 Critical care time was exclusive of: Separately b illable procedures and treating other patients Critical care was necessary to treat or prevent imminent or life-threatening deterioration of the following condit ions: Circulatory failure, cardiac failure, respiratory failure and meta bolic crisis (Acute pulmonary edema, bilateral pneumonia, re spiratory acidosis, ventricular tachycardia secondary to metabolic deran gement of hyperkalemia.) Critical care was time spent personal ly by me on the following activities: Ordering and performing tr eatments and interventions, re-evaluation of patient's condition, ob taining history from patient or surrogate, examination of patient, evalu ation of patient's response to treatment, ordering and review of laboratory studies, ordering and review of radiographic studies, development of treatment plan with patient or surrogate, discussions with consultants, pulse oximetry and ventilator management Comments: Given the critical condition in which the patient arrived, the patient was immediately assessed by myself and the nurse, and cardiac monitoring initiated due to the potential for rapid decompensatio n of the patient's clinical condition. During the course of the patient's stay, I spent a considerable amount of time at the [facility] performing serial re-evaluations of the patient's hemodynamic and clinic al status because of the recognized potential threat to life or limb in thi s condition. I then had a chance to review not only all of t he available current laboratory and radiographic studies obtained today, but I also re viewed old records available to me at the time. Additionall y, any ancillary information available including logger all round records we re reviewed. Sequential vital signs were obtained. Critical Care time reported above was performed exclusive of billable procedures XR CHEST 1 VW (10/15/2019 9:06 AM CDT) Specimen Narrative Performed At HISTORY: SOB. PACS/VR/DOSE TECHNIQUE: Portable AP semierect view of the chest is obtained. Comparison made with 06/27/2016 study. FINDINGS: Multiple patchy areas of bilateral pulmonary infiltrates noted, slightly more in the right lower lung. M ild cardiomegaly noted. No pneumothorax or pleural effusion. There is minimal underlying pulmonary edema. CONCLUSIONS: Bilateral pulmonary infiltrates, more sev ere in the right lung with minimal acute pulmonary edema. Etio logy includes possibility of COVID19 type infection. Please correlate clinically. Procedure Note [facility], Radiant Results Inft User - 2019 9:10 AM CDT HISTORY: SOB. TECHNIQUE: Portable AP semierect view of the chest is obtained. Comparison made with 06/27/2016 study. FINDINGS: Multiple patchy areas of bilat eral pulmonary infiltrates noted, slightly more in the right lower lung. M ild cardiomegaly noted. No pneumothorax or pleural effusion. There is minimal underlying pulmonary edema. CONCLUSIONS: Bilateral pulmonary infiltr ates, more severe in the right lung with minimal acute pulmonary edema. Etio logy includes possibility of COVID19 type infection. Please correlate clinically. Performing Organization Address City/[facility]/Zipcode Phone Number PACS/VR/DOSE COVID-19 (ID NOW RAPID TESTING) (10/15/2019 8:54 AM CDT) SARS-CoV-2 Rapid ID Positive (A) Not Detected [facility] Specimen Swab - NASOPHARYNGEAL SWAB Narrative Performed At [place] NOW COVID-19 Assay is an isothermal nucleic [facility] acid amplification test intended for the qualitative detection of nucleic acid from SARS-CoV-2 viral RNA in nasopharyngeal ([employer]) specimens. It is used under Emergency Use Authorization (EUA) by FDA. The limit of detection (LOD) of the assay is 125 Genome Equivalents/mL. A positive result is indicative of the presence of SARS-CoV-2 RNA. Clinical correlation with patient history and other diagnostic information is necessary to determine patient infection status. A negative (Not Detected) result does not preclude SARS-CoV-2 infection. In patients with clinical symptoms and other tests that are consistent with SARS-CoV-2 infection, negative results should be treated as presumptive negative and a new specimen should be tested with alternative PCR molecular test. Invalid: Please collect a new specimen for repeat patient testing if clinically indicated. Performing Organization Address City/[facility]/Zipcode Phone Number [facility] CLIA: [id number] [place] [address] [address] ABG + LACTIC ACID (10/15/2019 8:46 AM CDT) Pathologist Sig nature PH 7.14 (LL) 7.35 - 7.45 [facility] PCO2 62 (H) 35 - 45 mmHg [facility] PO2 57 (L) 80 - 100 mmHg [facility] HCO3 21 (L) 22 - 26 mEq/L [facility] BE -9.0 (L) -3.0 - 3.0 mEq/L [facility] LACTIC ACID 2.33 mmol/L [facility] Specimen Blood - ARTERIAL Performing Organization Address [facility] Phone Number [facility] CLIA: [id number] [place] [address] FERRITIN SERUM (10/15/2019 8:43 AM CDT) Pathologist Sig nature FERRITIN >1000.0 (H) 18.0 - 464.0 ng/mL [facility] Specimen Blood - VENOUS Narrative Performed At Biotin has been reported to cause a negative [facility] bias, interpret results relative to patient's use of biotin. Performing Organization Address [facility] Phone Number [facility] CLIA: [id number] [place] [address] PHOSPHORUS (10/15/2019 8:43 AM CDT) Pathologist Sig nature PHOSPHORUS 9.1 (H) 2.5 - 5.0 mg/dL [facility] Specimen Blood - VENOUS Performing Organization Address [facility] Phone Number [facility] CLIA: [id number] [place] [address] MAGNESIUM (10/15/2019 8:43 AM CDT) Pathologist Sig nature MAGNESIUM 2.2 1.7 - 2.4 mg/dL [facility] Specimen Blood - VENOUS Performing Organization Address [facility] Phone Number [facility] CLIA: [id number] [place] [address] CREATINE KINASE (10/15/2019 8:43 AM CDT) Pathologist Sig nature CK 90 33 - 194 U/L [facility] Specimen Blood - VENOUS Performing Organization Address [facility]/Zipcode Phone Number [facility] CLIA: [id number] [place] [address] THYROID STIMULATING HORMONE (10/15/2019 8:43 AM CDT) Pathologist Sig nature TSH 1.18 0.45 - 4.70 mIU/L [facility] Specimen Blood - VENOUS Performing Organization Address [facility] Phone Number [facility] CLIA: [id number] [place] [address] LIPID PANEL ([id number])(TOTAL CHOLESTEROL, TRIGLYCERIDES, HDL) (10/15/2019 8:43 AM CDT) Pathologist Sig nature CHOL 213 (H) 120 - 200 mg/dL [facility] HDL 40 (L) >40 mg/dL [facility] HDLC RATIO 5.3 (H) <=5.0 [facility] TRIG 199 (H) 30 - 170 mg/dL [facility] LDL CHOL 133 <=160 mg/dL [facility] VLDL 40 5 - 60 mg/dL [facility] Specimen Blood - VENOUS Performing Organization Address [facility] Phone Number [facility] CLIA: [id number] [place] [address] GLYCOSYLATED HEMOGLOBIN (A1C) (10/15/2019 8:43 AM CDT) Pathologist Sig nature HGB A1C 8.0 (H) 4.0 - 6.0 % [facility] Specimen Blood - VENOUS Narrative Performed At %A1C (NGSP) Interpretation (ADA) [facility] 4.8-5.6 Normal or (Non-Diabetic Ra nge) 5.7-6.4 Increased Risk (Pre-Diabet ic) >6.5 Diabetes Indicated Performing Organization Address [facility] Phone Number [facility] CLIA: [id number] [place] [address] URIC ACID (10/15/2019 8:43 AM CDT) Pathologist Sig nature URIC ACID 7.2 3.6 - 8.0 mg/dL [facility] Specimen Blood - VENOUS Performing Organization Address City/[facility]/Zipcode Phone Number [facility] CLIA: [id number] [place] [address] [address] aPTT (10/15/2019 8:43 AM CDT) [facility] Sig nature APTT Patient 22 (L) 23 - 38 Seconds [facility] Specimen Blood - VENOUS Narrative Performed At The [facility] patient population mean normal value [facility] for aPTT is 30 seconds. Performing Organization Address City/[facility] Phone Number [facility] CLIA: [id number] [place] [address] [address] PROTHROMBIN TIME / INR (10/15/2019 8:43 AM CDT) [facility] Signature PROTIME PATIENT 12.5 12.0 - 14.7 [facility] LABORATORY INR 1.0Comment: Normal [facility] INR <1.1; Warfarin [facility] Therapeutic range LABORATORY 2.0 to 3.0 or 2.5 to 3.5, depending upon the indications. Specimen Blood - VENOUS Performing Organization Address [facility] Phone Number [facility] CLIA: [id number] [place] [address] LABORATORY [address] [facility] D-DIMER (10/15/2019 8:43 AM CDT) [facility] nature D-DIMER 1.18 (H) <0.41 g/mL (FEU) [facility] Specimen Blood - VENOUS Narrative Performed At This test may be used in conjunction with a [facility] clinical pretest probability (PTP) assessment model to exclude venous thromboembolism (VTE) in patients suspected of deep venous thrombosis (DVT) and pulmonary embolism (PE) A D-Dimer value less than 0.50 g/ml (FEU) has a negative predicative value of 96 to 100% (95% CI)and 97 to 100% (95% CI) as an aid in the diagnosis of deep vein thrombosis (DVT) and pulmonary embolism when there is low or moderate pretest probability of PE or DVT. D-Dimer values are expressed in initial fibrinogen equivalent units (FEU)" The assay results should be used with other information, including the clinical context, in forming a diagnosis. Performing Organization Address [facility] Phone Number [facility] CLIA: [id number] [place] [address] [place] [address] TROPONIN I (10/15/2019 8:43 AM CDT) Pathologist Sig nature TROPONIN I 0.036 (H) <=0.034 ng/mL [facility] Specimen Blood - VENOUS Narrative Performed At Equal or Less than 0.034 ng/ml---Normal [facility] Note: Cardiac troponin begins to rise 3-4 hours after the onset of ischemia. Repeat in 4-6 hours if the sample was drawn within 3-4 hours of the onset of the symptom and found normal. Between 0.035 and 0.120 ng/mL--- Borderline. Questionable myocardial injury or necros is Note: Serial measurement may be necessary to confirm or exclude the diagnosis of myocardial injury or necrosis; Clinical correlation (symptoms, EKGs, imaging studies, and others) required; Repeat in 4-6 hours if clinically indicated. Equal or Higher than 0.121 ng/mL---Abnormal. Myocardial Injury or Necrosis Likely Biotin has been reported to cause a negative bias, interpret results relative to patient's use of biotin. Performing Organization Address [facility] [place] Phone Number [facility] CLIA: [id number] [place] [address] [place] [address] N-TERMINAL PRO-BNP (10/15/2019 8:43 AM CDT) Pathologist [facility] nature NT-proBNP 21,600 (H) <=125 pg/mL [facility] Specimen Blood - VENOUS Narrative Performed At Biotin has been reported to cause a negative [facility] bias, interpret results relative to patient's use of biotin. Performing Organization Address [facility]oky Phone Number [facility] CLIA: [id number] [place] [address] [place] [address] COMP. METABOLIC PANEL (02166) (10/15/2019 8:43 AM CDT) NA 138 135 - 145 [facility] mmol/L [facility] LABORAT[facility] K 6.5 (HH) 3.5 - 5.0 [facility] mmol/L [facility] LAB[facility] CL 96 (L) 98 - 108 mmol/L [facility] CO2 TOTAL 22 (L) 23 - 31 mmol/L [facility] AGAP 20 (H) 2 - 16 [facility] BUN 78 (H) 7 - 23 mg/dL [facility] GLUCOSE 256 (H) 70 - 110 mg/dL [facility] [place] CREATININE 9.95 (H) 0.60 - 1.25 [facility] mg/dL [facility] LAB[facility] TOTAL BILI 0.5 0.1 - 1.1 mg/dL [facility] [place] CALCIUM 7.9 (L) 8.6 - 10.6 [facility] mg/dL [facility] LAB[facility] T PROTEIN 8.5 (H) 6.3 - 8.2 g/dL [facility] ALBUMIN 4.6 3.5 - 5.0 g/dL [facility] ALK PHOS 160 (H) 34 - 122 U/L [facility] ALTv 24 5 - 50 U/L [facility] AST(SGOT) 29 13 - 40 U/L [facility] eGFR Calculation 5.3 mL/min/1.73m2 [facility] [place]) eGFR Calculation 6.4 mL/min/1.73m2 [facility] ([facility]) [facility] LABOR[facility] Specimen Blood - VENOUS Narrative Performed At Association of Glomerular Filtration Rate (GFR) [facility] LABORATORY and Staging of Kidney Disease* + + +- + | GFR (mL/min/1.73 m2) | With Kidney Damage | Without Kidney Damage + + +- + | >90 | Stage one | Normal + + +- + | 60-89 | Stage two | Decreased GFR + + +- + | 30-59 | Stage three | Stage three + + +- + | 15-29 | Stage four | Stage four + + +- + | <15 (or dialysis) | Stage five | Stage five + + +- + *Each stage assumes the associated GFR level has been in effect for at least three months. Stages 1 to 5, with or without kidney disease, indicate chronic kidney disease. Notes: Determination of stages one and two (with eGFR >59mL/min/1.73 m2) requires estimation of kidney damage for at least three months as defined by structural or functional abnormalities of the kidney, manifested by either: Pathological abnormalities or Markers of kidney damage (including abnormalities in the composition of the blood or urine or abnormalities in imaging tests). Performing Organization Address City/State/Zipcode Phone Number [facility] CLIA: [id number] [place] [address] CBC WITH DIFF (10/15/2019 8:43 AM CDT) WBC 21.45 (H) 4.20 - 10.70 [facility] 10*3/L [facility] LAB[facility] RBC 4.22 (L) 4.26 - 5.52 [facility] 10*6/L [facility] LAB[facility] HGB 12.5 12.2 - 16.4 [facility] g/dL [facility] HCT 38.0 (L) 38.4 - 49.3 % [facility] MCV 90.0 81.7 - 95.6 fL [facility] MCH 29.6 26.1 - 32.7 pg [facility] MCHC 32.9 31.2 - 35.0 [facility] g/dL [facility] LAB[facility] RDW-SD 48.5 38.5 - 51.6 fL [facility] RDW-CV 14.9 12.1 - 15.4 % [facility] PLT 294 150 - 328 [facility] 10*3/L [facility] LAB[facility] MPV 11.4 9.8 - 13.0 fL [facility] NRBC/100 WBC 0.0 0.0 - 10.0 [facility] /100 WBCs [facility] LAB[facility] NRBC x10^3 <0.01 10*3/L [facility] GRAN MAT (NEUT) % 56.9 % [facility] IMM GRAN % 0.50 % [facility] LYMPH % 32.7 % [facility] MONO % 3.4 % [facility] EOS % 6.3 % [facility] BASO % 0.2 % [facility] GRAN MAT 12.20 (H) 1.99 - 6.95 [facility] x10^3(ANC) 10*3/uL [facility] LAB[facility] IMM GRAN x10^3 0.11 (H) 0.00 - 0.06 [facility] 10*3/uL [facility] LAB[facility] LYMPH x10^3 7.01 (H) 1.09 - 3.23 [facility] 10*3/uL [facility] LAB[facility] MONO x10^3 0.73 0.36 - 1.02 [facility] 103/uL [facility] LAB[facility] EOS x10^3 1.35 (H) 0.06 - 0.53 [facility] 10*3/uL [facility] LAB[facility] BASO x10^3 0.05 0.01 - 0.[address]/[facility] LABORATORY BANDS Increased (A) [facility] Specimen Blood - VENOUS Performing Organization Address City/State/Zipcode Phone Number [facility] CLIA: [id number] [place], [place] [id number] LABORATORY [address] documented in this encounter Visit Diagnoses Diagnosis Acute respiratory failure with hypoxia - Primary Acute respiratory failure Respiratory distress Other dyspnea and respiratory abnormalit y Hyperkalemia Hyperpotassemia Pneumonia of both lower lobes due to inf ectious organism Acute pulmonary edema Acute edema of lung, unspecified COVID-19 virus infection Edema, unspecified type ESRD (end stage renal disease) on dialys is End stage renal disease Bilateral pneumonia Pneumonia, organism unspecified DM (diabetes mellitus) Type II or unspecified type diabetes lucero litus without mention of complication, not stated as uncontrolled HTN (hypertension) Unspecified essential hypertension PAD Unspecified disorders of arteries and ar terioles Troponin I above reference range Other abnormal blood chemistry 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 Acute combined systolic and diastolic he art failure VT (ventricular tachycardia) Paroxysmal ventricular tachycardia Hypertensive emergency Unspecified essential hypertension documented in this encounter Administered Medications Medication Order MAR Action Action Date Dose Rate Site amLODIPine (NORVASC) tablet 10 mg Given 10/19/2019 9:53 AM CDT 10 mg 10 mg, Oral, DAILY, First dose on Mon10/15/19 at 1145, Until Discontinued, Routine Given 10/18/2019 9:33 AM CDT 10 mg Given 10/17/2019 9:46 AM CDT 10 mg aspirin chewable tablet 81 mg Given 10/19/2019 9:53 AM CDT 81 mg 81 mg, Oral, DAILY, First dose on Mon10/15/19 at 1145, Until Discontinued, Routine Given 10/18/2019 9:33 AM CDT 81 mg Given 10/17/2019 9:45 AM CDT 81 mg atorvastatin (LIPITOR) tablet 20 mg Given 10/18/2019 7:37 PM CDT 20 mg 20 mg, Oral, QHS, First dose on Mon10/15/19 at 2100, Until Discontinued, Routine Given 10/16/2019 7:52 PM CDT 20 mg carvediloL (COREG) tablet 12.5 mg Given 10/19/2019 9:53 AM CDT 12.5 mg 12.5 mg, Oral, BID MEALS, First dose on Mon10/15/19 at 1700, Until Discontinued, Routine Given 10/18/2019 4:54 PM CDT 12.5 mg Given 10/18/2019 9:33 AM CDT 12.5 mg clopidogreL (PLAVIX) tablet 75 mg Given 10/19/2019 9:53 AM CDT 75 mg 75 mg, Oral, DAILY, First dose on Mon10/15/19 at 1145, Until Discontinued, Routine Given 10/18/2019 9:33 AM CDT 75 mg Given 10/17/2019 9:45 AM CDT 75 mg dextrose 50 % in water (D50W) injection 25 mL 25 mL, Slow IV Push, PRN, Starting Mon at 1134, Until Discontinued, MULUGETA, Blood Glucose < or = 70 mg/dL and patien t is unable to swallow or has mental status changes. docusate (COLACE) capsule 100 mg Given 10/19/2019 8:00 AM CDT 100 mg 100 mg, Oral, BID, First dose on Mon10/15/19 at 2000, Until Discontinued, Routine Given 10/18/2019 7:37 PM CDT 100 mg Given 10/18/2019 9:33 AM CDT 100 mg gabapentin (NEURONTIN) capsule 300 mg Given 10/19/2019 9:53 AM CDT 300 mg 300 mg, Oral, TID, First dose on Mon10/15/19 at 1400, Until Discontinued, Routine Given 10/18/2019 7:37 PM CDT 300 mg Given 10/18/2019 1:34 PM CDT 300 mg glucagon (GLUCAGEN DIAGNOSTIC KIT) injec tion 1 mg 1 mg, Intramuscular, PRN, Starting Mon at 1134, Until Discontinued, MULUGETA, Blood Glucose < or = 70 mg/dL and patient is unable to swallow or has mental changes. hydrALAZINE (APRESOLINE) tablet 25 mg Given 10/19/2019 9:53 AM CDT 25 mg 25 mg, Oral, BID, First dose on Mon10/15/19 at 1145, Until Discontinued, Routine Given 10/18/2019 7:37 PM CDT 25 mg Given 10/18/2019 9:33 AM CDT 25 mg insulin detemir U-100 (LEVEMIR Given 10/19/2019 9:55 AM CDT 18 Units Abdomen-SC U-100 INSULIN) injection 18 Units 18 Units, Subcutaneous, QAM WITH BREAKFAST, First dose on Mon10/15/19 at 1145, Until Discontinued, Routine Given 10/17/2019 9:46 AM CDT 18 Units Abdo men-SC Given 10/16/2019 9:01 AM CDT 18 Units Abdo men-SC lactobacillus acidophilus (ACIDOPHILLUS) Given 10/19/2019 9 :53 AM CDT 1 tablet 25 million cell -100 mg captab 1 tablet 1 tablet, Oral, BID, First dose on Mon10/15/19 at 1045, Until Discontinued, Routine Given 10/18/2019 7:37 PM CDT 1 tablet Given 10/18/2019 9:33 AM CDT 1 tablet levoFLOXacin (LEVAQUIN) tablet 250 mg Given 10/19/2019 3:55 PM CDT 250 mg 250 mg, Oral, Q24H ABX, First dose on Mon10/17/19 at 1530, Until Discontinued, MULUGETA, Reason for Anti-Infective: Empiric Therapy for Suspected Infection, Empiric Therapy Site: Respiratory, Duration of therapy: 72 hours Given 10/18/2019 4:51 PM CDT 250 mg Given 10/17/2019 3:11 PM CDT 250 mg nitroglycerin 50 mg in D5W Rate Change 10/16/2019 11:16 AM CDT 10 mcg/min 3 mL/hr 250 mL infusion RTU 5-200 mcg/min (1.5-60 mL/hr), IV Infusion, TITRATE, SBP<180, hypertensive urgency, Starting Mon10/15/19 at 0940, Initiate infusion at 5 mcg/min. Titrate by 5 mcg/min every 3 minutes to 5 minutes as needed to achieve and maintain goal blood pressure. Maximum dose = 200 mcg/min. If goal not maintained at maximum allowed dose, contact prescriber., Rate Change 10/16/2019 10:34 AM CDT 15 mcg/min 4.5 mL/hr Rate Change 10/16/2019 10:11 AM CDT 20 mcg/min 6 mL/hr ondansetron (ZOFRAN (PF)) injection 4 mg 4 mg, Slow IV Push, Q6HPRN, Starting Mon10/15/19 at 113 8, Until Discontinued, Routine, Nausea and Vomiting (N/V) phenytoin Extended (DILANTIN KAPSEAL) Given 10/19/2019 9:53 AM CDT 200 mg capsule 200 mg 200 mg, Oral, BID, First dose on Mon10/15/19 at 2000, Until Discontinued, Routine Given 10/18/2019 7:37 PM CDT 200 mg Given 10/18/2019 9:33 AM CDT 200 mg piperacillin-tazobactam (ZOSYN) 2.25 Given 10/19/2019 6:54 AM CDT 2.25 g 100 mL/hr g/50 mL RTU 2.25 g, IV Piggyback, Q8H ABX, First dose (after last modification) on Mon10/15/19 at 1300, Until Discontinued, 50 mL, Reason for Anti-Infective: Empiric Therapy for Suspected Infection, Empiric Therapy Site: Respiratory, Duration of therapy: 72 hours Given 10/18/2019 7:38 PM CDT 2.25 g 100 mL/hr Given 10/18/2019 12:38 PM CDT 2.25 g 100 mL/hr sevelamer (RENVELA) tablet 1,600 mg Given 10/19/2019 1:08 PM CDT 1,600 mg 1,600 mg, Oral, TID MEALS, First dose on Mon10/15/19 at 1200, Until Discontinued, Routine Given 10/18/2019 12:38 PM CDT 1,600 mg Given 10/17/2019 4:19 PM CDT 1,600 mg Sliding Scale Insulin - Aspart Given 10/18/2019 8:12 PM CDT 1 U nits Abdomen-SC (NOVOLOG) + Fsbg Testing Subcutaneous, TID MEALS+HS, First dose on Mon10/15/19 at 1200, Until Discontinued, Routine Given 10/18/2019 4:51 PM CDT 2 Units Abdo men-SC Given 10/16/2019 12:50 PM CDT 2 Units Righ t Upper Arm-SC Medication Order MAR Action Action Date Dose Rate Site amiodarone (CORDARONE) 900 New Bag 10/15/2019 10:44 AM 1 mg/min 33.33 mL/hr mg in D5W 500 mL infusion CDT 1 mg/min (33.3333 mL/hr, rounded to 33.33 mL/hr), IV Infusion, CONTINUOUS, Starting Mon10/15/19 at 1115, All amiodarone infusions must be administered using a 0.22 micron in line filter. Administer via central line if available. Amiodarone infusions with concentrations > 2 mg/mL must be administered via central line., amiodarone (CORDARONE) injection 150 mg Given 10/15/2019 10:00 AM CDT 150 mg 150 mg, IV Piggyback, ONCE, 1 dose, Mon10/15/19 at 1115, STAT calcium gluconate 1 g in NaCl 50 mL (ISO-OSM) Given 10/15/19 20 9:50 AM CDT 1 g RTU IV infusion 1 g 1 g, IV Infusion, ONCE, 1 dose, Mon10/15/19 at 1115, Routine dextrose 50 % in water (D50W) injection 50 mL Given 10/15/2019 9:54 AM CDT 25 mL 50 mL, Intravenous, ONCE, 1 dose, Mon10/15/19 at 1115, STAT heparin (PF) 1,000 unit/mL injection Given 10/15/2019 11:00 AM C DT 1,500 Units 1,500 Units 1,500 Units, Slow IV Push, DIALYSIS ONCE - PT ROOM, 1 dose, Mon10/15/19 at 1100, Routine heparin (PF) 1,000 unit/mL injection Given 10/15/2019 4:08 PM C DT 1,500 Units 1,500 Units 1,500 Units, Slow IV Push, DIALYSIS ONCE - PT ROOM, 1 dose, Mon10/15/19 at 1100, Routine heparin (porcine) injection Given 10/16/2019 6:04 AM CDT 5,000 Units Abdomen-SC 5,000 Units 5,000 Units, Subcutaneous, Q8H, First dose on Mon10/15/19 at 1145, Until Discontinued, Routine heparin 25,000 unit/250 mL New Bag 10/17/2019 7:28 PM 575 Uni ts/kg/hr 395.6 mL/hr (Premixed Bag) in 0.45 % NS CDT 12 Units/kg/hr 68.8 kg (8.256 mL/hr, rounded to 8.26 mL/hr), IV Infusion, TITRATE, Parameters in Admin. Instr., Starting Mon10/16/19 at 0901, CAUTION - If LMWH given in ER, AVOID bolus and start next dose/drip 12 hrs after ER dosage. Must program rate using programmable infusion pump. Check with the ordering provider first prior to any administration should the patient be on existing/additional anticoagulant therapy. Range, Dosing and Testing - aPTT < 40: Bolus 3000 units, increase rate 100 units/hr. - aPTT 40-49: Increase rate 50 units/hr. - aPTT 50-70: NO CHANGE. - aPTT 71-85: Decrease rate 50 units/hr. - aPTT 86-100: Hold 30 minutes, decrease rate 100 units/hr. - aPTT 101-150: Hold 60 minutes, decrease rate 150 units/hr. - aPTT > 150: Hold 60 minutes, decrease rate 300 units/hr. Check aPTT 6 hours after initiation, then Q6H after every change, aPTT Q12H once therapeutic levels are reached. DO NOT ADJUST INITIAL BOLUS OR INITIAL INFUSION RATE., Dose/Rate Verify 10/17/2019 12:20 PM CDT 575 Units/hr 5.75 mL/hr Restarted 10/17/2019 6:17 AM CDT 575 Units/kg/hr 395.6 mL/hr insulin regular human (HUMULIN R) Given 10/15/2019 9:56 AM CDT 10 Units injection 10 Units 10 Units, IV Push, ONCE, 1 dose, Mon10/15/19 at 1115, Routine magnesium sulfate 4 mEq/mL (50 %) injection Given 06/2019 9:58 AM CDT 16 mEq 16 mEq 16 mEq (2 g), IV Piggyback, ONCE, 1 dose, Mon10/15/19 at 1115, STAT NaCl 0.9% (NS) injection 10 mL Given 10/15/2019 11:00 AM CDT 10 mL 10 mL, Slow IV Push, DIALYSIS ONCE - PT ROOM, 1 dose, Mon10/15/19 at 1100, Routine remdesivir 100 mg in NaCl 0.9% (NS) 250 mL Given 10/16/2019 7:23 PM CDT 100 mg infusion 100 mg, IV Infusion, Q24H, 4 doses, First dose on 10/16/19 at 1500, Last dose on Mon10/19/19 at 1500, 250 mL, Does the patient have SEVERE COVID (respiratory distress (>/= 30 breaths/min), oxygen saturation <94% on room air, OR PaO2/FiO2 of 300 or less)? No, Use of remdesivir is discouraged. Call Infectious Diseases for discussion of case and approval. I will contact Infectious Disease for approval., Does the patient have LIFE-THREATENING COVID (respiratory failure requiring high flow nasal cannula, CPAP, BPAP or mechanical ventilation, shock, OR organ failure (apart from lung) requiring ICU monitoring)? No, Contact Infectious Diseases for approval: I will contact Infectious Disease for approval., Restricted use approved by: TYLER VEGA MD, Patient informed of their inclusion in the [employer] database for 5 years for purposes of emergency use of remdesivir. No, Please discuss and complete the [employer] Disaster Information Retention Consent form with the patient: I will discuss and complete the [employer] Disaster Information Retention Consent form with the patient remdesivir 100 mg in NaCl 0.9% (NS) 250 mL Given 10/19/2019 12:48 PM CDT 100 mg infusion 100 mg, IV Infusion, Q24H, 3 doses, First dose (after last modification) on Ines 10/17/19 at 1900, Last dose on 10/19/19 at 1900, 250 mL, Does the patient have SEVERE COVID (respiratory distress (>/= 30 breaths/min), oxygen saturation <94% on room air, OR PaO2/FiO2 of 300 or less)? No, Use of remdesivir is discouraged. Call Infectious Diseases for discussion of case and approval. I will contact Infectious Disease for approval., Does the patient have LIFE-THREATENING COVID (respiratory failure requiring high flow nasal cannula, CPAP, BPAP or mechanical ventilation, shock, OR organ failure (apart from lung) requiring ICU monitoring)? No, Contact Infectious Diseases for approval: I will contact Infectious Disease for approval., Restricted use approved by: TYLER VEGA MD, Patient informed of their inclusion in the [employer] database for 5 years for purposes of emergency use of remdesivir. No, Please discuss and [facility]ent form with the patient: I will discuss and complete the [facility] Consent form with the patient Given 10/18/2019 6:52 PM CDT 100 mg Given 10/17/2019 10:18 PM CDT 100 mg remdesivir 200 mg in NaCl 0.9% (NS) 250 mL Given 10/15/2019 8:22 PM CDT 200 mg infusion 200 mg, IV Infusion, ONCE, 1 dose, Mon10/15/19 at 1500, 250 mL, Does the patient have SEVERE COVID (respiratory distress (>/= 30 breaths/min), oxygen saturation <94% on room air, OR PaO2/FiO2 of 300 or less)? No, Use of remdesivir is discouraged. Call Infectious Diseases for discussion of case and approval. I will contact Infectious Disease for approval., Does the patient have LIFE-THREATENING COVID (respiratory failure requiring high flow nasal cannula, CPAP, BPAP or mechanical ventilation, shock, OR organ failure (apart from lung) requiring ICU monitoring)? No, Contact Infectious Diseases for approval: I will contact Infectious Disease for approval., Restricted use approved by: TYLER VEGA MD, Patient informed of their inclusion in the [employer] database for 5 years for purposes of emergency use of remdesivir. No, Please discuss and complete the [facility] Consent form with the patient: I will discuss and complete the [facility] Consent form with the patient sulfur hexafluoride microsphr (LUMASON) Given 10/15/2019 12:00 P M CDT 5 mL injection 5 mL 5 mL, Intravenous, ONCE, 1 dose, Mon10/15/19 at 1330, Routine, event staff member approving Restricted medication: DAVID ALSTON vancomycin 1000 mg in NS 200 mL RTU IV Given 10/15/2019 10:22 AM CDT 1,000 mg Piggyback 1,000 mg 1,000 mg, IV Piggyback, Q12H ABX, First dose on Mon10/15/19 at 2145, Until Discontinued, Reason for Anti-Infective: Empiric Therapy for Suspected Infection, Empiric Therapy Site: Other, Other site: unknown source, Duration of therapy: 72 hours vancomycin 1000 mg in NS 200 mL RTU IV Given 10/16/2019 9:51 PM CDT 1,000 mg Piggyback 1,000 mg 1,000 mg, IV Piggyback, ONCE, 1 dose, Mon10/16/19 at 2000, Reason for Anti-Infective: Empiric Therapy for Suspected Infection, Empiric Therapy Site: Other, Other site: unknown source, Duration of therapy: 72 hours documented in this encounter Additional Health Concerns Infection Onset Date Last Indicated Resolved Time COVID-19 Rule Out 10/15/2019 10/15/2019 10/15/2019 9: 34 AM CDT COVID-19 Confirmed 10/15/2019 10/15/2019 documented as of this encounter Insurance Payer Benefit Plan / Subscriber ID Effective Phone Address T ype Group Dates MEDICARE MEDICARE PART [id number] 2018-Pres [phone] Medicare A & B ent [id number] [place] [id number] [employer] [id number] 2015-Pres [address] [place] [id number] [place] [address] (Work) [id number] documented as of this encounter
--- OUTSIDE RECORDS SUMMARY | 2019-12-18 16:48 | XMS REPORT | Summary of Care ---
:1955 Author Organization [facility] - [facility] Address [address] [place] [id number] Care Team Providers Name Role Phone Monet Willard RN Unavailable Unavailable Tech, Cardio Vascular Unavailable Unavailable Vicente Primary Care Provider Reason for Visit Reason Comments Transition Of Care Encounter Details Date Type Department Care Team Description 10/21/2019 Transition of Care [facility] Chanel Perez RN Transition Of Care [facility]- [address] [place] [phone] Allergies No Known Allergiesdocumented as of this encounter (statuses as of 10/21/2019) Medications Medication Sig Dispensed Refills Start Date End Date Status carvedilol (COREG) 6.25 Take 6.25 mg by 0 Active mg tablet mouth 2 (two) times daily with meals. amLODIPine (NORVASC) 10 Take 10 mg by 0 Active mg tablet mouth daily. pravastatin (PRAVACHOL) Take 40 mg by 0 Active 40 mg tablet mouth at bedtime. aspirin 81 mg chewable Take 1 tablet by 30 tablet 11 07/08/2015 Active tablet mouth daily. acetaminophen-codeine Take 1 tablet by 60 tablet 0 07/08/2015 Active (TYLENOL #3) 300-30 mg mouth every 4 tablet (four) hours as needed for Pain (scale 4-6) or Pain (scale 7-10). docusate (COLACE) 100 Take 1 capsule 40 capsule 0 07/21/2015 Active mg capsule by mouth once daily as needed for Constipation. LEVEMIR FLEXTOUCH 100 INJECT 20 UNITS 3 10/23/2015 Active unit/mL (3 mL) UNDER SKIN AT injection NIGHT phenytoin ER 200 mg ER TAKE 1 CAPSULE 3 2 05/16/2016 Active capsule TIMES A DAY traMADOL 50 mg tablet Take 1 tablet by 45 tablet 0 07/02/2016 Active mouth every 12 (twelve) hours as needed for Pain (scale 1-3). clopidogrel 75 mg Take 1 tablet by 60 tablet 0 07/02/2016 Active tablet mouth daily. hydrALAZINE 50 mg Take 1 tablet by 60 tablet 0 10/19/2019 Active tabletIndications: ESRD mouth 2 (two) (end stage renal times daily. disease) on dialysis lactobacillus Take 1 tablet by 60 tablet 0 10/19/2019 Active acidophilus 25 million mouth 2 (two) cell -100 mg times daily. captabIndications: ESRD (end stage renal disease) on dialysis sevelamer 800 mg Take 2 tablets 180 tablet 0 10/19/2019 Active tabletIndications: ESRD by mouth 3 (end stage renal (three) times disease) on dialysis daily with meals. gabapentin 100 mg Take 1 capsule 90 capsule 0 10/19/2019 Active capsuleIndications: by mouth 3 ESRD (end stage renal (three) times disease) on dialysis daily. levoFLOXacin 250 mg Take 1 tablet by 5 tablet 0 10/19/2019 Active tabletIndications: ESRD mouth every 24 (end stage renal (twenty-four) disease) on dialysis hours. documented as of this encounter (statuses as of 10/21/2019) Active Problems Problem Noted Date Bilateral pneumonia [...] as of this encounter (statuses as of 10/21/2019) Immunizations Name Administration Dates Next Due Influenza [...] of this encounter Last Filed Vital Signs Not on filedocumented in this encounter Miscellaneous Notes Telephone Encounter - Chanel Perez RN - 10/21/2019 10:06 AM CDT TRANSITIONAL CARE MANAGEMENT ASSESSMENT 10/21/2019 Jayne Raymundo [id number] Jayne Raymundo is a 64 year old /White male was admitted on 10/15/19 to [facility] ICU. He was discharged on 10/19/19 with discharge disposition of HR- Routine Discharge. 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 Transition CM follow-up call deferred at this time. LIZA Velasco, RN-BC, CCRN Transition Rope Maker Nurse Clinician IV Transitions of Care Care Management Team Office: [phone] [email or web address] documented in this encounter Plan of Treatment Health Maintenance Due Date [...] LDL-C 10/14/2020 10/15/2019, 07/01/2015, 02/17/2003 CREATININE (SERUM) 10/18/2020 10/19/2019, 10/18/2019, 10/17/2019, Additional history exists documented as of this encounter Implants Implanted Type Area Trousseau Consultant Device Shelf Model / Identifier Expiration Serial / Lot Date Stent, Bard 7 Mm X 150 Mm X 130 Cm Lifes tent Xl Vascular System #[id number] - [id number] STENT Right: Bard [id number] / Implanted: Qty: 1 on 07/06/2015 by Daisy santana, Rubin Brown MD at [facility] Groin REF [id number] / [id number] Stent Viabahn 0.018" [id number] 6fr [employer]ax #[id number] - [id number] STENT Left: Leg W L Lomax 01/06/2019 [id number] / Implanted: Qty: 1 on 07/01/2016 by Rubin Da Silva MD at [facility] [id number] / NA Balloon Catheter, Lutonix 130cm 6x120 Dcp Bard #[id number] - Lo [id number] Right: Bard 10/14/2016 [id number] / Implanted: Qty: 1 on 07/06/2015 by Rubin Da Silva MD at [facility] Groin REF [id number] / [id number] Angio-Seal Evolution Vascular Closure De vice [employer] #[id number] - [id number] Right: [employer] 09/10/2015 [id number] / Implanted: Qty: 1 on 07/06/2015 by Rubin Da Silva MD at [facility] Groin 0 / [id number] Angio-Seal Evolution Vascular Closure Device [employer] #[id number] - Sna Right: [employer] 03/12/2017 [id number] / Implanted: Qty: 1 on 07/01/2016 by Rubin Da Silva MD at [facility] Groin NA / [id number] documented as of this encounter Results Not on filedocumented in this encounter Additional Health Concerns Infection Onset Date Last Indicated Resolved Time COVID-19 Confirmed 10/15/2019 10/15/2019 documented as of this encounter Insurance Payer Benefit Plan / Subscriber ID Effective Phone Address T ype Group Dates [employer] [id number] 2015-Pres [address] [place] [id number] [place] [address] [facility] MEDICAID OF [id number] 2015-Pres [phone] [address] [facility] [id number] [place] [address] MEDICARE MEDICARE PART [id number] 2018-Pres [phone] [address] Medicare A & B ent [id number] [place] [id number] [facility] [place] [facility] [place] Effective for [place], all dates [place] documented as of this encounter
== END 2019-12-12 20:39 ==
LOC: ER 14:39
DX: J69.0 Pneumonitis due to inhalation of food and vomit (principal); E11.22 Type 2 diabetes mellitus with diabetic chronic kidney disease; N18.6 End stage renal disease; Z99.2 Dependence on renal dialysis
CPT/HCPCS: 96365; 96367; 93005; 87040 ×2; 85025; 80048; 36415; 83735; 85610; 80076; 84484; 82553; 83880; 70450; 71045; 82805; 99285; J0360 ×2